=== PATIENT | male | born 1960 | race Caucasian/White ===

== ENCOUNTER 2017-11-30 13:23 | Emergency (ER) | payer OTHER, SELFPAY ==
[2017-11-30 13:24] VITALS: BP 146/110; PULSE 75; RESP 18; TEMP 36.6; O2SAT 98; BMI 32.3
--- NOTE | 2017-11-30 13:28 | CT_ITS ---
CT head/brain wo con HISTORY: Headache, pain, laceration, contusion in the left frontal area ITS.REASON: trauma ORDERING PHYSICIAN: Joy Staley MD PATIENT AGE: 57 years COMPARISON: None TECHNIQUE: Axial images obtained without contrast. Brain and bone windows reviewed. FINDINGS: No midline shift, mass effect, or intracranial hemorrhage is evident. There is generalized atrophy with periventricular ischemic gliotic change. There is a dense lobular area of calcification in the left quadrigeminal plate cistern extending to the high medial area measuring approximately 16 x 10 mm and may be due to a calcified meningioma. In addition, there is a focus of coarse calcification in the right cerebellar hemisphere associated with some gliotic change. The calcified area measures 13 mm. No acute calvarial fracture. There is a retention cyst in the right maxillary sinus measuring 3 cm. IMPRESSION: 1. No acute intracranial finding. 2. Lobular calcification left quadrigeminal plate cistern and fine-needle region which may be due to a calcified meningioma. 3. 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 4. Consider outpatient MRI without and with contrast for further evaluation to better evaluate the above-mentioned findings
--- NOTE | 2017-11-30 13:28 | CT_ITS ---
CT cervical spine wo con INDICATION: Neck pain following injury ITS.REASON: trauma ORDERING PHYSICIAN: Joy Staley MD PATIENT AGE: 57 years COMPARISON: None TECHNIQUE: Axial images are obtained without contrast. Sagittal and coronal reformatted images are reviewed as well. FINDINGS: No acute fracture or dislocation. There is normal alignment. There is mild multilevel cervical spondylosis. C2-C3: Mild bulging disc. C3-C4: Small broad-based central disc protrusion. C4 C5: Unremarkable. C5-C6: Mild degenerative disc disease with atrophic by the minimal bulging disc. C6-C7: Mild degenerative disc disease with anterior osteophytes. IMPRESSION: 1. No acute fracture. 2. Cervical spondylosis with degenerative disc disease and bulging disc
--- NOTE | 2017-11-30 13:29 | HMH.EDFALL ---
ED Disposition Clinical Impression: Laceration of left eyebrow without complication, Fall, DJD (degenerative joint disease), cervical, Encephalomalacia, Encephalomalacia on imaging study Disposition: Home, Self-Care Condition on Discharge: Fair Additional Instructions: 1- wound care inst. 2- daily neosporin. 3- 2 days wound recehck. 4- 7 days stitches removal. 6- observe for redness to return. 7- head inj instructions. 8- follow up with pcp in am ro discuss his ct non emergent findings. . - Critical Care Critical Care Time: No Attestation: On , the high probability of a clinically significant, sudden or life threatening deterioration of the following system(s) required my full and direct attention, intervention and personal management. The time I documented below is in addition to time spent performing reported procedures but includes the following listed in this critical care notation. Medical Decision Making - Medical Records Medical records reviewed: Yes: I reviewed the patient's medical records. Vital Signs: 11/30/17 13:24 Temperature 97.8 F Temperature Source Oral Pulse Rate [Right Brachial] 75 Respiratory Rate 18 Blood Pressure [Right Arm] 146/110 Blood Pressure Mean [Right Arm] 122 Blood Pressure Source [Right Arm] Automatic Cuff Blood Pressure Position [Right Arm] Sitting 02 Sat by Pulse Oximetry 98 Oxygen Delivery Method Room Air - CT Data CT Scan: C-Spine Time Received: 14:[address] Reviewed: Yes: I have reviewed the patient's CT results, I have viewed the radiologist's interpretation Preliminary Findings: Abnormal (cervial djd and old cva encephalmalecia with no acute findings. ) - Jayce Inquiry Pt receiving controlled substance: No Jayce was queried for this patient: No Medical Decision Making Narrative: This is an addendum to the patient laceration. Underwent 1 stitche 5.0 Ethilon to the left eyebrow laceration. Was mentioned intravenously in the procedure section as two stitches. IMPRESSION: 1. No acute intracranial finding. 2. Lobular calcification left quadrigeminal plate cistern and fine-needle region which may be due to a calcified meningioma. 3. 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 4. Consider outpatient MRI without and with contrast for further evaluation to better evaluate the above-mentioned findings I reviewed the above report with the patient and gave him a copy to follow-up with his primary care physician. Fall HPI - General Chief Complaint: Fall Stated Complaint: fall w/head injury Mode of Arrival: EMS Limitations: No Limitations Description of Symptoms (Recalled from ER Triage Doc. by RN): fell while walking and landed on his left face - History of Present Illness HPI Narrative: 57 years old white male patient on no anticoagulation. [facility] when he tripped fell and hit his left eyebrow on the sidewalk with a result of laceration. Denies loss of consciousness or neck pain. bleeding stopped. MD complaint: fall Onset (ago): minute(s) (less than 30 minutes ago.) Fall from: walking Fall witnessed: yes, by bystander Loss of consciousness: none Prolonged down time: no Symptoms prior to fall: none Context: tripped/slipped Location of injury: face Severity: mild Associated symptoms (after fall): denies - Related Data Allergies Allergy/AdvReac Type Severity Reaction Status Date / Time NO KNOWN ALLERGIES - NKA Allergy Unknown Uncoded 10/22/17 14:02 [facility] History I have reviewed the patient's past medical history: Yes - *Social History Educational Level: Completed High School Smoking Status: Current every day smoker Alcohol Intake: never - Psychiatric History Expresses thoughts of harming self/others: None Suicide Plan Description: No Plan ROS Obtained: Yes All systems reviewed & no additional complaints Aura
--- NOTE | 2017-11-30 13:32 | ED_ITS ---
ED Disposition Clinical Impression: Laceration of left eyebrow without complication, Fall, DJD (degenerative joint disease), cervical, Encephalomalacia, Encephalomalacia on imaging study Disposition: Home, Self-Care Condition on Discharge: Fair Additional Instructions: 1- wound care inst. 2- daily neosporin. 3- 2 days wound recehck. 4- 7 days stitches removal. 6- observe for redness to return. 7- head inj instructions. 8- follow up with pcp in am ro discuss his ct non emergent findings. . - Critical Care Critical Care Time: No Attestation: On , the high probability of a clinically significant, sudden or life threatening deterioration of the following system(s) required my full and direct attention, intervention and personal management. The time I documented below is in addition to time spent performing reported procedures but includes the following listed in this critical care notation. Medical Decision Making - Medical Records Medical records reviewed: Yes: I reviewed the patient's medical records. Vital Signs: 11/30/17 13:24 Temperature 97.8 F Temperature Source Oral Pulse Rate [Right Brachial] 75 Respiratory Rate 18 Blood Pressure [Right Arm] 146/110 Blood Pressure Mean [Right Arm] 122 Blood Pressure Source [Right Arm] Automatic Cuff Blood Pressure Position [Right Arm] Sitting 02 Sat by Pulse Oximetry 98 Oxygen Delivery Method Room Air - CT Data CT Scan: C-Spine Time Received: 14:[address] Reviewed: Yes: I have reviewed the patient's CT results, I have viewed the radiologist's interpretation Preliminary Findings: Abnormal (cervial djd and old cva encephalmalecia with no acute findings. ) - Jayce Inquiry Pt receiving controlled substance: No Jayce was queried for this patient: No Medical Decision Making Narrative: This is an addendum to the patient laceration. Underwent 1 stitche 5.0 Ethilon to the left eyebrow laceration. Was mentioned intravenously in the procedure section as two stitches. IMPRESSION: 1. No acute intracranial finding. 2. Lobular calcification left quadrigeminal plate cistern and fine-needle region which may be due to a calcified meningioma. 3. 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 4. Consider outpatient MRI without and with contrast for further evaluation to better evaluate the above-mentioned findings I reviewed the above report with the patient and gave him a copy to follow-up with his primary care physician. Fall HPI - General Chief Complaint: Fall Stated Complaint: fall w/head injury Mode of Arrival: EMS Limitations: No Limitations Description of Symptoms (Recalled from ER Triage Doc. by RN): fell while walking and landed on his left face - History of Present Illness HPI Narrative: 57 years old white male patient on no anticoagulation. [facility] when he tripped fell and hit his left eyebrow on the sidewalk with a result of laceration. Denies loss of consciousness or neck pain. bleeding stopped. MD complaint: fall Onset (ago): minute(s) (less than 30 minutes ago.) Fall from: walking Fall witnessed: yes, by bystander Loss of consciousness: none Prolonged down time: no Symptoms prior to fall: none Context: tripped/slipped Location of injury: face Severity: mild Associated symptoms (aft
[2017-11-30 14:55] VITALS: PULSE 62; RESP 18; TEMP 36.8; O2SAT 98
== END 2017-11-30 14:55 | disposition home or self-care (01) ==
PROVIDERS: Emergency Provider Emergency Medicine
DX: S01.112A Laceration without foreign body of left eyelid and periocular area, initial encounter (principal); W01.198A Fall on same level from slipping, tripping and stumbling with subsequent striking against other object, initial encounter; Y93.01 Activity, walking, marching and hiking; M47.892 Other spondylosis, cervical region; G93.89 Other specified disorders of brain; F17.210 Nicotine dependence, cigarettes, uncomplicated
CPT/HCPCS: 12011; 70450; 72125; 99282

== ENCOUNTER → 2018-02-25 09:04 | Outpatient (CLI) | payer OTHER, SELFPAY ==
--- NOTE | 2018-02-25 09:07 | XR_ITS ---
XR wrist RT min 3V HISTORY pain, fracture ITS.REASON: RIGHT WRIST FRACTURE ORDERING PHYSICIAN: Fidel Arshad MD PATIENT AGE: 57 years COMPARISON: None FINDINGS: Nondisplaced longitudinal fracture involves the central aspect of the distal radius extending into the articular surface. No other abnormalities evident. IMPRESSION: Nondisplaced longitudinal fracture of the distal radius with intra-articular extension
== END ==
PROVIDERS: PCP Emergency Medicine; Visit Provider Orthopaedic Surgery
DX: S62.101A Fracture of unspecified carpal bone, right wrist, initial encounter for closed fracture (principal)
CPT/HCPCS: 73110

== ENCOUNTER 2018-03-05 13:03 | Outpatient (RCR) | payer OTHER, SELFPAY ==
--- NOTE | 2018-03-05 14:19 | HMH.PTOPWND ---
Rehab Outpt Wound Evaluation Rehab OP Wound Evaluation Start: 03/05/18 13:48 Freq: Status: Active Protocol: Document 03/05/18 13:48 PHOULICES (Rec: 03/05/18 14:19 PHORNE [id number]) Electronically Signed By Sander Cheema, PT 03/05/18 13:48 Subjective/History History History Pt presents ~ 3 wks S/P FOOSH with right longitudinal radius fx. Currently undergoing conservative management with volar splint in place. He presents with c/o continued pain and increased edema and ecchymsosis. He is a resident of a personal senior living. Lymphedema Eval Classification of Lymphedema Secondary Lymphedema Yes Skin Changes Taut, Shiny Skin Yes Discoloration of Skin Yes Pain Scale Pain Scale (0-10) 7 Affected Extremities Areas Affected by Lymphedema/Edema Right Upper Extremity Upper Extremity Measurements Right MCP Measurement (cm) 22.0 Web Space Measurement (cm) 24.2 Ulnar Styloid Process Measurement (cm) 21.5 10 cm Proximal to Ulnar Styloid 25.0 Measurement (cm) 20 cm Proximal to Ulnar Styloid 29.8 Measurement (cm) Manual Lymphatic Drainage Treatment Area MLD Treatment Area Right Upper Extremity Wound Problems/Impairments Impairments Problems/Impairmments Palpation Tenderness Impaired Range of Motion Impaired Strength Increased Edema Lymphedema Present Subjective C/O Pain Impaired Self Care/Self Management Prognosis Rehab Potential Good Clinical Impression Consistent with Diagnosis Yes Short Term Goals Number of Weeks 4 Decreased Palpation Tenderness Yes: to min Decrease Subjective C/O Pain Yes: 5/10 Patient to Understand Lymphedema Yes Treatment and Exercises Decrease Girth Measurments by (cm) Yes: by 5 cm Correction Goals Number of Weeks 8 Decreased Palpation Tenderness Yes: to none Decrease Subjective C/O Pain Yes: 3/10 Patient to Adhere Lymphedema Precautions Yes Decrease Girth Measurments by (cm) Yes: by 15 cm Outpatient Therapy Plan of Care Treatment Plan May Include Therapeutic Exercise Including Home Yes Exercise Program Manual Therapy Techniques Yes Neuromuscular Re-education Yes Electrical Stimulation Yes Orthotics/Bracing/Splinting Yes Massage Yes Manual Lymp
== END 2018-03-05 13:04 | disposition home or self-care (01) ==
LOC: PT 13:03
PROVIDERS: PCP Emergency Medicine; Visit Provider Orthopaedic Surgery
DX: S62.101A Fracture of unspecified carpal bone, right wrist, initial encounter for closed fracture (principal); R60.0 Localized edema
CPT/HCPCS: 97162

== ENCOUNTER → 2018-03-11 09:02 | Outpatient (CLI) | payer OTHER, SELFPAY ==
--- NOTE | 2018-03-11 09:04 | XR_ITS ---
XR wrist RT min 3V HISTORY follow-up fracture ITS.REASON: RT wrist fracture ORDERING PHYSICIAN: Fidel Arshad MD PATIENT AGE: 57 years COMPARISON: 02/25/2018 FINDINGS: The study is obtained through a splint. There is good alignment of the intra-articular fracture of the distal radius. Fracture line appears somewhat less distinct and may be due to early healing. IMPRESSION: Good alignment healing fracture distal radius
== END ==
PROVIDERS: PCP Emergency Medicine; Visit Provider Orthopaedic Surgery
DX: S62.101A Fracture of unspecified carpal bone, right wrist, initial encounter for closed fracture (principal)
CPT/HCPCS: 73110

== ENCOUNTER → 2018-04-08 13:33 | Outpatient (CLI) | payer OTHER, SELFPAY ==
--- NOTE | 2018-04-08 13:34 | XR_ITS ---
XR wrist RT min 3V HISTORY follow-up fracture ITS.REASON: RT wrist fx ORDERING PHYSICIAN: Fidel Arshad MD PATIENT AGE: 57 years Comparison: 03/11/2018 FINDINGS: There is good alignment of the distal radial fracture that has been previously described. Fracture lines are less visible consistent with healing. IMPRESSION: Healing distal radial fracture with good alignment
== END ==
PROVIDERS: PCP Emergency Medicine; Visit Provider Orthopaedic Surgery
DX: S52.501A Unspecified fracture of the lower end of right radius, initial encounter for closed fracture (principal)
CPT/HCPCS: 73110

== ENCOUNTER 2018-04-11 10:52 | Outpatient (RCR) | payer OTHER, SELFPAY | END 2018-04-11 10:53 | disposition home or self-care (01) | LOC: OT 10:52 | PROVIDERS: PCP Emergency Medicine; Visit Provider Orthopaedic Surgery | DX: S52.501A Unspecified fracture of the lower end of right radius, initial encounter for closed fracture (principal) ==

== ENCOUNTER 2018-05-27 10:00 | Outpatient (RCR) | payer OTHER, SELFPAY ==
--- NOTE | 2018-04-23 11:34 | HMH.OTOPEV ---
OT Inpatient Evaluation Rehab OT Outpatient Eval Start: 04/23/18 11:21 Freq: Status: Active Protocol: Document 04/23/18 11:21 RMARSHALMaria Del Carmen (Rec: 04/23/18 11:[address] [id number] Electronically Signed By Darryn Hill OT 04/23/18 11:21 Outpatient Therapy Subjective History Subjective History Pt is a 58 year old male who is seen this date for initial eval to right wrist. Pt reports he had a fall resulting in a right wrist fracture. Pt is from a personal prison, [facility] [address] . Pt reports he has no pain in the wrist. 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 Pt does have swelling at the MP joints on his right hand. Pt will continue to be seen in order to address these deficits. Chief Complaint Stiff Swelling Decreased Software Qa Manager Strength Decreased Coordination Symptom Type Other Symptoms Relieved By Nothing Symptoms Aggravated By Physical Activity Twisting Lifting Prior Functional Limitations None Current Functional Limitations Reaching Lifting Housework Dressing Driving Sleeping Standing Recreation Activity Symptom Description Activity Dependent Level of pain today (0-10) 0 Pain scale - at its best (0-10) 0 Pain scale - at its worst (0-10) 0 Wrist/Hand Eval Wrist Range of Motion Wrist Limitations of Range of Motion Muscle Weakness Wrist Extension Active Range of Motion ( 24 degrees degrees) Wrist Flexion Active Range of Motion ( 48 degrees degrees) Wrist Radial Deviation Active Range of 22 degrees Motion (degrees) Wrist Ulnar Deviation Active Range of 22 degrees Motion (degrees) Wrist Manual Muscle Testing Right Wrist Extension Strength Grade 4- Good- Wrist Flexion Strength Grade 4- Good- Wrist Radial Deviation Strength Grade 4- Good- Wrist Ulnar Deviation Strength Grade 4- Good- Forearm Supination Strength Grade 3+ Fair+ Forearm Pronation Strength Grade 3+
== END 2018-05-27 10:01 | disposition home or self-care (01) ==
LOC: OT 10:00
PROVIDERS: PCP Emergency Medicine; Visit Provider Orthopaedic Surgery
DX: S52.501A Unspecified fracture of the lower end of right radius, initial encounter for closed fracture (principal)
CPT/HCPCS: 97110; 97140; 97166

== ENCOUNTER 2019-09-30 19:31 | Observation (INO) ==
[2019-09-30 19:49] LABS: Basophils % 0.5 % (0.1-2.0); Eosinophils # 0.1 K/mm3 (0.0-0.4); Hemoglobin 16.5 g/dL (14.1-18.0); Lymphocytes % 11.8 % (10-50); Mean Corpuscular HGB Conc 32.2 g/dL (31.8-35.4); Mean Platelet Volume 9.9 fl (7.4-10.4); Monocytes # 0.6 K/mm3 (0.1-1.0); Monocytes % 6.8 % (1.7-9.3); Neutrophils # 6.7 K/mm3 (1.8-7.8); Neutrophils % 80.1 % (37.0-80.0); Platelet Count 162 K/mm3 (142-424); Red Blood Count 5.55 M/mm3 (4.60-6.20); Red Cell Distribution Width 13.9 % (11.5-17.5); White Blood Count 8.3 K/mm3 (4.8-10.8)
[2019-09-30 19:58] LABS: Microscopic, Urine URINE MICROSCOPIC (MICROSCOPIC)
[2019-09-30 20:00] LABS: Appearance,Urine CLEAR (Clear); Bilirubin,Urine Negative (Negative); Blood, Urine Negative (Negative); Color,Urine YELLOW (Yellow); Glucose,Urine (UA) Negative (Negative); Ketones,Urine Negative (Negative); Leukocyte Esterase,Urine Negative (Negative); Protein,Urine Negative (Negative); Urobilinogen,Urine 0.2 EU/dl (0.2)
[2019-09-30 20:04] LABS: Alanine Aminotransferase 17 U/L (12-78); Albumin Level 3.6 gm/dL (3.4-5.0); Alkaline Phosphatase 95 U/L (46-116); Anion Gap 16.8 mEq/L (5-15); Aspartate Amino Transferase 10 U/L (15-37); Bilirubin,Total 0.5 mg/dL (0.2-1.0); Blood Urea Nitrogen 15 mg/dL (7-18); C-Reactive Protein 1.1 mg/dL (0.0-0.9); Calcium 8.6 mg/dL (8.5-10.1); Carbon Dioxide 26 mmol/L (21.0-32.0); Chloride 100 mmol/L (98-107); Globulin 3.7 gm/dl (1.3-3.2); Glucose 163 mg/dL (74-106); Sodium 139 mmol/L (136-145); Total Protein,Serum 7.3 gm/dL (6.4-8.2)
[2019-09-30 20:10] LABS: Bacteria,Urine Trace /lpf; Squamous Epithelial Cell,Urine Occasional #/hpf (0-5); WBC,Urine Occasional #/hpf (0-3)
[2019-09-30 20:47] LABS: Erythrocyte Sedimentation Rate 6 mm/hr (0-20)
--- NOTE | 2019-09-30 21:21 | Emergency Department Note ---
ED Disposition Clinical Impression: Acute delirium, Febrile illness, acute, RBBB, SIRS (systemic inflammatory response syndrome), Anxiety Schizophrenia Qualifiers: Schizophrenia type: unspecified Qualified Code(s): F20.9 - Schizophrenia, unspecified Hypothyroidism Qualifiers: Hypothyroidism type: acquired Qualified Code(s): E03.9 - Hypothyroidism, unspecified Disposition: Admitted as Observation Condition on Discharge: Serious - Critical Care Critical Care Time: No Attestation: On 09/30/19, the high probability of a clinically significant, sudden or life threatening deterioration of the following system(s) required my full and direct attention, intervention and personal management. The time I documented below is in addition to time spent performing reported procedures but includes the following listed in this critical care notation. Medical Decision Making - Medical Records Medical records reviewed: Yes: I reviewed the patient's medical records. - Jayce Inquiry Pt receiving controlled substance: No Vital Signs: 09/30/19 19:32 09/30/19 19:59 09/30/19 21:07 Temperature 101 F H 102.1 F H 100.8 F H Temperature Source Oral Rectal Oral Pulse Rate Pulse Rate [Right Brachial] 108 H 105 H Respiratory Rate 22 18 Blood Pressure [Right Arm] 139/81 145/94 H Blood Pressure Mean [Right Arm] 100 111 Blood Pressure Source [Right Arm] Automatic Cuff Automatic Cuff Blood Pressure Position [Right Arm] Sitting Sitting 02 Sat by Pulse Oximetry 93 L 92 L Oxygen Delivery Method Room Air Room Air 09/30/19 21:48 Temperature Temperature Source Pulse Rate 105 H Pulse Rate [Right Brachial] Respiratory Rate Blood Pressure [Right Arm] Blood Pressure Mean [Right Arm] Blood Pressure Source [Right Arm] Blood Pressure Position [Right Arm] 02 Sat by Pulse Oximetry 93 L Oxygen Delivery Method Room Air - Lab Data Lab results reviewed: Yes: I reviewed the patient's lab results. Lab Results 09/30/19 19:33: Lactate 2.0 09/30/19 19:33: TSH 1.89, Thyroxine (T4) 6.4 09/30/19 19:35: WBC 8.3, RBC 5.55, Hgb 16.5, Hct 51.0, MCV 92.0, MCH 29.7, MCHC 32.2, RDW 13.9, Plt Count 162, MPV 9.9, Neut % (Auto) 80.1 H, Lymph % (Auto) 11.8, [place] % (Auto) 6.8, Eos % (Auto) 1.0, Baso % (Auto) 0.5, Neut # (Auto) 6.7, Lymph # (Auto) 1.0, [place] # (Auto) 0.6, Eos # (Auto) 0.1, Baso # (Auto) 0.0, ESR 6 09/30/19 19:35: Sodium 139, Potassium 3.8, Chloride 100, Carbon Dioxide 26, Anion Gap 16.8 H, BUN 15, Creatinine 1.29, Estimated Creat Clear 104, Estimated GFR 57 L, Est GFR ( Amer) 69, Glucose 163 H, Calcium 8.6, Total Bilirubin 0.5, AST 10 L, ALT 17, Alkaline Phosphatase 95, Troponin I < 0.02, C-Reactive Protein 1.1 H, Total Protein 7.3, Albumin 3.6, Globulin 3.7 H, Albumin/Globulin Ratio 1.0 L 09/30/19 19:42: POC Glucose 170 H 09/30/19 19:54: Urine Color Yellow, Urine Appearance Clear, Urine pH 7.0, Ur Specific [place] 1.010, Urine Protein Negative, Urine Glucose (UA) Negative, Urine Ketones Negative, Urine Blood Negative, Urine Nitrate Negative, Urine Bilirubin Negative, Urine Urobilinogen 0.2, Ur Leukocyte Esterase Negative, Urine WBC Occasional, Ur Squamous Epith Cells Occasional, Urine Bacteria Trace 09/30/19 20:30: Influenza Type A Ag Negative, Influenza Type B Ag Negative Result diagrams: 09/30/19 19:35 09/30/19 19:35 Orders (Tests/Meds): ED MEDICATIONS Generic Name Dose Route Start Last Admin Trade Name Freq PRN Reason Stop Dose Admin Ceftriaxone Sodium 1 gm/ 50 mls @ 100 mls/hr 09/30/19 21:30 09/30/19 21:34 Sodium Chloride IV 10/14/19 21:29 100 mls/hr Q24H MICKEY Administration Protocol Azithromycin 500 mg/ Sodium 250 mls @ 250 mls/hr 09/30/19 21:30 09/30/19 22:27 Chloride IV 10/14/19 21:29 250 mls/hr Q24H MICKEY Administration Protocol Sodium Chloride 3 ml 09/30/19 21:26 Sodium Chloride 3% 15ml Neb IH 10/30/19 21:25 ONCE PRN INDUCE SPUTUM COLLECTION Discontinued Medications Generic Name Dose Route Start Last Admin Trade Name Sabas PRN Reason Stop Dose Admin Acetaminophen 1,000 mg 09/30/19 19:59 09/30/19 20:15 Tylenol 500mg Tablet PO 09/30/19 20:00 1,000 mg ONCE ONE Administration Albuterol Sulfate 2.5 mg 09/30/19 21:26 09/30/19 21:47 Albuterol 0.083% 2.5mg/3ml Neb IH 09/30/19 21:27 2.5 mg ONCE ONE Administration ORDERS Category Date Time Status CT head/brain wo con Stat Cat Scan 09/30/19 19:57 Taken Troponin I Q3H Lab 09/30/19 22:45 Ordered Troponin I Q3H Lab 10/01/19 01:45 Ordered Blood Culture Stat Micro 09/30/19 19:33 Received Sputum Culture & Gram Stain Stat Micro 09/30/19 21:26 Ordered - Radiology Data #1 Image(s): Chest Image Reviewed: Yes I reviewed the patient's radiology image Preliminary Findings: Abnormal - CT Data CT Scan: Head, Abdomen, Pelvis Time Received: 21:[address] Reviewed: Yes: I have viewed the radiologist's interpretation Preliminary Findings: Abnormal (chronic changes ) - ECG Data Tracing #1 Arrhythmias present: sinus tach Ischemic changes: non-specific ST-T wave changes Conduction abnormalities present: RBBB Altered Mental Status HPI - General Chief Complaint: Altered Mental Status Stated Complaint: AMS; SHAKING AND SWEATING Time Seen by Provider: 09/30/19 20:10 Mode of Arrival: EMS Source of Information: Patient, EMS, Medical Record Limitations: No Limitations Description of Symptoms (Recalled from ER Triage Doc. by RN): PATIENT PRESENTS TO TRAUMA 4 VIA EMS FROM [facility] C/O AMS, SHAKING AND DIAPHORESIS. EMS REPORT PATIENT HAD "SOILED HIMSELF." REPORTS HE TOOK A SHOWER AND AFTER HIS SHOWER, HE WAS REALLY SWEATY, SHAKING, AND "NOT ACTING LIKE HIMSELF." PATIENT IS ALERT BUT ONLY ORIENTED TO HIMSELF UPON ARRIVAL. [facility] AND EMS REPORT PATIENT IS TYPICALLY A/OX4. DENIES ANY KNOWN INJURY. - History of Present Illness HPI narrative: pt from [facility] with shaking and fever with some cough who presents for eval in ed -with confusion - MD complaint: altered mental status, confusion, weakness Onset (ago): hour(s) Timing confirmed by: caregiver Severity: moderate Context: recent fever Associated symptoms: denies other symptoms - Related Data Home Medications Medication Instructions Recorded Confirmed acetaminophen 500 mg capsule 500 mg PO Q6H PRN 02/25/18 09/30/19 bisacodyl 5 mg tablet 5 mg PO ONCE 02/25/18 09/30/19 clonazepam 1 mg tablet 1 mg PO QHS 02/25/18 09/30/19 divalproex 500 mg tablet,delayed 500 mg PO BID 02/25/18 09/30/19 release haloperidol 10 mg tablet 10 mg PO BID 02/25/18 09/30/19 lactulose 10 gram/15 mL oral 10 g PO ONCE 02/25/18 09/30/19 solution levothyroxine 100 mcg capsule 100 mcg PO ONCE 02/25/18 09/30/19 omega-3 fatty acids 1,000 mg 1,000 mg PO ONCE 02/25/18 09/30/19 capsule quetiapine 400 mg tablet 400 mg PO ONCE 02/25/18 09/30/19 risperidone 1 mg tablet 1 mg PO ONCE 02/25/18 09/30/19 LORazepam [Ativan 1mg tablet] 1 mg PO Q8H PRN 09/30/19 09/30/19 OXcarbazepine [Oxcarbazepine] 300 mg PO BID 09/30/19 09/30/19 Allergies Allergy/AdvReac Type Severity Reaction Status Date / Time NO KNOWN ALLERGIES - NKA Allergy Unknown Uncoded 04/08/18 13:45 [facility] History - Hepatitis A Screen Drug use history?: No High risk sexual behaviors?: No History of sexually transmitted infection?: No Currently employed?: No Childcare worker?: No Do you have indoor plumbing?: Yes Do you have electricity?: Yes Attestation statement:: This patient has been screened for Hepatitis A risk factors. I have reviewed the patient's past medical history: Yes Medical History: Reports:: Anxiety Other Medical History: Reports: Hypothyroidism Comment: Schizoaffective Other Surgeries: Yes: No Previous Surgery Fractures: Yes - Social History Smoking Status: Current every day smoker Tobacco Type: cigarettes # Packs/Day (cigarettes): 1 Alcohol Intake: never Substance Use Type: denies use Occupational Status: disabled Housing: assisted living facility Household Members: caregiver - Psychiatric History Pschychiatric History:: Reports:: Anxiety Family Hx:: Unable to obtain ROS Obtained: Yes All systems reviewed & no additional complaints - Constitutional Constitutional: Reports as per HPI, Reports fever(s), Reports weakness - Eyes Eyes: Denies change in vision - ENT Ears, Nose, Mouth, and Throat: Denies dizziness, Denies sore throat - Cardiovascular Cardiovascular: Denies chest pain, Denies dyspnea - Respiratory Respiratory: Yes as per HPI, Yes cough, Yes non-productive cough, No coughing up blood - Gastrointestinal Gastrointestingal: Denies: abdominal pain, diarrhea, nausea, vomiting - Genitourinary Male Genitourinary: Denies hematuria - Musculoskeletal Musculoskeletal: Denies joint pain, Denies joint swelling - Integumentary/Breasts Skin/Breast: Denies rash - Neurologic Neurologic: Reports as per HPI, Denies focal weakness, Denies headache(s), Denies seizure-like activity, Reports weakness Physical Exam - General General appearance: alert, obese - Head Head exam: normocephalic - Eye Eye exam: Present: PERRL, EOMI. Absent: scleral icterus - ENT ENT exam: Present: mucous membranes dry - Neck Neck exam: Present: trachea midline - Respiratory Respiratory exam: Present: other (rhonchi). Absent: respiratory distress - Cardiovascular Cardiovascular exam: Present: regular rate, systolic murmur, +S4 - Abdominal Exam Abdominal exam: Present: soft. Absent: tenderness, guarding - Extremities Exam Extremities exam: Absent: calf tenderness - Neurological Exam Neurological exam: Present: alert, oriented X3, CN II-XII intact - Psychiatric Psychiatric exam: Absent: normal affect - Skin Skin exam: Absent: rash
[2019-09-30 22:05] LABS: Thyroid Stimulating Hormone 1.89 uIU/ml (0.358-3.740)
[2019-10-01 06:29] LABS: Anion Gap 12.6 mEq/L (5-15)
[2019-10-01 06:54] LABS: Calcium 7.6 mg/dL (8.5-10.1)
[2019-10-01 06:58] LABS: Eosinophils % 0.6 % (0.1-12.0); Hematocrit 48.6 % (42.0-52.0); Hemoglobin 14.9 g/dL (14.1-18.0); Lymphocytes % 10.9 % (10-50); Mean Corpuscular HGB Conc 30.7 g/dL (31.8-35.4); Mean Corpuscular Volume 93.7 fl (80-94); Mean Platelet Volume 9.7 fl (7.4-10.4); Monocytes % 7.7 % (1.7-9.3); Neutrophils % 80.5 % (37.0-80.0); Platelet Count 135 K/mm3 (142-424); Red Blood Count 5.18 M/mm3 (4.60-6.20); Red Cell Distribution Width 14.2 % (11.5-17.5); White Blood Count 6.5 K/mm3 (4.8-10.8)
[2019-10-01 06:59] LABS: Basophils % 0.4 % (0.1-2.0); Lymphocytes # 0.7 K/mm3 (0.7-4.5); Monocytes # 0.5 K/mm3 (0.1-1.0); Neutrophils # 5.2 K/mm3 (1.8-7.8)
--- NOTE | 2019-10-01 08:20 | Pharmacy Consult Notes ---
[facility] Pharmacy VTE Monitoring - Patient Demographics Admission date: 10/01/19 Report Date: 10/01/19 Time: 08:19 Height: 1.83 m Weight: 100.896 kg Patient Problems: Current Active Problems Acute delirium (Acute) Febrile illness, acute (Acute) RBBB (Acute) SIRS (systemic inflammatory response syndrome) (Acute) Schizophrenia (Acute) Hypothyroidism (Acute) Anxiety (Acute) - VTE Risk Labs: VTE Related Lab Results Hgb 14.9 g/dL (14.1-18.0) 10/01/19 05:50 Hct 48.6 % (42.0-52.0) 10/01/19 05:50 Plt Count 135 K/mm3 (142-424) L 10/01/19 05:50 BUN 18 mg/dL (7-18) 10/01/19 05:50 Creatinine 1.06 mg/dL (0.70-1.30) 10/01/19 05:50 Estimated Creat Clear 108 mL/min (50-200) 10/01/19 05:50 Was VTE Risk Assessment Performed: Yes VTE Score: 2 VTE Risk Level: Very Low Risk - Prophylaxis VTE Prophylaxis Ordered?: Yes Types of VTE Prophylaxis: TEDS Knee High Location of Applied Device: Bilateral Lower Extremeties
--- NOTE | 2019-10-01 08:24 | History & Physical Report ---
*Admission Date: 10/01/19 *Chief complaint: confusion *History of present illness: [facility] and had onset of fever and confusion with no rash and occ cough and loose stool - pt with no chest pain [facility] History I have reviewed the patient's past medical history: Yes Medical History: Reports:: Anxiety Denies:: Cancer, Diabetes Mellitus Type 1, Diabetes Mellitus Type 2, MRSA *Have you ever received a pneumonia vaccine?: No *Have you received a flu vaccine this season?: No Other Medical History: Reports: Hypothyroidism Other Surgeries: Yes: No Previous Surgery Amputation: No Fractures: Yes - *Social History Educational Level: Attended Grade School Smoking Status: Current every day smoker Tobacco Type: cigarettes # Packs/Day (cigarettes): 1 Alcohol Intake: never Substance Use Type: denies use *Occupational Status:: disabled Housing: assisted living facility Household Members: caregiver *Travel in the last 8 weeks: None - Psychiatric History Pschychiatric History:: Reports:: Anxiety Family Hx:: Unable to obtain Review of Systems - Review of Systems Review of systems:: pertinent systems reviewed and negative unless documented below - Constitutional Reports weakness, Denies headache(s) - Eyes Denies change in vision - ENT Reports dry mouth - *Cardiovascular Denies shortness of breath - *Respiratory Reports cough, Denies shortness of breath - *Gastrointestinal Reports loose stools, Reports nausea, Denies abdominal pain - *Genitourinary Denies urinary frequency - *Musculoskeletal Denies joint pain - Integumentary/Breasts Denies rash - *Neurologic Reports weakness, Denies dizziness, Denies localized weakness, Denies headache(s), Denies seizure-like activity - Psychiatric Reports confusion Meds Home Medications Medication Instructions Recorded Confirmed Type bisacodyl 5 mg tablet 5 mg PO DAILY 02/25/18 10/01/19 History clonazepam 1 mg tablet 1 mg PO BID 02/25/18 10/01/19 History divalproex 500 mg tablet,delayed 500 mg PO BID 02/25/18 10/01/19 History release lactulose 10 gram/15 mL oral 30 ml PO DAILY 02/25/18 10/01/19 History solution levothyroxine 100 mcg capsule 100 mcg PO DAILY 02/25/18 10/01/19 History omega-3 fatty acids 1,000 mg 1,000 mg PO BID 02/25/18 10/01/19 History capsule quetiapine 400 mg tablet 400 mg PO BID 02/25/18 10/01/19 History risperidone 1 mg tablet 4 mg PO BID 02/25/18 10/01/19 History LORazepam [Ativan 1mg tablet] 1 mg PO Q8H PRN 09/30/19 09/30/19 History OXcarbazepine [Oxcarbazepine] 300 mg PO BID 09/30/19 10/01/19 History Acetaminophen [Acetaminophen Extra 500 mg PO Q6HP PRN 10/01/19 10/01/19 History Strength] Haloperidol [Haldol 5mg tablet] 10 mg PO TID 10/01/19 10/01/19 History Exam Vital signs and Labs for Last 24 Hours: Temp Pulse Resp BP Pulse Ox 99.3 F 63 19 165/98 H 94 L 10/01/19 07:29 10/01/19 07:29 10/01/19 07:29 10/01/19 07:29 10/01/19 07:29 Laboratory Results - last 24 hr 09/30/19 19:33: Lactate 2.0 09/30/19 19:33: TSH 1.89, Thyroxine (T4) 6.4 09/30/19 19:35: WBC 8.3, RBC 5.55, Hgb 16.5, Hct 51.0, MCV 92.0, MCH 29.7, MCHC 32.2, RDW 13.9, Plt Count 162, MPV 9.9, Neut % (Auto) 80.1 H, Lymph % (Auto) 11.8, [place] % (Auto) 6.8, Eos % (Auto) 1.0, Baso % (Auto) 0.5, Neut # (Auto) 6.7, Lymph # (Auto) 1.0, [place] # (Auto) 0.6, Eos # (Auto) 0.1, Baso # (Auto) 0.0, ESR 6 09/30/19 19:35: Sodium 139, Potassium 3.8, Chloride 100, Carbon Dioxide 26, Anion Gap 16.8 H, BUN 15, Creatinine 1.29, Estimated Creat Clear 104, Estimated GFR 57 L, Est GFR ( Amer) 69, Glucose 163 H, Calcium 8.6, Total Bilirubin 0.5, AST 10 L, ALT 17, Alkaline Phosphatase 95, Troponin I < 0.02, C-Reactive Protein 1.1 H, Total Protein 7.3, Albumin 3.6, Globulin 3.7 H, Albumin/Globulin Ratio 1.0 L 09/30/19 19:42: POC Glucose 170 H 09/30/19 19:54: Urine Color Yellow, Urine Appearance Clear, Urine pH 7.0, Ur Specific [place] 1.010, Urine Protein Negative, Urine Glucose (UA) Negative, Urine Ketones Negative, Urine Blood Negative, Urine Nitrate Negative, Urine Bilirubin Negative, Urine Urobilinogen 0.2, Ur Leukocyte Esterase Negative, Urine WBC Occasional, Ur Squamous Epith Cells Occasional, Urine Bacteria Trace 09/30/19 20:30: Influenza Type A Ag Negative, Influenza Type B Ag Negative 09/30/19 22:49: Troponin I < 0.02 10/01/19 05:50: WBC 6.5, RBC 5.18, Hgb 14.9, Hct 48.6, MCV 93.7, MCH 28.8, MCHC 30.7 L, RDW 14.2, Plt Count 135 L, MPV 9.7, Neut % (Auto) 80.5 H, Lymph % (Auto) 10.9, [place] % (Auto) 7.7, Eos % (Auto) 0.6, Baso % (Auto) 0.4, Neut # (Auto) 5.2, Lymph # (Auto) 0.7, [place] # (Auto) 0.5, Eos # (Auto) 0.0, Baso # (Auto) 0.0 10/01/19 05:50: Sodium 141, Potassium 3.6, Chloride 104, Carbon Dioxide 28, Anion Gap 12.6, BUN 18, Creatinine 1.06, Estimated Creat Clear 108, Estimated GFR 72, Est GFR ( Amer) 87 D, Glucose 150 H, Calcium 7.6 L D I & O for Last 24 hours: Intake & Output 09/28/19 09/29/19 09/30/19 10/01/19 11:59 11:59 11:59 11:59 Intake Total 771 / 771 Output Total 300 / 300 Balance 471 / 471 Weight 222 lb 7 oz - Constitutional no acute distress, obese - *Routine HEENT Exam Head: Present: normocephalic Eye: Present: EOMI, PERRL. Absent: conjunctival icterus ENT: Present: mucous membranes dry - *Routine Neck Exam Present: supple. Absent: JVD - *Routine Respiratory Exam Present: rhonchi - *Routine Cardiovascular Exam Present: RRR, murmur - *Routine Abdominal Exam Present: soft - *Routine Extremities Exam Absent: calf tenderness - *Routine Skin Exam Present: intact - *Routine Neurological Exam Present: CN II-XII intact, altered mental status - Routine Psychiatric Exam Present: anxious. Absent: good insight Assessment and Plan (1) Obesity (BMI 30.0-34.9) Current visit: Yes Status: Acute Category: Medical Code(s): E66.9 - Obesity, unspecified (2) Acute delirium Current visit: Yes Status: Acute Category: Medical Code(s): R41.0 - Disorientation, unspecified (3) Febrile illness, acute Current visit: Yes Status: Acute Category: Medical Code(s): R50.9 - Fever, unspecified (4) RBBB Current visit: Yes Status: Acute Category: Medical Code(s): I45.10 - Unspecified right bundle-branch block (5) SIRS (systemic inflammatory response syndrome) Current visit: Yes Status: Acute Category: Medical Code(s): R65.10 - Systemic inflammatory response syndrome (SIRS) of non-infectious origin without acute organ dysfunction (6) Schizophrenia Current visit: Yes Status: Acute Qualifiers: Schizophrenia type: unspecified Qualified Code(s): F20.9 - Schizophrenia, unspecified Category: Medical Code(s): F20.9 - Schizophrenia, unspecified (7) Hypothyroidism Current visit: Yes Status: Acute Qualifiers: Hypothyroidism type: acquired Qualified Code(s): E03.9 - Hypothyroidism, unspecified Category: Medical Code(s): E03.9 - Hypothyroidism, unspecified (8) Anxiety Current visit: Yes Status: Acute Category: Medical Code(s): F41.9 - Anxiety disorder, unspecified (9) Tobacco use Current visit: Yes Status: Acute Category: Medical Code(s): Z72.0 - Tobacco use
--- NOTE | 2019-10-02 11:40 | Electrocardiograph Report ---
APPROVED REPORT Exam: Resting ECG HR:108 bpm ECG Measurements Heart Rate 108 AXES VA 152 P 60 QRSd 130 QRS 45 QT 374 T49 QTc 501 <Conclusion> Sinus tachycardia Right bundle branch block Abnormal ECG Electronically signed by : Timi De Leon, 10/02/2019 11:40:35
--- NOTE | 2019-10-02 11:52 | Discharge Summary ---
General - General Admission date:: 10/01/19 Discharge date: 10/02/19 HPI HPI: this pt lives [facility] and had onset of fever and confusion with no rash and occ cough and loose stool - pt with no chest pain Hospital Course Hospital Course: pt has did well with ivf and had stool consistent with norovirus - pt has been tolerating diet and has baseline activity - pt with stable vs and labs and will d/c to [facility] today Objective Vital signs: Temp Pulse Resp BP Pulse Ox 99.9 F H 90 17 133/77 94 L 10/02/19 08:00 10/02/19 08:00 10/02/19 08:00 10/02/19 08:00 10/02/19 08:00 no acute distress - *Routine HEENT Exam Head: Present: normocephalic Eye: Present: EOMI, PERRL ENT: Present: mucous membranes moist - *Routine Neck Exam Present: supple. Absent: JVD - *Routine Cardiovascular Exam Present: RRR. Absent: murmur - *Routine Abdominal Exam Present: soft - *Routine Extremities Exam Present: full ROM - *Routine Skin Exam Present: intact - *Routine Neurological Exam Present: alert, CN II-XII intact - Routine Psychiatric Exam Present: normal affect Results Labs on day of discharge: Labs from last 24 hours 10/01/19 11:39 Stl Aeromonas (PCR) Not detected Stl C. cayetanensis PCR Not detected Stool Rotavirus (PCR) Not detected Stl Adenov F 40/41 PCR Not detected Stool Astrovirus (PCR) Not detected Stool Campylobacter PCR Not detected Stl C.difficile Tox PCR Not detected Stool Cryptosporidium PCR Not detected Stl E.coli Shiga Tox PCR Not detected Stool E coli O157 PCR Not detected Stl Enterotoxigenic E PCR Not detected Stool EPEC (PCR) Not detected Stool EAEC (PCR) Not detected Stl E. histolytica PCR Not detected Stool Giardia Lamblia PCR Not detected Stool Salmonella PCR Not detected Stool Sapovirus (PCR) Not detected Stl P. shigelloides PCR Not detected Stl Shigella/EIEC PCR Not detected St Y.enterocolitica PCR Not detected Stool Vibrio (PCR) Not detected Stl Vibrio cholerae PCR Not detected Stl Norovirus GI/GII PCR Detected A DS: Diagnosis - Discharge Diagnosis (1) Obesity (BMI 30.0-34.9) Status: Acute (2) Acute delirium Status: Acute (3) Febrile illness, acute Status: Acute (4) RBBB Status: Acute (5) SIRS (systemic inflammatory response syndrome) Status: Acute (6) Schizophrenia Status: Acute (7) Hypothyroidism Status: Acute (8) Anxiety Status: Acute (9) Tobacco use Status: Acute (10) Enteritis due to Norovirus Status: Acute Discharge Plan - Patient Discharge Instructions ACTIVITY: Continue current activity DIET: continue same diet Patient Instructions: Norovirus Infection, DI for Fever (Symptom) -- Adult, DI for Norovirus Infection - Follow up Plan Disposition: Home, Self-Retirement Medications: Home Medications Medication Instructions Recorded Confirmed Type bisacodyl 5 mg tablet 5 mg PO DAILY 02/25/18 10/01/19 History clonazepam 1 mg tablet 1 mg PO BID 02/25/18 10/01/19 History divalproex 500 mg tablet,delayed 500 mg PO BID 02/25/18 10/01/19 History release lactulose 10 gram/15 mL oral 30 ml PO DAILY 02/25/18 10/01/19 History solution levothyroxine 100 mcg capsule 100 mcg PO DAILY 02/25/18 10/01/19 History omega-3 fatty acids 1,000 mg 1,000 mg PO BID 02/25/18 10/01/19 History capsule quetiapine 400 mg tablet 400 mg PO BID 02/25/18 10/01/19 History risperidone 1 mg tablet 4 mg PO BID 02/25/18 10/01/19 History LORazepam [Ativan 1mg tablet] 1 mg PO Q8H PRN 09/30/19 09/30/19 History OXcarbazepine [Oxcarbazepine] 300 mg PO BID 09/30/19 10/01/19 History Acetaminophen [Acetaminophen Extra 500 mg PO Q6HP PRN 10/01/19 10/01/19 History Strength] Haloperidol [Haldol 5mg tablet] 10 mg PO TID 10/01/19 10/01/19 History Prescriptions/Medication Reconciliation: Continued clonazepam 1 mg tablet 1 mg PO BID bisacodyl 5 mg tablet 5 mg PO DAILY divalproex 500 mg tablet,delayed release 500 mg PO BID levothyroxine 100 mcg capsule 100 mcg PO DAILY quetiapine 400 mg tablet 400 mg PO BID risperidone 1 mg tablet 4 mg PO BID omega-3 fatty acids 1,000 mg capsule 1,000 mg PO BID OXcarbazepine [Oxcarbazepine] 300 mg PO BID Acetaminophen [Acetaminophen Extra Strength] 500 mg PO Q6HP PRN PRN Reason: FEVER/PAIN Haloperidol [Haldol 5mg tablet] 10 mg PO TID Discontinued lactulose 10 gram/15 mL oral solution 30 ml PO DAILY LORazepam [Ativan 1mg tablet] 1 mg PO Q8H PRN PRN Reason: Anxiety - Problem Reconciliation Problems Reviewed?: Yes
--- OUTSIDE RECORDS SUMMARY | 2019-10-02 15:02 | External Medical Summary | Continuity of Care Document ---
:1960 Author Organization [facility] Address [address] [facility] [address] PRASANNA [place] Phone Care Team Providers Name Role Phone Renee De Primary Care Provider Renee De Attending Provider Allergies, Adverse Reactions, Alerts No known allergies. Medications Medication Status Dose Units Route Sig Qty Days Start End Instruct ions Date Date Clonazepam Active 1 MG Oral Twice a February 9:52am Bisacodyl Active 5 MG Oral Daily February 25, 2018 9:52am Divalproex Active 500 MG Oral Twice a February 9:53am Hatch-3 Fatty Active 1000 MG Oral Twice a February Acids 2017 9:53am Levothyroxine Active 100 MCG Oral Daily February 9:54am Quetiapine Active 400 MG Oral Twice a February 9:54am Risperidone Active 4 MG Oral Twice a February 9:54am Oxcarbazepine Active 300 MG Oral Twice a September 8:02pm Acetaminophen Active 500 MG Oral Every 6 September hours , as 2019 needed 12:16am Haloperidol Active 10 MG Oral Three September times a 2018 12:23am Problems Active Problems Medical Problem Onset Date Status Encephalomalacia on imaging study Active Enteritis due to Norovirus Active Encephalomalacia Active Acute delirium Active Anxiety Active RBBB Active Laceration of left eyebrow without Activ e complication Hypothyroidism Active SIRS (systemic inflammatory response Act amaury syndrome) Obesity (BMI 30.0-34.9) Active Schizophrenia Active DJD (degenerative joint disease), Active cervical Tobacco use Active Fall Active Febrile illness, acute Active Procedures Procedure Date Performed Status XR chest 2V September 30, [address] head/brain wo con September 30, 2019 completed ECG initial Moises September 30, [address] abdomen pelvis wo con September 30, 2019 completed Blood Culture September 30, 2019 active Relevant Diagnostic Tests and/or Laboratory Data Laboratory Results Test Date/Time Result Interpretation Reference Result Perfo rming Range Comment Site White Blood September 6.5 K/mm3 4.8-10.8 [facility], [address] [place] [address] E Count 2018 Tamiko MIMS 93383 5:50am Red Blood September 5.18 M/mm3 4.60-6.20 [facility], [address] [place] [address] E Count 2018 Tamiko MIMS 60738 5:50am Hemoglobin September 14.9 g/dL 14.1-18.0 [facility], [address] [place] [address] E 2018 Tamiko MIMS 78699 5:50am Hematocrit September 48.6 % 42.0-52.0 [place] [address] E 2018 Tamiko MIMS 99951 5:50am Mean September 93.7 fl 80-94 [facility], [address] [place] [address] E Corpuscular 2018 Isamar MIMS 65794 Volume 5:50am Mean September 28.8 pg 27.0-31.2 [facility], [address] [place] [address] E Corpuscular 2018 Isamar MIMS 70781 Hemoglobin 5:50am Mean September 30.7 g/dL 31.8-35.4 [facility], [address] [place] [address] E Corpuscular 2018 Isamar MIMS 78175 Hemoglobin 5:50am Concent Red Cell September 14.2 % 11.5-17.5 [facility], [address] [place] [address] E Distribution 2018 Addy MIMS 74970 Width 5:50am Platelet September 135 K/mm3 142-424 [place] [address] E Count 2018 Tamiko MIMS 26575 5:50am Mean Platelet September 9.7 fl 7.4-10.4 [facility], [address] [place] [address] E Volume 2018 Tamiko MIMS 42546 5:50am Neutrophils September 80.5 % 37.0-80.0 [facility], [address] [place] [address] 36 E (%) (Auto) 2018 Lucho MIMS 40540 5:50am Lymphocytes November 10.9 % 10-50 [facility], [address] [place] [address] E (%) (Auto) 2018 Lucho MIMS 48058 5:50am Monocytes (%) September 7.7 % 1.7-9.3 [facility], [address] [place] [address] E (Auto) 2018 Tamiko MIMS 65015 5:50am Eosinophils November 0.6 % 0.1-12.0 [facility], [address] [place] [address] E (%) (Auto) 2018 Lucho MIMS 41397 5:50am Basophils (%) September 0.4 % 0.1-2.0 [facility], [address] [place] [address] E (Auto) 2018 Tamiko MIMS 75729 5:50am Neutrophils # September 5.2 K/mm3 1.8-7.8 [facility], [address] [place] [address] E (Auto) 2018 Tamiko MIMS 27994 5:50am Lymphocytes # September 0.7 K/mm3 0.7-4.5 [facility], [address] [place] [address] E (Auto) 2018 Tamiko MIMS 68991 5:50am Monocytes # September 0.5 K/mm3 0.1-1.0 [facility], [address] [place] [address] E (Auto) 2018 Tamiko MIMS 04474 5:50am Eosinophils # September 0.0 K/mm3 0.0-0.4 [facility], [address] [place] [address] 36 E (Auto) 2018 Tamiko MIMS 72613 5:50am Basophils # September 0.0 K/mm3 0-0.2 [facility], [address] [place] [address] E (Auto) 2018 Tamiko MIMS 09778 5:50am Erythrocyte September 6 mm/hr 0-20 [facility], [address] [place] [address] E Sedimentation 2018 Cinthiashahbaz hillna PRASANNA [address] Rate 7:35pm Urine Color November Yellow Yellow [facility], [address] [place] [address] 36 E 2018 Tamiko Rajput31 7:54pm Urine November Clear Clear [facility], [address] [place] [address] 36 E Appearance 2018 Lucho Trejo 7:54pm Urine pH November 7.0 5.0-8.5 [facility], [address] [place] [address] 36 E 2018 Tamiko Rajput31 7:54pm Urine November 1.010 1.005-1.030 [facility], [address] [place] [address] 36 E Specific 2018 Tamiko Trejo Cranks 7:54pm Urine Protein November Negative Negative [facility], [address] [place] [address] 36 E 2018 Tamiko Trejo 7:54pm Urine Glucose November Negative Negative [facility], [address] [place] [address] E (UA) 2018 Tamiko Trejo 7:54pm Urine Ketones November Negative Negative [facility], [address] [place] [address] 36 E 2018 Tamiko Trejo 7:54pm Urine Blood November Negative Negative [facility], [address] [place] [address] 36 E 2018 Tamiko Trejo 7:54pm Urine Nitrate November Negative Negative [facility], [address] [place] [address] 36 E 2018 Tamiko Trejo 7:54pm Urine November Negative Negative [facility], [address] [place] [address] 36 E Bilirubin 2018 Tamiko Trejo 7:54pm Urine November 0.2 EU/dl [facility], [address] [place] [address] 36 E Urobilinogen 2018 Addy Trejo 7:54pm Urine November Negative Negative [facility], [address] [place] [address] 36 E Leukocyte 2018 Tamiko Trejo Esterase 7:54pm Urine WBC November Occasional [facility], [address] [place] [address] 36 E 2018 #/hpf Tamiko Rajput31 7:54pm Urine November Occasional [facility], [address] [place] [address] 36 E Squamous 2018 #/hpf Tamiko MIMS 05078 Epithelial 7:54pm Cells Urine September Trace /lpf NONE [facility], [address] [place] [address] 36 E Bacteria 2018 Tamiko MIMS 84791 7:54pm Troponin I September < 0.02 0.00-0.06 *ALERT* High [facility], [address] [place] [address] 36 E 2018 ng/ml levels of Tamiko MIMS 66636 10:49pm Biotin can falsely depress Troponin results.Many dietary supplements promoted for hair,skin, and nail benefits contain biotin levels up to 650 times the recommended daily intake of biotin. In additon to dietary supplements, Biotin is occasionally prescribed for medical conditions. Sodium Level September 141 mmol/L 136-145 [facility], [address] [place] [address] 36 E 2018 Tamiko MIMS 87612 5:50am Potassium September 3.6 mmoL/L 3.5-5.1 [facility], [address] [place] [address] E Level 2018 Tamiko MIMS 54745 5:50am Chloride September 104 mmol/L 98-107 [facility], [address] [place] [address] E Level 2018 Tamiko MIMS 24740 5:50am Carbon September 28 mmol/L 21.0-32.0 [facility], [address] [place] [address] E Dioxide Level 2018 Aniket MIMS 81095 5:50am Anion Gap September 12.6 mEq/L -15 [facility], [address] [place] [address] E 2018 Tamiko MIMS 78950 5:50am Blood Urea September 18 mg/dL 718 [facility], [address] [place] [address] E Nitrogen 2018 Tamiko MIMS 77199 5:50am Creatinine September 1.06 mg/dL 0.70-1.30 [facility], [address] [place] [address] 36 E 2018 Tamiko MIMS 31592 5:50am Estimated November 108 mL/min 0-300 [place] [address] E Creatinine 2018 Lucho MIMS 75647 Clearance 5:50am Estimated GFR September 87 ML/MIN >59 Delta: 69 on [facility], [address] [place] [address] 36 E ( 201809/30/19-1933 Cinthiashahbaz hillna PRASANNA [address] [place] Citizen) 5:50am Estimat September 72 ml/min >59 [facility], [address] [place] [address] E Glomerular 2018 Lucho MIMS 03611 Filtration 5:50am Rate Glucose Level September 150 mg/dL 74-106 [facility], [address] [place] [address] 36 E 2018 Tamiko MIMS 06443 5:50am Bedside September 170 70-110 Point-of-C a Glucose 2018 re (RALS) 7:42pm Lactate September 2.0 mmol/L 0.4-2.0 [facility], [address] [place] [address] 36 E 2018 [place] [address] 7:33pm Calcium Level September 7.6 mg/dL 8.5-10.1 Delta: 8.6 on [facility], [address] [place] [address] 36 E 201809/30/19-1933 Cinthiashahbaz camille PRASANNA [address] 5:50am Total November 0.5 mg/dL 0.2-1.0 [facility], [address] [place] [address] 36 E Bilirubin 2018 Tamiko PRASANNA 35371 7:35pm Aspartate September 10 U/L 15-37 [facility], [address] [place] [address] E Amino Transf 2018 Addy MIMS 23211 (AST/SGOT) 7:35pm Alanine September 17 U/L 12-78 [facility], [address] [place] [address] E Aminotransfer 2018 Aniket hillna PRASANNA [address] ase 7:35pm (ALT/SGPT) C-Reactive September 1.1 mg/dL 0.0-0.9 [facility], [address] [place] [address] 36 E Protein 2018 Tamiko PRASANNA 32060 7:35pm Total Protein September 7.3 gm/dL 6.4-8.2 [facility], [address] [place] [address] 36 E 2018 [place] [address] 7:35pm Albumin September 3.6 gm/dL 3.4-5.0 [facility], [address] [place] [address] 36 E 2018 [place] [address] 7:35pm Globulin September 3.7 gm/dl 1.3-3.2 [facility], [address] [place] [address] 36 E 2018 Tamiko PRASANNA 97797 7:35pm Albumin/Globu September 1.0 1.1-1.8 [facility], [address] [place] [address] 36 E flaquita Ratio 2018 [place] [address] 7:35pm Alkaline September 95 U/L 46-116 [facility], [address] [place] [address] E Phosphatase 2018 Isamar na PRASANNA 74194 7:35pm Thyroxine September 6.4 ug/dl 4.7-13.3 [facility], [address] [place] [address] E (T4) 2018 [place] [address] 7:33pm Thyroid September 1.89 uIU/ml 0.358-3.740 Please note [facility], [address] [place] [address] E Stimulating 2018 [place] [address] Hormone (TSH) 7:33pm for biotin to falsely depress the TSH result when high levels of biotin surpassing the daily recommended dose are administered. Influenza November Negative Negative [facility], [address] [place] [address] E Type A 2018 [place] [address] Antigen 8:30pm Influenza November Negative Negative [facility], [address] [place] [address] E Type B 2018 [place] [address] Antigen 8:30pm Stool November Not NotDetected [facility], [address] [place] [address] E Aeromonas 2018 [place] [address] (PCR) 11:39am Stool November Not NotDetected [facility], [address] [place] [address] E Campylobacter 2018 [place] [address] PCR 11:39am Stool C. November Not NotDetected [facility], [address] [place] [address] E difficile 2018 [place] [address] Toxin (PCR) 11:39am Stool November Not NotDetected [facility], [address] [place] [address] E Plesiomonas 2018 [place] [address] shigelloides 11:39am PCR Stool November Not NotDetected [facility], [address] [place] [address] E Salmonella 2018 [place] [address] PCR 11:39am Stool November Not NotDetected [facility], [address] [place] [address] E Yersinia 2018 [place] [address] enterocolitic 11:39am a (PCR) Stool Vibrio November Not NotDetected [facility], [facility] 36 E (PCR) 2018 [place] [address] 11:39am Stool Vibrio November Not NotDetected [facility], [address] [place] [address] 36 E cholerae 2018 [place] [address] (PCR) 11:39am Stool November Not NotDetected [facility], [address] [place] [address] E Enteroaggrega 2018 [place] [address] tive E. coli 11:39am PCR Stool November Not NotDetected [facility], [address] [place] [address] E Enteropathoge 2018 [place] [address] dana E. coli 11:39am (PCR Stool November Not NotDetected [facility], [address] [place] [address] E Enterotoxigen 2018 [place] [address] ic Ecoli PCR 11:39am Stool E. coli November Not NotDetected [facility], [address] [place] [address] E Shiga Toxins 2018 [place] [address] (PCR) 11:39am Stool E coli November Not NotDetected [facility], [address] [place] [address] 36 E O157 PCR 2018 [place] [address] 11:39am Stool November Not NotDetected [facility], [address] [place] [address] E Shigella/EIEC 2018 [place] [address] (PCR) 11:39am Stool November Not NotDetected [facility], [address] [place] [address] 36 E Cryptosporidi 2018 [place] [address] um PCR 11:39am Stool November Not NotDetected [facility], [address] [place] [address] E Cyclospora 2018 [place] [address] cayetanensis 11:39am (PCR) Stool November Not NotDetected [facility], [address] [place] [address] E Entamoeba 2018 [place] [address] histolytica 11:39am (PCR) Stool Giardia November Not NotDetected [facility], [address] [place] [address] E Lamblia PCR 2018 [place] [address] 11:39am Stool November Not NotDetected [facility], [address] [place] [address] Adenovirus F 2018 [place] [address] 40/41 (PCR) 11:39am Stool November Not NotDetected [facility], [address] [place] [address] Astrovirus 2018 [place] [address] (PCR) 11:39am Stool November Detected NotDetected [facility], [address] [place] [address] Norovirus 2018 [place] [address] GI/GII PCR 11:39am RESULT Result s called to: GARRISON on 10/01/19 at 1430By Drea Paul Stool November Not NotDetected [facility], [address] Rotavirus 2018 [place] [address] (PCR) 11:39am Stool November Not NotDetected [facility], [facility] [place] [address] Sapovirus 2018 [place] [address] (PCR) 11:39am Diagnostic Imaging Reports Report Dictated Date/Time Dictated By Status Radiology Report September 30, 2019 Tyson Negrete MD completed 7:59pm [facility] [address] [place] [address] XRay R eport Sig arlette Patient: Vincenzo Huang MR#: [id number] [birth year] : 1960 Acct:[id number] Age/Sex: 59 / M ADM Date: 9 Loc: ER Attending Dr: Ordering Physician: Mitch De MD Date of Service: 09/30/19 Procedure(s): XR chest 2V Accession Number(s): [id number] cc: Tyson Negrete MD; Mitch De MD~ PROCEDURE: XR CHEST 2V CLINICAL HISTORY: AMS; FEVER Fever, smoker COMPARISON: CXR2 CHEST-AP VIEW ONLY fr om 07/08/2014 FINDINGS: The cardiomediastinal silhouette and pu lmonary vascularity are within normal limits. There are chronic changes with chronic coarsening of the bronchovascular markings. No lobar con solidation or collapse. There is an old ununited midshaft clavicular fracture on the right. There are old fractures of the right 3rd and 4th ribs. No acute bony abnormalities. IMPRESSION: Chronic changes, no acute finding Dictated by: Tyson Negrete MD 09/30/2019 20:46 Electronically signed by Tyson Negrete in OV 09/30/2019 20:46 Radiology Report September 30, 2019 Tyson Negrete MD completed 8:04pm [facility] [address] [place] [facility] [address] [place] [address] [address] Scan Report Sig arlette Patient: Vincenzo Huang MR#: [id number] 55 : 1960 Acct:[id number] Age/Sex: 59 / M ADM Date: 9 Loc: - Attending Dr: Mitch De MD Ordering Physician: Mitch De MD Date of Service: 09/30/19 Procedure(s): CT head/brain wo con Accession Number(s): [id number] cc: Tyson Negrete MD; Mitch De MD~ PROCEDURE: CT HEAD/BRAIN WO CON CLINICAL INDICATION: AMS Altered mental status, altered level co nsciousness, confusion, disorientation COMPARISON: HEADWO CT head/brain wo co n from 11/30/2017 TECHNIQUE: Axial images obtained. All CT scans at the facility use one or more dose reduction, viz: automa javi exposure control, ma/kV adjustment per patient size (including targeted exams where dose is matched to indication, i.e. head), or i terative reconstruction technique. FINDINGS: Helical images are acquired due to corina ent's inability to remain still. Patient's head is rotated to th e right. No midline shift, mass effect, intracranial hemorrhage, o r hydrocephalus. Lobular calcification is present in the left as pect of the quadrigeminal plate cistern at 16 x 8 mm. This is no t significantly changed and could represent a calcified meningioma. In addition, there is some intraparenchymal calcification of the r ight cerebellum not significantly changed. The this could be dystrophic calcification from an old infarct/encephalomalacia ch hilario, but could also be seen with a vascular malformation.. There is prominent right maxillary rete ntion cyst with near complete opacification of the right maxillary si nus. IMPRESSION: 1. No change with no acute finding. 2. Stable calcification in the left vasu drigeminal plate cistern and right cerebellum Dictated by: Tyson Negrete MD 10/01/2019 04:52 Electronically signed by Tyson Negrete in OV 10/01/2019 04:52 Radiology Report September 30, 2019 Tyson Negrete MD completed 10:19pm [facility] [address] [place] [facility] [address] [place] [address] CT Scan Report Sig arlette Patient: Vincenzo Huang MR#: [id number] 55 : 1960 Acct:[id number] Age/Sex: 59 / M ADM Date: 9 Loc: 2ND 215-[address]: Mitch De MD Ordering Physician: Mitch De MD Date of Service: 09/30/19 Procedure(s): CT abdomen pelvis wo con Accession Number(s): [id number] cc: Tyson Negrete MD; Mitch De MD~ PROCEDURE: CT ABDOMEN PELVIS WO CON CLINICAL INDICATION: FEVER The fever of unknown origin with abdomi nal pain COMPARISON: No exams were available fo r comparison TECHNIQUE: Axial images obtained with sagittal and coronal reformats. All CT scans at the facility use one or more dose reduction, viz: automated exposure cont rol, ma/kV adjustment per patient size (including targeted exams where dose is matched to indication, i.e. head), or iterative re construction technique. FINDINGS: LOWER THORAX: There are trace bilateral pleural effusions with atelectatic change. Coronary artery ca lcifications are noted. There is gynecomastia on right. The liver, spleen, adrenal glands, and pancreas have an unremarkable unenhanced appearance. The gallbladder slightly distended with gallstones noted in the region of the n tulio of the gallbladder. There are nonobstructive punctate right renal calculi measuring up to 3 mm in the upper pole. Exophytic hypo density noted over the superior aspect of the right kidney and may represent a small renal cyst at 1 cm. Unremarkable appendix. No evidence div erticulitis. There is a mild amount of feces in the rectosigmoid reg ion. There are fluid-filled loops of small b owel in the lower abdomen with questionable bowel wall thickening and mild distension measuring up to 3 cm. These findings could be relat ed to ileus/enteritis or even partial small bowel obstruction. Repea t study with IV and oral contrast may be of further value. No acute bony anomaly. IMPRESSION: 1. Mildly distended fluid-filled loops of small bowel with questionable bowel wall thickening. En teritis or partial small bowel obstruction is considered. Consider fo llow-up with IV and oral contrast. No obvious transition point identified 2. Right nephrolithiasis. No ureteral calculi or hydronephrosis. 3. Cholelithiasis 4. Mild amount of retained colonic fece s in the rectosigmoid Dictated by: Tyson Negrete MD 10/01/2019 06:43 Electronically signed by Tyson Negrete in OV 10/01/2019 06:43 Health Concerns Concerns diarrhea, fever, ams Advance Directives Advance Directive Response Recorded Date/Time Living Will No October 01, 2019 12:34am Chief Complaint and Reason for Visit Chief Complaint ACUTE FIBROSIS ILLNESS Reason for Visit Acute delirium Anxiety Enteritis due to Norovirus Febrile illness, acute Hypothyroidism Obesity (BMI 30.0-34.9) RBBB SIRS (systemic inflammatory response syndrome) Schizophrenia Tobacco use Encounters Encounter Location(s) Arrival/Admit Date Discharge/Depart Date Provider(s) Discharged [facility] Physician October 01, October 02, 2019 [facility] 12:06am 1:10pm MD Kenisha Floor Registered [facility] Physician October 02[facility]- 2018 2:58pm MD Kenisha Recent Diagnosis Onset Date Acute delirium Anxiety Enteritis due to Norovirus Febrile illness, acute Hypothyroidism Obesity (BMI 30.0-34.9) RBBB SIRS (systemic inflammatory response syndrome) Schizophrenia Tobacco use Assessments See care plan goals Functional Status Observation Response Date Recorded Oral Care Ability Independent October 01, 2019 12:34am Bathing Ability Assistance x1 October 01, 2019 11:47am Ambulation Ability Independent October 02, 2019 2:23pm Goals Acute Goals Nursing Diagnosis: Knowledge Deficit D isease/Condition Goal(s): Education of di sease process Instruction(s): Follow provider p jordan/instructions (See attached discharge education) Follow/up with primary care provider as instructed in discharge packet Immunizations Immunization Event Date Not Given Dose [place] Lot Vac cine Reason Number Number Informatio n Statement (VIS) Deta il Fluvirin September 04, 2007 Fluvirin August 27, 2008 Fluvirin September 19, 2010 Fluvirin August 17, 2011 Fluvirin September 09, 2013 Fluzone October High-Dose 65YR+ 2017 Fluzone Quad August 6mo+ 2016 Hepatitis A November Vaccine, adult 2017 dosage Quadrivalent August Quadrivalent September Mental Status Observation Response Date Recorded Comprehension Ability Mild Impairment October 02 9 9:00am Able to Read Yes October 01, 2019 12:34am Able to Write Yes October 01, 2019 12:34am Ability to Follow Directions Fair October [id number] 12:34am Eye Contact Direct Eye Contact October 01, 2019 12:34am Medical Equipment No Medical Equipment Information available Insurance Providers Guarantor Vincenzo Huang Address [place] [address] Contact Info. Home Phone: Payer Policy Id Coverage Id Subscriber's Subscriber Effective Expi ration Name Id Date [facility] [address] [id number] Claims [employer] [id number] [facility] Medicaid [id number] 2014 Self Pay Self N/A Plan of Treatment Follow up as ordered by primary care provider Future Tests Future scheduled test information is unavailable Pending Tests Pending diagnostic test information is unavailable Future Visits Future appointment information is unavailable Referrals to Other Providers Reason for Referral Start Provider Provider Contact Provider Address Referral Date Information Admission to [facility] October [address] [place] [address] Future Procedures Future procedure information is unavailable Future Medications Future medication information is unavailable Patient Instructions Norovirus Infection DI for Fever (Symptom) -- Adult DI for Norovirus Infection Social History Assigned Sex Male Vital Signs Vital Reading Result Reference Range Collection Date/ Time Height 183 cm October 02 019 5:37am Weight 99.84 kg October 02 019 5:37am Body Temperature 99.9 [degF] 97.6-99.6 October 02, 2019 8:00am Heart Rate 90 /min 60-90 October 02 019 8:00am Respiratory rate 17 /min 12-24 October 02, 2019 8:00am Oxygen saturation by 94 % 95-100 October 022018 Pulse oximetry 8:00am BP Systolic 133 mm[Hg] 110-140 October 02 019 8:00am BP Diastolic 77 mm[Hg] 60-90 October 02 019 8:00am BMI (Body Mass Index) 29.8 kg/m2 September 052018 5:37am
== END 2019-10-02 13:10 | disposition home or self-care (01) ==
LOC: ER 19:31 → 2ND 19:31 → INTOOBSV 10-01 00:06 → OBSVTOIN 10-01 00:06 → 2ND 10-01 00:06
PROVIDERS: ADMIT Emergency Medicine; ATTEND Emergency Medicine
CPT/HCPCS: 36415; 70450; 71020; 71046; 74176; 80048; 80053; 81001; 82962; 83605; 84436; 84443; 84484; 85025; 85651; 86140; 87040; 87275; 87276; 87507; 93005; 94640; 96365; 96367; 99285; G0378; J0456

== ENCOUNTER 2020-08-02 10:19 | Emergency (ER) | payer MEDICAID, SELFPAY ==
[2020-08-02 10:20] VITALS: BP 125/98; PULSE 90; RESP 18; TEMP 36.8; O2SAT 95; BMI 33.0
--- NOTE | 2020-08-02 10:24 | CT_ITS ---
PROCEDURE: CT HIP RT WO CON CLINICAL HISTORY: right hip pain after fall 2 weeks ago Persistent right hip pain COMPARISON: CT CT ABDOMEN PELVIS WO CON from 09/30/2019 TECHNIQUE: Axial images obtained with sagittal and coronal reformats. All CT scans at the facility use one or more dose reduction, viz: automated exposure control, ma/kV adjustment per patient size (including targeted exams where dose is matched to indication, i.e. head), or iterative reconstruction technique. FINDINGS: There is a nondisplaced fracture involving the junction the lateral aspect of the superior pubic ramus with the anterior medial aspect of the acetabulum. There is some minimal periosteal reaction at this area. This does not appear to extend into the articular surface of the hip. Femoral neck and head have an unremarkable appearance. There are minimal osteoarthritic changes of the right hip with slight decrease in the joint space superiorly. The surrounding soft tissues have an unremarkable appearance. IMPRESSION: Nondisplaced fracture of the junction of the lateral aspect of the superior pubic ramus with the anterior medial aspect of the acetabulum without articular involvement with mild periosteal reaction Dictated by: Tyson Negrete MD 08/02/2020 14:33 Tyson Negrete MD in [place] 08/02/2020 14:33
--- NOTE | 2020-08-02 10:24 | HMH.EDLOEX ---
ED Disposition Clinical Impression: Pelvic fracture Qualifiers: Encounter type: initial encounter Pelvic bone location: acetabulum Sublocation of acetabulum: anterior wall Fracture type: closed Fracture alignment: displaced Laterality: right Qualified Code(s): S32.411A - Displaced fracture of anterior wall of right acetabulum, initial encounter for closed fracture Disposition: Home, Self-Care Condition on Discharge: Good Instructions: DI for Pelvic Fracture Additional Instructions: Remain weightbearing as tolerated. Use ibuprofen/Tylenol for pain. Follow-up with orthopedics and with primary care as instructed. Referrals: Mitch De MD [Primary Care Provider] - 3 days Roel Eli MD [Staff Physician] - 7-14 days - Critical Care Critical Care Time: No Attestation: On , the high probability of a clinically significant, sudden or life threatening deterioration of the following system(s) required my full and direct attention, intervention and personal management. The time I documented below is in addition to time spent performing reported procedures but includes the following listed in this critical care notation. Medical Decision Making - Medical Records Medical records reviewed: Yes: I reviewed the patient's medical records. - Jayce Inquiry Pt receiving controlled substance: No Vital Signs: 08/02/20 10:20 Temperature 98.2 F Temperature Source Oral Pulse Rate [Right Brachial] 90 Respiratory Rate 18 Blood Pressure [Right Arm] 125/98 H Blood Pressure Mean [Right Arm] 107 Blood Pressure Source [Right Arm] Automatic Cuff Blood Pressure Position [Right Arm] Sitting 02 Sat by Pulse Oximetry 95 Oxygen Delivery Method Room Air Orders (Tests/Meds): ED MEDICATIONS Discontinued Medications Generic Name Dose Route Start Last Admin Trade Name Freq PRN Reason Stop Dose Admin Ibuprofen 600 mg 08/02/20 10:28 Motrin 600mg Tablet PO 08/02/20 10:29 ONCE ONE ORDERS Category Date Time Status CT hip RT wo con Stat Cat Scan 08/02/20 10:24 Taken - CT Data CT Scan: Other (right hip) Time Received: 11:56 Findings Narrative: CT shows minimally displaced fracture of the anterior medial aspect of the superior right acetabulum/superior lateral aspect of the superior pubic ramus. Subtle periosteal response. Medical Decision Narrative: Patient with old fracture of the right acetabulum/superior pubic ramus. I discussed this with Ortho on-call, Dr. Eli, who advised continued weightbearing as tolerated with an ambulation aid. He is given crutches here and advised to follow-up with Ortho outpatient. Lower Extremity Injury HPI - General Stated Complaint: Right hip pain Time Seen by Provider: 08/02/20 10:24 Mode of Arrival: EMS Source of Information: Patient, EMS, Medical Record Limitations: No Limitations - History of Present Illness HPI Narrative: This is a 60-year-old male with a past medical history significant for hypothyroid, mental illness who presents to the emergency department from [facility] for right anterior lateral hip pain after a fall 2 weeks ago. He reportedly had an x-ray outpatient that was negative. He complains of pain primarily when moving the leg. EMS states that he walked without difficulty to the ambulance however. He denies any motor or sensory loss distally. - Related Data Home Medications Medication Instructions Recorded Confirmed bisacodyl 5 mg tablet 5 mg PO DAILY 02/25/18 10/01/19 clonazepam 1 mg tablet 1 mg PO BID 02/25/18 10/01/19 divalproex 500 mg tablet,delayed 500 mg PO BID 02/25/18 10/01/19 release levothyroxine 100 mcg capsule 100 mcg PO DAILY 02/25/18 10/01/19 omega-3 fatty acids 1,000 mg 1,000 mg PO BID 02/25/18 10/01/19 capsule quetiapine 400 mg tablet 400 mg PO BID 02/25/18 10/01/19 risperidone 1 mg tablet 4 mg PO BID 02/25/18 10/01/19 OXcarbazepine [Oxcarbazepine] 300 mg PO BID 09/30/19 10/01/19 Acetaminophen [Acetamino
--- NOTE | 2020-08-02 11:54 | PC.NURSE ---
dr nguyen consulting with dr armstrong at this time concerning ct findings.
--- NOTE | 2020-08-02 11:59 | PC.NURSE ---
crutches provided to patient and patient educated on use. pt return demonstration done. goran sánchez notified of need for return back to facility.
[2020-08-02 12:18] VITALS: BP 119/85; PULSE 85; RESP 15; TEMP 36.8; O2SAT 96
== END 2020-08-02 12:19 | disposition home or self-care (01) ==
PROVIDERS: Emergency Provider Emergency Medicine; PCP Emergency Medicine
DX: S32.411A Displaced fracture of anterior wall of right acetabulum, initial encounter for closed fracture (principal); W01.0XXA Fall on same level from slipping, tripping and stumbling without subsequent striking against object, initial encounter; Y92.199 Unspecified place in other specified residential institution as the place of occurrence of the external cause; F20.9 Schizophrenia, unspecified; F41.9 Anxiety disorder, unspecified; E03.9 Hypothyroidism, unspecified; R41.0 Disorientation, unspecified; F17.210 Nicotine dependence, cigarettes, uncomplicated
CPT/HCPCS: 73700; 99282

== ENCOUNTER → 2020-08-17 09:20 | Outpatient (CLI) | payer MEDICAID, SELFPAY ==
--- NOTE | 2020-08-17 09:26 | XR_ITS ---
PROCEDURE: XR HIP RT 2-3V W/PELVIS CLINICAL INDICATION: right hip pain/ pelvis fx COMPARISON: CR PELAP PELVIS AP ONLY from 07/08/2014 FINDINGS: The right hip has an unremarkable appearance. Left-sided gamma nail with intramedullary rashmi noted. There is a healed left intertrochanteric fracture with prominent callus formation. IMPRESSION: No acute findings. Dictated by: Tyson Negrete MD 08/17/2020 16:44 Tyson Negrete MD in [facility] 08/17/2020 16:44
== END ==
PROVIDERS: PCP Emergency Medicine; Visit Provider Orthopaedic Surgery
DX: S32.414A Nondisplaced fracture of anterior wall of right acetabulum, initial encounter for closed fracture (principal)
CPT/HCPCS: 73502

== ENCOUNTER → 2020-10-05 10:03 | Outpatient (CLI) | payer MEDICAID, SELFPAY ==
--- NOTE | 2020-10-05 10:07 | XR_ITS ---
PROCEDURE: XR HIP RT 2-3V W/PELVIS CLINICAL INDICATION: right hip/ pelvis fracture COMPARISON: CT CT HIP RT WO CON from 08/02/2020 CR XR HIP RT 2-3V W/PELVIS from 08/17/2020 FINDINGS: The femoral neck has an unremarkable appearance. There is some sclerosis of the superior medial aspect of the acetabulum and the junction of the superior pubic ramus with the ischium consistent with healing fracture. No displaced fracture apparent. There is a moderate amount of retained colonic feces. Left-sided gamma nail with intramedullary rashmi present with old left intertrochanteric fracture. IMPRESSION: Healing right acetabular/superior pubic ramus fracture Constipation Dictated by: Tyson Negrete MD 10/05/2020 18:32 Tyson Negrete MD in [facility] 10/05/2020 18:32
== END ==
PROVIDERS: PCP Emergency Medicine; Visit Provider Orthopaedic Surgery
DX: S32.9XXA Fracture of unspecified parts of lumbosacral spine and pelvis, initial encounter for closed fracture (principal)
CPT/HCPCS: 73502

== ENCOUNTER 2020-11-21 09:54 | Inpatient (IN) | payer MEDICAID, SELFPAY ==
[2020-11-21] VITALS (18 sets, daily range): BP systolic 88–160; BP diastolic 51–103; PULSE 76–95; RESP 20–22; TEMP 36.4–36.8; O2SAT 88–100; BMI 27.1; BMI 32.5
--- NOTE | 2020-11-21 10:03 | XR_ITS ---
PROCEDURE: XR CHEST PORTABLE CLINICAL HISTORY: hypotensive and cant walk COMPARISON: CR CXR2 CHEST-AP VIEW ONLY from 07/08/2014 CR XR CHEST 2V from 09/30/2019 FINDINGS: The cardiomediastinal silhouette and pulmonary vascularity are within normal limits. Patchy infiltrate is present in the left lower lobe. There is an old right 3rd and 4th rib fracture. IMPRESSION: Left lower lobe pneumonia Dictated by: Tyson Negrete MD 11/21/2020 10:58 Tyson Negrete MD in [facility] 11/21/2020 10:58
--- NOTE | 2020-11-21 10:11 | PC.NURSE ---
rad at bedside.
[2020-11-21 10:25] LABS: Basophils # 0.1 K/mm3 (0-0.2); Basophils % 1.3 % (0.1-2.0); Eosinophils # 0.4 K/mm3 (0.0-0.4); Eosinophils % 5.2 % (0.1-12.0); Hematocrit 51.1 % (42.0-52.0); Hemoglobin 16.3 g/dL (14.1-18.0); Lymphocytes # 2.7 K/mm3 (0.7-4.5); Lymphocytes % 33.7 % (10-50); Mean Corpuscular HGB Conc 31.8 g/dL (31.8-35.4); Mean Corpuscular Hemoglobin 29.3 pg (27.0-31.2); Mean Corpuscular Volume 92.2 fl (80-94); Mean Platelet Volume 14.2 fl (7.4-10.4); Monocytes # 0.6 K/mm3 (0.1-1.0); Neutrophils # 4.2 K/mm3 (1.8-7.8); Neutrophils % 52.9 % (37.0-80.0); Platelet Count 208 K/mm3 (142-424); Red Blood Count 5.55 M/mm3 (4.60-6.20); Red Cell Distribution Width 14.8 % (11.5-17.5)
--- NOTE | 2020-11-21 10:27 | CT_ITS ---
PROCEDURE: CT HEAD/BRAIN WO CON CLINICAL INDICATION: weakness COMPARISON: CT CT HEAD/BRAIN WO CON from 09/30/2019 TECHNIQUE: Axial images obtained. All CT scans at the facility use one or more dose reduction, viz: automated exposure control, ma/kV adjustment per patient size (including targeted exams where dose is matched to indication, i.e. head), or iterative reconstruction technique. FINDINGS: No midline shift, mass effect, intracranial hemorrhage, hydrocephalus, or extra-axial fluid collection is evident. There is generalized atrophy with hypoattenuation of the periventricular white matter consistent with microangiopathic changes.. Coarse calcification once again noted in the left quadrigeminal/ambient cistern which may represent a meningioma not significantly changed. The calvarium has an unremarkable appearance. No mastoid effusion. Moderate to severe mucosal thickening involves the ethmoid sinuses. There is a retention cyst in the right maxillary sinus. IMPRESSION: No change with no acute intracranial findings. Sinus disease Dictated by: Tyson Negrete MD 11/21/2020 11:06 Tyson Negrete MD in [facility] 11/21/2020 11:06
--- NOTE | 2020-11-21 10:33 | HMH.EDGENADL ---
ED Disposition Clinical Impression: Acute respiratory failure with hypoxia, Lactic acid acidosis Left lower lobe pneumonia Qualifiers: Pneumonia type: due to unspecified organism Qualified Code(s): J18.9 - Pneumonia, unspecified organism Sepsis Qualifiers: Sepsis type: sepsis due to unspecified organism Sepsis acute organ dysfunction status: with acute organ dysfunction Severe sepsis acute organ dysfunction type: acute respiratory failure Acute respiratory failure type: with hypoxia Severe sepsis shock status: without septic shock Qualified Code(s): A41.9 - Sepsis, unspecified organism; R65.20 - Severe sepsis without septic shock; J96.01 - Acute respiratory failure with hypoxia Disposition: Admitted As Inpatient Condition on Discharge: Serious Referrals: Mitch De MD [Primary Care Provider] - - Critical Care Critical Care Time: Yes Attestation: On 11/21/20, the high probability of a clinically significant, sudden or life threatening deterioration of the following system(s) required my full and direct attention, intervention and personal management. The time I documented below is in addition to time spent performing reported procedures but includes the following listed in this critical care notation. Total Critical Care Time: 30 Vital system(s) involved:: Circulatory Failure, Metabolic Failure, Respiratory Failure My critical care processes included: Assessment & monitoring of V/S, Initial and Re-exams, Data Review/Interpretation, Coordinating Care, Medication Orders and management, Documentation Medical Decision Making - Medical Records Medical records reviewed: Yes: I reviewed the patient's medical records. - Jayce Inquiry Pt receiving controlled substance: No Vital Signs: 11/21/20 09:58 11/21/20 10:00 11/21/20 11:22 Temperature 98.3 F Temperature Source Oral Pulse Rate [Right Radial] 95 H 81 Respiratory Rate 20 Blood Pressure [Right Arm] 88/51 L 112/73 Blood Pressure Mean [Right Arm] 63 86 Blood Pressure Source [Right Arm] Automatic Cuff Automatic Cuff Blood Pressure Position [Right Arm] Sitting Sitting 02 Sat by Pulse Oximetry 88 L 96 96 Oxygen Delivery Method Room Air Nasal Cannula Nasal Cannula Oxygen Flow Rate (LPM) 2 2 11/21/20 11:30 11/21/20 12:00 11/21/20 12:25 Temperature Temperature Source Pulse Rate [Right Radial] 81 81 78 Respiratory Rate 20 Blood Pressure [Right Arm] 117/76 115/86 128/90 Blood Pressure Mean [Right Arm] 89 95 102 Blood Pressure Source [Right Arm] Automatic Cuff Automatic Cuff Automatic Cuff Blood Pressure Position [Right Arm] Sitting Sitting Sitting 02 Sat by Pulse Oximetry 96 96 99 Oxygen Delivery Method Room Air Room Air Nasal Cannula Oxygen Flow Rate (LPM) 2 11/21/20 12:30 11/21/20 12:44 Temperature Temperature Source Pulse Rate [Right Radial] 78 80 Respiratory Rate 22 Blood Pressure [Right Arm] 128/90 123/88 Blood Pressure Mean [Right Arm] 102 99 Blood Pressure Source [Right Arm] Automatic Cuff Automatic Cuff Blood Pressure Position [Right Arm] Sitting Sitting 02 Sat by Pulse Oximetry 99 98 Oxygen Delivery Method Room Air Nasal Cannula Oxygen Flow Rate (LPM) 2 - Lab Data Lab Results 11/21/20 10:05: WBC 8.0, RBC 5.55, Hgb 16.3, Hct 51.1, MCV 92.2, MCH 29.3, MCHC 31.8, RDW 14.8, Plt Count 208, MPV 14.2 H, Neut % (Auto) 52.9, Lymph % (Auto) 33.7, [place] % (Auto) 7.0, Eos % (Auto) 5.2, Baso % (Auto) 1.3, Neut # (Auto) 4.2, Lymph # (Auto) 2.7, [place] # (Auto) 0.6, Eos # (Auto) 0.4, Baso # (Auto) 0.1 11/21/20 10:05: Sodium 141, Potassium 3.8, Chloride 103, Carbon Dioxide 22, Anion Gap 19.8 H, BUN 12, Creatinine 1.30 H, Estimated Creat Clear 79, Estimated GFR 57 L, Est GFR ( Amer) 68, Glucose 122 H, Calcium 10.0 11/21/20 10:05: SARS-CoV-2 IgG Ab (Rapid) Negative, SARS-CoV-2 IgM Ab (Rapid) Negative 11/21/20 10:55: Lactate 8.5 H 11/21/20 11:13: Specimen Source Right radial, O2 % 2l nc, ABG pH 7.36, ABG pCO2 47.0 H, ABG pO2 77.6 L,
--- NOTE | 2020-11-21 10:41 | PC.NURSE ---
Pt going to rad.
[2020-11-21 10:44] LABS: Anion Gap 19.8 mEq/L (5-15); Blood Urea Nitrogen 12 mg/dl (9-20); Carbon Dioxide 22 mmol/L (22.0-30.0); Chloride 103 mmol/L (98-107); Creatinine Clearance Estimated 79 mL/min (50-200); Estimated Glomerular Filt Rate 57 ml/min (>60); GFR (African American) 68 ML/MIN (>60); Glucose 122 mg/dl (74-100); Potassium 3.8 mmoL/L (3.5-5.1); Sodium 141 mmol/L (136-145)
[2020-11-21 10:56] LABS: Coronavirus 19 IgG Antibody Negative (Negative); Coronavirus 19 IgM Antibody Negative (Negative)
--- NOTE | 2020-11-21 10:57 | PC.NURSE ---
pt back from radiology
--- NOTE | 2020-11-21 11:14 | PC.NURSE ---
Called resp for ABG
--- NOTE | 2020-11-21 11:27 | PC.NURSE ---
Resp at bedside
[2020-11-21 11:35] LABS: ABG Base Excess 0.6 mmol/L (-2.4-2.3); ABG Oxygen Saturation 95 % (90-100); ABG PH 7.36 mmol/L (7.35-7.45); ABG PO2 77.6 mmhg (80-100); ABG TCO2 27.5 mmhg (23-27)
[2020-11-21 11:36] LABS: Lactic Acid 8.5 mmol/L (0.7-2.1)
[2020-11-21 11:37] LABS: Allen's Test Acceptable; Source Right Radial
--- NOTE | 2020-11-21 11:37 | PC.NURSE ---
notified ER of critical lactic acid
--- NOTE | 2020-11-21 11:45 | PC.NURSE ---
ER MD gave verbal order for fluids for sepsis bolus.
--- NOTE | 2020-11-21 11:45 | PC.NURSE ---
VS charted at 1021 was a duplicate, it was taken outg of the system r/t being a duplicate. the reason that is states it was undone is visitors that is incorrect.
--- NOTE | 2020-11-21 11:59 | PC.NURSE ---
pt given to a urinal, states he is unable to provide a urine specimen at this time.
--- NOTE | 2020-11-21 12:32 | PC.NURSE ---
Food Tray given to pt.
--- NOTE | 2020-11-21 12:45 | PC.NURSE ---
pt sitting up eating lunch at this time
--- NOTE | 2020-11-21 12:45 | PC.NURSE ---
notified ER of need for tissue reperfusion assessment.
--- NOTE | 2020-11-21 13:08 | PC.NURSE ---
spoke with bathhouse attendant, states pt needs a covid swab prior to admission.
--- NOTE | 2020-11-21 13:09 | PC.NURSE ---
covid swab sent to lab
--- NOTE | 2020-11-21 13:09 | PC.NURSE ---
called care management r/t admission, states they will call me back they area on the other line
--- NOTE | 2020-11-21 13:12 | PC.NURSE ---
notified care management of admission information
--- NOTE | 2020-11-21 13:19 | PC.NURSE ---
pt assisted to restroom at this time
[2020-11-21 13:22] LABS: Adenovirus,PCR Not Detected (NotDetected); Bordetella Pertussis Not Detected (NotDetected); Chlamydophila Pneumoniae, PCR Not Detected (NotDetected); Coronavirus 19, PCR Not Detected (NotDetected); Coronavirus 229E Not Detected (NotDetected); Coronavirus NL63 Not Detected (NotDetected); Coronavirus OC43 Not Detected (NotDetected); Coronovirus HKU1,PCR Not Detected (NotDetected); Human Metapneumovirus Not Detected (NotDetected); Influenza A, PCR Not Detected (NotDetected); Influenza AH1, 2009 Not Detected (NotDetected); Influenza AH1, PCR Not Detected (NotDetected); Influenza AH3,PCR Not Detected (NotDetected); Influenza B, PCR Not Detected (NotDetected); Mycoplasma Pneumoniae, PCR Not Detected (NotDetected); Parainfluenza 1, PCR Not Detected (NotDetected); Parainfluenza 2, PCR Not Detected (NotDetected); Parainfluenza 3, PCR Not Detected (NotDetected); Parainfluenza 4, PCR Not Detected (NotDetected); Respiratory Syncytial Virus Not Detected (NotDetected); Rhinovirus/Enterovirus Not Detected (NotDetected)
[2020-11-21 13:26] LABS: Microscopic, Urine URINE MICROSCOPIC (MICROSCOPIC)
[2020-11-21 13:29] LABS: Appearance,Urine CLEAR (Clear); Bilirubin,Urine Negative (Negative); Blood, Urine Negative (Negative); Color,Urine YELLOW (Yellow); Glucose,Urine (UA) Negative (Negative); Ketones,Urine Negative (Negative); Leukocyte Esterase,Urine Negative (Negative); Nitrate,Urine Negative (Negative); Protein,Urine Negative (Negative); Urobilinogen,Urine 0.2 EU/dl (0.2)
[2020-11-21 14:55] LABS: Reflex Lactic Add Lactic Reflex
[2020-11-21 15:26] LABS: Lactic Acid Follow Up (RFLX 1) 0.9 mmol/L (0.7-2.1)
--- NOTE | 2020-11-21 15:42 | PC.NURSE ---
Notified floor pt ready for admission
--- NOTE | 2020-11-21 15:57 | P.CONPHA_ITS ---
[facility] Pharmacy VTE Monitoring - Patient Demographics Admission date: 11/21/20 Report Date: 11/21/20 Time: 15:57 Allergies/Adverse Reactions: Patient Allergies No Known Allergies Allergy (Verified 10/05/20 10:53) Height: 1.83 m Weight: 90.718 kg Patient Problems: Current Active Problems Left lower lobe pneumonia (Acute) Acute respiratory failure with hypoxia (Acute) Lactic acid acidosis (Acute) Sepsis (Acute) - VTE Risk Labs: VTE Related Lab Results Hgb 16.3 g/dL (14.1-18.0) 11/21/20 10:05 Hct 51.1 % (42.0-52.0) 11/21/20 10:05 Plt Count 208 K/mm3 (142-424) 11/21/20 10:05 BUN 12 mg/dl (9-20) 11/21/20 10:05 Creatinine 1.30 mg/dl (0.66-1.25) H 11/21/20 10:05 Estimated Creat Clear 79 mL/min (50-200) 11/21/20 10:05 Clinical Trial Participant: No - Prophylaxis VTE Prophylaxis Ordered?: Yes Types of VTE Prophylaxis: TEDS Knee High
--- NOTE | 2020-11-21 16:18 | PC.NURSE ---
contacted second floor to check on the status of giving report on pt. Spoke with Lianna who states she was coming down earlier and then realized the room was not ready. States it was just cleaned she is waiting on it dry and then she will be down to get pt.
--- NOTE | 2020-11-21 16:42 | PC.NURSE ---
patient arrived by wheelchair to floor
--- NOTE | 2020-11-21 17:57 | PC.NURSE ---
Addendum entered by JAS Vilchis 11/21/20 18:01: DAX Dsouza Original Note: told RN about high BP
--- NOTE | 2020-11-21 22:02 | PC.NURSE ---
Pt's IV leaking, IV pulled, New IV placed in Rt hand 20G
[2020-11-22] VITALS: BP 145/98; PULSE 89; RESP 22; TEMP 37.2; O2SAT 95
[2020-11-22 04:00] VITALS: BP 142/94; PULSE 83; RESP 21; TEMP 36.9; O2SAT 95
--- NOTE | 2020-11-22 04:24 | PC.NURSE ---
pt is alert and oriented x [address], he has been awake multiple times thorughout night, rang out multiple times for [employer] and looking for governor assembler [employer], pt made aware he will get governor assembler hydraulic when he is discharged pt does verbalize understanding but will ring back out for governor assembler [employer], pt has been incontinent x 1 partial bath provided, inspiratory and expiratory wheezes continue, heart rate regular, bs x4, vss, no distress noted, call light within reach
[2020-11-22 04:54] VITALS: BMI 31.6
[2020-11-22 06:38] LABS: Basophils % 0.6 % (0.1-2.0); Eosinophils # 0.2 K/mm3 (0.0-0.4); Eosinophils % 3.8 % (0.1-12.0); Hematocrit 43.6 % (42.0-52.0); Hemoglobin 14.7 g/dL (14.1-18.0); Lymphocytes # 1.7 K/mm3 (0.7-4.5); Lymphocytes % 27.2 % (10-50); Mean Corpuscular HGB Conc 33.8 g/dL (31.8-35.4); Mean Corpuscular Volume 88.7 fl (80-94); Monocytes # 0.6 K/mm3 (0.1-1.0); Neutrophils # 3.8 K/mm3 (1.8-7.8); Neutrophils % 59.4 % (37.0-80.0); Platelet Count 150 K/mm3 (142-424); Red Blood Count 4.92 M/mm3 (4.60-6.20); Red Cell Distribution Width 14.4 % (11.5-17.5); White Blood Count 6.4 K/mm3 (4.8-10.8)
[2020-11-22 06:46] LABS: Alanine Aminotransferase 15 U/L (12-78); Albumin Level 3.7 g/dl (3.5-5.0); Albumin/Globulin Ratio 1.4 (1.1-1.8); Alkaline Phosphatase 84 U/L (38-126); Anion Gap 9.9 mEq/L (5-15); Aspartate Amino Transferase 27 U/L (17-59); Bilirubin,Total 0.3 mg/dl (0.2-1.3); Blood Urea Nitrogen 13 mg/dl (9-20); Carbon Dioxide 28 mmol/L (22.0-30.0); Chloride 110 mmol/L (98-107); Creatinine Clearance Estimated 97 mL/min (50-200); Estimated Glomerular Filt Rate 69 ml/min (>60); GFR (African American) 83 ML/MIN (>60); Globulin 2.6 g/dL (1.3-3.2); Glucose 103 mg/dl (74-100); Potassium 3.9 mmoL/L (3.5-5.1); Sodium 144 mmol/L (136-145); Total Protein,Serum 6.3 g/dl (6.3-8.2)
[2020-11-22 07:05] LABS: Calcium 8.9 mg/dl (8.4-10.2)
--- NOTE | 2020-11-22 07:30 | PC.NURSE ---
report given to Heaven Spencer RN
[2020-11-22 08:00] VITALS: BP 152/94; PULSE 82; RESP 20; TEMP 36.7; O2SAT 96
[2020-11-22 08:30] VITALS: RESP 20; O2SAT 96
--- NOTE | 2020-11-22 10:00 | SW/DCPLANNER ---
Addendum entered by Maria Isabel Bang 11/22/20 14:58: I have set up [employer] for this patient. Addendum entered by Maria Isabel Bang 11/22/20 11:45: PT stated this patient is fine to return to [facility]. Scot has stated that she can take this patient back once medically stable for discharge: I have updated Dr De/Lucho. Patient should discharge back later today. I will set up [employer] at discharge. Original Note: This patient currently resides at [facility]. I have spoke with Scot regarding patient returning possibly later today. Scot has requested additional information at this time. I will continue to follow up with Scot.
--- NOTE | 2020-11-22 10:17 | CT_ITS ---
PROCEDURE: CT ANGIO CHEST CLINCIAL INDICATION: sob Shortness of air COMPARISON: No exams were available for comparison TECHNIQUE: IV Contrast: 70ML Isovue 370 Axial images obtained with sagittal and coronal reformats. All CT scans at the facility use one or more dose reduction, viz: automated exposure control, ma/kV adjustment per patient size (including targeted exams where dose is matched to indication, i.e. head), or iterative reconstruction technique. FINDINGS: HEART AND MEDIASTINAL STRUCTURES: No evidence of pulmonary embolus, aortic aneurysm, or aortic dissection. Coronary artery calcifications and/or stents noted. The LUNGS AND PLEURAL SPACES: There is trace bilateral effusions. Minimal atelectatic changes are present in the lung bases posteriorly. Motion artifact does somewhat obscure fine detail and could obscure small nodular lesions. Calcified granulomas are present in the left lower lobe. No lobar consolidation or collapse. BONY STRUCTURES: No acute bony abnormalities apparent. UPPER ABDOMEN: Unremarkable. ADDITIONAL FINDINGS: No other significant abnormalities. IMPRESSION: 1. No evidence of pulmonary embolus. 2. Trace bilateral effusions. Dictated by: Tyson Negrete MD 11/22/2020 11:52 Tyson Negrete MD in [facility] 11/22/2020 11:52
--- NOTE | 2020-11-22 10:43 | HMH.PULMCON ---
*Admission Date: 11/21/20 *Reason for consult:: Community-acquired pneumonia *History of present illness: Mr. Akers is a 60-year-old male retirement patient to the emergency department for lower extremity weakness during which he had a chest x-ray done for a routine examination and found to be having lower left lower lobe pneumonia and pulmonary was called for further management. On this visit patient denies fevers, denies chills, denies night sweats, denies hemoptysis, and denies loss of appetite. [facility] History Medical History: Reports:: Anxiety, Hypertension Denies:: Cancer, Diabetes Mellitus Type 1, Diabetes Mellitus Type 2, MRSA *Have you ever received a pneumonia vaccine?: Yes *Have you received a flu vaccine this season?: Yes (Also had Covid-19 vaccine) Other Medical History: Reports: Arthritis, Hypothyroidism Other Surgeries: Yes: No Previous Surgery Amputation: No Fractures: Yes - *Social History Last grade of school completed: 7th or 8th Smoking Status: Current every day smoker Tobacco Type: cigarettes # Packs/Day (cigarettes): 2 Alcohol Intake: never Substance Use Type: denies use *Occupational Status:: disabled Housing: assisted living facility Household Members: none *Travel in the last 8 weeks: None - Psychiatric History Pschychiatric History:: Reports:: Anxiety Family Hx:: Unable to obtain ROS - Review of Systems Review of systems:: pertinent systems reviewed and negative unless documented below - Cons Reports fatigue - Card Denies shortness of breath, Denies shortness of breath with activity - Resp Respiratory: Denies shortness of breath Meds Home Medications Medication Instructions Recorded Confirmed Type bisacodyl 5 mg tablet 5 mg PO DAILY 02/25/18 11/21/20 History clonazepam 1 mg tablet 1 mg PO BID 02/25/18 11/21/20 History divalproex 500 mg tablet,delayed 500 mg PO BID 02/25/18 11/21/20 History release levothyroxine 100 mcg capsule 100 mcg PO DAILY 02/25/18 11/21/20 History omega-3 fatty acids 1,000 mg 1,000 mg PO BID 02/25/18 11/21/20 History capsule quetiapine 400 mg tablet 400 mg PO BID 02/25/18 11/21/20 History risperidone 1 mg tablet 4 mg PO BID 02/25/18 11/21/20 History OXcarbazepine [Oxcarbazepine] 600 mg PO BID 09/30/19 11/21/20 History haloperidoL [Haldol 5mg tablet] 10 mg PO TID 10/01/19 11/21/20 History gabapentin 100 mg capsule 100 mg PO QHS #30 cap 10/24/20 11/21/20 Rx Amlodipine Besylate 2.5 mg PO HS 11/21/20 11/21/20 History Acetaminophen [Mapap] 500 mg PO Q6HP PRN 11/22/20 11/22/20 History Lactulose [Lactulose 10gm/15ml 20 gm PO DAILYP PRN 11/22/20 11/22/20 History Oral Soln] clonazePAM [Clonazepam] 1 mg PO TIDP PRN 11/22/20 11/22/20 History Allergies Allergy/AdvReac Type Severity Reaction Status Date / Time No Known Allergies Allergy Verified 10/05/20 10:53 Exam - Constitutional Constitutional:: no acute distress, comfortable - HENMT Exam HENMT: normocephalic, atraumatic - Eye Exam Eyes:: normal appearance both eyes and related structures - Respiratory Exam Respiratory:: able to speak in complete sentences, lungs clear - Cardiovascular Exam Cardiac:: S1, S2 - Skin Exam Skin: warm - Neurological Exam Neurological: alert, awake - Extremities Exam Extremities: no cyanosis, no clubbing Internal Medicine - CN: Reslt - Labs CBC & Chem 7: 11/22/20 06:14 11/22/20 06:14 Labs: Short CBC 11/22/20 Range/Units 06:14 WBC 6.4 (4.8-10.8) K/mm3 Hgb 14.7 (14.1-18.0) g/dL Hct 43.6 (42.0-52.0) % Plt Count 150 D (142-424) K/mm3 BMP 11/21/20 11/22/20 10:05 06:14 Sodium 141 144 Potassium 3.8 3.9 Chloride 103 110 H Carbon Dioxide 22 28 D BUN 12 13 Creatinine 1.30 H 1.10 Glucose 122 H 103 H Calcium 10.0 8.9 D Liver Function 11/22/20 Range/Units 06:14 Total Bilirubin 0.3 (0.2-1.3) mg/dl AST 27 (17-59) U/L ALT 15 (12-78) U/L Alkaline Phosphatase 84 (38-126) U/L
--- NOTE | 2020-11-22 10:45 | HMH.PHAINT ---
clarified home medication list with MAR from goran sánchez
--- NOTE | 2020-11-22 11:38 | HMH.PTEV ---
Physical Therapy Evaluation Rehab PT IP Evaluation Start: 11/22/20 09:37 Freq: .once Status: Active Protocol: Document 11/22/20 11:35 KASH (Rec: 11/22/20 11:38 KASH [id number]) Subjective/History History History 60-year-old male presented to the emergency department with some weakness. The patient comes from nursing facility after a possible fall. Patient states that his legs gave out while he was in the bathroom and he fell backwards . He did not hit his head. There is no syncope or loss consciousness. No endorsing any pain at this time. Denies any abdominal pain or vomiting. No chest pain or shortness of breath. No headache, no change in vision, no focal weakness. He states that his legs just feel heavy bilaterally Subjective Subjective pt reports he feels okay - states he does not use AD at [facility] home alert to name and place not year Rehab PT IP Eval Objective Appearance Patient Behavior Appropriate,Cooperative Patient Orientation Person,Place Difficulty following instructions none Speech Pattern Clear Ambulation Patient Able to Ambulate Yes Ambulation Observation IP General Gait Pattern Observation No Deviations/Normal Ambulation Distance (feet) 75 Ambulation Assistive Device None Ambulation Ability Supervision/Stand by,Contact Guard/Hand Hold Balance Ability to Arise Able, uses arms to help Sitting Balance Steady, safe Standing Balance Steady, wide stance Dynamic Sitting Balance Ability Good Dynamic Standing Balance Ability Fair Transfers Bed Transfer Ability Independent Chair Transfer Ability Independent Sit to Stand Bed Transfer Ability Supervision/Stand by Sit to Stand Chair Transfer Ability Supervision/Stand by ROM All Extremities PT ROM Status WFL MMT All Extremities PT MMT WFL Rehab PT IP prob,goals,plan Problems Date of Evaluation: 11/22/20 Rehab Potential Rehab Potential Innapropriate for Skilled
--- NOTE | 2020-11-22 12:25 | HMH.HPDC ---
General - General Admission date:: 11/21/20 Discharge date: 11/22/20 *Admission Date: 11/21/20 *Chief complaint: Weakness *History of present illness: 60-year-old male patient presented to emergency room via squad from nursing facility after possible fall. Patient reports that he was in the bathroom, his legs gave out, and he fell backwards. He denies hitting his head there was no syncope or loss of consciousness he denies any pain at present. While in the bed patient complained he could not walk, reports he walked fine the day before but was unable to walk today. Upon assessment patient able to move all 4 extremities without any difficulty or complaints of pain. Room air saturation was 88% upon arrival to ED and he was placed on 2 L per nasal cannula While in the emergency department a chest x-ray revealed a left lower lobe pneumonia. On reevaluation in the ED the patient required additional oxygen, he does have a pneumonia, elevated respiratory rate, and lactic acid of 8.5 there was concern for sepsis and patient was given 30 cc/kg bolus of IV fluids. He also received ceftriaxone and azithromycin White blood cell count was, H&H was stable. BUN was 12 and creatinine was 1.3 SARS-COV-2 IgG/IgM negative, Covid-19 PCR negative [facility] History I have reviewed the patient's past medical history: Yes Medical History: Reports:: Anxiety, Hypertension Denies:: Cancer, Diabetes Mellitus Type 1, Diabetes Mellitus Type 2, MRSA *Have you ever received a pneumonia vaccine?: Yes *Have you received a flu vaccine this season?: Yes (Also had Covid-19 vaccine) Other Medical History: Reports: Arthritis, Hypothyroidism Other Surgeries: Yes: No Previous Surgery Amputation: No Fractures: Yes - *Social History Last grade of school completed: 7th or 8th Smoking Status: Current every day smoker Tobacco Type: cigarettes # Packs/Day (cigarettes): 2 Alcohol Intake: never Substance Use Type: denies use *Occupational Status:: disabled Housing: assisted living facility Household Members: none *Travel in the last 8 weeks: None - Psychiatric History Pschychiatric History:: Reports:: Anxiety Family Hx:: Unable to obtain Review of Systems - Review of Systems Review of systems:: pertinent systems reviewed and negative unless documented below - Constitutional Denies anorexia, Denies body ache(s) - Eyes Denies blind spots, Denies sensitivity to light - ENT Denies abnormal hearing, Denies change in voice - *Cardiovascular Denies chest pain, Denies shortness of breath - *Respiratory Denies change in phlegm color, Denies chest congestion, Denies shortness of breath - *Gastrointestinal Denies abdominal pain, Denies change in bowel habits, Denies change in stools - *Genitourinary Denies difficulty urinating, Denies blood in urine - *Musculoskeletal Denies abnormal walking, Denies decreased muscle mass - Integumentary/Breasts Denies hair loss, Denies change in skin color - *Neurologic Reports weakness, Denies abnormal walking, Denies abnormal movements - Psychiatric Denies lack of enjoyment, Denies difficulty concentrating - Endocrine Denies cold intolerance, Denies heat intolerance - Hematologic/Lymphatic Denies easy bleeding, Denies easy bruising - Allergic/Immunologic Denies GI upset with certain foods, Denies throat swelling Exam Vital signs and Labs for Last 24 Hours: Temp Pulse Resp BP Pulse Ox 98.1 F 82 20 152/94 H 96 11/22/20 08:00 11/22/20 08:00 11/22/20 08:30 11/22/20 08:00 11/22/20 08:30 Laboratory Results - last 24 hr 11/21/20 13:05: Chlamy pneumoniae PCR Not detected, Adenovirus (PCR) Not detected, B. pertussis DNA (PCR) Not detected, Coronavirus OC43 (PCR) Not detected, Coronavirus HKU1 (PCR) Not detected, Coronavirus 229E (PCR) Not detected, SARS-CoV-2 (PCR) Not detected, Coronavirus NL63 (PCR) Not detected, Human Metapneumovir PCR Not detected, Influenza A (H1) PCR Not detected,
--- NOTE | 2020-11-22 12:28 | HMH.OTEV ---
OT Inpatient Evaluation Rehab OT IP Evaluation Start: 11/22/20 09:37 Freq: ONCE Status: Complete Protocol: Document 11/22/20 12:21 [facility] (Rec: 11/22/20 12:27 [facility] [id number]) Rehab OT IP Assessment Subjective History Pt oriented x 3 on arrival. Pt agreeable to engage in therapy evaluation. Pt was admitted via ED on 11/21/19 due to hypoxia. Pt has a past medical history of Anxiety, Arthritis, and Hypothyroidism. Pt is from [facility] and reports he did not require AE during ambulation prior to admission. Pt claims before hospitalization he was independent with all ADLs and required assistance from staff with IADLs. Subjective Hi, I'm Vincenzo! Objective Patient Orientation Person,Place,Birthday Upper Extremity Gross ROM WFL Bed Mobility bed mobility-scooting,bed mobility - supine/sit,bed mobility - rolling Assist Level Supervision/Stand by Transfer Training Sit/Stand Transfer Assist Level Supervision/Stand by Chair Transfer Ability Supervision/Stand by Chair Transfer Technique Sit to/from Ambulatory Chair Transfer Assistive Devices None Lower Body Dressing Ability Standby Assistance Overall Commode/Toilet Transfer Ability Standby Assistance Commode/Toilet Transfer Technique Sit to/from Ambulatory Rehab OT IP prob,goals,plan Problems Date of Evaluation: 11/22/20 Rehab Potential Rehab Potential Innapropriate for Skilled Therapy Discharge Plan OT Discharge Plan Pt appears to be at his baseline functionaly. At this time he is safe to return back to [facility]. Eval Complexity Eval Charge Codes 90453 - Low Complexity G Codes G -code Required No PHYSICIAN CERTIFICATION: I certify the specified therapy services for Vincenzo Huang are required, authorized, and reviewed every 30 days.
--- NOTE | 2020-11-22 12:59 | PC.NURSE ---
dayton burgos with patient not having rocephin r/v
--- NOTE | 2020-11-22 14:58 | PC.NURSE ---
report given to goran jaramillo.
== END 2020-11-22 15:45 | disposition home or self-care (01) | DRG 193 ==
LOC: ER 13:04 → 2ND 13:44
PROVIDERS: Admitting Provider Emergency Medicine; Emergency Provider Emergency Medicine; PCP Emergency Medicine; Visit Provider Emergency Medicine
DX: J18.9 Pneumonia, unspecified organism (principal); J96.01 Acute respiratory failure with hypoxia; I10 Essential (primary) hypertension; E03.9 Hypothyroidism, unspecified; Z72.0 Tobacco use; Z79.899 Other long term (current) drug therapy; Z91.81 History of falling
CPT/HCPCS: 36415; 70450; 71045; 71275; 80048; 80053; 81001; 82803; 83605; 85025; 86328; 87040; 87581; 87633; 87798; 96365; 96366; 96367; 97165; 99285; Q9967; U0003

== ENCOUNTER 2021-03-05 21:35 | Inpatient (IN) | payer MEDICAID, SELFPAY ==
[2021-03-05 21:50] VITALS: BP 107/67; PULSE 110; RESP 26; TEMP 39.1; O2SAT 90; BMI 34.4
[2021-03-05 21:53] VITALS: BP 107/67; PULSE 111; RESP 27; TEMP 39.1; O2SAT 98
[2021-03-05 22:00] VITALS: BP 110/77; PULSE 106; RESP 26; O2SAT 96
--- NOTE | 2021-03-05 22:03 | XR_ITS ---
PROCEDURE INFORMATION: Exam: XR Chest Exam date and time: 03/05/2021 10:03 PM Age: 60 years old Clinical indication: Patient HX: Fever. AMS; Additional info: Fever w/ decreased loc TECHNIQUE: Imaging protocol: XR of the chest. Views: 1 view. COMPARISON: CR XR CHEST PORTABLE 11/21/2020 10:24 AM FINDINGS: Lungs: The pulmonary vasculature is prominent. No focal consolidation. Pleural spaces: No sizable effusion or evidence of pneumothorax. Heart/Mediastinum: Unremarkable. No cardiomegaly. Bones/joints: No acute displaced fracture. IMPRESSION: 1. No focal consolidation to suggest pneumonia. 2. Pulmonary vascular congestion.
--- NOTE | 2021-03-05 22:03 | CT_ITS ---
PROCEDURE INFORMATION: Exam: CT Head Without Contrast Exam date and time: 03/05/2021 10:03 PM Age: 60 years old Clinical indication: Altered mental status/memory loss; Confusion or disorientation; Patient HX: Fever. AMS; Additional info: Fever w/ decreased loc TECHNIQUE: Imaging protocol: Computed tomography of the head without contrast. Radiation optimization: All CT scans at this facility use at least one of these dose optimization techniques: automated exposure control; mA and/or kV adjustment per patient size (includes targeted exams where dose is matched to clinical indication); or iterative reconstruction. COMPARISON: No relevant prior studies available. FINDINGS: Limitations: Patient motion. Brain: Moderate volume loss. Mild decreased attenuation of the supratentorial white matter is likely secondary to chronic microvascular ischemia. Small focus of encephalomalacia in calcification at the right cerebellum. No definite acute intracranial hemorrhage. No midline shift intracranial mass effect. Cerebral ventricles: Ventriculomegaly commensurate for degree of volume loss. Bones/joints: Unremarkable. No acute fracture. Paranasal sinuses: Moderate to severe paranasal sinus disease. Mastoid air cells: Visualized mastoid air cells are well aerated. Soft tissues: Unremarkable. IMPRESSION: Patient motion without definite acute intracranial abnormality.
--- NOTE | 2021-03-05 22:03 | CT_ITS ---
PROCEDURE INFORMATION: Exam: CT Abdomen And Pelvis With Contrast Exam date and time: 03/05/2021 10:03 PM Age: 60 years old Clinical indication: Fever and other: AMS; Patient HX: Fever. AMS; Additional info: Fever w/ decreased loc TECHNIQUE: Imaging protocol: Computed tomography of the abdomen and pelvis with contrast. Radiation optimization: All CT scans at this facility use at least one of these dose optimization techniques: automated exposure control; mA and/or kV adjustment per patient size (includes targeted exams where dose is matched to clinical indication); or iterative reconstruction. Contrast material: ISOVUE; Contrast volume: 75 ml; Contrast route: IV; COMPARISON: CT ABDOMEN PELVIS WO CON 09/30/2019 10:14 PM FINDINGS: Lungs: Linear opacities in the visualized lung bases likely represent subsegmental atelectasis and/or scarring. There are trace bilateral pleural effusions. Liver: No evidence of focal liver lesion on this single phase exam. Gallbladder and bile ducts: The gallbladder is mildly dilated. Gallstones are present in the gallbladder. No biliary ductal dilatation. Pancreas: No evidence of focal lesion or ductal dilatation. Spleen: The spleen is enlarged measuring 16.5 cm. Splenic calcifications likely represent calcified granulomas. An accessory spleen is present. Adrenal glands: No adrenal nodule. Kidneys and ureters: There are right renal calcifications which measure up to 3 mm in the upper pole. No left renal calculi or hydronephrosis. There is a 1.5 cm cyst in the upper pole of the right kidney. There are innumerable sub cm cysts in both kidneys which are too small to accurately characterize which can be seen in the setting of lithium nephropathy. Stomach and bowel: There is a questionable enhancing lesion in the distal ascending colon which measures approximately 3.6 x 4.2 cm on series 3, image 63. No obstruction. Appendix: The appendix is normal. Intraperitoneal space: No free air or fluid. No focal fluid collection. Vasculature: Coronary artery calcifications are present. The abdominal aorta is normal in caliber with scattered atherosclerotic calcifications. 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 Lymph nodes: No lymphadenopathy. Urinary bladder: A Ortiz catheter is present within the bladder which contains gas consistent with catheterization. Reproductive: Unremarkable as visualized. Bones/joints: No acute fracture. Note is made of internal fixation of the left femur. Soft tissues: Unremarkable. Soft tissues: Unremarkable. IMPRESSION: 1. Probable enhancing lesion in the distal ascending colon measuring 4.2 cm suspicious for neoplasm. 2. Mildly dilated gallbladder with cholelithiasis. 3. Trace bilateral pleural effusions.
--- NOTE | 2021-03-05 22:12 | HMH.EDAMS ---
ED Disposition Clinical Impression: Febrile illness, acute, SIRS (systemic inflammatory response syndrome), Obesity (BMI 30.0-34.9), Tobacco use, Acute delirium, Colon abnormality, Iliac artery aneurysm, left, Renal insufficiency Hypothyroidism Qualifiers: Hypothyroidism type: acquired Qualified Code(s): E03.9 - Hypothyroidism, unspecified Schizophrenia Qualifiers: Schizophrenia type: unspecified Qualified Code(s): F20.9 - Schizophrenia, unspecified Cholelithiasis Qualifiers: Cholelithiasis location: gallbladder Cholecystitis presence: without cholecystitis Biliary obstruction: without biliary obstruction Qualified Code(s): K80.20 - Calculus of gallbladder without cholecystitis without obstruction CAD (coronary artery disease) Qualifiers: Coronary Disease-Associated Artery/Lesion type: [place] artery [place] vs. transplanted heart: [place] heart Associated angina: unspecified whether angina present Qualified Code(s): I25.10 - Atherosclerotic heart disease of [place] coronary artery without angina pectoris Chronic sinusitis Qualifiers: Sinusitis location: pansinusitis Qualified Code(s): J32.4 - Chronic pansinusitis Disposition: Admitted as Observation Condition on Discharge: Fair Instructions: DI for Altered Mental Status Referrals: Mitch De MD [Primary Care Provider] - - Critical Care Critical Care Time: No Attestation: On 03/05/21, the high probability of a clinically significant, sudden or life threatening deterioration of the following system(s) required my full and direct attention, intervention and personal management. The time I documented below is in addition to time spent performing reported procedures but includes the following listed in this critical care notation. Medical Decision Making - Medical Records Medical records reviewed: Yes: I reviewed the patient's medical records. - Jayce Inquiry Pt receiving controlled substance: No Vital Signs: 03/05/21 21:50 Temperature 102.4 F H Temperature Source Rectal Pulse Rate [Right] 110 H Respiratory Rate 26 H Blood Pressure [Right Arm] 107/67 L Blood Pressure Mean [Right Arm] 80 Blood Pressure Source [Right Arm] Automatic Cuff Blood Pressure Position [Right Arm] Supine 02 Sat by Pulse Oximetry 90 L Oxygen Delivery Method Room Air - Lab Data Lab results reviewed: Yes: I reviewed the patient's lab results. Lab Results 03/05/21 21:45: Urine Color Yellow, Urine Appearance Clear, Urine pH 6.5, Ur Specific [place] 1.015, Urine Protein Negative, Urine Glucose (UA) Negative, Urine Ketones Trace, Urine Blood Negative, Urine Nitrate Negative, Urine Bilirubin Negative, Urine Urobilinogen 0.2, Ur Leukocyte Esterase Negative, Urine RBC None, Urine WBC 3-5, Ur Squamous Epith Cells None, Urine Bacteria None, Urine Mucus 2+ 03/05/21 21:45: WBC 10.5, RBC 5.45, Hgb 15.8, Hct 46.9, MCV 86.0, MCH 29.0, MCHC 33.7, RDW 13.3, Plt Count 177, MPV 10.0, Neut % (Auto) 87.2 H, Lymph % (Auto) 6.4 L, Lee % (Auto) 6.0, Eos % (Auto) 0.1, Baso % (Auto) 0.4, Neut # (Auto) 9.2 H, Lymph # (Auto) 0.7, Lee # (Auto) 0.6, Eos # (Auto) 0.0, Baso # (Auto) 0.0, Total Counted 100, Neutrophils % (Manual) 85 H, Band Neutrophils % 4.0, Lymphocytes % (Manual) 5 L, Monocytes % (Manual) 6, Platelet Estimate Normal, RBC Morphology Normal, ESR 6 03/05/21 21:45: Sodium 137, Potassium 3.8, Chloride 105, Carbon Dioxide 23, Anion Gap 12.8, BUN 25 H, Creatinine 1.40 H, Estimated Creat Clear 87, Estimated GFR 52 L, Est GFR ( Amer) 63, Glucose 129 H, Calcium 8.7, Total Bilirubin 0.4, AST 23, ALT 13, Alkaline Phosphatase 75, C-Reactive Protein 61.4 H, Total Protein 6.3, Albumin 3.7, Globulin 2.6, Albumin/Globulin Ratio 1.4, Procalcitonin 0.670 03/05/21 21:45: Lactate 1.2 03/05/21 21:55: Chlamy pneumoniae PCR Not detected, Adenovirus (PCR) Not detected, B. pertussis DNA (PCR) Not detected, Coronavirus OC43 (PCR) Not detected, Coronavirus HKU1 (PCR) Not detected, Coronavirus 229E (PCR) Not detected, SARS-
[2021-03-05 22:17] LABS: Microscopic, Urine URINE MICROSCOPIC (MICROSCOPIC)
[2021-03-05 22:17] LABS: Adenovirus,PCR Not Detected (NotDetected); Bordetella Pertussis Not Detected (NotDetected); Chlamydophila Pneumoniae, PCR Not Detected (NotDetected); Coronavirus 19, PCR Not Detected (NotDetected); Coronavirus 229E Not Detected (NotDetected); Coronavirus NL63 Not Detected (NotDetected); Coronavirus OC43 Not Detected (NotDetected); Coronovirus HKU1,PCR Not Detected (NotDetected); Human Metapneumovirus Not Detected (NotDetected); Influenza A, PCR Not Detected (NotDetected); Influenza AH1, 2009 Not Detected (NotDetected); Influenza AH1, PCR Not Detected (NotDetected); Influenza AH3,PCR Not Detected (NotDetected); Influenza B, PCR Not Detected (NotDetected); Mycoplasma Pneumoniae, PCR Not Detected (NotDetected); Parainfluenza 1, PCR Not Detected (NotDetected); Parainfluenza 2, PCR Not Detected (NotDetected); Parainfluenza 3, PCR Not Detected (NotDetected); Parainfluenza 4, PCR Not Detected (NotDetected); Respiratory Syncytial Virus Not Detected (NotDetected); Rhinovirus/Enterovirus Not Detected (NotDetected)
[2021-03-05 22:24] LABS: Basophils % 0.4 % (0.1-2.0); Eosinophils % 0.1 % (0.1-12.0); Hematocrit 46.9 % (42.0-52.0); Hemoglobin 15.8 g/dL (14.1-18.0); Lymphocytes # 0.7 K/mm3 (0.7-4.5); Lymphocytes % 6.4 % (10-50); Mean Corpuscular HGB Conc 33.7 g/dL (31.8-35.4); Monocytes # 0.6 K/mm3 (0.1-1.0); Neutrophils # 9.2 K/mm3 (1.8-7.8); Neutrophils % 87.2 % (37.0-80.0); Platelet Count 177 K/mm3 (142-424); Red Blood Count 5.45 M/mm3 (4.60-6.20); Red Cell Distribution Width 13.3 % (11.5-17.5); White Blood Count 10.5 K/mm3 (4.8-10.8)
[2021-03-05 22:26] LABS: Alanine Aminotransferase 13 U/L (12-78); Albumin Level 3.7 g/dl (3.5-5.0); Albumin/Globulin Ratio 1.4 (1.1-1.8); Alkaline Phosphatase 75 U/L (38-126); Anion Gap 12.8 mEq/L (5-15); Aspartate Amino Transferase 23 U/L (17-59); Bilirubin,Total 0.4 mg/dl (0.2-1.3); Blood Urea Nitrogen 25 mg/dl (9-20); Calcium 8.7 mg/dl (8.4-10.2); Carbon Dioxide 23 mmol/L (22.0-30.0); Chloride 105 mmol/L (98-107); Creatinine Clearance Estimated 87 mL/min (50-200); Estimated Glomerular Filt Rate 52 ml/min (>60); GFR (African American) 63 ML/MIN (>60); Globulin 2.6 g/dL (1.3-3.2); Glucose 129 mg/dl (74-100); Potassium 3.8 mmoL/L (3.5-5.1); Sodium 137 mmol/L (136-145); Total Protein,Serum 6.3 g/dl (6.3-8.2)
[2021-03-05 22:27] LABS: Lactic Acid 1.2 mmol/L (0.7-2.1)
[2021-03-05 22:30] VITALS: BP 111/68; PULSE 101; RESP 25; O2SAT 94
[2021-03-05 22:32] LABS: C-Reactive Protein 61.4 mg/L (0-4)
[2021-03-05 22:53] LABS: MANUAL DIFFERENTIAL MANUAL DIFFERENTIAL (MANUAL DIFF)
[2021-03-05 22:56] LABS: Appearance,Urine CLEAR (Clear); Bilirubin,Urine Negative (Negative); Blood, Urine Negative (Negative); Color,Urine YELLOW (Yellow); Glucose,Urine (UA) Negative (Negative); Ketones,Urine TRACE (Negative); Leukocyte Esterase,Urine Negative (Negative); Nitrate,Urine Negative (Negative); PH,Urine 6.5 (5.0-8.5); Protein,Urine Negative (Negative); Specific Gravity, Urine 1.015 (1.005-1.030); Urobilinogen,Urine 0.2 EU/dl (0.2)
[2021-03-05 23:00] VITALS: BP 121/75; PULSE 101; RESP 25; O2SAT 96
[2021-03-05 23:06] LABS: Mucus,Urine 2+ /lpf
--- NOTE | 2021-03-05 23:10 | PC.NURSE ---
pt to CT
[2021-03-05 23:24] LABS: Erythrocyte Sedimentation Rate 6 mm/hr (0-20)
[2021-03-05 23:39] LABS: Lymphocytes % 5 % (10-50); Monocytes % 6 % (2-9); Neutrophils % 85 % (42-76); Platelet Estimate Normal; RBC Morphology Normal; Total Cells Counted 100
[2021-03-06] VITALS (10 sets, daily range): BP systolic 123–161; BP diastolic 79–97; PULSE 92–110; RESP 18–26; TEMP 36.9–37.8; O2SAT 91–98; BMI 29.7
--- NOTE | 2021-03-06 01:20 | PC.NURSE ---
Nic Andujar called report to Shanita Lora RN
--- NOTE | 2021-03-06 01:43 | PC.NURSE ---
patient up to floor via wheelchair.
--- NOTE | 2021-03-06 05:44 | PC.NURSE ---
Pt has been restless since arrival to floor. Asks for pop and water continuously. Pt is NPO at this time per MD. Pt has attempted multiple times to get OOB without assistance. MD notified of safety concerns of pt attempting to get oob with F/C. F/C DC. Pt has been educated multiple times to not get OOB without assistance. Reinforcement needed. Safety measures are in place. Will continue to monitor.
[2021-03-06 07:10] LABS: Basophils % 0.3 % (0.1-2.0); Eosinophils # 0.1 K/mm3 (0.0-0.4); Eosinophils % 0.5 % (0.1-12.0); Hematocrit 45.3 % (42.0-52.0); Hemoglobin 15.1 g/dL (14.1-18.0); Lymphocytes # 0.8 K/mm3 (0.7-4.5); Lymphocytes % 8.1 % (10-50); Mean Corpuscular HGB Conc 33.4 g/dL (31.8-35.4); Mean Corpuscular Hemoglobin 28.9 pg (27.0-31.2); Mean Corpuscular Volume 86.5 fl (80-94); Monocytes # 0.5 K/mm3 (0.1-1.0); Monocytes % 5.1 % (1.7-9.3); Neutrophils # 8.7 K/mm3 (1.8-7.8); Neutrophils % 86.1 % (37.0-80.0); Platelet Count 138 K/mm3 (142-424); Red Blood Count 5.24 M/mm3 (4.60-6.20); Red Cell Distribution Width 13.3 % (11.5-17.5); White Blood Count 10.1 K/mm3 (4.8-10.8)
[2021-03-06 07:17] LABS: Anion Gap 12.8 mEq/L (5-15); Blood Urea Nitrogen 24 mg/dl (9-20); Calcium 8.6 mg/dl (8.4-10.2); Carbon Dioxide 22 mmol/L (22.0-30.0); Chloride 107 mmol/L (98-107); Creatinine Clearance Estimated 81 mL/min (50-200); Estimated Glomerular Filt Rate 57 ml/min (>60); GFR (African American) 68 ML/MIN (>60); Glucose 106 mg/dl (74-100); Magnesium 1.6 mg/dl (1.6-2.3); Potassium 3.8 mmoL/L (3.5-5.1); Sodium 138 mmol/L (136-145)
[2021-03-06 07:41] LABS: MANUAL DIFFERENTIAL MANUAL DIFFERENTIAL (MANUAL DIFF)
[2021-03-06 07:43] LABS: Lymphocytes % 5 % (10-50); Monocytes % 2 % (2-9); Neutrophils % 61 % (42-76); Platelet Estimate Normal; RBC Morphology Normal; Total Cells Counted 100
--- NOTE | 2021-03-06 08:00 | US_ITS ---
PROCEDURE: US GALLBLADDER CLINICAL INDICATION: abd pain/fever COMPARISON: CT CT ABDOMEN PELVIS W CON from 03/05/2021 FINDINGS: Pancreas: Unremarkable/Not well seen Liver: No focal liver lesions are demonstrated. The portal vein is prominent measuring 16 mm. There is appropriate direction of blood flow within the portal vein.. Right kidney: Somewhat hyperechoic with small shadowing stones. No hydronephrosis. Gallbladder: There are multiple gallstones present. The gallbladder is distended measuring 12 x 5 cm. No gallbladder wall thickening or pericholecystic fluid. Common bile duct is normal at 3 mm. IMPRESSION: Cholelithiasis with dilated gallbladder. Prominent portal vein with appropriate direction of blood flow Right-sided nephrolithiasis with nonspecific increased echogenicity of the right kidney Dictated by: Tyson Negrete MD 03/06/2021 09:36 Tyson Negrete MD in [facility] 03/06/2021 09:36
--- NOTE | 2021-03-06 08:38 | P.CONPHA_ITS ---
[facility] Pharmacy VTE Monitoring - Patient Demographics Admission date: 03/05/21 Report Date: 03/06/21 Time: 08:39 Allergies/Adverse Reactions: Patient Allergies No Known Allergies Allergy (Verified 10/05/20 10:53) Height: 1.78 m Weight: 94.092 kg Patient Problems: Current Active Problems Acute delirium (Acute) Febrile illness, acute (Acute) SIRS (systemic inflammatory response syndrome) (Acute) Schizophrenia (Acute) Hypothyroidism (Acute) Obesity (BMI 30.0-34.9) (Acute) Tobacco use (Acute) Cholelithiasis (Acute) Colon abnormality (Acute) CAD (coronary artery disease) (Acute) Iliac artery aneurysm, left (Acute) Chronic sinusitis (Acute) Renal insufficiency (Acute) - VTE Risk Labs: VTE Related Lab Results Hgb 15.1 g/dL (14.1-18.0) 03/06/21 06:54 Hct 45.3 % (42.0-52.0) 03/06/21 06:54 Plt Count 138 K/mm3 (142-424) L 03/06/21 06:54 BUN 24 mg/dl (9-20) H 03/06/21 06:54 Creatinine 1.30 mg/dl (0.66-1.25) H 03/06/21 06:54 Estimated Creat Clear 81 mL/min (50-200) 03/06/21 06:54 Was VTE Risk Assessment Performed: Yes VTE Risk Level: Low Risk Clinical Trial Participant: No - Prophylaxis VTE Prophylaxis Ordered?: Yes Types of VTE Prophylaxis: TEDS Knee High Location of Applied Device: Refused
--- NOTE | 2021-03-06 09:07 | HMH.HP ---
*Admission Date: 03/05/21 *Chief complaint: ams,fever *History of present illness: 60-year-old male presented to ed for decrease LOC, foul odor urine and fever. Work-up in the emergency department included CT scan which revealed findings of possible ascending colon lesion and distended gallbladder with gallstones. He did undergo gallbladder ultrasound that show multiple gallstones. Patient denies abdominal complaints. No abdominal pain. pt admitted for further work up and surgery consult [facility] History I have reviewed the patient's past medical history: Yes Medical History: Reports:: Anxiety, Hypertension Denies:: Cancer, Diabetes Mellitus Type 1, Diabetes Mellitus Type 2, MRSA *Have you ever received a pneumonia vaccine?: No *Have you received a flu vaccine this season?: Yes Other Medical History: Reports: Arthritis, Hypothyroidism Other Surgeries: Yes: No Previous Surgery Amputation: No Fractures: Yes - *Social History Smoking Status: Current every day smoker Tobacco Type: cigarettes # Packs/Day (cigarettes): 1 Alcohol Intake: former Substance Use Type: denies use *Occupational Status:: disabled Housing: assisted living facility Household Members: none *Travel in the last 8 weeks: None - Psychiatric History Pschychiatric History:: Reports:: Anxiety Family Hx:: Unable to obtain Review of Systems - Review of Systems Review of systems:: pertinent systems reviewed and negative unless documented below - Constitutional Reports fever(s), Denies body ache(s) - Eyes Denies blurry vision - ENT Denies sore throat - *Cardiovascular Denies chest pain at rest, Denies leg sores - *Respiratory Denies chest congestion - *Gastrointestinal Denies abdominal pain, Denies loose stools, Denies nausea, Denies vomiting - *Genitourinary Reports other - *Musculoskeletal Denies joint pain - Integumentary/Breasts Denies rash - *Neurologic Reports confusion, Reports weakness, Denies localized weakness, Denies seizure-like activity - Psychiatric Denies lack of enjoyment - Endocrine Denies excessive sweating - Hematologic/Lymphatic Denies easy bruising - Allergic/Immunologic Denies tongue swelling Meds Home Medications Medication Instructions Recorded Confirmed Type clonazepam 1 mg tablet 1 mg PO BID 02/25/18 03/06/21 History divalproex 500 mg tablet,delayed 500 mg PO BID 02/25/18 03/06/21 History release levothyroxine 100 mcg capsule 100 mcg PO DAILY 02/25/18 03/06/21 History omega-3 fatty acids 1,000 mg 1,000 mg PO BID 02/25/18 03/06/21 History capsule OXcarbazepine [Oxcarbazepine] 600 mg PO BID 09/30/19 03/06/21 History haloperidoL [Haldol 5mg tablet] 10 mg PO TID 10/01/19 03/06/21 History gabapentin 100 mg capsule 100 mg PO QHS #30 cap 10/24/20 03/06/21 Rx Amlodipine Besylate 2.5 mg PO HS 11/21/20 03/06/21 History Acetaminophen [Mapap] 500 mg PO Q6HP PRN 11/22/20 03/05/21 History Lactulose [Lactulose 10gm/15ml 20 gm PO DAILYP PRN 11/22/20 03/06/21 History Oral Soln] clonazePAM [Clonazepam] 1 mg PO TIDP PRN 11/22/20 03/06/21 History Quetiapine Fumarate [Seroquel] 400 mg PO DAILY 03/05/21 03/06/21 History risperiDONE [Risperidone] 4 mg PO BID 03/06/21 03/06/21 History Allergies Allergy/AdvReac Type Severity Reaction Status Date / Time No Known Allergies Allergy Verified 10/05/20 10:53 Exam Vital signs and Labs for Last 24 Hours: Temp Pulse Resp BP Pulse Ox 99.8 F H 94 H 20 126/85 91 L 03/06/21 07:29 03/06/21 07:29 03/06/21 07:29 03/06/21 07:29 03/06/21 07:29 Laboratory Results - last 24 hr 03/05/21 21:45: Urine Color Yellow, Urine Appearance Clear, Urine pH 6.5, Ur Specific [place] 1.015, Urine Protein Negative, Urine Glucose (UA) Negative, Urine Ketones Trace, Urine Blood Negative, Urine Nitrate Negative, Urine Bilirubin Negative, Urine Urobilinogen 0.2, Ur Leukocyte Esterase Negative, Urine RBC None, Urine WBC 3-5, Ur Squamous Epith Cells None, Urine Bacteria No
--- NOTE | 2021-03-06 09:53 | HMH.PHAINT ---
home medication list verified using MAR from [facility] and list from [facility]
--- NOTE | 2021-03-06 10:43 | PC.NURSE ---
Upon nursing assessment, pt has no issues w/ gait or balance. Pt is at his baseline from [facility] as far as ambulating. Bed alarm turned off d/t patient moving from bed to chair so frequently.
--- NOTE | 2021-03-06 11:32 | HMH.GSCON ---
*Admission Date: 03/05/21 *Reason for consult:: Gallstones, colon lesion *History of present illness: Patient is a 60-year-old white male with reported history of schizophrenia on the clonazepam, valproic acid, oxcarbazepine, Haldol, Seroquel, who was brought to the emergency department due to mental status changes. Work-up in the emergency department included CT scan which revealed findings of possible ascending colon lesion and distended gallbladder with gallstones. He did undergo gallbladder ultrasound. Patient denies abdominal complaints. No abdominal pain. Review of Systems - Review of Systems Review of systems:: pertinent systems reviewed and negative unless documented below - *Neurologic Reports confusion, Reports weakness, Denies localized weakness, Denies seizure-like activity [facility] History I have reviewed the patient's past medical history: Yes Medical History: Reports:: Anxiety, Hypertension Denies:: Cancer, Diabetes Mellitus Type 1, Diabetes Mellitus Type 2, MRSA *Have you ever received a pneumonia vaccine?: No *Have you received a flu vaccine this season?: Yes Other Medical History: Reports: Arthritis, Hypothyroidism Other Surgeries: Yes: No Previous Surgery Amputation: No Fractures: Yes - *Social History Smoking Status: Current every day smoker Tobacco Type: cigarettes # Packs/Day (cigarettes): 1 Alcohol Intake: former Substance Use Type: denies use *Occupational Status:: disabled Housing: assisted living facility Household Members: none *Travel in the last 8 weeks: None - Psychiatric History Pschychiatric History:: Reports:: Anxiety Family Hx:: Unable to obtain Meds Home Medications Medication Instructions Recorded Confirmed Type clonazepam 1 mg tablet 1 mg PO BID 02/25/18 03/06/21 History divalproex 500 mg tablet,delayed 500 mg PO BID 02/25/18 03/06/21 History release levothyroxine 100 mcg capsule 100 mcg PO DAILY 02/25/18 03/06/21 History omega-3 fatty acids 1,000 mg 1,000 mg PO BID 02/25/18 03/06/21 History capsule OXcarbazepine [Oxcarbazepine] 600 mg PO BID 09/30/19 03/06/21 History haloperidoL [Haldol 5mg tablet] 10 mg PO TID 10/01/19 03/06/21 History gabapentin 100 mg capsule 100 mg PO QHS #30 cap 10/24/20 03/06/21 Rx Amlodipine Besylate 2.5 mg PO HS 11/21/20 03/06/21 History Acetaminophen [Mapap] 500 mg PO Q6HP PRN 11/22/20 03/05/21 History Lactulose [Lactulose 10gm/15ml 20 gm PO DAILYP PRN 11/22/20 03/06/21 History Oral Soln] clonazePAM [Clonazepam] 1 mg PO TIDP PRN 11/22/20 03/06/21 History Quetiapine Fumarate [Seroquel] 400 mg PO DAILY 03/05/21 03/06/21 History risperiDONE [Risperidone] 4 mg PO BID 03/06/21 03/06/21 History Allergies Allergy/AdvReac Type Severity Reaction Status Date / Time No Known Allergies Allergy Verified 10/05/20 10:53 Exam Vital signs and Labs for Last 24 Hours: Temp Pulse Resp BP Pulse Ox 99.8 F H 94 H 20 126/85 91 L 03/06/21 07:29 03/06/21 07:29 03/06/21 07:29 03/06/21 07:29 03/06/21 08:00 Laboratory Results - last 24 hr 03/05/21 21:45: Urine Color Yellow, Urine Appearance Clear, Urine pH 6.5, Ur Specific Jackson 1.015, Urine Protein Negative, Urine Glucose (UA) Negative, Urine Ketones Trace, Urine Blood Negative, Urine Nitrate Negative, Urine Bilirubin Negative, Urine Urobilinogen 0.2, Ur Leukocyte Esterase Negative, Urine RBC None, Urine WBC 3-5, Ur Squamous Epith Cells None, Urine Bacteria None, Urine Mucus 2+ 03/05/21 21:45: WBC 10.5, RBC 5.45, Hgb 15.8, Hct 46.9, MCV 86.0, MCH 29.0, MCHC 33.7, RDW 13.3, Plt Count 177, MPV 10.0, Neut % (Auto) 87.2 H, Lymph % (Auto) 6.4 L, [place] % (Auto) 6.0, Eos % (Auto) 0.1, Baso % (Auto) 0.4, Neut # (Auto) 9.2 H, Lymph # (Auto) 0.7, [place] # (Auto) 0.6, Eos # (Auto) 0.0, Baso # (Auto) 0.0, Total Counted 100, Neutrophils % (Manual) 85 H, Band Neutrophils % 4.0, Lymphocytes % (Manual) 5 L, Monocytes % (Manual) 6, Platelet Estimate Normal, RBC Morphology Normal, ESR 6 03/05/21 21:45: Sodium 137, Potass
--- NOTE | 2021-03-06 13:20 | SW/DCPLANNER ---
Addendum entered by Maria Isabel Bang 03/10/21 09:37: This patient will discharge back to [facility] today. I have contacted Elisha with [facility] and she will provide clothing and transportation today. No further COVID testing is needed per Elisha. Addendum entered by Maria Isabel Bang 03/07/21 13:49: Elisha/Scot with [facility] have stated they will come to [facility] in AM to evaluate this patient. Original Note: This patient currently resides at [facility]. Patient is not medically stable for discharge at this time. I will continue to follow up with Marcie from [facility] regarding this patient.
--- NOTE | 2021-03-06 17:45 | PC.NURSE ---
Pt has gotten better as the day progressed. Pt has been cooperative w/ staff. Pt has had multiple, very large- light brown, liquid incontinent BM's. PIV is SL d/t pt tugging at tubing and constantly moving. NO other acute changes or complaints t this time.
[2021-03-07] VITALS (19 sets, daily range): BP systolic 97–167; BP diastolic 55–99; PULSE 54–87; RESP 16–20; TEMP 36.2–36.9; O2SAT 90–97; BMI 29.0
--- NOTE | 2021-03-07 04:12 | PC.NURSE ---
pt has been awake most of shift, pt finsihed bowel prep at 2313, no bms known since bowel prep completed, pt has had multiple trips to bathroom where patient has been trying to drink water from sink, pt constantly reeducated on npo status, no c/o pain this shift, lungs remain clear. no distress noted will continue to monitor at this time
[2021-03-07 07:39] LABS: Basophils % 0.5 % (0.1-2.0); Eosinophils % 0.4 % (0.1-12.0); Hematocrit 40.8 % (42.0-52.0); Hemoglobin 13.7 g/dL (14.1-18.0); Mean Corpuscular HGB Conc 33.5 g/dL (31.8-35.4); Mean Corpuscular Volume 86.5 fl (80-94); Mean Platelet Volume 9.7 fl (7.4-10.4); Monocytes # 0.5 K/mm3 (0.1-1.0); Monocytes % 8.6 % (1.7-9.3); Neutrophils # 4.1 K/mm3 (1.8-7.8); Neutrophils % 72.6 % (37.0-80.0); Platelet Count 122 K/mm3 (142-424); Red Blood Count 4.71 M/mm3 (4.60-6.20); Red Cell Distribution Width 13.5 % (11.5-17.5); White Blood Count 5.7 K/mm3 (4.8-10.8)
[2021-03-07 07:54] LABS: Anion Gap 8.2 mEq/L (5-15); Blood Urea Nitrogen 15 mg/dl (9-20); Calcium 8.4 mg/dl (8.4-10.2); Carbon Dioxide 26 mmol/L (22.0-30.0); Chloride 111 mmol/L (98-107); Creatinine Clearance Estimated 115 mL/min (50-200); Estimated Glomerular Filt Rate 86 ml/min (>60); GFR (African American) 105 ML/MIN (>60); Glucose 88 mg/dl (74-100); Potassium 3.2 mmoL/L (3.5-5.1); Sodium 142 mmol/L (136-145)
--- NOTE | 2021-03-07 09:27 | HMH.ACPN2 ---
Internal Medicine - PN: Subj *Date: 03/07/21 *Time: 14:30 Interval history: 60-year-old male patient sitting up on side of bed reports he is feeling better today agrees to be up in chair and walking in room. Denies any abdominal pain, respiratory distress, or chest pain Surg has seen and rec: Plan to proceed with colonoscopy to evaluate potential colon lesion. Patient however does not have any evidence of obstruction clinically or radiographically. No evidence radiographically or clinically of acute cholecystitis. Exam Vital signs and Labs for Last 24 Hours: Temp Pulse Resp BP Pulse Ox 98.4 F 66 20 133/99 H 95 03/07/21 08:00 03/07/21 08:00 03/07/21 08:00 03/07/21 08:00 03/07/21 08:00 Laboratory Results - last 24 hr 03/07/21 07:14: WBC 5.7 D, RBC 4.71, Hgb 13.7 L, Hct 40.8 L, MCV 86.5, MCH 29.0, MCHC 33.5, RDW 13.5, Plt Count 122 L, MPV 9.7, Neut % (Auto) 72.6, Lymph % (Auto) 18.0, [place] % (Auto) 8.6, Eos % (Auto) 0.4, Baso % (Auto) 0.5, Neut # (Auto) 4.1, Lymph # (Auto) 1.0, [place] # (Auto) 0.5, Eos # (Auto) 0.0, Baso # (Auto) 0.0 03/07/21 07:14: Sodium 142, Potassium 3.2 L, Chloride 111 H, Carbon Dioxide 26, Anion Gap 8.2, BUN 15 D, Creatinine 0.90 D, Estimated Creat Clear 115, Estimated GFR 86, Est GFR ( Amer) 105 D, Glucose 88, Calcium 8.4 I & O for Last 24 hours: Intake & Output 03/04/21 03/05/21 03/06/21 03/07/21 23:59 23:59 23:59 23:59 Intake Total 1080 / 1080 752 / 752 Output Total 725 / 725 Balance 355 / 355 752 / 752 Weight 240 lb 207 lb 7 oz 203 lb 4 oz Microbiology Reports for the Last 24 Hours: Microbiology 05/02/21 00:00 Urine,Catheterized Urine Culture - Preliminary NO GROWTH AFTER 24 HOURS - Constitutional no acute distress - *Routine HEENT Exam Head: Present: normocephalic Eye: Present: EOMI ENT: Present: mucous membranes moist - *Routine Neck Exam Present: supple, trachea midline. Absent: tracheal deviation - *Routine Respiratory Exam Present: CTA bilaterally. Absent: accessory muscle use - *Routine Cardiovascular Exam Present: RRR - *Routine Abdominal Exam Present: soft, normoactive bowel sounds. Absent: tenderness, rigid - *Routine Extremities Exam Present: full ROM, pulses intact. Absent: cyanosis, clubbing, calf tenderness - *Routine Skin Exam Present: intact, dry, warm. Absent: cyanosis, erythema - *Routine Neurological Exam Present: alert, oriented X3. Absent: normal reflexes, pronator drift - Routine Psychiatric Exam Present: normal affect, normal thought process. Absent: visual hallucinations Assessment and Plan (1) Lesion of colon Status: Acute Category: Medical Code(s): K63.9 - Disease of intestine, unspecified (2) Acute delirium Status: Acute Category: Medical Code(s): R41.0 - Disorientation, unspecified (3) Cholelithiasis Status: Acute Qualifiers: Cholelithiasis location: gallbladder Cholecystitis presence: without cholecystitis Biliary obstruction: without biliary obstruction Qualified Code(s): K80.20 - Calculus of gallbladder without cholecystitis without obstruction Category: Medical Code(s): K80.20 - Calculus of gallbladder without cholecystitis without obstruction (4) Febrile illness, acute Status: Acute Category: Medical Code(s): R50.9 - Fever, unspecified (5) Multiple gallstones Status: Acute Category: Medical Code(s): K80.20 - Calculus of gallbladder without cholecystitis without obstruction - Assessment and plan all Dx Assessment and Plan for all problems:: Rounded with Dr. De, all orders per Dr. De: 1. We will follow surgical recommendations and colonoscopy today 2. PT OT evaluation
--- NOTE | 2021-03-07 10:37 | HMH.OTEV ---
OT Inpatient Evaluation Rehab OT IP Evaluation Start: 03/07/21 09:28 Freq: ONCE Status: Complete Protocol: [facility]07[facility]21 [facility] (Rec: 03/07/21 10:37 [facility] [id number]) Rehab OT IP Assessment Subjective History Pt oriented x 3 on arrival. Pt agreeable to engage in therapy evaluation. Pt was admitted via ED on 03/05/21 due to AMS and fever. pt has a past medical history of Anxiety and HTN. Pt reports prior to hospital he lived at [facility]. Pt claims he was independent with ADLs and is dependent upon staff for IADLs . Pt did not use a walker during ambulation. Subjective I have no problem. Objective Patient Orientation Person,Place,Birthday Upper Extremity Gross ROM WFL Bed Mobility bed mobility-scooting,bed mobility - supine/sit,bed mobility - rolling Assist Level Supervision/Stand by Transfer Training Sit/Stand Transfer Assist Level Supervision/Stand by Chair Transfer Ability Supervision/Stand by Chair Transfer Technique Sit to/from Ambulatory Chair Transfer Assistive Devices None Lower Body Dressing Ability Standby Assistance Rehab OT IP prob,goals,plan Problems Date of Evaluation: 03/07/21 Rehab Potential Rehab Potential Innapropriate for Skilled Therapy Discharge Plan OT Discharge Plan Pt appears to be at baseline functionally at this time. No further tx is required. He is safet to return back to [facility] once medically stable. Eval Complexity Eval Charge Codes 63278 - Moderate Complexity G Codes G -code Required No PHYSICIAN CERTIFICATION: I certify the specified therapy services for Vincenzo Huang are required, authorized, and reviewed every 30 days.
--- NOTE | 2021-03-07 11:05 | P.PN_ITS ---
[facility] Anesthesia Checklist - Patient Identification Patient Identification: Arm Band - Structural Data Admitted From: Home Planned Operative Procedure/s: colonoscopy Consent for Planned Operative Procedure(s) Verified: Yes Verified Documents: Surgical Consent, History and Physical - NPO Status Verified Time NPO: 00:00 - Additional verifications Anesthesia Reactions: No - Airway Assessment C-Spine Mobility Assessed: Yes (mp2) TMJ Mobility Assessed: Yes Dentition: Good Dentition - Neurological Assessment Level of Consciousness: Awake, Alert - Anesthesia Plan Anesthesia Risk discussed: Yes Anesthesia Plan: Verified ASA Class: II Anesthesia Type: MAC [facility] History I have reviewed the patient's past medical history: Yes Medical History: Reports:: Anxiety, Hypertension Denies:: Cancer, Diabetes Mellitus Type 1, Diabetes Mellitus Type 2, MRSA *Have you ever received a pneumonia vaccine?: No *Have you received a flu vaccine this season?: Yes Other Medical History: Reports: Arthritis, Hypothyroidism Anesthesia experience/problems:: nac Other Surgeries: Yes: No Previous Surgery Amputation: No Fractures: Yes - *Social History Smoking Status: Current every day smoker Tobacco Type: cigarettes # Packs/Day (cigarettes): 1 Alcohol Intake: former Substance Use Type: denies use *Occupational Status:: disabled Housing: assisted living facility Household Members: none *Travel in the last 8 weeks: None - Psychiatric History Pschychiatric History:: Reports:: Anxiety Family Hx:: Unable to obtain
--- NOTE | 2021-03-07 12:08 | P.PCN_ITS ---
- Procedure: Date: 03/07/21 Patient Date of :: 1960 Procedure Performed:: Total colonoscopy with biopsies of right colon mass and multiple polypectomy Indications:: Patient is a 60-year-old male who is a resident of [facility] who was admitted with mental status changes. He underwent CT scan which revealed findings of distended gallbladder with gallstones and possible right colon mass. Surgical consultation was obtained. Plan was made to proceed with colonoscopy. He did not have any evidence sonographically were clinically consistent with acute cholecystitis. Performing Provider:: Chris Reina MD Referring Provider:: Tom De MD Sedation:: MAC sedation Procedure:: Patient was taken to endoscopy procedure room. He was positioned in lateral decubitus position. Adequate intravenous sedation was achieved with anesthesia titration of propofol. Variable stiffness Olympus colonoscope was inserted via the anus. With some minor difficulty due to floppiness of the sigmoid colon it was ultimately advanced to the right colon. There was noted to be a large somewhat fungating mass in the right colon. The colonoscope was able to be advanced proximal to this to the cecum. Ileocecal valve and appendiceal orifice were clearly identified. Colonoscope was withdrawn into the ascending colon. Several large pieces of the ascending colon mass were removed using hot snare. These were retrieved using the Harris net and macerated and sent as biopsies of right colon mass. In the proximal transverse colon there were 3 moderate niranjan nomatous polyps removed with snare. In the distal transverse colon there was a small polyp removed with cold cutting snare. Near the splenic flexure there were 4 adenomatous appearing polyps. A couple of these were large, greater than 1 cm. These were removed with cold cutting snare and macerated and retrieved using the Harris net. Once these were removed the area was marked with Anna ink as possible distal margin. In the descending colon and sigmoid colon there were some small adenomatous appearing polyps removed with cold cutting snare. Retroflexion within the rectum revealed no evidence of any pathologic internal hemorrhoids. Colonoscope was withdrawn. Findings:: Ascending colon mass Moderate adenomatous appearing proximal transverse colon polyp x3 Distal transverse colon polyp Moderately large splenic flexure polyps, removed and area marked with Anna ink Small descending colon polyp Small sigmoid colon polyp Recommendations:: He will need a right colon resection. This may build to be arranged to be done after discharge. Distal margin would depend on final pathology of the polypectomy. May undergo open cholecystectomy at the time of right colon resection. Complications:: None immediately apparent Estimated blood obtained (mL): 4
--- NOTE | 2021-03-07 16:37 | PC.NURSE ---
Pt has rested well since returing from his procedure. Pt has tolerated a full liquid diet w/ no issues. Pt continues to ambulate independently w/ steady gait and balance. VSS. No other acute changes or complaints at this time.
--- NOTE | 2021-03-08 03:52 | PC.NURSE ---
A&OX4. PT DOES MUMBLE AT TIMES. PT TOLERATING RA. PT HAS BEEN AWAKE MAJORITY OF SHIFT, AMBULATING IN HIS ROOM WITHOUT DIFFICULTY. PT HAS BEEN VERY RESTLESS. PT HAS HAD NO C/O PAIN/NA/VO/DI. TOLERATING FULL LIQUID DIET. VSS WILL CONTINUE TO MONITOR.
[2021-03-08 04:00] VITALS: BP 130/88; PULSE 63; RESP 20; TEMP 36.8; O2SAT 97
[2021-03-08 05:49] VITALS: BMI 29.2
[2021-03-08 06:14] VITALS: PULSE 56; PULSE 57
--- NOTE | 2021-03-08 07:06 | HMH.GSPN ---
Subjective Narrative: Patient is without complaints at this time. Tolerated diet. Colonoscopy yesterday revealed multiple large polyps but most notable in a sending colon large mass. Biopsies were obtained. Progress Note: A&P (1) Lesion of colon Status: Acute Assessment and plan: We will ultimately need colon resection, possible right hemicolectomy versus extended right hemicolectomy. Consideration for possible open cholecystectomy at that time. Pathology is pending. This may be arranged to be done as an outpatient. Patient could require cardiac preoperative risk assessment potentially as an outpatient. (2) Acute delirium Status: Acute (3) Cholelithiasis Status: Acute (4) Febrile illness, acute Status: Acute (5) Multiple gallstones Status: Acute Exam Vital signs and Labs for Last 24 Hours: Temp Pulse Resp BP Pulse Ox 98.3 F 57 L 20 130/88 97 03/08/21 04:00 03/08/21 06:14 03/08/21 04:00 03/08/21 04:00 03/08/21 04:00 Laboratory Results - last 24 hr 03/07/21 07:14: WBC 5.7 D, RBC 4.71, Hgb 13.7 L, Hct 40.8 L, MCV 86.5, MCH 29.0, MCHC 33.5, RDW 13.5, Plt Count 122 L, MPV 9.7, Neut % (Auto) 72.6, Lymph % (Auto) 18.0, [place] % (Auto) 8.6, Eos % (Auto) 0.4, Baso % (Auto) 0.5, Neut # (Auto) 4.1, Lymph # (Auto) 1.0, [place] # (Auto) 0.5, Eos # (Auto) 0.0, Baso # (Auto) 0.0 03/07/21 07:14: Sodium 142, Potassium 3.2 L, Chloride 111 H, Carbon Dioxide 26, Anion Gap 8.2, BUN 15 D, Creatinine 0.90 D, Estimated Creat Clear 115, Estimated GFR 86, Est GFR ( Amer) 105 D, Glucose 88, Calcium 8.4 I & O for Last 24 hours: Intake & Output 03/05/21 03/06/21 03/07/21 03/08/21 11:59 11:59 11:59 11:59 Intake Total 1832 / 1832 1010 / 1010 Output Total 725 / 725 Balance -725 / -725 1832 / 1832 1010 / 1010 Weight 207 lb 7 oz 203 lb 4 oz 204 lb 1 oz Microbiology Reports for the Last 24 Hours: Microbiology 03/05/21 00:00 Urine,Catheterized Urine Culture - Final NO GROWTH AFTER 48 HOURS 03/05/21 21:45 Blood Blood Culture - Preliminary NO GROWTH AFTER 48 HOURS 03/05/21 21:45 Blood Blood Culture - Preliminary NO GROWTH AFTER 48 HOURS - *Routine Abdominal Exam Present: soft. Absent: tenderness
[2021-03-08 07:57] LABS: Basophils % 0.6 % (0.1-2.0); Eosinophils # 0.1 K/mm3 (0.0-0.4); Eosinophils % 0.9 % (0.1-12.0); Hematocrit 41.1 % (42.0-52.0); Hemoglobin 13.8 g/dL (14.1-18.0); Lymphocytes # 1.6 K/mm3 (0.7-4.5); Lymphocytes % 23.6 % (10-50); Mean Corpuscular HGB Conc 33.6 g/dL (31.8-35.4); Mean Corpuscular Hemoglobin 28.9 pg (27.0-31.2); Mean Corpuscular Volume 85.9 fl (80-94); Mean Platelet Volume 12.1 fl (7.4-10.4); Monocytes # 0.8 K/mm3 (0.1-1.0); Monocytes % 11.9 % (1.7-9.3); Neutrophils # 4.4 K/mm3 (1.8-7.8); Platelet Count 147 K/mm3 (142-424); Red Blood Count 4.79 M/mm3 (4.60-6.20); Red Cell Distribution Width 13.4 % (11.5-17.5); White Blood Count 6.9 K/mm3 (4.8-10.8)
[2021-03-08 08:00] VITALS: BP 149/63; PULSE 69; RESP 16; TEMP 36.3; O2SAT 96
--- NOTE | 2021-03-08 08:25 | ECG_ITS ---
APPROVED REPORT Exam: Resting ECG HR:60 bpm ECG Measurements Heart Rate 60 AXES IA 166 P 44 QRSd 154 QRS 22 QT 436 T 26 QTc 436 Conclusion Sinus rhythm with premature atrial complexes Right bundle branch block Abnormal ECG Electronically signed by : Lane Awad, 03/08/2021 16:56:57
--- NOTE | 2021-03-08 08:29 | CT_ITS ---
PROCEDURE: CT ANGIO CHEST CLINCIAL INDICATION: chest pain COMPARISON: CT CT ANGIO CHEST from 11/22/2020 CR XR CHEST PORTABLE from 03/05/2021 TECHNIQUE: IV Contrast: 70ML Isovue 370 Axial images obtained with sagittal and coronal reformats. All CT scans at the facility use one or more dose reduction, viz: automated exposure control, ma/kV adjustment per patient size (including targeted exams where dose is matched to indication, i.e. head), or iterative reconstruction technique. FINDINGS: HEART AND MEDIASTINAL STRUCTURES: No evidence of aortic aneurysm, dissection, or pulmonary embolus. Coronary artery calcifications are present. There is mild cardiomegaly. There is some mild flattening of the interventricular septum with an RV/LV ratio of approximately 1 or slightly greater. There is reflux of contrast into the hepatic portion of the inferior vena cava and into the hepatic veins proximally. These findings may indicate some degree of right heart failure/strain. LUNGS AND PLEURAL SPACES: There are trace bilateral pleural effusions with minimal atelectatic changes. No lobar consolidation or collapse. BONY STRUCTURES: No acute bony abnormalities apparent. UPPER ABDOMEN: There is dilatation of the proximal aspect of the celiac artery at 12 mm in with. The segment measures 2 cm in length. On the sagittal reformatted images this appears to represent a saccular area of dilatation. Nonobstructing 3 mm stone is present in the upper pole of the right kidney. ADDITIONAL FINDINGS: No other significant abnormalities. IMPRESSION: 1. No evidence of pulmonary embolus. 2. Cardiomegaly with flattened interventricular septum an RV/LV ratio of 1 or slightly greater with reflux of contrast into the inferior vena cava hepatic segment and hepatic veins suggesting right heart strain/failure. 3. Trace bilateral pleural effusions. 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 This may be better evaluated with CT a of the abdomen if clinically warranted. Dictated by: Tyson Negrete MD 03/08/2021 10:26 Tyson Negrete MD in OV 03/08/2021 10:26
[2021-03-08 08:48] LABS: Anion Gap 12.9 mEq/L (5-15); Blood Urea Nitrogen 11 mg/dl (9-20); Calcium 9.1 mg/dl (8.4-10.2); Carbon Dioxide 25 mmol/L (22.0-30.0); Chloride 107 mmol/L (98-107); Creatinine Clearance Estimated 116 mL/min (50-200); Estimated Glomerular Filt Rate 86 ml/min (>60); GFR (African American) 105 ML/MIN (>60); Glucose 100 mg/dl (74-100); Potassium 3.9 mmoL/L (3.5-5.1); Sodium 141 mmol/L (136-145)
--- NOTE | 2021-03-08 08:55 | CA_ITS ---
APPROVED REPORT EXAM: Comprehensive 2D, Doppler, and color-flow Echocardiogram Communication Electronic Technician: Haley Madden, RT(R) Ht: 5 ft 10 in Wt: 204lbs BSA: 2.10 HR: 68 bpm BP: 130/88 mmHg Rhythm: PVC's Indications: cp, gallstones, delerium,fever Echo Enhancing Agent Comments: pt in delerium cannot be positioned 2D Dimensions IVSd 0.95 cm LVEF (Visual) 80.20 % PWd 0.97 cm LA Volume 70.10 mL LVDd 4.86 cm LA Volume Index [id number] mL/m2 (M/F) 16-34 LVDs 2.48 cm Aortic Root 3.40 cm Left Atrium 2.41 cm LVOT 2.07 cm (M/F) 1.5-2.5 M-Mode Dimensions RVDd 3.93 cm (0.9-2.6) LA Diam 3.39 cm (1.9-4.0) LVDd 5.21 cm (3.5-5.7) Ao Diam 3.87 cm (2.0-3.7) LVDs 2.96 cm (3.5-5.7) IVSd 0.82 cm (0.6-1.1) PWd 1.11 cm (0.6-1.1) EF (Teich) 73.90% EPSs 0.65 cm FS 43.20% EDV (Teich) 130.10 mL TAPSE 2.34 (<1.7) ESV (Teich) 33.90 mL LV Diastology E Decel Time 203.00 (160-240 msec) E/A Ratio 1.66 MED E' 12.40 (< 7 cm/sec) MED A' 10.80 cm/s E'/MED E' Ratio 7.97 (>14) LAT E' 12.90 (<10 cm/sec) LAT A' 9.50 cm/s E/LAT E' Ratio 7.66 (>14) Aortic Valve LVOT Max 112.00 (70-110 cm/s) LVOT VTI 20.42 cm AoV Peak Reinaldo. 159.00 (50-130 cm/s) AO Peak GR. 10.10 mmHg AO Mean GR. 5.00 (<5 mmHg) AO VTI 31.14 (18-25 cm) BENITA (VTI) 2.21 (2.5-4.5 cm2) Mitral Valve MV E Max Reinaldo. 99.00 (40-130 cm/s) MV A Velocity 60.00 (40-130 cm/s) E/A Ratio 1.66 MV Decel. Time 203.00 (160-240 ms) MV PHT 60.00 ms Pulmonary Valve PV Peak Velocity 80.00 (50-150 cm/s) Tricuspid Valve TR P. Velocity 165.00 cm/s RAP Estimate 10.00 mmHg RVSP 20.90 mmHg Left Ventricle Left atrium is normal size, left ventricle is normal size, there is no concentric left ventricular hypertrophy, visually estimated ejection fraction 50% with no regional wall motion abnormality, diastolic parameters are within normal range. Right Ventricle Right atrium and right ventricle are normal size and contractility. Aortic Valve Aortic valve is minimally thickened and fibrosed, there is no aortic stenosis or aortic insufficiency. Mitral Valve Mitral valve grossly normal, there is trace mitral regurgitation. Tricuspid Valve Tricuspid grossly normal, there is trace tricuspid regurgitation, tricuspid regurgitation jet velocity is inadequate for calculation of the right ventricular systolic pressure. Pulmonic Valve Pulmonic valve is poorly visualized. Great Vessels Aortic root is normal size. Pericardium No significant pericardial effusion noted. Conclusion 1. Normal left ventricular size, preserved left ventricular systolic function, visually estimated ejection fraction 50% with no regional wall motion abnormality, diastolic parameters are within normal range. 2. Trace mitral and tricuspid regurgitation 3. No significant pericardial effusion noted. Electronically signed by : Rafael Castle, 03/09/2021 15:40:26
[2021-03-08 09:17] LABS: Troponin I < 0.01 ng/ml (0.00-0.034)
[2021-03-08 09:23] LABS: Creatine Kinase 1109 U/L (55-170)
[2021-03-08 09:34] LABS: CKMB Relative Index 0.2 U/L (0-4.0)
--- NOTE | 2021-03-08 10:00 | HMH.CNCARD ---
History of Present Illness Consult date: 03/08/21 Requesting physician: Mitch De Consult reason: chest pain Chief complaint: chest pain History of present illness: This is a 60-year-old white gentleman who was [facility] the [facility] for altered mental status, fever and delirium. During the patient's work-up he was found to have an ascending colon lesion. He did undergo endoscopy for this which showed an ascending colon mass. The patient will require a right colon resection in approximately 34 days. He also had gallstones and will likely undergo cholecystectomy at the time of his right colon resection. This morning the patient started complaining of chest pain. He does have an altered mental status during my examination today. He does not really tell me his name, where he is or what year it is. He seems very lethargic this morning but has had some Ativan because of his underlying psychiatric issues. He does report that he is having chest pain and states that it is a pressure sensation and points to the center of his chest. He denied any radiation of the chest pain but the review of systems is not very accurate because of his mental status at the time. He also complains of some shortness of breath. He denied any nausea. That is the only information I can get from the review of systems. He is unable to give me any of his family history and all of his other history is obtained from his medical records. [facility] History I have reviewed the patient's past medical history: Yes Medical History: Reports:: Anxiety, Hypertension Denies:: Cancer, Diabetes Mellitus Type 1, Diabetes Mellitus Type 2, MRSA *Have you ever received a pneumonia vaccine?: No *Have you received a flu vaccine this season?: Yes Other Medical History: Reports: Arthritis, Hypothyroidism Anesthesia experience/problems:: nac Other Surgeries: Yes: No Previous Surgery Amputation: No Fractures: Yes - *Social History Smoking Status: Current every day smoker Tobacco Type: cigarettes # Packs/Day (cigarettes): 1 Alcohol Intake: former Substance Use Type: denies use *Occupational Status:: disabled Housing: assisted living facility Household Members: none *Travel in the last 8 weeks: None - Psychiatric History Pschychiatric History:: Reports:: Anxiety Family Hx:: Unable to obtain Meds Home Medications Medication Instructions Recorded Confirmed Type clonazepam 1 mg tablet 1 mg PO BID 02/25/18 03/06/21 History divalproex 500 mg tablet,delayed 500 mg PO BID 02/25/18 03/06/21 History release levothyroxine 100 mcg capsule 100 mcg PO DAILY 02/25/18 03/06/21 History omega-3 fatty acids 1,000 mg 1,000 mg PO BID 02/25/18 03/06/21 History capsule OXcarbazepine [Oxcarbazepine] 600 mg PO BID 09/30/19 03/06/21 History haloperidoL [Haldol 5mg tablet] 10 mg PO TID 10/01/19 03/06/21 History gabapentin 100 mg capsule 100 mg PO QHS #30 cap 10/24/20 03/06/21 Rx Amlodipine Besylate 2.5 mg PO HS 11/21/20 03/06/21 History Acetaminophen [Mapap] 500 mg PO Q6HP PRN 11/22/20 03/05/21 History Lactulose [Lactulose 10gm/15ml 20 gm PO DAILYP PRN 11/22/20 03/06/21 History Oral Soln] clonazePAM [Clonazepam] 1 mg PO TIDP PRN 11/22/20 03/06/21 History Quetiapine Fumarate [Seroquel] 400 mg PO DAILY 03/05/21 03/06/21 History risperiDONE [Risperidone] 4 mg PO BID 03/06/21 03/06/21 History Allergies Allergy/AdvReac Type Severity Reaction Status Date / Time No Known Allergies Allergy Verified 10/05/20 10:53 Exam Vital signs and Labs for Last 24 Hours: Temp Pulse Resp BP Pulse Ox 97.3 F L 69 16 149/63 H 96 03/08/21 08:00 03/08/21 08:00 03/08/21 08:00 03/08/21 08:00 03/08/21 08:00 Laboratory Results - last 24 hr 03/08/21 05:57: WBC 6.9, RBC 4.79, Hgb 13.8 L, Hct 41.1 L, MCV 85.9, MCH 28.9, MCHC 33.6, RDW 13.4, Plt Count 147, MPV 12.1 H, Neut % (Auto) 63.0, Lymph % (Auto) 23.6, [place] % (Auto) 11.9 H, Eos % (Auto) 0.9, Baso % (Auto) 0.6, N
[2021-03-08 12:13] LABS: Troponin I < 0.01 ng/ml (0.00-0.034)
[2021-03-08 15:09] LABS: Troponin I < 0.01 ng/ml (0.00-0.034)
[2021-03-08 16:00] VITALS: BP 122/78; PULSE 61; RESP 16; O2SAT 97
--- NOTE | 2021-03-08 18:32 | PC.NURSE ---
0823- pt c/o chest pain 08- EKG performed, MD De present during morning rounds, ordered the following Serial troponins, CT chest PE protocol, Ativan 1mg IV NOW, cardiology consult 832- Ativan administered, pt no longer c/o chest pain
[2021-03-08 19:49] VITALS: BP 136/89; PULSE 62; RESP 17; TEMP 36.9; O2SAT 97
[2021-03-08 20:45] VITALS: O2SAT 97
--- NOTE | 2021-03-08 21:41 | HMH.ACPN2 ---
Internal Medicine - PN: Subj *Date: 03/08/21 *Time: 21:43 Interval history: 60-year-old patient lying in bed he is anxious this morning reports that he just does not feel right, he reports midsternal chest pain cannot get a good full description of chest pain or radiation, will consult cardiology, EKG showing sinus rhythm with PACs After rounding and patient had calm down and returned to baseline mental status Long discussion regarding findings of cancer on colonoscopy, planned future surgery, and probable ECF placement for rehab. Patient verbalizes understanding and is agreement with this 03/07/21 Colonosocy: Ascending colon mass Moderate adenomatous appearing proximal transverse colon polyp x3 Distal transverse colon polyp Moderately large splenic flexure polyps, removed and area marked with Anna ink Small descending colon polyp Small sigmoid colon polyp Recommendations:: He will need a right colon resection. This may build to be arranged to be done after discharge. Distal margin would depend on final pathology of the polypectomy. May undergo open cholecystectomy at the time of right colon resection. Exam Vital signs and Labs for Last 24 Hours: Temp Pulse Resp BP Pulse Ox 98.5 F 62 17 136/89 97 03/08/21 19:49 03/08/21 19:49 03/08/21 19:49 03/08/21 19:49 03/08/21 19:49 Laboratory Results - last 24 hr 03/08/21 05:57: WBC 6.9, RBC 4.79, Hgb 13.8 L, Hct 41.1 L, MCV 85.9, MCH 28.9, MCHC 33.6, RDW 13.4, Plt Count 147, MPV 12.1 H, Neut % (Auto) 63.0, Lymph % (Auto) 23.6, [place] % (Auto) 11.9 H, Eos % (Auto) 0.9, Baso % (Auto) 0.6, Neut # (Auto) 4.4, Lymph # (Auto) 1.6, [place] # (Auto) 0.8, Eos # (Auto) 0.1, Baso # (Auto) 0.0 03/08/21 05:57: Sodium 141, Potassium 3.9 D, Chloride 107, Carbon Dioxide 25, Anion Gap 12.9, BUN 11 D, Creatinine 0.90, Estimated Creat Clear 116, Estimated GFR 86, Est GFR ( Amer) 105, Glucose 100, Calcium 9.1 03/08/21 08:43: Total Creatine Kinase 1109 H*, CK-MB (CK-2) 2.0, CK-MB (CK-2) Rel Index 0.2, Troponin I < 0.01 03/08/21 11:33: Troponin I < 0.01 03/08/21 14:40: Troponin I < 0.01 I & O for Last 24 hours: Intake & Output 03/05/21 03/06/21 03/07/21 03/08/21 23:59 23:59 23:59 23:59 Intake Total 1080 / 1080 1712 / 1712 1610 / 1610 Output Total 725 / 725 Balance 355 / 355 1712 / 1712 1610 / 1610 Weight 240 lb 207 lb 7 oz 203 lb 4 oz 204 lb 1 oz Microbiology Reports for the Last 24 Hours: Microbiology 03/05/21 00:00 Urine,Catheterized Urine Culture - Final NO GROWTH AFTER 48 HOURS 03/05/21 21:45 Blood Blood Culture - Preliminary NO GROWTH AFTER 48 HOURS 03/05/21 21:45 Blood Blood Culture - Preliminary NO GROWTH AFTER 48 HOURS - Constitutional no acute distress, disheveled - *Routine HEENT Exam Head: Present: normocephalic Eye: Present: EOMI ENT: Present: mucous membranes moist - *Routine Neck Exam Present: trachea midline. Absent: tracheal deviation - *Routine Respiratory Exam Present: CTA bilaterally. Absent: accessory muscle use - *Routine Cardiovascular Exam Present: RRR - *Routine Abdominal Exam Present: soft, normoactive bowel sounds. Absent: tenderness, guarding, firm - *Routine Extremities Exam Present: edema, full ROM, pulses intact. Absent: cyanosis, clubbing - *Routine Skin Exam Present: intact, dry, warm. Absent: cyanosis, erythema - *Routine Neurological Exam Present: alert, moving all extremities. Absent: motor deficit - Routine Psychiatric Exam Present: cooperative, anxious, agitated Assessment and Plan (1) Chest pain Status: Acute Category: Medical Code(s): R07.9 - Chest pain, unspecified (2) Shortness of breath Status: Acute Category: Medical Code(s): R06.02 - Shortness of breath (3) Right bundle branch block Status: Acute Category: Medical Code(s): I45.10 - Unspecified right bundl
--- NOTE | 2021-03-08 22:38 | PC.NURSE ---
He is alert to name, birthday, and place. He did not know the year. He is able to voice his needs. Ambulates with a steady gait. He is resting in bed at this time. Continues on RA. Repetitively asks for a pop and has been educated about no caffeine. He is drinking gatorade.
--- NOTE | 2021-03-09 | CA_ITS ---
APPROVED REPORT Exam: Pharmacologic Technologist: Yaneth Grimm, Ht: 5 ft 10 in Wt: 203 lbs BSA: 2.10 m2 HR: 63 bpm BP: 140/91 mmHg Medical History Medications: Amlodipine,,,,, Levothyroxine,,,,, Gabapentin,,,,, Acetaminophen,,,,, Seroquel,,,,, HALDOL,,,,, Lactulose,,,,, RIsperidone,,,,, Oxcarbazepine,,,,, ClonAZapam,,,,, Duralproex,,,,, Stress Test Details Test: LEXISCAN HR Resting HR: 57 bpm Max Heart Rate (APMHR): 161.962127 bpm Max HR Achieved: 96 bpm Target HR (85% APMHR): 136.048272 bpm % of APMHR: 59.63 Recovery HR: 75 bpm BP Resting BP: 140/91 mmHg Max BP: 140/91 mmHg Recovery BP: 135.0/92.0 mmHg ECG Resting ECG: Sinus sudhakar, PAC, RBBB Clinical Exercise duration: 04:00 min Highest Stage Achieved: Stress ECG Conclusion Symptoms: None Arrhythmias/Ectopy: None ST-T Changes: No significant changes Conclusion: Unremarkable Lexiscan stress. Myoiew images reported separately. Electronically signed by : Rafael Castle, 03/09/2021 15:00:59
[2021-03-09 04:00] VITALS: BP 131/82; PULSE 72; RESP 16; TEMP 36.6; O2SAT 94
[2021-03-09 06:00] VITALS: BMI 27.1
[2021-03-09 06:54] LABS: Basophils % 0.5 % (0.1-2.0); Eosinophils # 0.1 K/mm3 (0.0-0.4); Eosinophils % 2.9 % (0.1-12.0); Hematocrit 38.4 % (42.0-52.0); Hemoglobin 12.9 g/dL (14.1-18.0); Lymphocytes # 1.7 K/mm3 (0.7-4.5); Lymphocytes % 34.4 % (10-50); Mean Corpuscular HGB Conc 33.6 g/dL (31.8-35.4); Mean Corpuscular Hemoglobin 28.9 pg (27.0-31.2); Monocytes # 0.3 K/mm3 (0.1-1.0); Monocytes % 6.8 % (1.7-9.3); Neutrophils # 2.7 K/mm3 (1.8-7.8); Neutrophils % 55.4 % (37.0-80.0); Platelet Count 141 K/mm3 (142-424); Red Blood Count 4.46 M/mm3 (4.60-6.20); Red Cell Distribution Width 13.6 % (11.5-17.5); White Blood Count 4.8 K/mm3 (4.8-10.8)
--- NOTE | 2021-03-09 06:54 | PC.NURSE ---
He has left the floor with radiology at this time.
[2021-03-09 07:07] LABS: Anion Gap 8.2 mEq/L (5-15); Blood Urea Nitrogen 7 mg/dl (9-20); Carbon Dioxide 31 mmol/L (22.0-30.0); Chloride 109 mmol/L (98-107); Chol/HDL Ratio 4.3 (1-3.5); Cholesterol 152 mg/dl (140-200); Creatinine Clearance Estimated 97 mL/min (50-200); Estimated Glomerular Filt Rate 76 ml/min (>60); GFR (African American) 93 ML/MIN (>60); Glucose 98 mg/dl (74-100); HDL Cholesterol 35 mg/dl (40-60); Potassium 3.2 mmoL/L (3.5-5.1); Sodium 145 mmol/L (136-145); Triglycerides 249 mg/dl (30-150); VLDL Cholesterol 50 mg/dL (0-40)
[2021-03-09 07:17] LABS: Direct LDL Cholesterol 65.23 mg/dL (100-129)
--- NOTE | 2021-03-09 09:54 | NM_ITS ---
APPROVED REPORT Exam: Nuclear Stress Test Indication: chest pain Patient Location: Inpatient Stress Tech: Yaneth Grimm MT Tech:MADISON Marr RT(R)(N) Ht: 5 ft 10 in Wt: 230 lbs HR: 63 bpm BP: 140/91 mmHg BSA: 2.21 m2 BMI: 32.9 History: chest pain Procedure: Patient received a 0.4 mg of intravenous Lexiscan, resting heart rate 63 bpm, resting blood pressure 140/91 mmHg, with Lexiscan maximum heart rate achived was 96 bpm which is Less than 85 % of the maximum predicted heart rate and blood pressure was 120/81 mmHg. With Lexiscan, patient denied any complaint of chest pain. pt unable to lay on his belly. Electrocardiogram Resting electrocardiogram showed sinus rhythm, with Lexiscan there is less than 1.[address] segment depression noted from the baseline EKG. The EKG portion of the Lexiscan is nondiagnostic. Cardiac Stress and Resting SPECT Images: Cardiac Stress and Resting SPECT images were obtained using technetium 99m Myoview 30.1 mCi stress and 10.44 mCi at rest. Gated SPECT for analysis of segmental wall motion and calculation of the ejection fraction also done. Cardiac stress and resting SPECT images show mild fixed defect in the inferior wall with normal contractility gated SPECT is likely secondary to soft tissue attenuation, computer derived ejection fraction is 45% with no regional wall motion abnormality, right ventricle is normal size and contractility. Conclusion: 1. The EKG portion of the Lexiscan is nondiagnostic. 2. No scintigraphic evidence of reversible ischemia seen, computer derived ejection fraction of 25% with no regional wall motion abnormality, right ventricle is normal size and contractility. 3. Likely normal Lexiscan Myoview study. Electronically signed by : Rafael Castle, 03/09/2021 15:04:50
--- NOTE | 2021-03-09 10:30 | HMH.ACPN ---
Internal Medicine - PN: Subj *Date: 03/09/21 *Time: 10:30 Exam Vital signs and Labs for Last 24 Hours: Temp Pulse Resp BP Pulse Ox 97.9 F 72 16 131/82 94 L 03/09/21 04:00 03/09/21 04:00 03/09/21 04:00 03/09/21 04:00 03/09/21 04:00 Laboratory Results - last 24 hr 03/08/21 11:33: Troponin I < 0.01 03/08/21 14:40: Troponin I < 0.01 03/09/21 06:02: Sodium 145, Potassium 3.2 L, Chloride 109 H, Carbon Dioxide 31 H D, Anion Gap 8.2, BUN 7 L D, Creatinine 1.00, Estimated Creat Clear 97, Estimated GFR 76, Est GFR ( Amer) 93, Glucose 98, Calcium 9.0, Triglycerides 249 H, Cholesterol 152, LDL Cholesterol Direct 65.23 L, VLDL Cholesterol 50 H, HDL Cholesterol 35 L, Cholesterol/HDL Ratio 4.3 H 03/09/21 06:02: WBC 4.8 D, RBC 4.46 L, Hgb 12.9 L, Hct 38.4 L, MCV 86.0, MCH 28.9, MCHC 33.6, RDW 13.6, Plt Count 141 L, MPV 10.0, Neut % (Auto) 55.4, Lymph % (Auto) 34.4, [place] % (Auto) 6.8, Eos % (Auto) 2.9, Baso % (Auto) 0.5, Neut # (Auto) 2.7, Lymph # (Auto) 1.7, [place] # (Auto) 0.3, Eos # (Auto) 0.1, Baso # (Auto) 0.0 I & O for Last 24 hours: Intake & Output 03/06/21 03/07/21 03/08/21 03/09/21 23:59 23:59 23:59 23:59 Intake Total 1080 / 1080 1711 / 1712 161 / 161 Output Total 725 / 725 Balance 355 / 355 1711 / 1711 1609 / 1609 Weight 94.092 kg 92.193 kg 92.561 kg 86.183 kg Assessment and Plan (1) Chest pain Status: Acute Category: Medical Code(s): R07.9 - Chest pain, unspecified (2) Shortness of breath Status: Acute Category: Medical Code(s): R06.02 - Shortness of breath (3) Right bundle branch block Status: Acute Category: Medical Code(s): I45.10 - Unspecified right bundle-branch block (4) Lesion of colon Status: Acute Category: Medical Code(s): K63.9 - Disease of intestine, unspecified (5) Acute delirium Status: Acute Category: Medical Code(s): R41.0 - Disorientation, unspecified (6) Cholelithiasis Status: Acute Qualifiers: Cholelithiasis location: gallbladder Cholecystitis presence: without cholecystitis Biliary obstruction: without biliary obstruction Qualified Code(s): K80.20 - Calculus of gallbladder without cholecystitis without obstruction Category: Medical Code(s): K80.20 - Calculus of gallbladder without cholecystitis without obstruction (7) Febrile illness, acute Status: Acute Category: Medical Code(s): R50.9 - Fever, unspecified (8) Multiple gallstones Status: Acute Category: Medical Code(s): K80.20 - Calculus of gallbladder without cholecystitis without obstruction The patient's infection will respond to the chosen ABx?: Yes Is the patient receiving the right drug, dose, and route?: Yes Could a more targeted ABx be ordered?: No
[2021-03-09 12:00] VITALS: BP 140/86; PULSE 81; RESP 18; TEMP 36.6; O2SAT 97
[2021-03-09 12:52] LABS: CEA 2.1 ng/mL (0.0-4.7)
--- NOTE | 2021-03-09 15:42 | HMH.PNCARD ---
Subjective Date: 03/09/21 Time: 15:42 Principal diagnosis: chest pain Interval history: 60-year-old white male in chair sleeping in his room in no acute distress. Denies any chest pain, pressure or tightness. Nurses relate he has been standing in the [place] most of the day watching the events of the [place]. Stress test showed no evidence of ischemia and essentially normal exam. Exam Vital signs and Labs for Last 24 Hours: Temp Pulse Resp BP Pulse Ox 97.8 F 81 18 140/86 97 03/09/21 12:00 03/09/21 12:00 03/09/21 12:00 03/09/21 12:00 03/09/21 12:00 Laboratory Results - last 24 hr 03/08/21 08:43: Carcinoembryonic Ag 2.1 03/09/21 06:02: Sodium 145, Potassium 3.2 L, Chloride 109 H, Carbon Dioxide 31 H D, Anion Gap 8.2, BUN 7 L D, Creatinine 1.00, Estimated Creat Clear 97, Estimated GFR 76, Est GFR ( Amer) 93, Glucose 98, Calcium 9.0, Triglycerides 249 H, Cholesterol 152, LDL Cholesterol Direct 65.23 L, VLDL Cholesterol 50 H, HDL Cholesterol 35 L, Cholesterol/HDL Ratio 4.3 H 03/09/21 06:02: WBC 4.8 D, RBC 4.46 L, Hgb 12.9 L, Hct 38.4 L, MCV 86.0, MCH 28.9, MCHC 33.6, RDW 13.6, Plt Count 141 L, MPV 10.0, Neut % (Auto) 55.4, Lymph % (Auto) 34.4, [place] % (Auto) 6.8, Eos % (Auto) 2.9, Baso % (Auto) 0.5, Neut # (Auto) 2.7, Lymph # (Auto) 1.7, [place] # (Auto) 0.3, Eos # (Auto) 0.1, Baso # (Auto) 0.0 I & O for Last 24 hours: Intake & Output 03/07/21 03/08/21 03/09/21 03/10/21 11:59 11:59 11:59 11:59 Intake Total 1831 1490 / 1490 1090 / 1090 360 / 360 Balance 1832 / 1832 1490 / 1490 1090 / 1090 360 / 360 Weight 203 lb 4 oz 204 lb 1 oz 190 lb - Constitutional no acute distress - *Routine HEENT Exam Head: Present: normocephalic Eye: Present: EOMI, PERRL ENT: Present: mucous membranes moist - *Routine Neck Exam Present: supple. Absent: lymphadenopathy - *Routine Respiratory Exam Present: CTA bilaterally - *Routine Cardiovascular Exam Present: RRR - *Routine Abdominal Exam Present: soft, normoactive bowel sounds. Absent: tenderness - *Routine Extremities Exam Absent: cyanosis, clubbing, edema - *Routine Skin Exam Present: warm. Absent: rash - *Routine Neurological Exam Present: alert, oriented X3 Progress Note: A&P (1) Chest pain Status: Acute (2) Shortness of breath Status: Acute (3) Right bundle branch block Status: Acute (4) Lesion of colon Status: Acute (5) Acute delirium Status: Acute (6) Cholelithiasis Status: Acute (7) Febrile illness, acute Status: Acute (8) Multiple gallstones Status: Acute Assessment and Plan for All Diagnoses:: Chest pain with echocardiogram showing normal ejection fraction with no wall motion abnormalities and no significant valvular heart disease. Lexiscan Myoview shows no ischemia with ejection fraction of approximately 45%. No further cardiac testing recommended. Patient could be discharged home from cardiac standpoint Would recommend aspirin 81 mg daily but will defer instituting this to PCP or surgery due to the patient's colon lesion and upcoming surgery.
--- NOTE | 2021-03-09 16:05 | PC.NURSE ---
has done well this shift with no complaints. has been up walking in room and hallway with no issues. multiple teachings done with patient on plan of care. vitals have been stable. tolerating diet. eager to go home
--- NOTE | 2021-03-09 17:54 | HMH.ACPN2 ---
Internal Medicine - PN: Subj *Date: 03/09/21 *Time: 17:54 Interval history: gxt this morning cardiology notes reviewed endoscopy report revd quiescent abdomen seemingly back to baseline mentation Exam Vital signs and Labs for Last 24 Hours: Temp Pulse Resp BP Pulse Ox 97.8 F 81 18 140/86 97 03/09/21 12:00 03/09/21 12:00 03/09/21 12:00 03/09/21 12:00 03/09/21 12:00 Laboratory Results - last 24 hr 03/08/21 08:43: Carcinoembryonic Ag 2.1 03/09/21 06:02: Sodium 145, Potassium 3.2 L, Chloride 109 H, Carbon Dioxide 31 H D, Anion Gap 8.2, BUN 7 L D, Creatinine 1.00, Estimated Creat Clear 97, Estimated GFR 76, Est GFR ( Amer) 93, Glucose 98, Calcium 9.0, Triglycerides 249 H, Cholesterol 152, LDL Cholesterol Direct 65.23 L, VLDL Cholesterol 50 H, HDL Cholesterol 35 L, Cholesterol/HDL Ratio 4.3 H 03/09/21 06:02: WBC 4.8 D, RBC 4.46 L, Hgb 12.9 L, Hct 38.4 L, MCV 86.0, MCH 28.9, MCHC 33.6, RDW 13.6, Plt Count 141 L, MPV 10.0, Neut % (Auto) 55.4, Lymph % (Auto) 34.4, [place] % (Auto) 6.8, Eos % (Auto) 2.9, Baso % (Auto) 0.5, Neut # (Auto) 2.7, Lymph # (Auto) 1.7, [place] # (Auto) 0.3, Eos # (Auto) 0.1, Baso # (Auto) 0.0 I & O for Last 24 hours: Intake & Output 03/06/21 03/07/21 03/08/21 03/09/21 23:59 23:59 23:59 23:59 Intake Total 1080 / 1080 1712 / 1712 1610 / 1610 370 / 370 Output Total 725 / 725 Balance 355 / 355 1711 / 1712 1610 / 1610 370 / 370 Weight 207 lb 7 oz 203 lb 4 oz 204 lb 1 oz 190 lb - Constitutional no acute distress - *Routine HEENT Exam Head: Present: normocephalic Eye: Present: EOMI, PERRL ENT: Present: mucous membranes moist - *Routine Neck Exam Present: supple. Absent: lymphadenopathy - *Routine Respiratory Exam Present: CTA bilaterally - *Routine Cardiovascular Exam Present: RRR - *Routine Abdominal Exam Present: soft. Absent: normoactive bowel sounds, tenderness, firm, rigid - *Routine Extremities Exam Absent: cyanosis, clubbing, edema - *Routine Skin Exam Present: warm. Absent: jaundice, rash - *Routine Neurological Exam Present: alert, oriented X3 Assessment and Plan (1) Chest pain Status: Acute Category: Medical Code(s): R07.9 - Chest pain, unspecified (2) Shortness of breath Status: Acute Category: Medical Code(s): R06.02 - Shortness of breath (3) Right bundle branch block Status: Acute Category: Medical Code(s): I45.10 - Unspecified right bundle-branch block (4) Lesion of colon Status: Acute Category: Medical Code(s): K63.9 - Disease of intestine, unspecified (5) Acute delirium Status: Acute Category: Medical Code(s): R41.0 - Disorientation, unspecified (6) Cholelithiasis Status: Acute Qualifiers: Cholelithiasis location: gallbladder Cholecystitis presence: without cholecystitis Biliary obstruction: without biliary obstruction Qualified Code(s): K80.20 - Calculus of gallbladder without cholecystitis without obstruction Category: Medical Code(s): K80.20 - Calculus of gallbladder without cholecystitis without obstruction (7) Febrile illness, acute Status: Acute Category: Medical Code(s): R50.9 - Fever, unspecified (8) Multiple gallstones Status: Acute Category: Medical Code(s): K80.20 - Calculus of gallbladder without cholecystitis without obstruction - Assessment and plan all Dx Assessment and Plan for all problems:: continue regimen surgery plans reviewed
[2021-03-09 20:00] VITALS: BP 120/86; PULSE 70; RESP 18; TEMP 36.8; O2SAT 97
[2021-03-10 04:00] VITALS: BP 128/77; PULSE 68; RESP 18; TEMP 36.7; O2SAT 95
--- NOTE | 2021-03-10 05:00 | PC.NURSE ---
pt has rested intermittently t/o shift, no complaints of pain or SOA, remains on room air, has ambulated independently in room, is able to answer orientation questions
[2021-03-10 06:37] VITALS: BMI 28.6
[2021-03-10 08:00] VITALS: BP 134/73; PULSE 64; RESP 17; TEMP 36.7; O2SAT 98
[2021-03-10 08:30] VITALS: PULSE 64; RESP 17; O2SAT 98
--- NOTE | 2021-03-10 09:38 | HMH.DCSUM ---
General - General Admission date:: 03/06/21 Discharge date: 03/10/21 HPI HPI: 60-year-old male presented to ed for decrease LOC, foul odor urine and fever. Work-up in the emergency department included CT scan which revealed findings of possible ascending colon lesion and distended gallbladder with gallstones. He did undergo gallbladder ultrasound that show multiple gallstones. Patient denies abdominal complaints. No abdominal pain. pt admitted for further work up and surgery consult Hospital Course Hospital Course: Laboratory Tests 03/05/21 03/05/21 03/05/21 21:45 21:45 21:45 WBC 10.5 RBC 5.45 Hgb 15.8 Hct 46.9 MCV 86.0 MCH 29.0 MCHC 33.7 RDW 13.3 Plt Count 177 MPV 10.0 Neut % (Auto) 87.2 H Lymph % (Auto) 6.4 L [place] % (Auto) 6.0 Eos % (Auto) 0.1 Baso % (Auto) 0.4 Neut # (Auto) 9.2 H Lymph # (Auto) 0.7 [place] # (Auto) 0.6 Eos # (Auto) 0.0 Baso # (Auto) 0.0 Total Counted 100 Neutrophils % (Manual) 85 H Band Neutrophils % 4.0 Lymphocytes % (Manual) 5 L Atypical Lymphs % Monocytes % (Manual) 6 Platelet Estimate Normal RBC Morphology Normal ESR 6 Sodium 137 Potassium 3.8 Chloride 105 Carbon Dioxide 23 Anion Gap 12.8 BUN 25 H Creatinine 1.40 H Estimated Creat Clear 87 Estimated GFR 52 L Est GFR ( Amer) 63 Glucose 129 H Lactate Calcium 8.7 Magnesium Total Bilirubin 0.4 AST 23 ALT 13 Alkaline Phosphatase 75 Total Creatine Kinase CK-MB (CK-2) CK-MB (CK-2) Rel Index Troponin I C-Reactive Protein 61.4 H Total Protein 6.3 Albumin 3.7 Globulin 2.6 Albumin/Globulin Ratio 1.4 Triglycerides Cholesterol LDL Cholesterol Direct VLDL Cholesterol HDL Cholesterol Cholesterol/HDL Ratio Carcinoembryonic Ag Procalcitonin 0.670 Urine Color Yellow Urine Appearance Clear Urine pH 6.5 Ur Specific [place] 1.015 Urine Protein Negative Urine Glucose (UA) Negative Urine Ketones Trace Urine Blood Negative Urine Nitrate Negative Urine Bilirubin Negative Urine Urobilinogen 0.2 Ur Leukocyte Esterase Negative Urine RBC None Urine WBC 3-5 Ur Squamous Epith Cells None Urine Bacteria None Urine Mucus 2+ Chlamy pneumoniae PCR Adenovirus (PCR) B. pertussis DNA (PCR) Coronavirus OC43 (PCR) Coronavirus HKU1 (PCR) Coronavirus 229E (PCR) SARS-CoV-2 (PCR) Coronavirus NL63 (PCR) Human Metapneumovir PCR Influenza A (H1) PCR Influ A (H1N1/09) PCR Influenza A (H3) PCR Influenza Type A (PCR) Influenza Type B (PCR) M. pneumoniae (PCR) Parainfluenza 1 (PCR) Parainfluenza 2 (PCR) Parainfluenza 3 (PCR) Parainfluenza 4 (PCR) RSV (PCR) Entero/Rhino (PCR) 03/05/21 03/05/21 03/06/21 21:45 21:55 06:54 WBC 10.1 RBC 5.24 Hgb 15.1 Hct 45.3 MCV 86.5 MCH 28.9 MCHC 33.4 RDW 13.3 Plt Count 138 L MPV 10.0 Neut % (Auto) 86.1 H Lymph % (Auto) 8.1 L [place] % (Auto) 5.1 Eos % (Auto) 0.5 Baso % (Auto) 0.3 Neut # (Auto) 8.7 H Lymph # (Auto) 0.8 [place] # (Auto) 0.5 Eos # (Auto) 0.1 Baso # (Auto) 0.0 Total Counted 100 Neutrophils % (Manual) 61 Band Neutrophils % 27.0 H Lymphocytes % (Manual) 5 L Atypical Lymphs % 5.0 Monocytes % (Manual) 2 Platelet Estimate Normal RBC Morphology Normal ESR Sodium Potassium Chloride Carbon Dioxide Anion Gap BUN Creatinine Estimated Creat Clear Estimated GFR Est GFR ( Amer) Glucose Lactate 1.2 Calcium Magnesium Total Bilirubin AST ALT Alkaline Phosphatase Total Creatine Kinase CK-MB (CK-2) CK-MB (CK-2) Rel Index Troponin I C-Reactive Protein Total Protein Albumin Globulin Albumin/Globulin Rat
[2021-04-17 12:32] LABS: POC Glucose,Bedside 128 (70-110)
== END 2021-03-10 10:45 | disposition home or self-care (01) | DRG 446 ==
LOC: ER 03-06 01:08 → 2ND 03-06 10:50
PROVIDERS: Nurse Practitioner Family; Surgery; Admitting Provider Emergency Medicine; Emergency Provider Emergency Medicine; PCP Emergency Medicine; Visit Provider Emergency Medicine
PROC: 0DJD8ZZ Inspection of Lower Intestinal Tract, Via Natural or Artificial Opening Endoscopic (ICD-10-PCS; principal; 2021-03-07 10:30)
DX: K80.20 Calculus of gallbladder without cholecystitis without obstruction (principal); F20.9 Schizophrenia, unspecified; K63.5 Polyp of colon; I10 Essential (primary) hypertension; Z20.822 Contact with and (suspected) exposure to COVID-19; I45.10 Unspecified right bundle-branch block; E03.9 Hypothyroidism, unspecified; E66.9 Obesity, unspecified; F17.210 Nicotine dependence, cigarettes, uncomplicated; M19.90 Unspecified osteoarthritis, unspecified site; F41.9 Anxiety disorder, unspecified; I25.10 Atherosclerotic heart disease of native coronary artery without angina pectoris; R41.0 Disorientation, unspecified; Z68.28 Body mass index [BMI] 28.0-28.9, adult
CPT/HCPCS: 45392; 44389; 36415; 70450; 71045; 71275; 74177; 76705; 78452; 80048; 80053; 80061; 81001; 82378; 82550; 82553; 82962; 83605; 83735; 84145; 84484; 85007; 85025; 85651; 86140; 87040; 87086; 87581; 87633; 87798; 88305; 93005; 93017; 93306; 94640; 96365; 97162; 97166; 99284; A9502; J2704; J2785; Q9967

== ENCOUNTER → 2021-04-08 09:01 | Outpatient (CLI) | payer MEDICAID, SELFPAY ==
[2021-04-08 09:27] LABS: Basophils # 0.1 K/mm3 (0-0.2); Basophils % 0.7 % (0.1-2.0); Eosinophils # 0.5 K/mm3 (0.0-0.4); Eosinophils % 6.4 % (0.1-12.0); Hematocrit 41.4 % (42.0-52.0); Hemoglobin 13.7 g/dL (14.1-18.0); Lymphocytes # 1.8 K/mm3 (0.7-4.5); Lymphocytes % 25.1 % (10-50); Mean Corpuscular HGB Conc 33.1 g/dL (31.8-35.4); Mean Corpuscular Hemoglobin 28.8 pg (27.0-31.2); Mean Corpuscular Volume 86.9 fl (80-94); Mean Platelet Volume 9.8 fl (7.4-10.4); Monocytes # 0.7 K/mm3 (0.1-1.0); Monocytes % 9.1 % (1.7-9.3); Neutrophils # 4.3 K/mm3 (1.8-7.8); Neutrophils % 58.7 % (37.0-80.0); Platelet Count 149 K/mm3 (142-424); Red Blood Count 4.77 M/mm3 (4.60-6.20); Red Cell Distribution Width 13.9 % (11.5-17.5); White Blood Count 7.3 K/mm3 (4.8-10.8)
[2021-04-08 11:02] LABS: Chloride 103 mmol/L (98-107)
[2021-04-08 11:03] LABS: Potassium 3.8 mmoL/L (3.5-5.1); Sodium 140 mmol/L (136-145)
[2021-04-08 11:05] LABS: Alanine Aminotransferase 15 U/L (12-78); Aspartate Amino Transferase 18 U/L (17-59); Blood Urea Nitrogen 10 mg/dl (9-20); Estimated Glomerular Filt Rate 76 ml/min (>60); GFR (African American) 93 ML/MIN (>60)
[2021-04-08 11:06] LABS: Albumin/Globulin Ratio 1.7 (1.1-1.8); Alkaline Phosphatase 89 U/L (38-126); Anion Gap 10.8 mEq/L (5-15); Bilirubin,Total 0.3 mg/dl (0.2-1.3); Calcium 8.9 mg/dl (8.4-10.2); Carbon Dioxide 30 mmol/L (22.0-30.0); Globulin 2.4 g/dL (1.3-3.2); Glucose 126 mg/dl (74-100); Total Protein,Serum 6.4 g/dl (6.3-8.2)
== END ==
PROVIDERS: Visit Provider Surgery
DX: K63.89 Other specified diseases of intestine (principal)
CPT/HCPCS: 36415; 80053; 85025; U0003

== ENCOUNTER 2021-04-11 10:25 | Inpatient (IN) | payer MEDICAID, SELFPAY ==
[2021-04-11] VITALS (25 sets, daily range): BP systolic 107–142; BP diastolic 67–92; PULSE 73–100; RESP 12–22; TEMP 36.6–40; O2SAT 90–95; BMI 28.8; BMI 29.3
--- NOTE | 2021-04-11 07:54 | PC.NURSE ---
verified with Elisha, director at [facility], that patient is legally and mentally competent to sign consent, no person or entity has legal or medical power of health care attorney nor is patient a kramer of the state. Patient able to state name, date, date of , reason for admission, surgery today
--- NOTE | 2021-04-11 08:03 | HMH.ANESCL ---
[facility] Anesthesia Checklist - Structural Data Admitted From: Long-term Nursing [facility] Planned Operative Procedure/s: colon resection Consent for Planned Operative Procedure(s) Verified: Yes - Additional verifications Anesthesia Reactions: No Hx Blood Transfusions: No Blood Transfusion Reaction: No - Airway Assessment C-Spine Mobility Assessed: Yes TMJ Mobility Assessed: Yes Dentition: Edentulous - Neurological Assessment Level of Consciousness: Awake, Alert, Appropriate - Anesthesia Plan Anesthesia Risk discussed: Yes Anesthesia Plan: Verified ASA Class: III Anesthesia Type: General [facility] History I have reviewed the patient's past medical history: Yes Medical History: Reports:: Anxiety, Hypertension Denies:: Cancer, Diabetes Mellitus Type 1, Diabetes Mellitus Type 2, Internal Pacemaker, MRSA, Seizures *Have you ever received a pneumonia vaccine?: No *Have you received a flu vaccine this season?: No Other Medical History: Reports: Arthritis, Hypothyroidism. Denies: Blood Transfusion Reaction Anesthesia experience/problems:: none Other Surgeries: Yes: No Previous Surgery, Colonoscopy. No: Pacemaker Amputation: No Fractures: Yes - *Social History Last grade of school completed: 7th or 8th Smoking Status: Current every day smoker Tobacco Type: cigarettes # Packs/Day (cigarettes): 1 Alcohol Intake: former Substance Use Type: denies use *Occupational Status:: disabled Housing: assisted living facility Household Members: other *Travel in the last 8 weeks: None - Psychiatric History Pschychiatric History:: Reports:: Anxiety Family Hx:: Unable to obtain
--- NOTE | 2021-04-11 11:06 | HMH.OPNOTE ---
Date of procedure: 04/11/21 Pre-op Diagnosis:: Right colon mass Distended gallbladder with gallstones Post-op Diagnosis:: Same Procedure performed:: Right hemicolectomy with ileocolic anastomosis Open cholecystectomy Surgeon:: Chris Reina MD Hose Operator(s):: Noah Sterling MD AGRICULTURAL ECONOMIST:: Kee Lety Anesthesia: GETA Estimated blood loss (mL): 50 Clinical Note:: Patient is a 60-year-old male with history of schizophrenia, encephalomalacia on multiple medications who is a resident of [facility]. He had recently been admitted with mental status changes. His work-up included CT scan which revealed findings of distended gallbladder with gallstones as well as possible right colon mass. Patient had no signs of acute cholecystitis and seemed to be asymptomatic from his gallbladder. During his hospitalization he underwent colonoscopy. Most notable was a large ascending colon mass. He also had additional polyps removed. 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 Polypectomies at the splenic flexure revealed multiple tubular adenomas. Operative findings:: Patient had a palpable mass in the ascending colon. He had appreciable redundancy of the sigmoid colon. There was a large amount of visceral adipose tissue. Gallbladder was massively distended and hydropic with numerous gallstones. Operative note:: He had undergone reported bowel preparation and antibiotic prep at [facility]. He was taken to the operating room. He was positioned in supine position. General anesthesia was induced via endotracheal tube. Ortiz catheter was placed. Abdomen was prepped and draped in the standard surgical fashion. Midline laparotomy incision was made. Dissection was carried down through subcutaneous tissues. Fascia was incised and the peritoneal cavity was entered. There was a large amount of visceral adipose tissue present. Exposure was achieved. The gallbladder is immediately noted to be massively distended tense firm. Incision was extended inferiorly and superiorly to allow for visualization. Right colon was mobilized by incising the peritoneum laterally along the white line of Toldt. The lesion was palpable in the ascending colon. The colon was mobilized on its mesentery. The colon was divided at the proximal transverse colon with a OPAL-75 linear cutting stapling device. Terminal ileum was divided with a OPAL-75 linear cutting stapling device. The colonic mesentery was scored. Mesentery was divided with the Enseal device. Larger vessels were clamped divided and suture ligated with 0 Surgilon sutures. The terminal ileum with right colon was then sent off as specimen. Attention was then addressed to the gallbladder. Gallbladder was massively distended and tense. Due to its firm distention and large size small incision was made in the apex of the gallbladder and contents were aspirated. This was consistent with clear mucus consistent with gallbladder neck obstruction resulting in hydrops of the gallbladder. The gallbladder was partially taken down from the liver in a dome down fashion using electrocautery. The visceral peritoneum at the neck of the gallbladder was incised. Exposure and visualization of landmarks were somewhat difficult due to the massively distended gallbladder and inflammation. However ultimately the apparent cystic duct was identified. Multiple clips were placed and it was sharply divided. The cystic artery was identified and clamped with a right angle. It was ligated with Surgilon tie. Remainder of the attachments to the gallbladder were incised from the liver. Gallbladder was sent off as a specimen. This was massively distended gallbladder filled with numerous gallstones. Attention was then turned to the ileocolic anastomosis. The terminal ileum stump and colonic stump were opened at the staple line. This was after applying bowel clamps. There was a very large amount of stool and
--- NOTE | 2021-04-11 11:20 | HMH.ANESI ---
[facility] Anesthesia Record Part I Intake, IV Amount: 3,500 Estimated blood loss (mL): 600 Urine output (mL): 600 Blood Pressure: 107/68 SaO2: 92 Pulse Rate: 74 Respiratory Rate: 12 Temperature: 98 F Patient is:: Awake, Stable Stable to PACU at:: 11:15
--- NOTE | 2021-04-11 11:24 | PC.NURSE ---
Abdoment soft and nontender, hypoactive bowel sounds present in all 4 quadrants
[2021-04-11 11:29] LABS: Microscopic,Cath URINE MICROSCOPIC (MICROSCOPIC)
--- NOTE | 2021-04-11 11:29 | PC.NURSE ---
Abdomen soft and nontender, hypoactive bowel sounds present in all 4 quadrants
[2021-04-11 11:32] LABS: Appearance,Urine/Cath CLEAR (Clear); Bilirubin,Cath Negative (Negative); Blood, Urine/Cath Negative (Negative); Color,Urine/Cath YELLOW (Yellow); Glucose,Urine/Cath (UA) Negative (Negative); Ketones,Urine/Cath Negative (Negative); Leukocyte Esterase,Cath Negative (Negative); Nitrate,Cath Negative (Negative); PH,Urine/Cath 8.5 (5.0-8.5); Protein,Urine/Cath Negative (Negative); Urobilinogen,Cath 0.2 EU/dl (0.2)
--- NOTE | 2021-04-11 11:37 | PC.NURSE ---
Abdomen soft and nontender, hypoactive bowel sounds present in all 4 quadrants
--- NOTE | 2021-04-11 11:44 | PC.NURSE ---
Abdomen soft and nontender, hypoactive bowel sounds in all 4 quadrants
--- NOTE | 2021-04-11 11:56 | PC.NURSE ---
Abdomen soft and nontender, hypoactive bowel sounds noted in all 4 quadrants
--- NOTE | 2021-04-11 12:10 | PC.NURSE ---
Abdomen soft and nontender, hypoactive bowel sounds present in all 4 quadrants
--- NOTE | 2021-04-11 13:33 | P.CONPHA_ITS ---
[facility] Pharmacy VTE Monitoring - Patient Demographics Admission date: 04/11/21 Report Date: 04/11/21 Time: 13:33 Allergies/Adverse Reactions: Patient Allergies No Known Allergies Allergy (Verified 04/11/21 06:36) Height: 1.83 m Weight: 98.118 kg - Prophylaxis VTE Prophylaxis Ordered?: Yes Types of VTE Prophylaxis: TEDS Knee High, Pharmacological Location of Applied Device: Bilateral Lower Extremeties Pharmacologic Type: Enoxaparin
--- NOTE | 2021-04-11 13:34 | SW/DCPLANNER ---
Addendum entered by [facility] 04/18/21 09:35: This patient will discharge to [facility] today. COVID is negative and has been faxed. 30 day exempt Passr has been signed and faxed. Addendum entered by [facility] 04/17/21 13:49: Chel with [facility] has accepted this patient pending negative COVID swab for tomorrow. I have informed the following of discharge plan for tomorrow pending no setbacks: Dr De, Hoda, Elisha and Scot with [facility]. Addendum entered by [facility] 04/17/21 11:50: [facility] denied this patient due to financial reasoning. Patient information has been faxed to Chel with [facility]. I will also speak with Aylin from [facility]. Addendum entered by [facility] 04/17/21 10:27: Rose with [facility] is currently reviewing patient information. Addendum entered by [facility] 04/17/21 09:29: Patient has had a setback from a physical standpoint and will need placement at time of discharge. Patient information has been faxed to [facility]. I will follow up with Tanya from [facility] once patient information is reviewed. I have information Scot/Elisha regarding the need for placement for this patient. Original Note: This patient currently resides at [facility]. I spoke with Scot from [facility] and she has stated that the plan is for this patient to return to [facility] pending no setbacks or if any other complications arise. I will continue to follow up with Scot regarding this patient. Patient did have surgery today.
--- NOTE | 2021-04-11 15:10 | PC.NURSE ---
Patient admitted this afternoon after colon resection and cholecystectomy, denies any pain since arrival to floor, alert to person and place, midline abdominal incision with dsg intact, scant amount of ss drainage noted, unchanged since arrival, Morphine POT PRESS OPERATOR for pain control, educated patient on use of POT PRESS OPERATOR, abd soft but tender, hypoactive bowel sounds in all quads, NPO except for ice chips, FC patent and draining clear yellow urine at bedside, SCDS in place, vital signs have remained stable, no s/s of distress noted, will continue to monitor.
[2021-04-12] VITALS (12 sets, daily range): BP systolic 112–141; BP diastolic 70–94; PULSE 72–115; RESP 18–30; TEMP 36.6–37.7; O2SAT 88–95
--- NOTE | 2021-04-12 03:12 | PC.NURSE ---
Patient slept well all shift. A/O to person and place. Pt has a midline abdominal incision dressing is intact with scant amount of drainage. Pt has CARE ASST pump 1mg Q 10 min. Educated pt on CARE ASST pump use. O2 at 3 L NC. NPO only ice chips. Hypoactive bowel sounds x4 quads. Pt has gardiner cath draining clear yellow urine. SCDS in place, VSS. No concerns at this time.
[2021-04-12 06:17] LABS: Basophils % 0.1 % (0.1-2.0); Eosinophils # 0.1 K/mm3 (0.0-0.4); Eosinophils % 0.6 % (0.1-12.0); Hematocrit 38.5 % (42.0-52.0); Hemoglobin 12.9 g/dL (14.1-18.0); Lymphocytes # 1.1 K/mm3 (0.7-4.5); Lymphocytes % 6.9 % (10-50); Mean Corpuscular HGB Conc 33.5 g/dL (31.8-35.4); Mean Corpuscular Volume 86.6 fl (80-94); Monocytes # 0.6 K/mm3 (0.1-1.0); Neutrophils # 13.5 K/mm3 (1.8-7.8); Neutrophils % 88.3 % (37.0-80.0); Platelet Count 126 K/mm3 (142-424); Red Blood Count 4.45 M/mm3 (4.60-6.20); Red Cell Distribution Width 14.2 % (11.5-17.5); White Blood Count 15.3 K/mm3 (4.8-10.8)
[2021-04-12 06:22] LABS: Chloride 105 mmol/L (98-107); Potassium 3.8 mmoL/L (3.5-5.1); Sodium 137 mmol/L (136-145)
[2021-04-12 06:24] LABS: Blood Urea Nitrogen 20 mg/dl (9-20); Creatinine Clearance Estimated 100 mL/min (50-200); Estimated Glomerular Filt Rate 69 ml/min (>60); GFR (African American) 83 ML/MIN (>60)
[2021-04-12 06:25] LABS: Alanine Aminotransferase 49 U/L (12-78); Albumin/Globulin Ratio 1.3 (1.1-1.8); Alkaline Phosphatase 64 U/L (38-126); Anion Gap 6.8 mEq/L (5-15); Aspartate Amino Transferase 44 U/L (17-59); Bilirubin,Total 0.5 mg/dl (0.2-1.3); Carbon Dioxide 29 mmol/L (22.0-30.0); Globulin 2.3 g/dL (1.3-3.2); Glucose 117 mg/dl (74-100); MANUAL DIFFERENTIAL MANUAL DIFFERENTIAL (MANUAL DIFF); Total Protein,Serum 5.3 g/dl (6.3-8.2)
--- NOTE | 2021-04-12 07:31 | HMH.PHAINT ---
clarified home medication list using medication list from personal nursing home
--- NOTE | 2021-04-12 07:36 | P.PN_ITS ---
Subjective Narrative: Patient has no complaints. Progress Note: A&P Assessment and Plan for All Diagnoses:: Labs within reasonable limits. Continue IV antibiotics due to suboptimal bowel preparation. Continue n.p.o. except for meds, ice chips, and sips at this time. Exam Vital signs and Labs for Last 24 Hours: Temp Pulse Resp BP Pulse Ox 98.2 F 72 18 138/72 95 04/12/21 04:00 04/12/21 04:00 04/12/21 04:00 04/12/21 04:00 04/12/21 04:00 Laboratory Results - last 24 hr 04/11/21 07:30: Urine Color Yellow, Urine Appearance Clear, Urine pH 8.5, Ur Specific [place] 1.010, Urine Protein Negative, Urine Glucose (UA) Negative, Urine Ketones Negative, Urine Blood Negative, Urine Nitrate Negative, Urine Bilirubin Negative, Urine Urobilinogen 0.2, Ur Leukocyte Esterase Negative, Urine RBC None, Urine WBC 3-5, Ur Squamous Epith Cells 3-5, Urine Bacteria None 04/12/21 05:55: WBC 15.3 H, RBC 4.45 L, Hgb 12.9 L, Hct 38.5 L, MCV 86.6, MCH 29.0, MCHC 33.5, RDW 14.2, Plt Count 126 L, MPV 10.0, Neut % (Auto) 88.3 H, Lymph % (Auto) 6.9 L, [place] % (Auto) 4.0, Eos % (Auto) 0.6, Baso % (Auto) 0.1, Neut # (Auto) 13.5 H, Lymph # (Auto) 1.1, [place] # (Auto) 0.6, Eos # (Auto) 0.1, Baso # (Auto) 0.0 04/12/21 05:55: Sodium 137, Potassium 3.8, Chloride 105, Carbon Dioxide 29, Anion Gap 6.8, BUN 20, Creatinine 1.10, Estimated Creat Clear 100, Estimated GFR 69, Est GFR ( Amer) 83, Glucose 117 H, Calcium 8.0 L, Total Bilirubin 0.5, AST 44, ALT 49, Alkaline Phosphatase 64, Total Protein 5.3 L, Albumin 3.0 L , Globulin 2.3, Albumin/Globulin Ratio 1.3 I & O for Last 24 hours: Intake & Output 04/09/21 04/10/21 04/11/21 04/12/21 11:59 11:59 11:59 11:59 Intake Total 3500 / 3500 0 / 0 Output Total 450 / 450 Balance 3500 / 3500 -450 / -450 Weight 201 lb 216 lb 5 oz Microbiology Reports for the Last 24 Hours: Microbiology 04/11/21 11:40 Nasopharyngeal Coronavirus COVID-19 PCR - Final Narrative: Patient is somewhat diaphoretic. - *Routine Abdominal Exam Present: soft Comments: Dressing dry and intact
--- NOTE | 2021-04-12 08:05 | HMH.CONS ---
*Admission Date: 04/11/21 *Reason for consult:: Medical Consult *History of present illness: 60-year-old male patient recently admitted to [facility] with altered mental status. During his work-up CT scan revealed distended gallbladder with gallstones and possible right colon mass. During his stay he displayed no signs of acute cholecystitis and reports no complaints with his gallbladder. Also during the admission he also underwent a colonoscopy which revealed a large ascending colon mass, he also had several polyps removed. Biopsies of the ascending colon were consistent with tubulovillous adenoma. Yesterday patient underwent a right hemicolectomy with ileocolic anastomosis and open cholecystectomy for right colon mass and distended gallbladder with gallstones. This morning patient is sitting up in bed resting quietly with eyes open he reports that his pain is at a tolerable level, he explains use of CLEANING PORTER correctly. He is slightly diaphoretic, he reports he does have a nonproductive cough. We will order breathing treatments and chest x-ray. Oxygen saturation currently 94% on 3 L per nasal cannula, temperature 98.2. [facility] History Medical History: Reports:: Anxiety, Hypertension Denies:: Cancer, Diabetes Mellitus Type 1, Diabetes Mellitus Type 2, Internal Pacemaker, MRSA, Seizures *Have you ever received a pneumonia vaccine?: Yes *Have you received a flu vaccine this season?: Yes Other Medical History: Reports: Arthritis, Hypothyroidism. Denies: Blood Transfusion Reaction Anesthesia experience/problems:: none Other Surgeries: Yes: No Previous Surgery, Colonoscopy. No: Pacemaker Amputation: No Fractures: Yes - *Social History Last grade of school completed: 7th or 8th Smoking Status: Current every day smoker Tobacco Type: cigarettes # Packs/Day (cigarettes): 1 Alcohol Intake: never Substance Use Type: denies use *Occupational Status:: other Housing: other Household Members: other *Travel in the last 8 weeks: None - Psychiatric History Pschychiatric History:: Reports:: Anxiety Family Hx:: Unable to obtain Review of Systems - Review of Systems Review of systems:: pertinent systems reviewed and negative unless documented below - Constitutional Denies anorexia, Denies body ache(s) - Eyes Denies blurry vision, Denies double vision - ENT Denies dental pain, Denies dizziness - *Cardiovascular Denies chest pain, Denies shortness of breath - *Respiratory Denies chest congestion, Denies shortness of breath - *Gastrointestinal Reports abdominal pain, Denies loose stools, Denies nausea - *Musculoskeletal Denies abnormal walking, Denies back pain - Integumentary/Breasts Denies change in skin color, Denies yellowing of the skin - *Neurologic Denies abnormal walking, Denies seizure-like activity - Psychiatric Denies anxiety, Denies depression - Endocrine Denies cold intolerance, Denies heat intolerance - Hematologic/Lymphatic Denies easy bleeding, Denies easy bruising - Allergic/Immunologic Denies GI upset with certain foods, Denies wheezing Meds Home Medications Medication Instructions Recorded Confirmed Type divalproex 500 mg tablet,delayed 500 mg PO BID 02/25/18 04/11/21 History release levothyroxine 100 mcg capsule 100 mcg PO DAILY 02/25/18 04/11/21 History omega-3 fatty acids 1,000 mg 1,000 mg PO BID 02/25/18 04/11/21 History capsule OXcarbazepine [Oxcarbazepine] 300 mg PO BID 09/30/19 04/12/21 History haloperidoL [Haldol 5mg tablet] 10 mg PO TID 10/01/19 04/11/21 History Amlodipine Besylate 2.5 mg PO HS 11/21/20 04/11/21 History Lactulose [Lactulose 10gm/15ml 15 ml PO DAILYP PRN 11/22/20 04/12/21 History Oral Soln] clonazePAM [Clonazepam] 1 mg PO TIDP PRN 11/22/20 04/11/21 History Quetiapine Fumarate [Seroquel] 400 mg PO DAILY 03/05/21 04/11/21 History risperiDONE [Risperidone] 4 mg PO BID 03/06/21 04/11/21 Hist
--- NOTE | 2021-04-12 08:07 | HMH.ANESII ---
[facility] Anesthesia Record Part II Discharge Time: 12:05 Destination: Medical Surgical Department PACU nurse assessment reviewed?: Yes Patient Condition:: Good Anesthesia Complications:: None Swallowing reflex intact?: Yes Cyanosis?: No Blood Pressure: 120/70 Pulse Rate: 75 Temperature: 98 F Mental Status: Alert & Oriented Pain level:: 0 Nausea and/or vomitting:: None Intake, IV Amount: 0
--- NOTE | 2021-04-12 08:34 | XR_ITS ---
PROCEDURE: XR CHEST PORTABLE CLINICAL HISTORY: SOA COMPARISON: CR XR CHEST 2V from 09/30/2019 CR XR CHEST PORTABLE from 11/21/2020 CR XR CHEST PORTABLE from 03/05/[address] ANGIO CHEST from 03/08/2021 FINDINGS: There is cardiomegaly without failure. There are low lung volumes with increased density in both lower lobes suggesting bilateral lower lobe atelectasis and or infiltrate. Small left pleural effusion noted. There is an old right clavicular fracture No acute bony abnormalities. IMPRESSION: Bilateral lower lobe airspace disease suggesting bilateral lower lobe pneumonia and or atelectatic change with small left effusion Dictated by: Tyson Negrete MD 04/12/2021 09:12 Tyson Negrete MD in OV 04/12/2021 09:12
[2021-04-12 09:30] LABS: Lymphocytes % 14 % (10-50); Monocytes % 6 % (2-9); Neutrophils % 80 % (42-76); RBC Morphology Normal; Total Cells Counted 100
[2021-04-12 09:31] LABS: Platelet Estimate Normal
--- NOTE | 2021-04-12 12:21 | PC.NURSE ---
Sputum induced. Pt encouraged to cough. Specimen cup left at bedside.
--- NOTE | 2021-04-12 16:20 | HMH.PULMCON ---
*Admission Date: 04/11/21 *Reason for consult:: Acute hypoxic respiratory failure *History of present illness: Mr. Huang is a 60-year-old male with significant smoking history currently smokes 1 pack a day resides in a [facility] retirement and presented to the hospital for abdominal pain found to have a colonic mass status post colectomy was found to have worsening hypoxic respiratory failure and pulmonary was called for further evaluation. [facility] History Medical History: Reports:: Anxiety, Hypertension Denies:: Cancer, Diabetes Mellitus Type 1, Diabetes Mellitus Type 2, Internal Pacemaker, MRSA, Seizures *Have you ever received a pneumonia vaccine?: Yes *Have you received a flu vaccine this season?: Yes Other Medical History: Reports: Arthritis, Hypothyroidism. Denies: Blood Transfusion Reaction Anesthesia experience/problems:: none Other Surgeries: Yes: No Previous Surgery, Colonoscopy. No: Pacemaker Amputation: No Fractures: Yes - *Social History Last grade of school completed: 7th or 8th Smoking Status: Current every day smoker Tobacco Type: cigarettes # Packs/Day (cigarettes): 1 Alcohol Intake: never Substance Use Type: denies use *Occupational Status:: other Housing: other Household Members: other *Travel in the last 8 weeks: None - Psychiatric History Pschychiatric History:: Reports:: Anxiety Family Hx:: Unable to obtain ROS - Card Reports shortness of breath, Reports shortness of breath with activity - Resp Respiratory: Denies chest congestion, Reports cough, Reports dyspnea on exertion Meds Home Medications Medication Instructions Recorded Confirmed Type divalproex 500 mg tablet,delayed 500 mg PO BID 02/25/18 04/11/21 History release levothyroxine 100 mcg capsule 100 mcg PO DAILY 02/25/18 04/11/21 History omega-3 fatty acids 1,000 mg 1,000 mg PO BID 02/25/18 04/11/21 History capsule OXcarbazepine [Oxcarbazepine] 300 mg PO BID 09/30/19 04/12/21 History haloperidoL [Haldol 5mg tablet] 10 mg PO TID 10/01/19 04/11/21 History Amlodipine Besylate 2.5 mg PO HS 11/21/20 04/11/21 History Lactulose [Lactulose 10gm/15ml 15 ml PO DAILYP PRN 11/22/20 04/12/21 History Oral Soln] clonazePAM [Clonazepam] 1 mg PO TIDP PRN 11/22/20 04/11/21 History Quetiapine Fumarate [Seroquel] 400 mg PO DAILY 03/05/21 04/11/21 History risperiDONE [Risperidone] 4 mg PO BID 03/06/21 04/11/21 History Aspirin [Aspirin 81mg chewable 81 mg PO DAILY 04/11/21 04/11/21 History tab] Neomycin Sulfate 500 mg PO DIRECTED 04/11/21 04/12/21 History metroNIDAZOLE [Metronidazole] 500 mg PO DIRECTED 04/11/21 04/12/21 History Gabapentin [Gabapentin 100mg Cap] 100 mg PO HS 04/12/21 04/12/21 History clonazePAM [Klonopin 1mg tablet] 1 mg PO BID 04/12/21 04/11/21 History Allergies Allergy/AdvReac Type Severity Reaction Status Date / Time No Known Allergies Allergy Verified 04/11/21 06:36 Exam - Constitutional Constitutional:: Present: no acute distress, comfortable - HENMT Exam HENMT: Present: normocephalic, atraumatic - Eye Exam Eyes:: Present: normal appearance both eyes and related structures - Neck Exam Neck:: Present: normal visual inspection - Respiratory Exam Respiratory:: Present: able to speak in complete sentences, normal respiratory effort, crackles - Cardiovascular Exam Cardiac:: Present: S1, S2 - GI Exam GI:: Present: soft, no tenderness Comments: Midline scar dressing intact. Abdomen nontender. - Skin Exam Skin: Present: warm, no rash - Neurological Exam Neurological: Present: alert, awake - Extremities Exam Extremities: Present: no cyanosis, no clubbing, edema Internal Medicine - CN: Reslt - Labs CBC & Chem 7: 04/12/21 05:55 04/12/21 05:55 Labs: Short CBC 04/12/21 Range/Units 05:55 WBC 15.3 H (4.8-10.8) K/mm3 Hgb 12.9 L (14.1-18.0) g/dL Hct 38.5 L (42.0-52.0) % Plt Count 126 L (142-424) K/mm3 [facility] 04/12/21 05:55 Sodium 137 Potassium 3.
--- NOTE | 2021-04-12 17:52 | ECG_ITS ---
APPROVED REPORT Exam: Resting ECG HR:142 bpm ECG Measurements Heart Rate 142 AXES DC 128 P 55 QRSd 132 QRS 30 QT 304 T 34 QTc 467 Conclusion Sinus tachycardia Right bundle branch block Abnormal ECG Electronically signed by : Lane Awad, 04/15/2021 11:03:30
--- NOTE | 2021-04-12 18:20 | PC.NURSE ---
Pt has been pleasant and cooperative this shift. A&O X4. LOCAL AREA NETWORK SYSTEMS ADMINSTRATOR pump is present and 4 MG of Morphine have been administered thus far this shift. Pt is receiving O2 via NC @ 3 LPM with sats. >90%. Lung sounds reveal inspiratory/expiratory rhonchi. No edema noted. Abdominal dressing C/D/I. Telemetry reveals ST + BBB. Pt ambulates with stand-by assistance. Pt has sat up in the recliner for a few hours today. F/C DC'd this AM and pt is currently using the urinal to void clear, yellow urine without issue. No BM. 20 G peripheral IV in the RT hand is patent and infusing LR @ 50 ML/HR. Patient has been instructed to provide a sputum sample and a specimen cup is at bedside. HR has been elevated t/o this shift. Other VSS. Call light within reach. Will continue to monitor.
--- NOTE | 2021-04-12 18:51 | PC.NURSE ---
increased o2 4lpm n/c
[2021-04-12 18:57] LABS: Basophils % 0.2 % (0.1-2.0); Eosinophils # 0.1 K/mm3 (0.0-0.4); Eosinophils % 0.6 % (0.1-12.0); Hematocrit 39.4 % (42.0-52.0); Hemoglobin 13.6 g/dL (14.1-18.0); Lymphocytes # 0.7 K/mm3 (0.7-4.5); Lymphocytes % 5.4 % (10-50); Mean Corpuscular HGB Conc 34.6 g/dL (31.8-35.4); Mean Corpuscular Hemoglobin 29.8 pg (27.0-31.2); Mean Corpuscular Volume 86.2 fl (80-94); Mean Platelet Volume 10.9 fl (7.4-10.4); Monocytes # 0.6 K/mm3 (0.1-1.0); Monocytes % 4.8 % (1.7-9.3); Neutrophils # 11.8 K/mm3 (1.8-7.8); Neutrophils % 89.1 % (37.0-80.0); Platelet Count 126 K/mm3 (142-424); Red Blood Count 4.57 M/mm3 (4.60-6.20); Red Cell Distribution Width 13.9 % (11.5-17.5); White Blood Count 13.2 K/mm3 (4.8-10.8)
--- NOTE | 2021-04-12 18:58 | PC.NURSE ---
pt has trouble with the incentive spirometry tx. he does not understand the what to do. I explain in very simple terms for him
[2021-04-12 19:05] LABS: MANUAL DIFFERENTIAL MANUAL DIFFERENTIAL (MANUAL DIFF)
[2021-04-12 19:12] LABS: Anion Gap 10.7 mEq/L (5-15); Blood Urea Nitrogen 22 mg/dl (9-20); Calcium 8.6 mg/dl (8.4-10.2); Carbon Dioxide 27 mmol/L (22.0-30.0); Chloride 105 mmol/L (98-107); Creatinine Clearance Estimated 85 mL/min (50-200); Estimated Glomerular Filt Rate 57 ml/min (>60); GFR (African American) 68 ML/MIN (>60); Glucose 127 mg/dl (74-100); Potassium 3.7 mmoL/L (3.5-5.1); Sodium 139 mmol/L (136-145)
[2021-04-12 19:24] LABS: Troponin I < 0.01 ng/ml (0.00-0.034)
[2021-04-12 19:26] LABS: Lymphocytes % 5 % (10-50); Monocytes % 2 % (2-9); Neutrophils % 89 % (42-76); Platelet Estimate Normal; RBC Morphology Normal; Total Cells Counted 100
[2021-04-13] VITALS (9 sets, daily range): BP systolic 130–158; BP diastolic 82–94; PULSE 81–111; RESP 18–20; TEMP 36.7–37.2; O2SAT 92–100; BMI 28.4
--- NOTE | 2021-04-13 03:51 | PC.NURSE ---
Patient has been cooperative this shift. Has 20 G in right hand running LR @ 50ml/hr. Pt has the CONSUMER MARKETING ANALYST pump at 1 mg q 10 mins. Lockout at 20mg Q 4hrs. Educated pt on CONSUMER MARKETING ANALYST pump use. Pt is receiving O2 at 4 L NC patient staying >90%. HR has been elevated. Pt spiked a temp beginning of shift and admin Tylenol per JAN, temp has remained stable. B/P been stable all shift. Lung sounds inspiratory/expiratory rhonchi. Midline dressing C/D/I. Pt uses urinal to void clear, yellow urine. Pt is a standby assist x1. call light within reach, patient has been able to make needs known to staff. No concerns at this time.
--- NOTE | 2021-04-13 06:39 | P.PN_ITS ---
Subjective Patient reports: no new complaints, no flatus, no bowel movement Progress Note: A&P (1) Schizophrenia Status: Acute (2) Hypothyroidism Status: Acute (3) Anxiety Status: Acute (4) Obesity (BMI 30.0-34.9) Status: Acute (5) Tobacco use Status: Acute (6) DJD (degenerative joint disease), cervical Status: Acute (7) CAD (coronary artery disease) Status: Acute (8) Gallbladder hydrops Status: Acute (9) S/P right colectomy Status: Acute Assessment and Plan for All Diagnoses:: Overall, doing fairly well status post right colectomy/cholecystectomy. Increase ambulation Await return of bowel function Continue sips and chips for now Exam Vital signs and Labs for Last 24 Hours: Temp Pulse Resp BP Pulse Ox 98.7 F 87 20 158/82 H 94 L 04/13/21 04:00 04/13/21 06:09 04/13/21 04:00 04/13/21 04:00 04/13/21 06:09 Laboratory Results - last 24 hr 04/12/21 05:55: Total Counted 100, Neutrophils % (Manual) 80 H, Lymphocytes % (Manual) 14, Monocytes % (Manual) 6, Platelet Estimate Normal, RBC Morphology Normal 04/12/21 18:48: WBC 13.2 H, RBC 4.57 L, Hgb 13.6 L, Hct 39.4 L, MCV 86.2, MCH 29.8, MCHC 34.6, RDW 13.9, Plt Count 126 L, MPV 10.9 H, Neut % (Auto) 89.1 H, Lymph % (Auto) 5.4 L, [place] % (Auto) 4.8, Eos % (Auto) 0.6, Baso % (Auto) 0.2, Neut # (Auto) 11.8 H, Lymph # (Auto) 0.7, [place] # (Auto) 0.6, Eos # (Auto) 0.1, Baso # (Auto) 0.0, Total Counted 100, Neutrophils % (Manual) 89 H, Band Neutrophils % 4.0, Lymphocytes % (Manual) 5 L, Monocytes % (Manual) 2, Platelet Estimate Normal, RBC Morphology Normal 04/12/21 18:48: Sodium 139, Potassium 3.7, Chloride 105, Carbon Dioxide 27, Anion Gap 10.7, BUN 22 H, Creatinine 1.30 H, Estimated Creat Clear 85, Estimated GFR 57 L, Est GFR ( Amer) 68, Glucose 127 H, Calcium 8.6, Troponin I < 0.01 I & O for Last 24 hours: Intake & Output 04/10/21 04/11/21 04/12/21 04/13/21 11:59 11:59 11:59 11:59 Intake Total 3500 / 3500 0 / 0 2419 / 2419 Output Total 450 / 450 4100 / 4100 Balance 3500 / 3500 -450 / -450 -1681 / -1681 Weight 201 lb 216 lb 5 oz 210 lb - Constitutional no acute distress - *Routine Respiratory Exam Absent: respiratory distress - *Routine Cardiovascular Exam Present: RRR - *Routine Abdominal Exam Present: soft Comments: Incision clean, dry, and intact. No erythema.
[2021-04-13 08:27] LABS: Basophils % 0.1 % (0.1-2.0); Eosinophils % 0.1 % (0.1-12.0); Hemoglobin 12.7 g/dL (14.1-18.0); Lymphocytes # 0.8 K/mm3 (0.7-4.5); Lymphocytes % 6.6 % (10-50); Mean Corpuscular HGB Conc 33.5 g/dL (31.8-35.4); Mean Corpuscular Volume 86.5 fl (80-94); Mean Platelet Volume 10.1 fl (7.4-10.4); Monocytes # 0.6 K/mm3 (0.1-1.0); Monocytes % 4.5 % (1.7-9.3); Neutrophils # 11.2 K/mm3 (1.8-7.8); Neutrophils % 88.6 % (37.0-80.0); Platelet Count 125 K/mm3 (142-424); Red Cell Distribution Width 13.9 % (11.5-17.5); White Blood Count 12.7 K/mm3 (4.8-10.8)
[2021-04-13 08:32] LABS: Chloride 106 mmol/L (98-107)
[2021-04-13 08:33] LABS: Potassium 3.7 mmoL/L (3.5-5.1); Sodium 140 mmol/L (136-145)
[2021-04-13 08:36] LABS: Anion Gap 9.7 mEq/L (5-15); Blood Urea Nitrogen 22 mg/dl (9-20); Calcium 8.9 mg/dl (8.4-10.2); Carbon Dioxide 28 mmol/L (22.0-30.0); Creatinine Clearance Estimated 82 mL/min (50-200); Estimated Glomerular Filt Rate 57 ml/min (>60); GFR (African American) 68 ML/MIN (>60); Glucose 95 mg/dl (74-100); MANUAL DIFFERENTIAL MANUAL DIFFERENTIAL (MANUAL DIFF)
[2021-04-13 09:11] LABS: Lymphocytes % 6 % (10-50); Monocytes % 5 % (2-9); Neutrophils % 89 % (42-76); Platelet Estimate Normal; RBC Morphology Normal; Total Cells Counted 100
--- NOTE | 2021-04-13 09:48 | HMH.ACPN2 ---
Internal Medicine - PN: Subj *Date: 04/13/21 *Time: 08:10 Interval history: pt sitting up in chair states he is doing well. states he has not passed stool or gas. Exam Vital signs and Labs for Last 24 Hours: Temp Pulse Resp BP Pulse Ox 98.0 F 96 H 20 141/83 H 100 04/13/21 08:00 04/13/21 08:00 04/13/21 08:00 04/13/21 08:00 04/13/21 08:00 Laboratory Results - last 24 hr 04/12/21 18:48: WBC 13.2 H, RBC 4.57 L, Hgb 13.6 L, Hct 39.4 L, MCV 86.2, MCH 29.8, MCHC 34.6, RDW 13.9, Plt Count 126 L, MPV 10.9 H, Neut % (Auto) 89.1 H, Lymph % (Auto) 5.4 L, [place] % (Auto) 4.8, Eos % (Auto) 0.6, Baso % (Auto) 0.2, Neut # (Auto) 11.8 H, Lymph # (Auto) 0.7, [place] # (Auto) 0.6, Eos # (Auto) 0.1, Baso # (Auto) 0.0, Total Counted 100, Neutrophils % (Manual) 89 H, Band Neutrophils % 4.0, Lymphocytes % (Manual) 5 L, Monocytes % (Manual) 2, Platelet Estimate Normal, RBC Morphology Normal 04/12/21 18:48: Sodium 139, Potassium 3.7, Chloride 105, Carbon Dioxide 27, Anion Gap 10.7, BUN 22 H, Creatinine 1.30 H, Estimated Creat Clear 85, Estimated GFR 57 L, Est GFR ( Amer) 68, Glucose 127 H, Calcium 8.6, Troponin I < 0.01 04/13/21 08:00: WBC 12.7 H, RBC 4.40 L, Hgb 12.7 L, Hct 38.0 L, MCV 86.5, MCH 29.0, MCHC 33.5, RDW 13.9, Plt Count 125 L, MPV 10.1, Neut % (Auto) 88.6 H, Lymph % (Auto) 6.6 L, [place] % (Auto) 4.5, Eos % (Auto) 0.1, Baso % (Auto) 0.1, Neut # (Auto) 11.2 H, Lymph # (Auto) 0.8, [place] # (Auto) 0.6, Eos # (Auto) 0.0, Baso # (Auto) 0.0, Total Counted 100, Neutrophils % (Manual) 89 H, Lymphocytes % (Manual) 6 L, Monocytes % (Manual) 5, Platelet Estimate Normal, RBC Morphology Normal 04/13/21 08:00: Sodium 140, Potassium 3.7, Chloride 106, Carbon Dioxide 28, Anion Gap 9.7, BUN 22 H, Creatinine 1.30 H, Estimated Creat Clear 82, Estimated GFR 57 L, Est GFR ( Amer) 68, Glucose 95 D, Calcium 8.9 I & O for Last 24 hours: Intake & Output 04/10/21 04/11/21 04/12/21 04/13/21 11:59 11:59 11:59 11:59 Intake Total 3500 / 3500 0 / 0 2419 / 2419 Output Total 450 / 450 4100 / 4100 Balance 3500 / 3500 -450 / -450 -1681 / -1681 Weight 201 lb 216 lb 5 oz 210 lb - Constitutional no acute distress - *Routine HEENT Exam Head: Present: normocephalic Eye: Present: PERRL ENT: Present: mucous membranes moist - *Routine Neck Exam Present: supple. Absent: lymphadenopathy - *Routine Respiratory Exam Present: decreased breath sounds, rhonchi - *Routine Cardiovascular Exam Present: RRR - *Routine Abdominal Exam Present: soft, normoactive bowel sounds. Absent: tenderness Comments: midline incision with kavon present. no redness or drainage - *Routine Extremities Exam Present: full ROM, normal capillary refill - *Routine Skin Exam Present: warm. Absent: rash - *Routine Neurological Exam Present: alert - Routine Psychiatric Exam Present: normal affect Assessment and Plan (1) Schizophrenia Status: Acute Qualifiers: Schizophrenia type: unspecified Qualified Code(s): F20.9 - Schizophrenia, unspecified Category: Medical Code(s): F20.9 - Schizophrenia, unspecified (2) Hypothyroidism Status: Acute Qualifiers: Hypothyroidism type: acquired Qualified Code(s): E03.9 - Hypothyroidism, unspecified Category: Medical Code(s): E03.9 - Hypothyroidism, unspecified (3) Anxiety Status: Acute Category: Medical Code(s): F41.9 - Anxiety disorder, unspecified (4) Obesity (BMI 30.0-34.9) Status: Acute Category: Medical Code(s): E66.9 - Obesity, unspecified (5) Tobacco use Status: Acute Category: Social Hx Code(s): Z72.0 - Tobacco use (6) DJD (degenerative joint disease), cervical Status: Acute Category: Medical Code(s): M50.30 - Other cervical disc degeneration, unspecified cervical region (7) CAD (coronary artery disease) Status: Acute Qualifiers: Coronary Disease-Associated Artery/Lesion type: [place] artery [place] vs. transplanted heart: [place] heart
--- NOTE | 2021-04-13 10:37 | HMH.OTEV ---
OT Inpatient Evaluation Rehab OT IP Evaluation Start: 04/13/21 10:02 Freq: ONCE Status: Complete Protocol: Document 04/13/21 10:30 [facility] (Rec: 04/13/21 10:37 [facility] [id number]) Rehab OT IP Assessment Subjective History Pt oriented x 3 on arrival. Pt agreeable to engage in therapy evaluation. Pt was diagnosed with a right colon mass and a distended gallbladder. 04/11/21 pt had sx and had a right hemicolectomy with ileocolic anastomosis and an open cholecystectomy. Pt has a past medical history of schizophrenia, CAD, hypothyroidism, anxiety, and djd. Pt reports he lived at [facility] prior to surgery. He claims he was independent with all ADLs. Pt did rely on staff to complete IADLs. No use of AE during ambulation Subjective I can walk fine. Objective Patient Orientation Person,Place,Birthday Upper Extremity Gross ROM WFL Transfer Training Sit/Stand Transfer Assist Level Contact Guard/Hand Hold Chair Transfer Ability Contact Guard/Hand Hold Chair Transfer Technique Sit to/from Ambulatory Chair Transfer Assistive Devices None Rehab OT IP prob,goals,plan Problems Date of Evaluation: 04/13/21 OT IP Problems Bed Mobility,Transfers,Gait, Balance,Self care,Safety Rehab Potential Rehab Potential Good Equipment Needs Assistive Devices None / NA,Rolling / Wheeled Walker Plan OT intervention Plan Bed Mobility,Transfers,Gait, Balance,Self care,Safety, Therapeutic Exercise OT Plan Frequency BID Duration LOS Discharge Goals Bed Mobility Ability Standby Assistance Sit to Stand Chair Transfer Ability Supervision/Stand by Chair Transfer Ability Supervision/Stand by Chair Transfer Technique Sit to/from Ambulatory Chair Transfer Assistive Devices None Self care skills fully toilet trained,uses utensils to feed self Feeding Ability Assist with Tray Set Up Lower Body Dressing Ability Assistance X1 Upper Body Dressing Ability Standby Assistance Bathing Ability Assistance x1 Performi
--- NOTE | 2021-04-13 11:00 | HMH.PTEV ---
Physical Therapy Evaluation Rehab PT IP Evaluation Start: 04/13/21 10:01 Freq: ONCE Status: Active Protocol: Document 04/13/21 09:00 [facility]ORJOS[facility] LUIS (Rec: 04/13/21 11:00 PHORNE [id number]) Subjective/History History History 60 yowm adm to [facility] with colon mass, now S/P hemicolectomy. He resides at a [facility] and is independent with all mobility at baseline. Subjective Subjective Pt reports discomfort in his abdomen, but agrees to ambulation. Rehab PT IP Eval Objective Appearance Patient Behavior Appropriate Patient Orientation Person,Place,Time Difficulty following instructions none Speech Pattern Clear Ambulation Patient Able to Ambulate Yes Ambulation Observation IP General Gait Pattern Observation Wide Based Gait Ambulation Distance (feet) 20 Ambulation Assistive Device None Ambulation Ability Contact Guard/Hand Hold Balance Ability to Arise Able, uses arms to help Sitting Balance Steady, safe Standing Balance Steady, wide stance Dynamic Sitting Balance Ability Good Dynamic Standing Balance Ability Fair Transfers Bed Transfer Ability Minimal x 1 (25% assist) Chair Transfer Ability Minimal x 1 (25% assist) Sit to Stand Bed Transfer Ability Minimal x 1 (25% assist) Sit to Stand Chair Transfer Ability Minimal x 1 (25% assist) ROM All Extremities PT ROM Status WFL MMT All Extremities PT MMT WFL Rehab PT IP prob,goals,plan Problems Date of Evaluation: 04/13/21 PT IP Problems Bed Mobility,Transfers,Gait Rehab Potential Rehab Potential Good Plan PT Intervention Plan Bed Mobility,Transfers,Gait, Self care,Therapeutic Exercise PT Plan Frequency BID Duration LOS Discharge Goals Bed Transfer Ability Supervision/Stand by Sit to Stand Chair Transfer Ability Supervision/Stand by Ambulation Assistive Device None Ambulation Distance (feet) 50 Discharge Plan PT Discharge Plan Pt is most appropriate for rehab placement currently, but could return to personal long term if trasnfer ability and ambulatioon improve to at or near baseline ability. G -code Required No Eval Complexity Eval Charge Codes 56344 - Moderate Complexity
--- NOTE | 2021-04-13 12:02 | HMH.PULMPN ---
Internal Medicine - PN: Subj *Date: 04/13/21 *Time: 12:02 Interval history: No acute respite events overnight. Patient continued to improve, oxygen weaned to 2 L nasal cannula with saturations maintained at 95% and above. Exam - Constitutional Constitutional:: Present: no acute distress, comfortable - HENMT Exam HENMT: Present: normocephalic, atraumatic - Neck Exam Neck:: Present: normal visual inspection - Respiratory Exam Respiratory:: Present: able to speak in complete sentences, no respiratory distress, normal respiratory effort, crackles - Cardiovascular Exam Cardiac:: Present: S1, S2 - GI Exam GI:: Present: soft - Skin Exam Skin: Present: warm, no rash - Neurological Exam Neurological: Present: alert, awake - Extremities Exam Extremities: Present: no cyanosis, no clubbing Assessment and Plan (1) Schizophrenia Status: Acute Qualifiers: Schizophrenia type: unspecified Qualified Code(s): F20.9 - Schizophrenia, unspecified Category: Medical Code(s): F20.9 - Schizophrenia, unspecified (2) Hypothyroidism Status: Acute Qualifiers: Hypothyroidism type: acquired Qualified Code(s): E03.9 - Hypothyroidism, unspecified Category: Medical Code(s): E03.9 - Hypothyroidism, unspecified (3) Anxiety Status: Acute Category: Medical Code(s): F41.9 - Anxiety disorder, unspecified (4) Obesity (BMI 30.0-34.9) Status: Acute Category: Medical Code(s): E66.9 - Obesity, unspecified (5) Tobacco use Status: Acute Category: Social Hx Code(s): Z72.0 - Tobacco use (6) DJD (degenerative joint disease), cervical Status: Acute Category: Medical Code(s): M50.30 - Other cervical disc degeneration, unspecified cervical region (7) CAD (coronary artery disease) Status: Acute Qualifiers: Coronary Disease-Associated Artery/Lesion type: [place] artery [place] vs. transplanted heart: [place] heart Associated angina: unspecified whether angina present Qualified Code(s): I25.10 - Atherosclerotic heart disease of [place] coronary artery without angina pectoris Category: Medical Code(s): I25.10 - Atherosclerotic heart disease of [place] coronary artery without angina pectoris (8) Gallbladder hydrops Status: Acute Category: Medical Code(s): K82.1 - Hydrops of gallbladder (9) S/P right colectomy Status: Acute Category: Surgical Code(s): Z90.49 - Acquired absence of other specified parts of digestive tract - Assessment and plan all Dx Assessment and Plan for all problems:: #Acute hypoxic respiratory failure: 60-year-old significant smoking history currently smoking 1 pack a day not on any inhalers at baseline was presented hospital abdominal pain status post colectomy found to have worsening respiratory symptoms pulmonary was called for further management. Chest x-ray showed evidence of volume overload and bilateral lower lobe infiltrates concerning for atelectasis/ PNM. Patient receiving DVT prophylaxis since admission. Neutrophilic leukocytosis noted. Afebrile. Hemodynamically stable. Patient patient was given 20 mg of IV Lasix yesterday and was initiated on levofloxacin and incentive spirometry volume status improved from yesterday. Renal function stable. Warfarin pump discontinued today. Plan: -Recommend discontinuing ertapenem unless initiated for non-pulmonary infectious etiology -Strict aspiration precautions -Continue DuoNebs every 6 hours scheduled. -Continue incentive spirometry -Continue levofloxacin 750 mg IV daily -F/U Sputum culture- sputum induction today Thank you for involving pulmonary in this patient care. We will continue to follow. Please call pulmonary with any questions or concerns.
--- NOTE | 2021-04-13 17:33 | PC.NURSE ---
Pt has been pleasant and cooperative this shift. A&O X4. [employer] DC'd this AM. Pt has complained of pain X1 and received Morphine per MAR with favorable results. Pt is receiving O2 via NC @ 2 LPM with sats. >90%. Lung sounds reveal inspiratory/expiratory rhonchi. Generalized edema noted. Abdominal dressing C/D/I. Pt ambulates with stand-by assistance. Pt has sat up in the recliner for a few hours today. Pt worked with PT/OT today and has walked around the room several times. Pt uses the urinal to void clear, yellow urine without issue. No BM. 20 G peripheral IV in the RT hand is patent and SL. Patient has been instructed to provide a sputum sample and a specimen cup is at bedside. Pt has also been instructed to use the IS and [facility]. Call light within reach. Will continue to monitor.
[2021-04-14] VITALS (10 sets, daily range): BP systolic 117–134; BP diastolic 74–97; PULSE 84–101; RESP 16–18; TEMP 36.6–37.3; O2SAT 92–96; BMI 27.9
--- NOTE | 2021-04-14 04:57 | PC.NURSE ---
No acute changes this shift. Pt has been up to chair this shift x2. Ambulated with assist x2. Tolerated poorly. Pt has tolerated ice chips well. Pt has asked multiple times when he can have something to eat. Pt educated. Reinforcement needed. Incision site is [employer] and C/D/I. BS active. Medications administered per mar. No other concerns at this time. Will continue to monitor
--- NOTE | 2021-04-14 06:43 | PC.NURSE ---
Pt was noted to be diaphoretic this AM. VS and FSBS was obtained. Glucose was 62. 0.5 amp of D50 administered. Pt is NPO. Repeat FSBS is 83.
[2021-04-14 07:07] LABS: Chloride 105 mmol/L (98-107); Potassium 3.6 mmoL/L (3.5-5.1); Sodium 141 mmol/L (136-145)
[2021-04-14 07:10] LABS: Anion Gap 11.6 mEq/L (5-15); Basophils % 0.3 % (0.1-2.0); Blood Urea Nitrogen 23 mg/dl (9-20); Calcium 8.8 mg/dl (8.4-10.2); Carbon Dioxide 28 mmol/L (22.0-30.0); Creatinine Clearance Estimated 88 mL/min (50-200); Eosinophils % 0.3 % (0.1-12.0); Estimated Glomerular Filt Rate 62 ml/min (>60); GFR (African American) 75 ML/MIN (>60); Glucose 91 mg/dl (74-100); Hematocrit 36.5 % (42.0-52.0); Hemoglobin 11.8 g/dL (14.1-18.0); Mean Corpuscular HGB Conc 32.2 g/dL (31.8-35.4); Mean Corpuscular Hemoglobin 28.7 pg (27.0-31.2); Mean Corpuscular Volume 88.9 fl (80-94); Mean Platelet Volume 10.2 fl (7.4-10.4); Monocytes # 0.5 K/mm3 (0.1-1.0); Monocytes % 4.5 % (1.7-9.3); Neutrophils # 8.5 K/mm3 (1.8-7.8); Neutrophils % 84.9 % (37.0-80.0); Platelet Count 141 K/mm3 (142-424); Red Blood Count 4.11 M/mm3 (4.60-6.20); Red Cell Distribution Width 13.8 % (11.5-17.5)
--- NOTE | 2021-04-14 08:44 | HMH.GSPN ---
Subjective Patient reports: no new complaints, no flatus, no bowel movement Progress Note: A&P (1) Schizophrenia Status: Acute (2) Hypothyroidism Status: Acute (3) Anxiety Status: Acute (4) Obesity (BMI 30.0-34.9) Status: Acute (5) Tobacco use Status: Acute (6) DJD (degenerative joint disease), cervical Status: Acute (7) CAD (coronary artery disease) Status: Acute (8) Gallbladder hydrops Status: Acute (9) S/P right colectomy Status: Acute Assessment and Plan for All Diagnoses:: Awaiting evidence of bowel function before starting clear liquids Exam Vital signs and Labs for Last 24 Hours: Temp Pulse Resp BP Pulse Ox 97.8 F 92 H 16 134/97 H 96 04/14/21 08:00 04/14/21 08:00 04/14/21 08:00 04/14/21 08:00 04/14/21 08:00 Laboratory Results - last 24 hr 04/13/21 08:00: Total Counted 100, Neutrophils % (Manual) 89 H, Lymphocytes % (Manual) 6 L, Monocytes % (Manual) 5, Platelet Estimate Normal, RBC Morphology Normal 04/14/21 06:34: WBC 10.0, RBC 4.11 L, Hgb 11.8 L, Hct 36.5 L, MCV 88.9, MCH 28.7, MCHC 32.2, RDW 13.8, Plt Count 141 L, MPV 10.2, Neut % (Auto) 84.9 H, Lymph % (Auto) 10.0, [place] % (Auto) 4.5, Eos % (Auto) 0.3, Baso % (Auto) 0.3, Neut # (Auto) 8.5 H, Lymph # (Auto) 1.0, [place] # (Auto) 0.5, Eos # (Auto) 0.0, Baso # (Auto) 0.0 04/14/21 06:34: Sodium 141, Potassium 3.6, Chloride 105, Carbon Dioxide 28, Anion Gap 11.6, BUN 23 H, Creatinine 1.20, Estimated Creat Clear 88, Estimated GFR 62, Est GFR ( Amer) 75, Glucose 91, Calcium 8.8 I & O for Last 24 hours: Intake & Output 04/11/21 04/12/21 04/13/21 04/14/21 11:59 11:59 11:59 11:59 Intake Total 3500 / 3500 0 / 0 2419 / 2419 360 / 360 Output Total 450 / 450 4100 / 4100 1600 / 1600 Balance 3500 / 3500 -450 / -450 -1681 / -1681 -1240 / -1240 Weight 201 lb 216 lb 5 oz 210 lb 206 lb 7 oz - *Routine Abdominal Exam Present: soft Comments: Incision clean
--- NOTE | 2021-04-14 08:45 | HMH.ACPN2 ---
Internal Medicine - PN: Subj *Date: 04/14/21 *Time: 08:10 Interval history: pt sitting up in chair, pt states he is doing well, states no gas or bm Exam Vital signs and Labs for Last 24 Hours: Temp Pulse Resp BP Pulse Ox 97.8 F 92 H 16 134/97 H 96 04/14/21 08:00 04/14/21 08:00 04/14/21 08:00 04/14/21 08:00 04/14/21 08:00 Laboratory Results - last 24 hr 04/13/21 08:00: Total Counted 100, Neutrophils % (Manual) 89 H, Lymphocytes % (Manual) 6 L, Monocytes % (Manual) 5, Platelet Estimate Normal, RBC Morphology Normal 04/14/21 06:34: WBC 10.0, RBC 4.11 L, Hgb 11.8 L, Hct 36.5 L, MCV 88.9, MCH 28.7, MCHC 32.2, RDW 13.8, Plt Count 141 L, MPV 10.2, Neut % (Auto) 84.9 H, Lymph % (Auto) 10.0, [place] % (Auto) 4.5, Eos % (Auto) 0.3, Baso % (Auto) 0.3, Neut # (Auto) 8.5 H, Lymph # (Auto) 1.0, [place] # (Auto) 0.5, Eos # (Auto) 0.0, Baso # (Auto) 0.0 04/14/21 06:34: Sodium 141, Potassium 3.6, Chloride 105, Carbon Dioxide 28, Anion Gap 11.6, BUN 23 H, Creatinine 1.20, Estimated Creat Clear 88, Estimated GFR 62, Est GFR ( Amer) 75, Glucose 91, Calcium 8.8 I & O for Last 24 hours: Intake & Output 04/11/21 04/12/21 04/13/21 04/14/21 11:59 11:59 11:59 11:59 Intake Total 3500 / 3500 0 / 0 2419 / 2419 360 / 360 Output Total 450 / 450 4100 / 4100 1600 / 1600 Balance 3500 / 3500 -450 / -450 -1681 / -1681 -1240 / -1240 Weight 201 lb 216 lb 5 oz 210 lb 206 lb 7 oz - Constitutional no acute distress - *Routine HEENT Exam Head: Present: normocephalic Eye: Present: PERRL ENT: Present: mucous membranes moist - *Routine Neck Exam Present: supple. Absent: lymphadenopathy - *Routine Respiratory Exam Present: rhonchi - *Routine Cardiovascular Exam Present: RRR - *Routine Abdominal Exam Present: soft, surgical scars. Absent: tenderness Comments: dressing c/d/i - *Routine Extremities Exam Absent: cyanosis, clubbing, edema - *Routine Skin Exam Present: warm. Absent: rash - *Routine Neurological Exam Present: alert - Routine Psychiatric Exam Present: normal affect Assessment and Plan (1) Schizophrenia Status: Acute Qualifiers: Schizophrenia type: unspecified Qualified Code(s): F20.9 - Schizophrenia, unspecified Category: Medical Code(s): F20.9 - Schizophrenia, unspecified (2) Hypothyroidism Status: Acute Qualifiers: Hypothyroidism type: acquired Qualified Code(s): E03.9 - Hypothyroidism, unspecified Category: Medical Code(s): E03.9 - Hypothyroidism, unspecified (3) Anxiety Status: Acute Category: Medical Code(s): F41.9 - Anxiety disorder, unspecified (4) Obesity (BMI 30.0-34.9) Status: Acute Category: Medical Code(s): E66.9 - Obesity, unspecified (5) Tobacco use Status: Acute Category: Social Hx Code(s): Z72.0 - Tobacco use (6) DJD (degenerative joint disease), cervical Status: Acute Category: Medical Code(s): M50.30 - Other cervical disc degeneration, unspecified cervical region (7) CAD (coronary artery disease) Status: Acute Qualifiers: Coronary Disease-Associated Artery/Lesion type: [place] artery [place] vs. transplanted heart: [place] heart Associated angina: unspecified whether angina present Qualified Code(s): I25.10 - Atherosclerotic heart disease of [place] coronary artery without angina pectoris Category: Medical Code(s): I25.10 - Atherosclerotic heart disease of [place] coronary artery without angina pectoris (8) Gallbladder hydrops Status: Acute Category: Medical Code(s): K82.1 - Hydrops of gallbladder (9) S/P right colectomy Status: Acute Category: Surgical Code(s): Z90.49 - Acquired absence of other specified parts of digestive tract - Assessment and plan all Dx Assessment and Plan for all problems:: rounded with dr rich all orders per dr rich wait for bs follow with surgery
[2021-04-14 12:00] LABS: POC Glucose,Bedside 62 (70-110)
[2021-04-14 12:00] LABS: POC Glucose,Bedside 83 (70-110)
--- NOTE | 2021-04-14 12:23 | HMH.PULMPN ---
Internal Medicine - PN: Subj *Date: 04/14/21 *Time: 12:23 Interval history: No acute respiratory vents overnight. Patient weaned to room air this morning saturating 89 to 90%. Exam - Constitutional Constitutional:: Present: no acute distress, comfortable - HENMT Exam HENMT: Present: normocephalic, atraumatic - Eye Exam Eyes:: Present: normal appearance both eyes and related structures - Neck Exam Neck:: Present: normal visual inspection - Respiratory Exam Respiratory:: Present: able to speak in complete sentences, normal breath sounds, no respiratory distress, normal respiratory effort, crackles - Cardiovascular Exam Cardiac:: Present: S1, S2 - Skin Exam Skin: Present: warm, no rash - Neurological Exam Neurological: Present: alert, awake - Extremities Exam Extremities: Present: no cyanosis, no clubbing, edema Assessment and Plan (1) Schizophrenia Status: Acute Qualifiers: Schizophrenia type: unspecified Qualified Code(s): F20.9 - Schizophrenia, unspecified Category: Medical Code(s): F20.9 - Schizophrenia, unspecified (2) Hypothyroidism Status: Acute Qualifiers: Hypothyroidism type: acquired Qualified Code(s): E03.9 - Hypothyroidism, unspecified Category: Medical Code(s): E03.9 - Hypothyroidism, unspecified (3) Anxiety Status: Acute Category: Medical Code(s): F41.9 - Anxiety disorder, unspecified (4) Obesity (BMI 30.0-34.9) Status: Acute Category: Medical Code(s): E66.9 - Obesity, unspecified (5) Tobacco use Status: Acute Category: Social Hx Code(s): Z72.0 - Tobacco use (6) DJD (degenerative joint disease), cervical Status: Acute Category: Medical Code(s): M50.30 - Other cervical disc degeneration, unspecified cervical region (7) CAD (coronary artery disease) Status: Acute Qualifiers: Coronary Disease-Associated Artery/Lesion type: [place] artery [place] vs. transplanted heart: [place] heart Associated angina: unspecified whether angina present Qualified Code(s): I25.10 - Atherosclerotic heart disease of [place] coronary artery without angina pectoris Category: Medical Code(s): I25.10 - Atherosclerotic heart disease of [place] coronary artery without angina pectoris (8) Gallbladder hydrops Status: Acute Category: Medical Code(s): K82.1 - Hydrops of gallbladder (9) S/P right colectomy Status: Acute Category: Surgical Code(s): Z90.49 - Acquired absence of other specified parts of digestive tract - Assessment and plan all Dx Assessment and Plan for all problems:: #Acute hypoxic respiratory failure: 60-year-old significant smoking history currently smoking 1 pack a day not on any inhalers at baseline was presented hospital abdominal pain status post colectomy found to have worsening respiratory symptoms pulmonary was called for further management. Chest x-ray showed evidence of volume overload and bilateral lower lobe infiltrates concerning for atelectasis/ PNM. Patient receiving DVT prophylaxis since admission. Patient respiratory status continued to improve with nebulizer therapy and Lasix. He is weaned to room air this morning however saturating 89 to 90%. Bilateral coarse breath sounds heard. Plan: -Lasix 20 mg IV once today -Flutter valve -Mucomyst every 12 hours for 24 to 48 hours -Continue levofloxacin 750 mg IV daily, can be switched to oral on discharge to complete a total of 5-day course -Continue DuoNebs every 6 hours scheduled, can be discharged on LAMA LABA inhaler therapy along with albuterol every 6 hours as needed -Strict aspiration precautions -Continue incentive spirometry Thank you for involving pulmonary in this patient care. Please call with any questions or concerns.
--- NOTE | 2021-04-14 13:20 | HMH.GSHP ---
HPI HPI: Patient is a 60-year-old male with history of schizophrenia, encephalomalacia on multiple medications who is a resident of [facility]. He had recently been admitted with mental status changes. His work-up included CT scan which revealed findings of distended gallbladder with gallstones as well as possible right colon mass. Patient had no signs of acute cholecystitis and seemed to be asymptomatic from his gallbladder. During his hospitalization he underwent colonoscopy. Most notable was a large ascending colon mass. He also had additional polyps removed. 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 Plan was made to proceed with colon resection and possible cholecystectomy. [facility] History I have reviewed the patient's past medical history: Yes Medical History: Reports:: Anxiety, Hypertension Denies:: Cancer, Diabetes Mellitus Type 1, Diabetes Mellitus Type 2, Internal Pacemaker, MRSA, Seizures *Have you ever received a pneumonia vaccine?: Yes *Have you received a flu vaccine this season?: Yes Other Medical History: Reports: Arthritis, Hypothyroidism. Denies: Blood Transfusion Reaction Anesthesia experience/problems:: none Other Surgeries: Yes: No Previous Surgery, Colonoscopy. No: Pacemaker Amputation: No Fractures: Yes - *Social History Last grade of school completed: 7th or 8th Smoking Status: Current every day smoker Tobacco Type: cigarettes # Packs/Day (cigarettes): 1 Alcohol Intake: never Substance Use Type: denies use *Occupational Status:: other Housing: other Household Members: other *Travel in the last 8 weeks: None - Psychiatric History Pschychiatric History:: Reports:: Anxiety Family Hx:: Unable to obtain Review of Systems - Review of Systems Review of systems:: unable to obtain - *Neurologic Denies abnormal walking, Denies seizure-like activity, Denies dizziness Meds Home Medications Medication Instructions Recorded Confirmed Type divalproex 500 mg tablet,delayed 500 mg PO BID 02/25/18 04/11/21 History release levothyroxine 100 mcg capsule 100 mcg PO DAILY 02/25/18 04/11/21 History omega-3 fatty acids 1,000 mg 1,000 mg PO BID 02/25/18 04/11/21 History capsule OXcarbazepine [Oxcarbazepine] 300 mg PO BID 09/30/19 04/12/21 History haloperidoL [Haldol 5mg tablet] 10 mg PO TID 10/01/19 04/11/21 History Amlodipine Besylate 2.5 mg PO HS 11/21/20 04/11/21 History Lactulose [Lactulose 10gm/15ml 15 ml PO DAILYP PRN 11/22/20 04/12/21 History Oral Soln] clonazePAM [Clonazepam] 1 mg PO TIDP PRN 11/22/20 04/11/21 History Quetiapine Fumarate [Seroquel] 400 mg PO DAILY 03/05/21 04/11/21 History risperiDONE [Risperidone] 4 mg PO BID 03/06/21 04/11/21 History Aspirin [Aspirin 81mg chewable 81 mg PO DAILY 04/11/21 04/11/21 History tab] Neomycin Sulfate 500 mg PO DIRECTED 04/11/21 04/12/21 History metroNIDAZOLE [Metronidazole] 500 mg PO DIRECTED 04/11/21 04/12/21 History Gabapentin [Gabapentin 100mg Cap] 100 mg PO HS 04/12/21 04/12/21 History clonazePAM [Klonopin 1mg tablet] 1 mg PO BID 04/12/21 04/11/21 History Allergies Allergy/AdvReac Type Severity Reaction Status Date / Time No Known Allergies Allergy Verified 04/11/21 06:36 Exam Vital signs and Labs for Last 24 Hours: Temp Pulse Resp BP Pulse Ox 97.8 F 92 H 16 134/97 H 96 04/14/21 08:00 04/14/21 08:00 04/14/21 08:00 04/14/21 08:00 04/14/21 08:00 Laboratory Results - last 24 hr 04/14/21 06:15: POC Glucose 62 L 04/14/21 06:34: WBC 10.0, RBC 4.11 L, Hgb 11.8 L, Hct 36.5 L, MCV 88.9, MCH 28.7, MCHC 32.2, RDW 13.8, Plt Count 141 L, MPV 10.2, Neut % (Auto) 84.9 H, Lymph % (Auto) 10.0, [place] % (Auto) 4.5, Eos % (Auto) 0.3, Baso % (Auto) 0.3, Neut # (Auto) 8.5 H, Lymph # (Auto) 1.0, [place] # (Auto) 0.5, Eos # (Auto) 0.0, Baso # (Auto) 0.0 04/14/21 06:34: Sodium 141, Potassium 3.6, Chloride 105, Carbon Dioxide 28, Anion Gap 11.6, BUN 23 H, Creatinine 1.20, Estimated Creat Clear
--- NOTE | 2021-04-14 16:46 | PC.NURSE ---
Pt has been pleasant this shift. Pt has ambulated in room multiple times this shift. Pt is now on RA w/ o2 sats >92%. Pt has urinated multiple times this shift. Urine is cloudy, light yellow. Midline incision remains [employer]. No drainage noted. Pt has not had any BM's this shift, hypoactive bowel sounds noted in all 4 quads. No other acute changes or complaints at this time. Will continue to monitor.
[2021-04-15] VITALS (9 sets, daily range): BP systolic 129–146; BP diastolic 75–90; PULSE 71–100; RESP 17–18; TEMP 36.8–37.3; O2SAT 88–94; BMI 28.7
--- NOTE | 2021-04-15 04:40 | PC.NURSE ---
Patient oriented times three. Patient does not understand the concept of time. Patient has slept comfortably with eyes closed this shift. Patient midline incision clean, dry and intact. No purluent or serous drainage noted from site. Patient states no gas or bowel movement prior to sleeping. Will continue to monitor for any acute changes.
[2021-04-15 06:18] LABS: Basophils # 0.1 K/mm3 (0-0.2); Basophils % 0.4 % (0.1-2.0); Eosinophils # 0.1 K/mm3 (0.0-0.4); Eosinophils % 0.9 % (0.1-12.0); Hematocrit 36.4 % (42.0-52.0); Hemoglobin 12.2 g/dL (14.1-18.0); Lymphocytes # 1.2 K/mm3 (0.7-4.5); Lymphocytes % 11.4 % (10-50); Mean Corpuscular HGB Conc 33.4 g/dL (31.8-35.4); Mean Corpuscular Hemoglobin 28.9 pg (27.0-31.2); Mean Corpuscular Volume 86.4 fl (80-94); Mean Platelet Volume 10.2 fl (7.4-10.4); Monocytes # 0.7 K/mm3 (0.1-1.0); Monocytes % 6.3 % (1.7-9.3); Neutrophils # 8.7 K/mm3 (1.8-7.8); Platelet Count 182 K/mm3 (142-424); Red Blood Count 4.21 M/mm3 (4.60-6.20); Red Cell Distribution Width 13.9 % (11.5-17.5); White Blood Count 10.8 K/mm3 (4.8-10.8)
[2021-04-15 06:23] LABS: Chloride 105 mmol/L (98-107); Sodium 140 mmol/L (136-145)
[2021-04-15 06:24] LABS: Potassium 3.3 mmoL/L (3.5-5.1)
[2021-04-15 06:27] LABS: Anion Gap 12.3 mEq/L (5-15); Blood Urea Nitrogen 26 mg/dl (9-20); Calcium 8.9 mg/dl (8.4-10.2); Carbon Dioxide 26 mmol/L (22.0-30.0); Creatinine Clearance Estimated 98 mL/min (50-200); Estimated Glomerular Filt Rate 69 ml/min (>60); GFR (African American) 83 ML/MIN (>60); Glucose 79 mg/dl (74-100)
--- NOTE | 2021-04-15 08:26 | HMH.ACPN2 ---
Internal Medicine - PN: Subj *Date: 04/15/21 *Time: 08:27 Interval history: doing ok sl distended - labs ok Exam Vital signs and Labs for Last 24 Hours: Temp Pulse Resp BP Pulse Ox 98.3 F 100 H 17 141/90 H 93 L 04/15/21 07:26 04/15/21 07:26 04/15/21 04:00 04/15/21 07:26 04/15/21 07:52 Laboratory Results - last 24 hr 04/14/21 06:15: POC Glucose 62 L 04/14/21 06:55: POC Glucose 83 04/15/21 05:25: WBC 10.8, RBC 4.21 L, Hgb 12.2 L, Hct 36.4 L, MCV 86.4, MCH 28.9, MCHC 33.4, RDW 13.9, Plt Count 182 D, MPV 10.2, Neut % (Auto) 81.0 H, Lymph % (Auto) 11.4, [place] % (Auto) 6.3, Eos % (Auto) 0.9, Baso % (Auto) 0.4, Neut # (Auto) 8.7 H, Lymph # (Auto) 1.2, [place] # (Auto) 0.7, Eos # (Auto) 0.1, Baso # (Auto) 0.1 04/15/21 05:25: Sodium 140, Potassium 3.3 L, Chloride 105, Carbon Dioxide 26, Anion Gap 12.3, BUN 26 H, Creatinine 1.10, Estimated Creat Clear 98, Estimated GFR 69, Est GFR ( Amer) 83, Glucose 79, Calcium 8.9 I & O for Last 24 hours: Intake & Output 04/12/21 04/13/21 04/14/21 04/15/21 11:59 11:59 11:59 11:59 Intake Total 0 / 0 2419 / 2419 360 / 360 100 / 100 Output Total 450 / 450 4100 / 4100 1600 / 1600 350 / 350 Balance -450 / -450 -1681 / -1681 -1240 / -1240 -250 / -250 Weight 216 lb 5 oz 210 lb 206 lb 7 oz 212 lb Microbiology Reports for the Last 24 Hours: Microbiology 04/12/21 19:23 Blood Blood Culture - Preliminary NO GROWTH AFTER 48 HOURS 04/12/21 19:23 Blood Blood Culture - Preliminary NO GROWTH AFTER 48 HOURS - Constitutional no acute distress - *Routine HEENT Exam Head: Present: normocephalic Eye: Present: EOMI, PERRL ENT: Present: mucous membranes dry - *Routine Neck Exam Present: supple - *Routine Respiratory Exam Present: CTA bilaterally - *Routine Cardiovascular Exam Present: RRR, murmur - *Routine Abdominal Exam Present: soft, distended - *Routine Extremities Exam Absent: calf tenderness - *Routine Skin Exam Present: intact - *Routine Neurological Exam Present: alert, CN II-XII intact - Routine Psychiatric Exam Present: normal affect Assessment and Plan (1) Schizophrenia Status: Acute Qualifiers: Schizophrenia type: unspecified Qualified Code(s): F20.9 - Schizophrenia, unspecified Category: Medical Code(s): F20.9 - Schizophrenia, unspecified (2) Hypothyroidism Status: Acute Qualifiers: Hypothyroidism type: acquired Qualified Code(s): E03.9 - Hypothyroidism, unspecified Category: Medical Code(s): E03.9 - Hypothyroidism, unspecified (3) Anxiety Status: Acute Category: Medical Code(s): F41.9 - Anxiety disorder, unspecified (4) Obesity (BMI 30.0-34.9) Status: Acute Category: Medical Code(s): E66.9 - Obesity, unspecified (5) Tobacco use Status: Acute Category: Social Hx Code(s): Z72.0 - Tobacco use (6) DJD (degenerative joint disease), cervical Status: Acute Category: Medical Code(s): M50.30 - Other cervical disc degeneration, unspecified cervical region (7) CAD (coronary artery disease) Status: Acute Qualifiers: Coronary Disease-Associated Artery/Lesion type: [place] artery [place] vs. transplanted heart: [place] heart Associated angina: unspecified whether angina present Qualified Code(s): I25.10 - Atherosclerotic heart disease of [place] coronary artery without angina pectoris Category: Medical Code(s): I25.10 - Atherosclerotic heart disease of [place] coronary artery without angina pectoris (8) Gallbladder hydrops Status: Acute Category: Medical Code(s): K82.1 - Hydrops of gallbladder (9) S/P right colectomy Status: Acute Category: Surgical Code(s): Z90.49 - Acquired absence of other specified parts of digestive tract
--- NOTE | 2021-04-15 08:30 | PC.NURSE ---
Pt ambulated from the windows to outside of room w/ assistance from staff. Pt has a very unsteady gait.
--- NOTE | 2021-04-15 09:28 | HMH.ACPN ---
Internal Medicine - PN: Subj *Date: 04/15/21 *Time: 09:28 Exam Vital signs and Labs for Last 24 Hours: Temp Pulse Resp BP Pulse Ox 98.3 F 100 H 17 141/90 H 93 L 04/15/21 07:26 04/15/21 07:26 04/15/21 04:00 04/15/21 07:26 04/15/21 07:52 Laboratory Results - last 24 hr 04/14/21 06:15: POC Glucose 62 L 04/14/21 06:55: POC Glucose 83 04/15/21 05:25: WBC 10.8, RBC 4.21 L, Hgb 12.2 L, Hct 36.4 L, MCV 86.4, MCH 28.9, MCHC 33.4, RDW 13.9, Plt Count 182 D, MPV 10.2, Neut % (Auto) 81.0 H, Lymph % (Auto) 11.4, [place] % (Auto) 6.3, Eos % (Auto) 0.9, Baso % (Auto) 0.4, Neut # (Auto) 8.7 H, Lymph # (Auto) 1.2, [place] # (Auto) 0.7, Eos # (Auto) 0.1, Baso # (Auto) 0.1 04/15/21 05:25: Sodium 140, Potassium 3.3 L, Chloride 105, Carbon Dioxide 26, Anion Gap 12.3, BUN 26 H, Creatinine 1.10, Estimated Creat Clear 98, Estimated GFR 69, Est GFR ( Amer) 83, Glucose 79, Calcium 8.9 I & O for Last 24 hours: Intake & Output 04/12/21 04/13/21 04/14/21 04/15/21 23:59 23:59 23:59 23:59 Intake Total 2419 / 2419 360 / 360 100 / 100 Output Total 3100 / 3100 2000 / 2600 600 / 600 350 / 350 Balance -681 / -681 -1640 / -2240 -600 / -600 -250 / -250 Weight 95.254 kg 93.638 kg 96.162 kg Microbiology Reports for the Last 24 Hours: Microbiology 04/12/21 19:23 Blood Blood Culture - Preliminary NO GROWTH AFTER 48 HOURS 04/12/21 19:23 Blood Blood Culture - Preliminary NO GROWTH AFTER 48 HOURS Assessment and Plan (1) Schizophrenia Status: Acute Qualifiers: Schizophrenia type: unspecified Qualified Code(s): F20.9 - Schizophrenia, unspecified Category: Medical Code(s): F20.9 - Schizophrenia, unspecified (2) Hypothyroidism Status: Acute Qualifiers: Hypothyroidism type: acquired Qualified Code(s): E03.9 - Hypothyroidism, unspecified Category: Medical Code(s): E03.9 - Hypothyroidism, unspecified (3) Anxiety Status: Acute Category: Medical Code(s): F41.9 - Anxiety disorder, unspecified (4) Obesity (BMI 30.0-34.9) Status: Acute Category: Medical Code(s): E66.9 - Obesity, unspecified (5) Tobacco use Status: Acute Category: Social Hx Code(s): Z72.0 - Tobacco use (6) DJD (degenerative joint disease), cervical Status: Acute Category: Medical Code(s): M50.30 - Other cervical disc degeneration, unspecified cervical region (7) CAD (coronary artery disease) Status: Acute Qualifiers: Coronary Disease-Associated Artery/Lesion type: [place] artery [place] vs. transplanted heart: [place] heart Associated angina: unspecified whether angina present Qualified Code(s): I25.10 - Atherosclerotic heart disease of [place] coronary artery without angina pectoris Category: Medical Code(s): I25.10 - Atherosclerotic heart disease of [place] coronary artery without angina pectoris (8) Gallbladder hydrops Status: Acute Category: Medical Code(s): K82.1 - Hydrops of gallbladder (9) S/P right colectomy Status: Acute Category: Surgical Code(s): Z90.49 - Acquired absence of other specified parts of digestive tract The patient's infection will respond to the chosen ABx?: Yes Is the patient receiving the right drug, dose, and route?: Yes Could a more targeted ABx be ordered?: No
--- NOTE | 2021-04-15 10:41 | HMH.GSPN ---
Subjective Narrative: The patient feels okay . He currently complains that the kavon are hurting . He reports that he has passed no flatus and has yet to have a bowel movement; however, nursing staff states that he thought he messed himself early today . Inspection revealed no bowel movement so it was assumed that he had passed some gas . Progress Note: A&P (1) Schizophrenia Status: Acute (2) Hypothyroidism Status: Acute (3) Anxiety Status: Acute (4) Obesity (BMI 30.0-34.9) Status: Acute (5) Tobacco use Status: Acute (6) DJD (degenerative joint disease), cervical Status: Acute (7) CAD (coronary artery disease) Status: Acute (8) Gallbladder hydrops Status: Acute (9) S/P right colectomy Status: Acute Assessment and Plan for All Diagnoses:: Overall, he is doing fairly well status post right colectomy/cholecystectomy. Although he possibly passed some flatus earlier today he remains mildly distended and has yet to have a bowel movement. Cautious clears (no tray) as directed per nursing staff Continue to increase ambulation Continue antibiotics for now secondary to intraoperative soilage. As he has been placed on Levaquin per the Pulmonology Service, Invanz will be discontinued and Flagyl will be started. Exam Vital signs and Labs for Last 24 Hours: Temp Pulse Resp BP Pulse Ox 98.3 F 100 H 17 141/90 H 93 L 04/15/21 07:26 04/15/21 07:26 04/15/21 04:00 04/15/21 07:26 04/15/21 07:52 Laboratory Results - last 24 hr 04/14/21 06:15: POC Glucose 62 L 04/14/21 06:55: POC Glucose 83 04/15/21 05:25: WBC 10.8, RBC 4.21 L, Hgb 12.2 L, Hct 36.4 L, MCV 86.4, MCH 28.9, MCHC 33.4, RDW 13.9, Plt Count 182 D, MPV 10.2, Neut % (Auto) 81.0 H, Lymph % (Auto) 11.4, [place] % (Auto) 6.3, Eos % (Auto) 0.9, Baso % (Auto) 0.4, Neut # (Auto) 8.7 H, Lymph # (Auto) 1.2, [place] # (Auto) 0.7, Eos # (Auto) 0.1, Baso # (Auto) 0.1 04/15/21 05:25: Sodium 140, Potassium 3.3 L, Chloride 105, Carbon Dioxide 26, Anion Gap 12.3, BUN 26 H, Creatinine 1.10, Estimated Creat Clear 98, Estimated GFR 69, Est GFR ( Amer) 83, Glucose 79, Calcium 8.9 I & O for Last 24 hours: Intake & Output 04/12/21 04/13/21 04/14/21 04/15/21 11:59 11:59 11:59 11:59 Intake Total 0 / 0 2419 / 2419 360 / 360 100 / 100 Output Total 450 / 450 4100 / 4100 1600 / 1600 350 / 350 Balance -450 / -450 -1681 / -1681 -1240 / -1240 -250 / -250 Weight 216 lb 5 oz 210 lb 206 lb 7 oz 212 lb Microbiology Reports for the Last 24 Hours: Microbiology 04/12/21 19:23 Blood Blood Culture - Preliminary NO GROWTH AFTER 48 HOURS 04/12/21 19:23 Blood Blood Culture - Preliminary NO GROWTH AFTER 48 HOURS - Constitutional no acute distress - *Routine Respiratory Exam Absent: respiratory distress - *Routine Cardiovascular Exam Present: tachycardia - *Routine Abdominal Exam Present: soft Comments: Incision is clean, dry, and intact. No erythema. Mild distention noted (mostly in left mid and upper quadrant).
--- NOTE | 2021-04-15 16:45 | PC.NURSE ---
Pt has rested well this shift. After ambulating in room, pt did c/o abd pain. PRN pain meds administered per JAN. Pt has coarse crackles noted t/o all lung loyd. Pt has been encouraged to cough and to use IS. IS @ best 500cc's. Pt has been a x1-2 assist at times. Pt currently sitting up to chair watching TV. Pt is tolerating clear liquids cautiously. Bowel sounds active in all 4 quads. Pt still says he is not passing any gas, but frequently believes he is incontinent of bowels. Midline incision remains free of drainage, kavon remain intact. x2 kavon were removed per pt's request and MD Sterling's permission. No other acute changes or complaints at this time. Will continue to monitor.
[2021-04-16] VITALS (8 sets, daily range): BP systolic 110–151; BP diastolic 75–97; PULSE 63–100; RESP 16–20; TEMP 36.9–38.4; O2SAT 90–96
--- NOTE | 2021-04-16 04:25 | PC.NURSE ---
shift summary pt is alert and oriented X4. coarse crackles noted upon auscultating lungs, sats have maintained 90% or above on room air. pt is able to use bedside urinal with assist X1 urine is clear and yellow in color. pt was able to get up in his chair for a little while. pt denies any pain, nausea, vomiting, or diarrhea. no acute changes will continue to monitor.
[2021-04-16 06:07] LABS: Basophils # 0.1 K/mm3 (0-0.2); Basophils % 0.5 % (0.1-2.0); Eosinophils # 0.2 K/mm3 (0.0-0.4); Eosinophils % 1.6 % (0.1-12.0); Hematocrit 37.9 % (42.0-52.0); Hemoglobin 12.7 g/dL (14.1-18.0); Lymphocytes # 1.4 K/mm3 (0.7-4.5); Lymphocytes % 13.1 % (10-50); Mean Corpuscular HGB Conc 33.3 g/dL (31.8-35.4); Mean Corpuscular Hemoglobin 28.8 pg (27.0-31.2); Mean Corpuscular Volume 86.2 fl (80-94); Mean Platelet Volume 10.4 fl (7.4-10.4); Monocytes # 0.9 K/mm3 (0.1-1.0); Neutrophils # 8.4 K/mm3 (1.8-7.8); Neutrophils % 76.7 % (37.0-80.0); Platelet Count 197 K/mm3 (142-424); Red Cell Distribution Width 13.7 % (11.5-17.5); White Blood Count 10.9 K/mm3 (4.8-10.8)
[2021-04-16 06:09] LABS: Chloride 102 mmol/L (98-107); Sodium 137 mmol/L (136-145)
[2021-04-16 06:10] LABS: Potassium 3.5 mmoL/L (3.5-5.1)
[2021-04-16 06:12] LABS: Blood Urea Nitrogen 25 mg/dl (9-20); Creatinine Clearance Estimated 98 mL/min (50-200); Estimated Glomerular Filt Rate 69 ml/min (>60); GFR (African American) 83 ML/MIN (>60)
[2021-04-16 06:13] LABS: Anion Gap 10.5 mEq/L (5-15); Calcium 8.5 mg/dl (8.4-10.2); Carbon Dioxide 28 mmol/L (22.0-30.0); Glucose 170 mg/dl (74-100)
--- NOTE | 2021-04-16 09:10 | HMH.GSPN ---
Subjective Patient reports: flatus (Per nursing staff (patient denies)), no bowel movement Progress Note: A&P (1) Schizophrenia Status: Acute (2) Hypothyroidism Status: Acute (3) Anxiety Status: Acute (4) Obesity (BMI 30.0-34.9) Status: Acute (5) Tobacco use Status: Acute (6) DJD (degenerative joint disease), cervical Status: Acute (7) CAD (coronary artery disease) Status: Acute (8) Gallbladder hydrops Status: Acute (9) S/P right colectomy Status: Acute (10) Postoperative ileus Status: Acute Assessment and plan: improving Assessment and Plan for All Diagnoses:: Overall, doing fairly well status post right colectomy/cholecystectomy. His postoperative ileus is slowly improving (nursing staff reports flatus). Clear liquids ordered for lunch. Full liquids ordered for dinner. Continue to increase ambulation. Continue Levaquin/Flagyl for now (likely discontinue soon). Exam Vital signs and Labs for Last 24 Hours: Temp Pulse Resp BP Pulse Ox 98.4 F 90 17 151/97 H 91 L 04/16/21 08:00 04/16/21 08:00 04/16/21 08:00 04/16/21 08:00 04/16/21 08:00 Laboratory Results - last 24 hr 04/16/21 05:27: WBC 10.9 H, RBC 4.40 L, Hgb 12.7 L, Hct 37.9 L, MCV 86.2, MCH 28.8, MCHC 33.3, RDW 13.7, Plt Count 197, MPV 10.4, Neut % (Auto) 76.7, Lymph % (Auto) 13.1, [place] % (Auto) 8.0, Eos % (Auto) 1.6, Baso % (Auto) 0.5, Neut # (Auto) 8.4 H, Lymph # (Auto) 1.4, [place] # (Auto) 0.9, Eos # (Auto) 0.2, Baso # (Auto) 0.1 04/16/21 05:27: Sodium 137, Potassium 3.5, Chloride 102, Carbon Dioxide 28, Anion Gap 10.5, BUN 25 H, Creatinine 1.10, Estimated Creat Clear 98, Estimated GFR 69, Est GFR ( Amer) 83, Glucose 170 H, Calcium 8.5 I & O for Last 24 hours: Intake & Output 04/13/21 04/14/21 04/15/21 04/16/21 11:59 11:59 11:59 11:59 Intake Total 2419 / 2419 360 / 360 100 / 100 1330 / 1330 Output Total 4100 / 4100 1600 / 1600 350 / 350 1600 / 1600 Balance -1681 / -1681 -1240 / -1240 -250 / -250 -270 / -270 Weight 210 lb 206 lb 7 oz 212 lb - Constitutional no acute distress - *Routine Respiratory Exam Absent: respiratory distress - *Routine Cardiovascular Exam Present: RRR - *Routine Abdominal Exam Present: soft Comments: Mild distention remains. Incision is clean, dry, and intact. No erythema.
--- NOTE | 2021-04-16 09:38 | HMH.ACPN2 ---
Internal Medicine - PN: Subj *Date: 04/17/21 *Time: 07:12 Interval history: doing better - no specific c/o Exam Vital signs and Labs for Last 24 Hours: Temp Pulse Resp BP Pulse Ox 98.4 F 90 17 151/97 H 91 L 04/16/21 08:00 04/16/21 08:00 04/16/21 08:00 04/16/21 08:00 04/16/21 08:00 Laboratory Results - last 24 hr 04/16/21 05:27: WBC 10.9 H, RBC 4.40 L, Hgb 12.7 L, Hct 37.9 L, MCV 86.2, MCH 28.8, MCHC 33.3, RDW 13.7, Plt Count 197, MPV 10.4, Neut % (Auto) 76.7, Lymph % (Auto) 13.1, [place] % (Auto) 8.0, Eos % (Auto) 1.6, Baso % (Auto) 0.5, Neut # (Auto) 8.4 H, Lymph # (Auto) 1.4, [place] # (Auto) 0.9, Eos # (Auto) 0.2, Baso # (Auto) 0.1 04/16/21 05:27: Sodium 137, Potassium 3.5, Chloride 102, Carbon Dioxide 28, Anion Gap 10.5, BUN 25 H, Creatinine 1.10, Estimated Creat Clear 98, Estimated GFR 69, Est GFR ( Amer) 83, Glucose 170 H, Calcium 8.5 I & O for Last 24 hours: Intake & Output 04/13/21 04/14/21 04/15/21 04/16/21 11:59 11:59 11:59 11:59 Intake Total 2419 / 2419 360 / 360 100 / 100 1330 / 1330 Output Total 4100 / 4100 1600 / 1600 350 / 350 1600 / 1600 Balance -1681 / -1681 -1240 / -1240 -250 / -250 -270 / -270 Weight 210 lb 206 lb 7 oz 212 lb - Constitutional no acute distress - *Routine HEENT Exam Head: Present: normocephalic Eye: Present: EOMI, PERRL ENT: Present: mucous membranes dry - *Routine Neck Exam Present: supple - *Routine Respiratory Exam Present: CTA bilaterally - *Routine Cardiovascular Exam Present: RRR - *Routine Abdominal Exam Present: soft, distended - *Routine Extremities Exam Absent: calf tenderness - *Routine Skin Exam Present: intact - *Routine Neurological Exam Present: alert - Routine Psychiatric Exam Present: normal affect Assessment and Plan (1) Schizophrenia Status: Acute Qualifiers: Schizophrenia type: unspecified Qualified Code(s): F20.9 - Schizophrenia, unspecified Category: Medical Code(s): F20.9 - Schizophrenia, unspecified (2) Hypothyroidism Status: Acute Qualifiers: Hypothyroidism type: acquired Qualified Code(s): E03.9 - Hypothyroidism, unspecified Category: Medical Code(s): E03.9 - Hypothyroidism, unspecified (3) Anxiety Status: Acute Category: Medical Code(s): F41.9 - Anxiety disorder, unspecified (4) Obesity (BMI 30.0-34.9) Status: Acute Category: Medical Code(s): E66.9 - Obesity, unspecified (5) Tobacco use Status: Acute Category: Social Hx Code(s): Z72.0 - Tobacco use (6) DJD (degenerative joint disease), cervical Status: Acute Category: Medical Code(s): M50.30 - Other cervical disc degeneration, unspecified cervical region (7) CAD (coronary artery disease) Status: Acute Qualifiers: Coronary Disease-Associated Artery/Lesion type: [place] artery [place] vs. transplanted heart: [place] heart Associated angina: unspecified whether angina present Qualified Code(s): I25.10 - Atherosclerotic heart disease of [place] coronary artery without angina pectoris Category: Medical Code(s): I25.10 - Atherosclerotic heart disease of [place] coronary artery without angina pectoris (8) Gallbladder hydrops Status: Acute Category: Medical Code(s): K82.1 - Hydrops of gallbladder (9) S/P right colectomy Status: Acute Category: Surgical Code(s): Z90.49 - Acquired absence of other specified parts of digestive tract (10) Postoperative ileus Status: Acute Category: Medical Code(s): K91.89 - Other postprocedural complications and disorders of digestive system; K56.7 - Ileus, unspecified
--- NOTE | 2021-04-16 16:59 | PC.NURSE ---
Addendum entered by Olesya Paul RN 04/16/21 17:24: Pt was febrile x1 this shift (101.1). PRN tylenol administered. Upon reassessment pt's temp declined to 99.4 Original Note: Pt has tolerated clear liquids appropriately this shift. No BM noted this shift, this RN witnessed flatulence while pt ambulated in his room today. Pt has been a x2 assist this shift and has shown great difficulty ambulating. Coarse crackles noted t/o all lung loyd per auscultation. 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 IS @ best this shift-1500cc's. Pt has requested pain medication x1 this shift, upon reassessment pt says he doesn't have any pain . No other acute changes or complaints at this time. Will continue to monitor.
[2021-04-17] VITALS (8 sets, daily range): BP systolic 109–133; BP diastolic 67–78; PULSE 76–98; RESP 18–20; TEMP 36.7–37.1; O2SAT 90–97; BMI 28.6
--- NOTE | 2021-04-17 04:21 | PC.NURSE ---
VSS. no acute changes. patient max 2 assist during transfer from chair to bed. patient is alert and oriented x3. coarse crackles and expiratory rhonchi noted upon auscultation- patient educated on benefits of IS; encouraged to use IS frequently while awake. no acute changes throughout shift. will continue to monitor.
[2021-04-17 06:16] LABS: Basophils # 0.1 K/mm3 (0-0.2); Basophils % 0.5 % (0.1-2.0); Eosinophils # 0.3 K/mm3 (0.0-0.4); Eosinophils % 2.4 % (0.1-12.0); Hematocrit 39.4 % (42.0-52.0); Hemoglobin 13.2 g/dL (14.1-18.0); Lymphocytes # 1.4 K/mm3 (0.7-4.5); Lymphocytes % 10.6 % (10-50); Mean Corpuscular HGB Conc 33.5 g/dL (31.8-35.4); Mean Corpuscular Hemoglobin 29.1 pg (27.0-31.2); Mean Corpuscular Volume 87.1 fl (80-94); Mean Platelet Volume 9.7 fl (7.4-10.4); Monocytes # 0.9 K/mm3 (0.1-1.0); Monocytes % 6.6 % (1.7-9.3); Neutrophils # 10.4 K/mm3 (1.8-7.8); Platelet Count 203 K/mm3 (142-424); Red Blood Count 4.52 M/mm3 (4.60-6.20); Red Cell Distribution Width 13.7 % (11.5-17.5)
[2021-04-17 06:27] LABS: Chloride 100 mmol/L (98-107); Potassium 3.2 mmoL/L (3.5-5.1); Sodium 135 mmol/L (136-145)
[2021-04-17 06:30] LABS: Anion Gap 8.2 mEq/L (5-15); Blood Urea Nitrogen 19 mg/dl (9-20); Carbon Dioxide 30 mmol/L (22.0-30.0); Creatinine Clearance Estimated 98 mL/min (50-200); Estimated Glomerular Filt Rate 69 ml/min (>60); GFR (African American) 83 ML/MIN (>60)
[2021-04-17 06:31] LABS: Calcium 8.2 mg/dl (8.4-10.2); Glucose 142 mg/dl (74-100)
--- NOTE | 2021-04-17 08:20 | P.PN_ITS ---
Subjective Patient reports: no new complaints, bowel movement Narrative: Patient on full liquids. Did report bowel movement this morning. Progress Note: A&P (1) Schizophrenia Status: Acute (2) Hypothyroidism Status: Acute (3) Anxiety Status: Acute (4) Obesity (BMI 30.0-34.9) Status: Acute (5) Tobacco use Status: Acute (6) DJD (degenerative joint disease), cervical Status: Acute (7) CAD (coronary artery disease) Status: Acute (8) Gallbladder hydrops Status: Acute (9) S/P right colectomy Status: Acute (10) Postoperative ileus Status: Acute Assessment and Plan for All Diagnoses:: Close to ready for discharge. However, reportedly patient is virtually full assist with ambulation of only several feet. Initiate discharge planning. Exam Vital signs and Labs for Last 24 Hours: Temp Pulse Resp BP Pulse Ox 98.7 F 87 18 124/78 90 L 04/17/21 04:00 04/17/21 05:50 04/17/21 04:00 04/17/21 04:00 04/17/21 05:50 Laboratory Results - last 24 hr 04/17/21 05:43: WBC 13.0 H, RBC 4.52 L, Hgb 13.2 L, Hct 39.4 L, MCV 87.1, MCH 29.1, MCHC 33.5, RDW 13.7, Plt Count 203, MPV 9.7, Neut % (Auto) 80.0, Lymph % (Auto) 10.6, [place] % (Auto) 6.6, Eos % (Auto) 2.4, Baso % (Auto) 0.5, Neut # (Auto) 10.4 H, Lymph # (Auto) 1.4, [place] # (Auto) 0.9, Eos # (Auto) 0.3, Baso # (Auto) 0.1 04/17/21 05:43: Sodium 135 L, Potassium 3.2 L, Chloride 100, Carbon Dioxide 30, Anion Gap 8.2, BUN 19, Creatinine 1.10, Estimated Creat Clear 98, Estimated GFR 69, Est GFR ( Amer) 83, Glucose 142 H, Calcium 8.2 L I & O for Last 24 hours: Intake & Output 04/14/21 04/15/21 04/16/21 04/17/21 11:59 11:59 11:59 11:59 Intake Total 360 / 360 100 / 100 1330 / 1330 1800 / 1800 Output Total 1600 / 1600 350 / 350 1600 / 1600 500 / 500 Balance -1240 / -1240 -250 / -250 -270 / -270 1300 / 1300 Weight 206 lb 7 oz 212 lb - *Routine Abdominal Exam Present: soft Comments: Slightly distended
--- NOTE | 2021-04-17 12:52 | HMH.PULMPN ---
Internal Medicine - PN: Subj *Date: 04/17/21 *Time: 12:52 Interval history: No acuute respiratory events over the weekend. He remained od RA with no resp distress Exam - Constitutional Constitutional:: Present: no acute distress, comfortable - HENMT Exam HENMT: Present: normocephalic, atraumatic - Neck Exam Neck:: Present: normal visual inspection - Respiratory Exam Respiratory:: Present: able to speak in complete sentences, no respiratory distress, normal respiratory effort, crackles - Cardiovascular Exam Cardiac:: Present: S1, S2 - GI Exam GI:: Present: soft - Skin Exam Skin: Present: warm, no rash - Neurological Exam Neurological: Present: alert, awake, normal cognition Assessment and Plan (1) Schizophrenia Status: Acute Qualifiers: Schizophrenia type: unspecified Qualified Code(s): F20.9 - Schizophrenia, unspecified Category: Medical Code(s): F20.9 - Schizophrenia, unspecified (2) Hypothyroidism Status: Acute Qualifiers: Hypothyroidism type: acquired Qualified Code(s): E03.9 - Hypothyroidism, unspecified Category: Medical Code(s): E03.9 - Hypothyroidism, unspecified (3) Anxiety Status: Acute Category: Medical Code(s): F41.9 - Anxiety disorder, unspecified (4) Obesity (BMI 30.0-34.9) Status: Acute Category: Medical Code(s): E66.9 - Obesity, unspecified (5) Tobacco use Status: Acute Category: Social Hx Code(s): Z72.0 - Tobacco use (6) DJD (degenerative joint disease), cervical Status: Acute Category: Medical Code(s): M50.30 - Other cervical disc degeneration, unspecified cervical region (7) CAD (coronary artery disease) Status: Acute Qualifiers: Coronary Disease-Associated Artery/Lesion type: [place] artery [place] vs. transplanted heart: [place] heart Associated angina: unspecified whether angina present Qualified Code(s): I25.10 - Atherosclerotic heart disease of [place] coronary artery without angina pectoris Category: Medical Code(s): I25.10 - Atherosclerotic heart disease of [place] coronary artery without angina pectoris (8) Gallbladder hydrops Status: Acute Category: Medical Code(s): K82.1 - Hydrops of gallbladder (9) S/P right colectomy Status: Acute Category: Surgical Code(s): Z90.49 - Acquired absence of other specified parts of digestive tract (10) Postoperative ileus Status: Acute Category: Medical Code(s): K91.89 - Other postprocedural complications and disorders of digestive system; K56.7 - Ileus, unspecified - Assessment and plan all Dx Assessment and Plan for all problems:: #Acute hypoxic respiratory failure - Resolved: #Greater than [id number] smoking history 60-year-old significant smoking history currently smoking 1 pack a day not on any inhalers at baseline was presented hospital abdominal pain status post colectomy found to have worsening respiratory symptoms pulmonary was called for further management. Chest x-ray showed evidence of volume overload and bilateral lower lobe infiltrates concerning for atelectasis/ PNM. Patient receiving DVT prophylaxis since admission. Patient respiratory status continued to improve with nebulizer therapy and Lasix. He has been on room air for the last 4 days with no respiratory distress. Etiology of patient respiratory is likely a combination of volume overload and postop atelectasis with a combination of possible underlying COPD given his significant smoking history. The possibility of aspiration pneumonia cannot also be completed daily ruled out, he completed 5 days of levofloxacin Plan: -Continue DuoNebs every 6 hours scheduled, can be discharged on LAMA LABA inhaler therapy along with albuterol every 6 hours as needed -Strict aspiration precautions -Flutter valve -Continue incentive spirometry -Continue levofloxacin 750 mg IV daily, for a total of 5 days day 03/08 Thank you for involving pulmonary in this patient care. We will follow the
[2021-04-17 14:13] LABS: Coronavirus 19, PCR Not Detected (NotDetected); Influenza A, PCR Not Detected (NotDetected); Influenza B, PCR Not Detected (NotDetected)
--- NOTE | 2021-04-17 14:54 | HMH.DCSUM ---
General - General Admission date:: 04/11/21 <Lizandro Sterling - 04/18/21 10:54> 04/11/21 <Chris Reina - 04/17/21 14:56> Discharge date: 04/18/21 <Chris Reina - 04/17/21 14:56> HPI HPI: Patient is a 60-year-old male who is a resident of [facility] with history of schizophrenia, encephalomalacia on multiple medications. He had recently been admitted with mental status changes. His work-up included CT scan which revealed findings of distended gallbladder with gallstones as well as possible right colon mass. Patient had no signs of acute cholecystitis and seemed to be asymptomatic from his gallbladder therefore emergent inpatient cholecystectomy was not performed. During his hospitalization he underwent colonoscopy. Most notable was a large ascending colon mass. He also had additional polyps removed. 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 He was able to be discharged from that hospitalization with definitive care to follow. Plan was made to proceed with colon resection and possible cholecystectomy. <Chris Reina - 04/17/21 15:18> Hospital Course Hospital Course: Patient had undergone reportedly outpatient mechanical and antibiotic bowel preparation. He was taken to the operating room at which time he underwent exploratory laparotomy with right colon resection with ileocolic anastomosis and open cholecystectomy. He was found to have a palpable mass in the ascending colon. He had appreciable redundancy of the sigmoid colon. There was a large amount of visceral adipose tissue. Gallbladder was massively distended and hydropic with numerous gallstones. There was some unavoidable spillage of thick liquid stool and vegetable matter despite undergoing reported bowel preparation as an outpatient. He was able to undergo primary anastomosis. Please see operative dictation for complete details. He was admitted for inpatient management. He was continued on intravenous Invanz due to the contamination. Medical service was consulted. On postoperative day #1 patient was somewhat diaphoretic and was on supplemental oxygen per nasal cannula. Medicine initiated pulmonary consultation. Patient was seen by pulmonary medicine service. Recommendations were given. Pulmonary toilet was initiated. He underwent imaging to rule out DVT. He was started on levofloxacin by the pulmonary service. His Invanz was discontinued and metronidazole was added to the levofloxacin for anaerobic coverage. He had his Ortiz catheter removed. His pertinent home medications were restarted. He had postoperative ileus characterized by lack of flatus or bowel movements. He therefore remained on ice chips and sips only for several days. Patient was given intravenous Lasix. He was weaned off nasal cannula to room air. Physical therapy was consulted and evaluated worked with the patient. By postoperative day #4 it had been determined that the patient may be passing some flatus. He was therefore given limited clear liquids which he tolerated without issue. Patient's diet was advanced to clear liquid diet by postoperative day #5 and quickly to full liquid diet that evening which he tolerated without difficulty. He began moving his bowels. On postoperative day #6 at least half of his kavon were removed. His incision was clean and intact. Discharge planning was undertaken and plan was for discharge to [facility]. Please note that pathology of the colon revealed tubulovillous adenoma with 17 - lymph nodes. Gallbladder pathology revealed chronic cholecystitis with cholelithiasis. <Chris Reina - 04/17/21 15:26> Objective Vital signs: Temp Pulse Resp BP Pulse Ox 97.6 F 20 L 17 140/92 H 95 04/18/21 08:00 04/18/21 08:00 04/18/21 04:10 04/18/21 08:00 04/18/21 08:00 <Lizandro Sterling - 04/18/21 10:54> Temp Pulse Resp BP Pulse Ox 98.5 F 89 20 109/67 L 95 06
--- NOTE | 2021-04-17 17:34 | HMH.ACPN2 ---
Internal Medicine - PN: Subj *Date: 04/17/21 *Time: 08:00 Interval history: pt sitting up in chair asking to go back to bed. pt states he had a bm last pm Exam Vital signs and Labs for Last 24 Hours: Temp Pulse Resp BP Pulse Ox 98.5 F 89 20 109/67 L 95 04/17/21 08:00 04/17/21 12:16 04/17/21 08:00 04/17/21 08:00 04/17/21 08:00 Laboratory Results - last 24 hr 04/17/21 05:43: WBC 13.0 H, RBC 4.52 L, Hgb 13.2 L, Hct 39.4 L, MCV 87.1, MCH 29.1, MCHC 33.5, RDW 13.7, Plt Count 203, MPV 9.7, Neut % (Auto) 80.0, Lymph % (Auto) 10.6, [place] % (Auto) 6.6, Eos % (Auto) 2.4, Baso % (Auto) 0.5, Neut # (Auto) 10.4 H, Lymph # (Auto) 1.4, [place] # (Auto) 0.9, Eos # (Auto) 0.3, Baso # (Auto) 0.1 04/17/21 05:43: Sodium 135 L, Potassium 3.2 L, Chloride 100, Carbon Dioxide 30, Anion Gap 8.2, BUN 19, Creatinine 1.10, Estimated Creat Clear 98, Estimated GFR 69, Est GFR ( Amer) 83, Glucose 142 H, Calcium 8.2 L 04/17/21 14:05: SARS-CoV-2 (PCR) Not detected, Influenza A Untype (PCR) Not detected, Influenza Type B (PCR) Not detected I & O for Last 24 hours: Intake & Output 04/15/21 04/16/21 04/17/21 04/18/21 11:59 11:59 11:59 11:59 Intake Total 100 / 100 1330 / 1330 2660 / 2660 740 / 740 Output Total 350 / 350 1600 / 1600 500 / 500 2100 / 2100 Balance -250 / -250 -270 / -270 2160 / 2160 -1360 / -1360 Weight 212 lb 211 lb 10.3 oz - Constitutional no acute distress - *Routine HEENT Exam Head: Present: normocephalic Eye: Present: PERRL ENT: Present: mucous membranes moist - *Routine Neck Exam Present: supple. Absent: lymphadenopathy - *Routine Respiratory Exam Present: rhonchi - *Routine Cardiovascular Exam Present: RRR - *Routine Abdominal Exam Present: soft, normoactive bowel sounds. Absent: tenderness Comments: midline incision with partial kavon removed - *Routine Extremities Exam Absent: cyanosis, clubbing, edema - *Routine Skin Exam Present: warm. Absent: rash Comments: healing midline abd incision no drainage noted - *Routine Neurological Exam Present: alert - Routine Psychiatric Exam Present: normal affect Assessment and Plan (1) Schizophrenia Status: Acute Qualifiers: Schizophrenia type: unspecified Qualified Code(s): F20.9 - Schizophrenia, unspecified Category: Medical Code(s): F20.9 - Schizophrenia, unspecified (2) Hypothyroidism Status: Acute Qualifiers: Hypothyroidism type: acquired Qualified Code(s): E03.9 - Hypothyroidism, unspecified Category: Medical Code(s): E03.9 - Hypothyroidism, unspecified (3) Anxiety Status: Acute Category: Medical Code(s): F41.9 - Anxiety disorder, unspecified (4) Obesity (BMI 30.0-34.9) Status: Acute Category: Medical Code(s): E66.9 - Obesity, unspecified (5) Tobacco use Status: Acute Category: Social Hx Code(s): Z72.0 - Tobacco use (6) DJD (degenerative joint disease), cervical Status: Acute Category: Medical Code(s): M50.30 - Other cervical disc degeneration, unspecified cervical region (7) CAD (coronary artery disease) Status: Acute Qualifiers: Coronary Disease-Associated Artery/Lesion type: [place] artery [place] vs. transplanted heart: [place] heart Associated angina: unspecified whether angina present Qualified Code(s): I25.10 - Atherosclerotic heart disease of [place] coronary artery without angina pectoris Category: Medical Code(s): I25.10 - Atherosclerotic heart disease of [place] coronary artery without angina pectoris (8) Gallbladder hydrops Status: Acute Category: Medical Code(s): K82.1 - Hydrops of gallbladder (9) S/P right colectomy Status: Acute Category: Surgical Code(s): Z90.49 - Acquired absence of other specified parts of digestive tract (10) Postoperative ileus Status: Acute Category: Medical Code(s): K91.89 - Other postprocedural complications and disorders of digestive system; K56.7 - Ileus, unspecified - Asse
--- NOTE | 2021-04-17 18:35 | PC.NURSE ---
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 NO CHANGES NOTED. WILL CONTINUE TO MONITOR.
[2021-04-18 00:36] VITALS: PULSE 84; PULSE 93
[2021-04-18 04:10] VITALS: BP 129/81; PULSE 85; RESP 17; TEMP 36.8; O2SAT 96
[2021-04-18 05:18] VITALS: BMI 29.4
--- NOTE | 2021-04-18 05:53 | PC.NURSE ---
Patient oriented X 4. Patient resting comfortably most of this shift. Patient did not c/o pain. Flagyl given as per order. Patient incessantly ruminates on Staple removal and going to rehab. Will continue to monitor for any acute changes.
[2021-04-18 05:55] VITALS: PULSE 90; O2SAT 87
[2021-04-18 06:54] LABS: Basophils # 0.1 K/mm3 (0-0.2); Basophils % 0.7 % (0.1-2.0); Eosinophils # 0.3 K/mm3 (0.0-0.4); Eosinophils % 2.5 % (0.1-12.0); Hematocrit 39.2 % (42.0-52.0); Lymphocytes # 2.1 K/mm3 (0.7-4.5); Lymphocytes % 15.5 % (10-50); Mean Corpuscular HGB Conc 33.2 g/dL (31.8-35.4); Mean Corpuscular Hemoglobin 28.9 pg (27.0-31.2); Mean Corpuscular Volume 87.2 fl (80-94); Mean Platelet Volume 9.7 fl (7.4-10.4); Monocytes # 1.1 K/mm3 (0.1-1.0); Monocytes % 8.1 % (1.7-9.3); Neutrophils # 9.7 K/mm3 (1.8-7.8); Neutrophils % 73.3 % (37.0-80.0); Platelet Count 237 K/mm3 (142-424); Red Cell Distribution Width 13.9 % (11.5-17.5); White Blood Count 13.3 K/mm3 (4.8-10.8)
[2021-04-18 06:58] LABS: Chloride 103 mmol/L (98-107); Potassium 3.7 mmoL/L (3.5-5.1); Sodium 138 mmol/L (136-145)
[2021-04-18 07:01] LABS: Anion Gap 10.7 mEq/L (5-15); Blood Urea Nitrogen 14 mg/dl (9-20); Carbon Dioxide 28 mmol/L (22.0-30.0); Creatinine Clearance Estimated 123 mL/min (50-200); Estimated Glomerular Filt Rate 86 ml/min (>60); GFR (African American) 105 ML/MIN (>60)
[2021-04-18 07:02] LABS: Calcium 8.3 mg/dl (8.4-10.2); Glucose 135 mg/dl (74-100)
--- NOTE | 2021-04-18 07:16 | P.PN_ITS ---
Subjective Patient reports: flatus, bowel movement Progress Note: A&P (1) Schizophrenia Status: Acute (2) Hypothyroidism Status: Acute (3) Anxiety Status: Acute (4) Obesity (BMI 30.0-34.9) Status: Acute (5) Tobacco use Status: Acute (6) DJD (degenerative joint disease), cervical Status: Acute (7) CAD (coronary artery disease) Status: Acute (8) Gallbladder hydrops Status: Acute (9) S/P right colectomy Status: Acute (10) Postoperative ileus Status: Resolved Assessment and Plan for All Diagnoses:: Overall, doing well status post right colectomy/cholecystectomy. His postoperative ileus has resolved and he wants to go home . One half of his kavon will be removed today. Likely discharge back to facility later today. Exam Vital signs and Labs for Last 24 Hours: Temp Pulse Resp BP Pulse Ox 98.2 F 90 17 129/81 87 L 04/18/21 04:10 04/18/21 05:55 04/18/21 04:10 04/18/21 04:10 04/18/21 05:55 Laboratory Results - last 24 hr 04/17/21 14:05: SARS-CoV-2 (PCR) Not detected, Influenza A Untype (PCR) Not detected, Influenza Type B (PCR) Not detected 04/18/21 06:34: WBC 13.3 H, RBC 4.50 L, Hgb 13.0 L, Hct 39.2 L, MCV 87.2, MCH 28.9, MCHC 33.2, RDW 13.9, Plt Count 237, MPV 9.7, Neut % (Auto) 73.3, Lymph % (Auto) 15.5, [place] % (Auto) 8.1, Eos % (Auto) 2.5, Baso % (Auto) 0.7, Neut # (Auto) 9.7 H, Lymph # (Auto) 2.1, [place] # (Auto) 1.1 H, Eos # (Auto) 0.3, Baso # (Auto) 0.1 04/18/21 06:34: Sodium 138, Potassium 3.7, Chloride 103, Carbon Dioxide 28, Anion Gap 10.7, BUN 14 D, Creatinine 0.90, Estimated Creat Clear 123, Estimated GFR 86, Est GFR ( Amer) 105 D, Glucose 135 H, Calcium 8.3 L I & O for Last 24 hours: Intake & Output 04/15/21 04/16/21 04/17/21 04/18/21 11:59 11:59 11:59 11:59 Intake Total 100 / 100 1330 / 1330 2660 / 2660 2904 / 2904 Output Total 350 / 350 1600 / 1600 500 / 500 3000 / 3000 Balance -250 / -250 -270 / -270 2160 / 2160 -96 / -96 Weight 212 lb 211 lb 10.3 oz 217 lb 2 oz Microbiology Reports for the Last 24 Hours: Microbiology 04/12/21 19:23 Blood Blood Culture - Final NO GROWTH AFTER 5 DAYS 04/12/21 19:23 Blood Blood Culture - Final NO GROWTH AFTER 5 DAYS - Constitutional no acute distress - *Routine Respiratory Exam Absent: respiratory distress - *Routine Cardiovascular Exam Present: RRR - *Routine Abdominal Exam Present: soft Comments: Incision clean, dry, and intact. No erythema.
[2021-04-18 08:00] VITALS: BP 140/92; PULSE 20; PULSE 94; TEMP 36.4; O2SAT 95
--- NOTE | 2021-04-18 08:47 | HMH.CONFU ---
Internal Medicine - PN: Subj *Date: 04/18/21 *Time: 09:08 Interval history: 60-year-old male patient sitting up in bed resting quietly, he reports having a bowel movement last night and passing gas. Reports his abdomen feels better. Discharge to rehab facility discussed with patient, he is in agreement to this. Exam Vital signs and Labs for Last 24 Hours: Temp Pulse Resp BP Pulse Ox 98.2 F 90 17 129/81 87 L 04/18/21 04:10 04/18/21 05:55 04/18/21 04:10 04/18/21 04:10 04/18/21 05:55 Laboratory Results - last 24 hr 04/17/21 14:05: SARS-CoV-2 (PCR) Not detected, Influenza A Untype (PCR) Not detected, Influenza Type B (PCR) Not detected 04/18/21 06:34: WBC 13.3 H, RBC 4.50 L, Hgb 13.0 L, Hct 39.2 L, MCV 87.2, MCH 28.9, MCHC 33.2, RDW 13.9, Plt Count 237, MPV 9.7, Neut % (Auto) 73.3, Lymph % (Auto) 15.5, [place] % (Auto) 8.1, Eos % (Auto) 2.5, Baso % (Auto) 0.7, Neut # (Auto) 9.7 H, Lymph # (Auto) 2.1, [place] # (Auto) 1.1 H, Eos # (Auto) 0.3, Baso # (Auto) 0.1 04/18/21 06:34: Sodium 138, Potassium 3.7, Chloride 103, Carbon Dioxide 28, Anion Gap 10.7, BUN 14 D, Creatinine 0.90, Estimated Creat Clear 123, Estimated GFR 86, Est GFR ( Amer) 105 D, Glucose 135 H, Calcium 8.3 L I & O for Last 24 hours: Intake & Output 04/15/21 04/16/21 04/17/21 04/18/21 23:59 23:59 23:59 23:59 Intake Total 1430 / 1430 1480 / 1600 2540 / 2540 1544 / 1544 Output Total 950 / 950 1500 / 1500 2100 / 2100 900 / 900 Balance 480 / 480 -20 / 100 440 / 440 644 / 644 Weight 212 lb 211 lb 10.3 oz 217 lb 2 oz Microbiology Reports for the Last 24 Hours: Microbiology 04/12/21 19:23 Blood Blood Culture - Final NO GROWTH AFTER 5 DAYS 04/12/21 19:23 Blood Blood Culture - Final NO GROWTH AFTER 5 DAYS - Constitutional no acute distress - *Routine HEENT Exam Head: Present: normocephalic Eye: Present: EOMI ENT: Present: mucous membranes moist - *Routine Neck Exam Present: trachea midline. Absent: tracheal deviation - *Routine Respiratory Exam Absent: accessory muscle use - *Routine Cardiovascular Exam Present: RRR - *Routine Abdominal Exam Present: soft, normoactive bowel sounds, tenderness, distended. Absent: firm, rigid - *Routine Extremities Exam Present: full ROM, pulses intact. Absent: cyanosis, calf tenderness - *Routine Skin Exam Present: dry, warm, wounds. Absent: intact Comments: Midline abdomen incision edges well approximated Big Arm intact, every other staple removed - *Routine Neurological Exam Present: alert, altered mental status - Routine Psychiatric Exam Present: unable to assess Assessment and Plan (1) Schizophrenia Status: Acute Qualifiers: Schizophrenia type: unspecified Qualified Code(s): F20.9 - Schizophrenia, unspecified Category: Medical Code(s): F20.9 - Schizophrenia, unspecified (2) Hypothyroidism Status: Acute Qualifiers: Hypothyroidism type: acquired Qualified Code(s): E03.9 - Hypothyroidism, unspecified Category: Medical Code(s): E03.9 - Hypothyroidism, unspecified (3) Anxiety Status: Acute Category: Medical Code(s): F41.9 - Anxiety disorder, unspecified (4) Obesity (BMI 30.0-34.9) Status: Acute Category: Medical Code(s): E66.9 - Obesity, unspecified (5) Tobacco use Status: Acute Category: Social Hx Code(s): Z72.0 - Tobacco use (6) DJD (degenerative joint disease), cervical Status: Acute Category: Medical Code(s): M50.30 - Other cervical disc degeneration, unspecified cervical region (7) CAD (coronary artery disease) Status: Acute Qualifiers: Coronary Disease-Associated Artery/Lesion type: [place] artery [place] vs. transplanted heart: [place] heart Associated angina: unspecified whether angina present Qualified Code(s): I25.10 - Atherosclerotic heart disease of [place] coronary artery without angina pectoris Category: Medical
--- NOTE | 2021-04-18 09:54 | HMH.ACPN ---
Internal Medicine - PN: Subj *Date: 04/18/21 *Time: 09:54 Exam Vital signs and Labs for Last 24 Hours: Temp Pulse Resp BP Pulse Ox 97.6 F 20 L 17 140/92 H 95 04/18/21 08:00 04/18/21 08:00 04/18/21 04:10 04/18/21 08:00 04/18/21 08:00 Laboratory Results - last 24 hr 04/17/21 14:05: SARS-CoV-2 (PCR) Not detected, Influenza A Untype (PCR) Not detected, Influenza Type B (PCR) Not detected 04/18/21 06:34: WBC 13.3 H, RBC 4.50 L, Hgb 13.0 L, Hct 39.2 L, MCV 87.2, MCH 28.9, MCHC 33.2, RDW 13.9, Plt Count 237, MPV 9.7, Neut % (Auto) 73.3, Lymph % (Auto) 15.5, [place] % (Auto) 8.1, Eos % (Auto) 2.5, Baso % (Auto) 0.7, Neut # (Auto) 9.7 H, Lymph # (Auto) 2.1, [place] # (Auto) 1.1 H, Eos # (Auto) 0.3, Baso # (Auto) 0.1 04/18/21 06:34: Sodium 138, Potassium 3.7, Chloride 103, Carbon Dioxide 28, Anion Gap 10.7, BUN 14 D, Creatinine 0.90, Estimated Creat Clear 123, Estimated GFR 86, Est GFR ( Amer) 105 D, Glucose 135 H, Calcium 8.3 L I & O for Last 24 hours: Intake & Output 04/15/21 04/16/21 04/17/21 04/18/21 23:59 23:59 23:59 23:59 Intake Total 1430 / 1430 1480 / 1600 2540 / 2540 2504 / 2504 Output Total 950 / 950 1500 / 1500 2100 / 2100 1300 / 1300 Balance 480 / 480 -20 / 100 440 / 440 1204 / 1204 Weight 96.162 kg 96 kg 98.486 kg Microbiology Reports for the Last 24 Hours: Microbiology 04/12/21 19:23 Blood Blood Culture - Final NO GROWTH AFTER 5 DAYS 04/12/21 19:23 Blood Blood Culture - Final NO GROWTH AFTER 5 DAYS Assessment and Plan (1) Schizophrenia Status: Acute Qualifiers: Schizophrenia type: unspecified Qualified Code(s): F20.9 - Schizophrenia, unspecified Category: Medical Code(s): F20.9 - Schizophrenia, unspecified (2) Hypothyroidism Status: Acute Qualifiers: Hypothyroidism type: acquired Qualified Code(s): E03.9 - Hypothyroidism, unspecified Category: Medical Code(s): E03.9 - Hypothyroidism, unspecified (3) Anxiety Status: Acute Category: Medical Code(s): F41.9 - Anxiety disorder, unspecified (4) Obesity (BMI 30.0-34.9) Status: Acute Category: Medical Code(s): E66.9 - Obesity, unspecified (5) Tobacco use Status: Acute Category: Social Hx Code(s): Z72.0 - Tobacco use (6) DJD (degenerative joint disease), cervical Status: Acute Category: Medical Code(s): M50.30 - Other cervical disc degeneration, unspecified cervical region (7) CAD (coronary artery disease) Status: Acute Qualifiers: Coronary Disease-Associated Artery/Lesion type: [place] artery [place] vs. transplanted heart: [place] heart Associated angina: unspecified whether angina present Qualified Code(s): I25.10 - Atherosclerotic heart disease of [place] coronary artery without angina pectoris Category: Medical Code(s): I25.10 - Atherosclerotic heart disease of [place] coronary artery without angina pectoris (8) Gallbladder hydrops Status: Acute Category: Medical Code(s): K82.1 - Hydrops of gallbladder (9) S/P right colectomy Status: Acute Category: Surgical Code(s): Z90.49 - Acquired absence of other specified parts of digestive tract (10) Postoperative ileus Status: Resolved Category: Medical Code(s): K91.89 - Other postprocedural complications and disorders of digestive system; K56.7 - Ileus, unspecified The patient's infection will respond to the chosen ABx?: Yes Is the patient receiving the right drug, dose, and route?: Yes Could a more targeted ABx be ordered?: No (PATIENT AFEBRILE/FEELING BETTER. WBC 13.3. CONTINUE CURRENT ABX.)
--- NOTE | 2021-04-18 12:17 | PC.NURSE ---
CALLED REPORT TO JEISON AT [facility].
[2021-04-18 12:43] VITALS: BP 138/75; PULSE 99; RESP 19; TEMP 36.4; O2SAT 91
== END 2021-04-18 12:45 | DRG 329 ==
LOC: 2ND 10:28
PROVIDERS: Internal Medicine Adolescent Medicine; Nurse Practitioner Family; Admitting Provider Surgery; PCP Emergency Medicine; Visit Provider Surgery
PROC: 0DTF0ZZ Resection of Right Large Intestine, Open Approach (ICD-10-PCS; CPT 44140; principal; 2021-04-11 07:30)
DX: D12.2 Benign neoplasm of ascending colon (principal); J96.01 Acute respiratory failure with hypoxia; K80.10 Calculus of gallbladder with chronic cholecystitis without obstruction; K82.1 Hydrops of gallbladder; K56.7 Ileus, unspecified; J98.11 Atelectasis; Z20.822 Contact with and (suspected) exposure to COVID-19; F17.210 Nicotine dependence, cigarettes, uncomplicated; I10 Essential (primary) hypertension; F41.9 Anxiety disorder, unspecified; M19.90 Unspecified osteoarthritis, unspecified site; F20.9 Schizophrenia, unspecified; E66.9 Obesity, unspecified; Z68.29 Body mass index [BMI] 29.0-29.9, adult; E87.70 Fluid overload, unspecified
CPT/HCPCS: 44140; 47600; 36415; 71045; 80048; 80053; 81001; 82962; 84484; 85007; 85025; 87040; 93005; 94640; 94761; 96374; 97110; 97116; 97162; 97166; 97530; 97535; G0238; J1335; J1956; U0003

== ENCOUNTER 2021-04-28 17:35 | Emergency (ER) | payer MEDICAID, SELFPAY ==
[2021-04-28 17:35] VITALS: BP 118/81; PULSE 95; RESP 16; TEMP 36.6; O2SAT 97; BMI 27.9
--- NOTE | 2021-04-28 17:45 | CT_ITS ---
PROCEDURE INFORMATION: Exam: CT Head Without Contrast Exam date and time: 04/28/2021 5:45 PM Age: 61 years old Clinical indication: Injury or trauma; Blunt trauma (contusions or hematomas); Consciousness not specified; Patient HX: Fall, unsure if he hit his head TECHNIQUE: Imaging protocol: Computed tomography of the head without contrast. 3D rendering (Not supervised by radiologist): MIP and/or 3D reconstructed images were created by the technologist. Radiation optimization: All CT scans at this facility use at least one of these dose optimization techniques: automated exposure control; mA and/or kV adjustment per patient size (includes targeted exams where dose is matched to clinical indication); or iterative reconstruction. COMPARISON: CT HEAD/BRAIN WO CON 03/05/2021 11:[address] HEAD/BRAIN WO CON 11/21/2020 10:44:[address] HEAD/BRAIN WO CON 09/30/2019 8:01:30 PM FINDINGS: Beam hardening artifact partially obscures the brainstem. Brain, intra-axial space and extra-axial space: Low attenuating white matter changes, a nonspecific finding that likely reflects sequela of chronic small vessel ischemic disease. Redemonstrated 1.4 x 1.4 cm centrally cerebrospinal fluid appearing lesion with peripheral partial calcification, likely reflecting encephalomalacia related to remote old stroke. No intracranial hemorrhage detected on this study. No acute, large vascular territory ischemic infarct detected on this CT study. No midline shift. Redemonstrated 1.8 x 0.9 x 1.2 cm coarsely calcified extra-axial structure immediately adjacent or adherent to the left tentorium cerebelli and extending into the region of the left quadrigeminal/left ambient cistern likely reflecting a calcified meningioma. 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 Cerebral ventricles: Enlarged ventricles, prominent sulci and cisterns are suggestive of brain atrophy. Paranasal sinuses: Opacification of multiple ethmoid air cells. Marked mucosal thickening in the left maxillary sinus. Large mucous retention cyst and/or mucosal thickening in the right maxillary sinus. Mild mucosal thickening in the left frontal sinus. Mastoid air cells: No mastoid effusion. Vasculature: Atherosclerosis of the vessels at the skull base. Redemonstrated 6 x 6 mm prominence of the basilar artery in the region of the basilar tip. Bones/joints: Degenerative changes of the temporomandibular joints. No acute fracture detected on this study. Soft tissues: Unremarkable. IMPRESSION: No intracranial hemorrhage or acute fracture detected on this study. Redemonstrated sinus disease as described above. 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 CTA of the head is recommended for further evaluation. Other findings noted above. The findings and recommendation were verbally communicated by Dr. Acevedo via telephone conference with MADELINE Villalba at 7:13 PM EDT on 04/28/2021. The findings and recommendation were acknowledged and understood.
--- NOTE | 2021-04-28 17:45 | HMH.EDGENADL ---
ED Disposition Condition on Discharge: Good - Critical Care Critical Care Time: No <Rob Rutherford - Last Filed: 04/28/21 19:23> <Mitch De - Last Filed: 04/28/21 20:39> Clinical Impression: Abrasion Fall Qualifiers: Encounter type: initial encounter Qualified Code(s): W19.XXXA - Unspecified fall, initial encounter Disposition: Home, Self-Care Instructions: How to Prevent Falls Additional Instructions: resume meds Referrals: Provider,Referral, [Referring] - Attestation: On 04/28/21, the high probability of a clinically significant, sudden or life threatening deterioration of the following system(s) required my full and direct attention, intervention and personal management. The time I documented below is in addition to time spent performing reported procedures but includes the following listed in this critical care notation. Medical Decision Making - Medical Records Medical records reviewed: Yes: I reviewed the patient's medical records. - Jayce Inquiry Pt receiving controlled substance: No - Lab Data Lab results reviewed: Yes: I reviewed the patient's lab results. Result diagrams: 04/28/21 18:35 04/28/21 18:35 - ECG Data Tracing #1 ECG initial impression date: 04/28/21 ECG initial impression time: 18:47 <Rob Rutherford - Last Filed: 04/28/21 19:23> - Lab Data Result diagrams: 04/28/21 18:35 04/28/21 18:35 <Mitch De - Last Filed: 04/28/21 20:39> Vital Signs: 04/28/21 17:35 04/28/21 18:00 04/28/21 18:30 Temperature 97.9 F Temperature Source Oral Pulse Rate 83 84 Pulse Rate [Right] 95 H Respiratory Rate 16 Blood Pressure 123/76 131/81 Blood Pressure [Right Arm] 118/81 Blood Pressure Mean 86 88 Blood Pressure Mean [Right Arm] 93 02 Sat by Pulse Oximetry 97 95 94 L Oxygen Delivery Method Room Air 04/28/21 20:00 Temperature Temperature Source Pulse Rate 76 Pulse Rate [Right] Respiratory Rate Blood Pressure 124/79 Blood Pressure [Right Arm] Blood Pressure Mean 89 Blood Pressure Mean [Right Arm] 02 Sat by Pulse Oximetry 95 Oxygen Delivery Method - Lab Data Lab Results 04/28/21 18:35: WBC 8.4, RBC 3.95 L, Hgb 11.3 L, Hct 33.9 L, MCV 85.7, MCH 28.5, MCHC 33.3, RDW 13.8, Plt Count 365, MPV 9.2, Neut % (Auto) 63.8, Lymph % (Auto) 22.9, [place] % (Auto) 8.8, Eos % (Auto) 3.9, Baso % (Auto) 0.6, Neut # (Auto) 5.4, Lymph # (Auto) 1.9, [place] # (Auto) 0.7, Eos # (Auto) 0.3, Baso # (Auto) 0.1 04/28/21 18:35: Sodium 140, Potassium 3.9, Chloride 104, Carbon Dioxide 31 H, Anion Gap 8.9, BUN 11, Creatinine 1.10, Estimated Creat Clear 89, Estimated GFR 68, Est GFR ( Amer) 83, Glucose 106 H, Calcium 8.7 Orders (Tests/Meds): ED MEDICATIONS Discontinued Medications Generic Name Dose Route Start Last Admin Trade Name Yanickq PRN Reason Stop Dose Admin Iopamidol 100 ml 04/28/21 19:42 04/28/21 19:44 Iopamidol-300 (61%) 50ml Vial IV 04/28/21 19:43 100 ml ONCE ONE Administration Protocol - ECG Data Tracing #1 87 bpm, normal sinus rhythm, right bundle branch block, no ST elevation or depression (Rob Rutherford) Medical Decision Narrative: 61yo M evaluated after fall at the care home. Patient no acute distress on initial evaluation. He has a small abrasion to his right knee but he has no tenderness with range of motion, no limit to his range of motion, nontender to palpate. Patient's head shows a minor abrasion/contusion to his right forehead. Nontender to palpate. No other trauma appreciated. Patient sent for CT of his head, basic labs obtained. EKG completed and unremarkable. Radiologist called to report no intracranial lesion, mass, bleed but does point out a 6 mm basilar artery defect and recommends CT head with contrast to ensure no thrombus. Patient already has an IV established and is being sent for follow-up study. This will not be completed prior to signout and the patient will be signed over
[2021-04-28 18:00] VITALS: BP 123/76; PULSE 83; O2SAT 95
[2021-04-28 18:30] VITALS: BP 131/81; PULSE 84; O2SAT 94
[2021-04-28 18:45] LABS: Basophils # 0.1 K/mm3 (0-0.2); Basophils % 0.6 % (0.1-2.0); Eosinophils # 0.3 K/mm3 (0.0-0.4); Eosinophils % 3.9 % (0.1-12.0); Hematocrit 33.9 % (42.0-52.0); Hemoglobin 11.3 g/dL (14.1-18.0); Lymphocytes # 1.9 K/mm3 (0.7-4.5); Lymphocytes % 22.9 % (10-50); Mean Corpuscular HGB Conc 33.3 g/dL (31.8-35.4); Mean Corpuscular Hemoglobin 28.5 pg (27.0-31.2); Mean Corpuscular Volume 85.7 fl (80-94); Mean Platelet Volume 9.2 fl (7.4-10.4); Monocytes # 0.7 K/mm3 (0.1-1.0); Monocytes % 8.8 % (1.7-9.3); Neutrophils # 5.4 K/mm3 (1.8-7.8); Neutrophils % 63.8 % (37.0-80.0); Platelet Count 365 K/mm3 (142-424); Red Blood Count 3.95 M/mm3 (4.60-6.20); Red Cell Distribution Width 13.8 % (11.5-17.5); White Blood Count 8.4 K/mm3 (4.8-10.8)
--- NOTE | 2021-04-28 18:45 | ECG_ITS ---
APPROVED REPORT Exam: Resting ECG HR:87 bpm ECG Measurements Heart Rate 87 AXES DC 146 P 85 QRSd 144 QRS 3 QT 398 T 38 QTc 478 Conclusion Normal sinus rhythm Right bundle branch block Abnormal ECG Electronically signed by : Lane Awad, 04/29/2021 21:28:18
[2021-04-28 18:52] LABS: Anion Gap 8.9 mEq/L (5-15); Blood Urea Nitrogen 11 mg/dl (9-20); Calcium 8.7 mg/dl (8.4-10.2); Carbon Dioxide 31 mmol/L (22.0-30.0); Chloride 104 mmol/L (98-107); Creatinine Clearance Estimated 89 mL/min (50-200); Estimated Glomerular Filt Rate 68 ml/min (>60); GFR (African American) 83 ML/MIN (>60); Glucose 106 mg/dl (74-100); Potassium 3.9 mmoL/L (3.5-5.1); Sodium 140 mmol/L (136-145)
--- NOTE | 2021-04-28 19:12 | CT_ITS ---
PROCEDURE INFORMATION: Exam: CT Angiography Head With Contrast, Arteriography Exam date and time: 04/28/2021 7:12 PM Age: 61 years old Clinical indication: Injury or trauma; Fall; Blunt trauma (contusions or hematomas); Without loss of consciousness; Patient HX: Basilar art defect TECHNIQUE: Imaging protocol: Computed tomography angiography of the head with contrast. Exam focused on the arteries. 3D rendering (Not supervised by radiologist): MIP and/or 3D reconstructed images were created by the technologist. Radiation optimization: All CT scans at this facility use at least one of these dose optimization techniques: automated exposure control; mA and/or kV adjustment per patient size (includes targeted exams where dose is matched to clinical indication); or iterative reconstruction. Contrast material: ISOVUE; Contrast volume: 100 ml; Contrast route: IV; COMPARISON: CT HEAD/BRAIN WO CON 04/28/2021 6:10 PM FINDINGS: ANTERIOR CIRCULATION: Right internal carotid artery: Small calcified atherosclerotic plaques, areas of very mild narrowing less than 50%. Intracranial segment is patent with no high-grade stenosis. No aneurysm. Right middle cerebral artery: Unremarkable. No occlusion or significant stenosis. No aneurysm. Right anterior cerebral artery: Unremarkable. No occlusion or significant stenosis. No aneurysm. Left internal carotid artery: Small calcified atherosclerotic plaques, areas of very mild narrowing less than 50%. Intracranial segment is patent with no high-grade stenosis. No aneurysm. Left middle cerebral artery: Unremarkable. No occlusion or significant stenosis. No aneurysm. Left anterior cerebral artery: Unremarkable. No occlusion or significant stenosis. No aneurysm. POSTERIOR CIRCULATION: Right vertebral artery: Some dense calcified plaque, see series 3, image 19. However, stenosis appears mild less than 50% . No occlusion or high-grade stenosis. No aneurysm. Left vertebral artery: Some very small calcified atherosclerotic plaques, very mild narrowing less than 50%. No occlusion or high-grade stenosis. No aneurysm. Basilar artery: Unremarkable. No occlusion or significant stenosis. No aneurysm. Right posterior cerebral artery: Unremarkable. No occlusion or significant stenosis. No aneurysm. Left posterior cerebral artery: Unremarkable. No occlusion or significant stenosis. No aneurysm. Brain: No acute findings compared with the prior exam. No edema, swelling or mass-effect. Generalized cerebral cortical atrophy/volume loss and chronic microvascular ischemic changes . Chronic right cerebellar infarct/encephalomalacia with some parenchymal calcification. A chronic calcified 1.6 cm lesion at the left posterior margin of the pineal gland and tentorium, probably chronic calcified meningioma, unchanged. Multiple chronic supratentorial falcine and meningeal calcifications. Cerebral ventricles: The ventricles are xvug-[id number] enlarged, most likely due to central atrophy. No significant hydrocephalus. Bones/joints: No acute skull fracture. No lytic lesions. Soft tissues: There are no soft tissue masses or fluid collections. Chronic scalp calcifications. Paranasal sinuses: Chronic sinusitis greatest in the maxillary sinuses, ethmoid sinuses and left frontal sinus. Trace fluid and bubbly secretions in the left maxillary sinus, probably due to qizxs-gx-gfzuhtv sinusitis. IMPRESSION: 1. No high-grade large vessel stenosis or occlusion. 2. Small calcified plaques in the intracranial carotid and vertebral arteries with mild narrowing less than 50%. 3. No aneurysm of the [id number]; specifi
[2021-04-28 20:00] VITALS: BP 124/79; PULSE 76; O2SAT 95
[2021-04-28 20:30] VITALS: BP 144/90; PULSE 87; O2SAT 94
--- NOTE | 2021-04-28 20:30 | PC.NURSE ---
I Spoke with [facility] and they are sending someone to come pick pt up.
[2021-04-28 20:38] VITALS: BP 144/90; PULSE 89; RESP 18; TEMP 36.6; O2SAT 93
--- NOTE | 2021-04-28 21:07 | PC.NURSE ---
[facility] called and said it will be a little while before they can come get pt
== END 2021-04-28 21:15 | disposition home or self-care (01) ==
PROVIDERS: Emergency Provider Family Medicine; PCP Emergency Medicine
DX: S00.81XA Abrasion of other part of head, initial encounter (principal); S80.211A Abrasion, right knee, initial encounter; W18.00XA Striking against unspecified object with subsequent fall, initial encounter; Y92.129 Unspecified place in nursing home as the place of occurrence of the external cause; F41.9 Anxiety disorder, unspecified; I10 Essential (primary) hypertension; E03.9 Hypothyroidism, unspecified; F17.210 Nicotine dependence, cigarettes, uncomplicated
CPT/HCPCS: 70450; 70460; 80048; 85025; 93005; 99283; Q9967

== ENCOUNTER → 2021-05-15 07:40 | Outpatient (CLI) | payer MEDICAID, SELFPAY ==
--- NOTE | 2021-05-15 12:45 | RESP.PFTSS ---
Patient attempted several times but was unable to complete due to being unable to follow simple commands.
== END ==
PROVIDERS: PCP Emergency Medicine; Visit Provider Internal Medicine Pulmonary Disease
DX: R06.02 Shortness of breath (principal)
CPT/HCPCS: 94618

== ENCOUNTER 2022-05-03 10:44 | Emergency (ER) | payer MEDICAID, SELFPAY ==
[2022-05-03 10:48] VITALS: BP 121/80; PULSE 95; RESP 18; TEMP 36.6; O2SAT 95; BMI 19.0
--- NOTE | 2022-05-03 10:59 | PC.NURSE ---
hand wound cleaned for MD evaluation
[2022-05-03 11:00] VITALS: BP 110/74; PULSE 85; RESP 16; O2SAT 93
--- NOTE | 2022-05-03 11:05 | PC.NURSE ---
drink provided to patient
--- NOTE | 2022-05-03 11:06 | PC.NURSE ---
pt ambulatory to restroom with assistance from JAS Bryant. No complications.
--- NOTE | 2022-05-03 11:07 | PC.NURSE ---
pt ambulated to the restroom with no complications
--- NOTE | 2022-05-03 11:20 | PC.NURSE ---
goran sánchez called for update on pt condition. updated on POC
[2022-05-03 11:49] VITALS: BP 109/73; PULSE 76; RESP 18; O2SAT 98
--- NOTE | 2022-05-03 11:56 | HMH.EDGENADL ---
ED Disposition Clinical Impression: Hand laceration Qualifiers: Encounter type: initial encounter Foreign body presence: without foreign body Laterality: right Qualified Code(s): S61.411A - Laceration without foreign body of right hand, initial encounter Disposition: Home, Self-Care Condition on Discharge: Good Instructions: DI for Laceration Repair-Skin Glue, How to Prevent Falls Referrals: Mitch De MD [Primary Care Provider] - - Critical Care Critical Care Time: No Attestation: On 05/03/22, the high probability of a clinically significant, sudden or life threatening deterioration of the following system(s) required my full and direct attention, intervention and personal management. The time I documented below is in addition to time spent performing reported procedures but includes the following listed in this critical care notation. Medical Decision Making - Jayce Inquiry Pt receiving controlled substance: No Vital Signs: 05/03/22 10:48 05/03/22 11:00 05/03/22 11:49 Temperature 97.8 F Temperature Source Oral Pulse Rate 85 76 Pulse Rate [Left Radial] 95 H Respiratory Rate 18 16 18 Blood Pressure 110/74 109/73 L Blood Pressure [Right Arm] 121/80 Blood Pressure Mean 86 80 Blood Pressure Mean [Right Arm] 93 02 Sat by Pulse Oximetry 95 93 L 98 Oxygen Delivery Method Room Air Room Air Orders (Tests/Meds): ED MEDICATIONS Discontinued Medications Generic Name Dose Route Start Last Admin Trade Name Freq PRN Reason Stop Dose Admin Tetanus/Reduced Diphtheria/Acell Pertussis 0.5 ml 05/03/22 11:59 Tet/Diphth/Pert-Adult 0.5ml Syringe IM 05/03/22 12:00 .ONCE ONE General Adult HPI - General Chief complaint: Fall Stated complaint: Fall Time Seen by Provider: 05/03/22 11:56 Mode of Arrival: EMS Limitations: No Limitations Description of Symptoms (Recalled from ER Triage Doc. by RN): pt to ed c/o fall. pt states he lost his balance and fell to his bottom and he reached for a metal rail as he was falling and cut his right index finger. pt denies pain anywhere. - History of Present Illness HPI narrative: Brought in by ambulance from [facility]. Patient states that he stumbled and fell and cut his right ring finger on a rail when he was falling. Denies any other injuries. Denies any other complaints. He has been up and ambulatory in the emergency department without difficulty. Last tetanus immunization is unknown. - Related Data Home Medications Medication Instructions Recorded Confirmed divalproex 500 mg tablet,delayed 500 mg PO BID 02/25/18 04/24/21 release levothyroxine 100 mcg capsule 100 mcg PO DAILY 02/25/18 04/24/21 omega-3 fatty acids 1,000 mg 1,000 mg PO BID 02/25/18 04/24/21 capsule OXcarbazepine [Oxcarbazepine] 300 mg PO BID 09/30/19 04/24/21 haloperidoL [Haldol 5mg tablet] 10 mg PO TID 10/01/19 04/24/21 Amlodipine Besylate 2.5 mg PO HS 11/21/20 04/24/21 Lactulose [Lactulose 10gm/15ml 15 ml PO DAILYP PRN 11/22/20 04/24/21 Oral Soln] Quetiapine Fumarate [Seroquel] 400 mg PO DAILY 03/05/21 04/24/21 risperiDONE [Risperidone] 4 mg PO BID 03/06/21 04/24/21 Aspirin [Aspirin 81mg chewable 81 mg PO DAILY 04/11/21 04/24/21 tab] Previous Rx's Medication Instructions Recorded Nicotine [Nicoderm 21mg/24hr 21 mg TD DAILY #30 patch.td24 04/18/21 patch] clonazepam 1 mg tablet 1 mg PO BID #90 tab 02/14/22 gabapentin 100 mg capsule 100 mg PO HS #30 cap 03/14/22 Allergies Allergy/AdvReac Type Severity Reaction Status Date / Time No Known Allergies Allergy Verified 04/24/21 10:30 [facility] History - Hepatitis A Screen Attestation statement:: This patient has been screened for Hepatitis A risk factors. I have reviewed the patient's past medical history: Yes Medical History: Reports:: Anxiety, Hypertension Denies:: Cancer, Diabetes Mellitus Type 1, Diabetes Mellitus Type 2, Internal Pacemaker, MRSA, Seizures Other Medic
--- NOTE | 2022-05-03 11:58 | PC.NURSE ---
YAN AKHTAR at
[2022-05-03 12:00] VITALS: BP 113/73; PULSE 82; O2SAT 97
--- NOTE | 2022-05-03 12:13 | PC.NURSE ---
calling for transport for d/c
--- NOTE | 2022-05-03 12:16 | PC.NURSE ---
called multple times to reach the [facility] or [facility] with no answer. 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
[2022-05-03 12:30] VITALS: BP 116/75; PULSE 80; O2SAT 98
[2022-05-03 12:40] VITALS: BP 116/75; PULSE 78; RESP 16; TEMP 36.6; O2SAT 96
== END 2022-05-03 12:41 | disposition home or self-care (01) ==
PROVIDERS: Emergency Provider Emergency Medicine; PCP Emergency Medicine
DX: S61.411A Laceration without foreign body of right hand, initial encounter (principal); Z23 Encounter for immunization; W19.XXXA Unspecified fall, initial encounter; Z79.82 Long term (current) use of aspirin; Z79.899 Other long term (current) drug therapy; I10 Essential (primary) hypertension; F41.9 Anxiety disorder, unspecified; M19.90 Unspecified osteoarthritis, unspecified site; E03.9 Hypothyroidism, unspecified; F20.9 Schizophrenia, unspecified
CPT/HCPCS: 90471; 90715; 99283

== ENCOUNTER 2022-10-04 11:25 | Emergency (ER) | payer MEDICAID, SELFPAY ==
[2022-10-04] VITALS (7 sets, daily range): BP systolic 121–137; BP diastolic 83–91; PULSE 74–84; RESP 18–22; TEMP 37.2; O2SAT 93–100; BMI 23.7
--- NOTE | 2022-10-04 11:36 | XR_ITS ---
FINAL REPORT CLINICAL HISTORY: SOB/CP COMPARISON: 04/12/2021 FINDINGS: SINGLE-VIEW CHEST There is mild cardiomegaly. The mediastinum is normal. There are chronic changes at the bases. The lungs are otherwise clear. There is no pneumothorax. IMPRESSION: No acute cardiopulmonary process. Reviewed, Interpreted and Dictated by Ezekiel Lott MD Transcribed by Jess Portillo Authenticated and [facility]
--- NOTE | 2022-10-04 11:36 | CT_ITS ---
FINAL REPORT TECHNIQUE: Axial images were obtained of the cervical spine by computed tomography. Coronal and sagittal reconstruction process performed. This study was performed with techniques to keep radiation doses as low as reasonably achievable (ALARA). Individualized dose reduction techniques using automated exposure control or adjustment of mA and/or kV according to the patient''s size were employed. CLINICAL HISTORY: fall FINDINGS: Cervical vertebrae show normal height. There is moderate disc space narrowing at C5-6 and C6-7. There is no malalignment. The facets are properly aligned. C2-3: No significant central canal stenosis or neural foraminal narrowing. C3-4: No significant central canal stenosis or neural foraminal narrowing. C4-5: No significant central canal stenosis or neural foraminal narrowing. C5-6: Mild endplate hypertrophy is present with mild left neural foraminal narrowing. C6-7: Mild to moderate endplate hypertrophy is present. There is mild to moderate bilateral neural foraminal narrowing. C7-T1: No significant disc bulge or protrusion IMPRESSION: Degenerative disc disease at C5-6 and C6-7 with neural foraminal compromise, most evident at C6-7 Reviewed, Interpreted and Dictated by Ezekiel Lott MD Transcribed by Jess Portillo Authenticated and [facility]
--- NOTE | 2022-10-04 11:36 | CT_ITS ---
FINAL REPORT TECHNIQUE: Axial CT images were performed through the head. Coronal reformatted images were submitted. This study was performed with techniques to keep radiation doses as low as reasonably achievable (ALARA). Individualized dose reduction techniques using automated exposure control or adjustment of mA and/or kV according to the patient's size were employed. CLINICAL HISTORY: head injury COMPARISON: 04/28/2021 FINDINGS: There is mild cortical atrophy. There is proportional ventricularmegaly. There is mild patchy decreased attenuation in the deep white matter. There is dense calcification in the anterior interhemispheric falx. There is dystrophic calcification and encephalomalacia in the right cerebellar hemisphere. The right hemisphere appears asymmetrically smaller than the left. It is unclear whether this is developmental or postsurgical. There is bulky calcification or ossification in the region of the left quadrigeminal plate cistern. Findings are stable since previous. There is extensive mucoperiosteal thickening throughout the maxillary sinuses, ethmoid air cells, and frontal sinuses consistent with chronic pansinusitis. IMPRESSION: Dystrophic calcification and encephalomalacia in a hypoplastic right cerebellar hemisphere, stable. Extensive changes of chronic pansinusitis. Findings are more evident than previous. Reviewed, Interpreted and Dictated by Ezekiel Lott MD Transcribed by Jess Portillo Authenticated and [facility]
[2022-10-04 11:42] LABS: Coronavirus 19, PCR Not Detected (NotDetected); Influenza B, PCR Not Detected (NotDetected)
--- NOTE | 2022-10-04 11:46 | HMH.EDGENADL ---
Discharge Plan Disposition Patient Disposition: Home, Self-Care Condition: Good Prescriptions Prescriptions: New oseltamivir 75 mg capsule 75 mg PO DAILY 7 Days Qty: 7 0RF No Action divalproex 500 mg tablet,delayed release (DR/EC) 500 mg PO BID omega-3 fatty acids [Fish Oil Concentrate] 1,000 mg capsule 1,000 mg PO BID levothyroxine 100 mcg capsule 100 mcg PO DAILY gabapentin 100 mg capsule 100 mg PO HS Qty: 30 5RF clonazepam 1 mg tablet 1 mg PO BID Qty: 90 5RF Rx Instructions: plus one prn daily amlodipine 2.5 MG tablet 2.5 mg PO HS lactulose 10 GM/15 ML solution 15 ml PO DAILYP PRN (Reason: Constipation) quetiapine 400 MG tablet 400 mg PO DAILY risperidone 4 MG tablet 4 mg PO BID aspirin 81 MG tablet,chewable 81 mg PO DAILY nicotine 21 MG/PATCH patch 24 hour 21 mg TD DAILY Qty: 30 2RF oxcarbazepine 300 MG tablet 300 mg PO BID haloperidol 5 MG tablet 10 mg PO TID Referrals Follow up/Referrals: Provider,Referral, MD [Primary Care Provider] - See instructions Clinical Impressions Clinical Impression: Fall, Influenza A Instructions Patient Instructions: How to Prevent Falls, DI for Influenza -- Adult, Oseltamivir Discharge ED Provider: Mahad Del Rio Adult HPI General Chief complaint: Fall Stated complaint: falls Time Seen by Provider: 10/04/22 11:29 History of Present Illness HPI narrative: 62-year-old female from [facility] facility brought in by EMS, history of schizophrenia, respiratory failure with hypoxia, coronary artery disease, renal insufficiency, tobacco abuse. He presents today status post fall with bruising above the eyebrow. He is not on any anticoagulants, denies any loss of consciousness, denies any neck or back pain, numbness or tingling, blurry or double vision, nausea or vomiting. There is report from facility for generalized weakness however patient denies this, states he is just chronically off balance he was try to get up out of his chair and fell forward. No treatments prior to this assessment, currently denies headache or any other symptoms. Related Data Home Medications Medication Instructions Recorded Confirmed divalproex 500 mg tablet,delayed 500 mg PO BID mood stabilizer 02/25/18 04/24/21 release levothyroxine 100 mcg capsule 100 mcg PO DAILY hypothyroidism 02/25/18 04/24/21 omega-3 fatty acids 1,000 mg 1,000 mg PO BID Cholesterol 02/25/18 04/24/21 capsule (Fish Oil Concentrate) oxcarbazepine 300 mg tablet 300 mg PO BID mood stabilizer 09/30/19 04/24/21 haloperidol 5 mg tablet 10 mg PO TID Mood stabilizer 10/01/19 04/24/21 amlodipine 2.5 mg tablet 2.5 mg PO HS Hypertension 11/21/20 04/24/21 lactulose 10 gram/15 mL oral 15 ml PO DAILYP PRN Constipation 11/22/20 04/24/21 solution quetiapine 400 mg tablet 400 mg PO DAILY Mood stabilizer 03/05/21 04/24/21 risperidone 4 mg tablet 4 mg PO BID mood stabilizer 03/06/21 04/24/21 aspirin 81 mg chewable tablet 81 mg PO DAILY heart health 04/11/21 04/24/21 Previous Rx's Medication Instructions Recorded nicotine 21 mg/24 hr daily 21 mg TD DAILY ##30 04/18/21 transdermal patch gabapentin 100 mg capsule 100 mg PO HS neuropathic pain #30 09/12/22 caps clonazepam 1 mg tablet 1 mg PO BID Agitation #90 tabs 09/25/22 oseltamivir 75 mg capsule 75 mg PO DAILY 7 days #7 caps 10/04/22 Allergies Allergy/AdvReac Type Severity Reaction Status Date / Time No Known Allergies Allergy Verified 04/24/21 10:30 [facility] Disclaimer: The information contained in this section may have been updated after the patient was seen, as this information can be updated by other users. Social History Smoking Status: Current every day smoker tobacco type: cigarettes packs per day: 1 second hand exposure: No alcohol intake: never substance use type: denies use current o
--- NOTE | 2022-10-04 11:53 | PC.NURSE ---
pt in CT
--- NOTE | 2022-10-04 12:26 | ECG_ITS ---
APPROVED REPORT Exam: Resting ECG HR:76 bpm ECG Measurements Heart Rate 76 AXES AR 161 P 50 QRSd 161 QRS 26 QT 422 T 33 QTc 453 Conclusion SINUS RHYTHM RIGHT BUNDLE BRANCH BLOCK [120+ ms QRS DURATION, UPRIGHT V1, 40+ ms S IN I/aVL/V4/V5/V6] ABNORMAL ECG UNCONFIRMED REPORT Electronically signed by : Lane Awad MD 10/04/2022 21:30:09
[2022-10-04 12:29] LABS: Basophils # 0.1 K/mm3 (0-0.2); Basophils % 1.8 % (0.1-2.0); Eosinophils % 0.2 % (0.1-12.0); Hemoglobin 14.1 g/dL (14.1-18.0); Lymphocytes # 0.9 K/mm3 (0.7-4.5); Lymphocytes % 18.8 % (10-50); Mean Corpuscular HGB Conc 32.1 g/dL (31.8-35.4); Mean Corpuscular Hemoglobin 29.9 pg (27.0-31.2); Mean Corpuscular Volume 92.9 fl (80-94); Mean Platelet Volume 11.4 fl (7.4-10.4); Monocytes # 0.7 K/mm3 (0.1-1.0); Monocytes % 13.8 % (1.7-9.3); Neutrophils # 3.2 K/mm3 (1.8-7.8); Neutrophils % 65.3 % (37.0-80.0); Platelet Count 129 K/mm3 (142-424); Red Blood Count 4.73 M/mm3 (4.60-6.20); Red Cell Distribution Width 13.5 % (11.5-17.5); White Blood Count 4.9 K/mm3 (4.8-10.8)
[2022-10-04 12:32] LABS: Influenza A, PCR Detected (NotDetected)
[2022-10-04 12:40] LABS: Chloride 103 mmol/L (98-107); Potassium 3.3 mmoL/L (3.5-5.1); Sodium 140 mmol/L (136-145)
--- NOTE | 2022-10-04 12:40 | PC.NURSE ---
pt given urinal, notified pt we need a urine specimen
[2022-10-04 12:42] LABS: Blood Urea Nitrogen 20 mg/dl (9-20)
[2022-10-04 12:43] LABS: Alanine Aminotransferase 24 U/L (12-78); Albumin Level 3.9 g/dl (3.5-5.0); Albumin/Globulin Ratio 1.6 (1.1-1.8); Alkaline Phosphatase 76 U/L (38-126); Anion Gap 10.3 mEq/L (5-15); Aspartate Amino Transferase 63 U/L (17-59); Bilirubin,Total 0.3 mg/dl (0.2-1.3); Calcium 9.1 mg/dl (8.4-10.2); Carbon Dioxide 30 mmol/L (22.0-30.0); Creatinine Clearance Estimated 65 mL/min (50-200); Estimated Glomerular Filt Rate 56 ml/min (>60); GFR (African American) 68 ML/MIN (>60); Globulin 2.5 g/dL (1.3-3.2); Glucose 71 mg/dl (74-100); Magnesium 2.1 mg/dl (1.6-2.3); Total Protein,Serum 6.4 g/dl (6.3-8.2)
[2022-10-04 12:52] LABS: NT Pro Brain Natriuretic Pep. 125 pg/mL (0-125)
[2022-10-04 12:56] LABS: Troponin I 0.02 ng/ml (0.00-0.034)
--- NOTE | 2022-10-04 14:27 | PC.NURSE ---
notified [facility] staff pt is ready for d/c
== END 2022-10-04 15:32 | disposition home or self-care (01) ==
PROVIDERS: Emergency Provider Emergency Medicine
DX: J10.1 Influenza due to other identified influenza virus with other respiratory manifestations (principal)
CPT/HCPCS: 70450; 71045; 72125; 80053; 83735; 83880; 84484; 85025; 93005; C9803; U0003; U0005

== ENCOUNTER 2022-10-07 09:17 | Inpatient (IN) | payer MEDICAID, SELFPAY ==
[2022-10-07] VITALS (15 sets, daily range): BP systolic 117–142; BP diastolic 72–89; PULSE 71–86; RESP 16–18; TEMP 36.8–37.4; O2SAT 87–98; BMI 24.3; BMI 23.3
--- NOTE | 2022-10-07 09:18 | XR_ITS ---
PROCEDURE INFORMATION: Exam: XR Right Knee Exam date and time: 10/07/2022 9:40 AM Age: 62 years old Clinical indication: Injury or trauma; Fall; Additional info: Knee pain TECHNIQUE: Imaging protocol: Radiologic exam of the Right knee. Views: 3 views. COMPARISON: No relevant prior studies available. FINDINGS: Bones/joints: No acute fracture or malalignment. Mild tricompartmental degenerative changes. No joint effusion. Osteopenia. Soft tissues: Normal. IMPRESSION: No acute fracture or malalignment.
--- NOTE | 2022-10-07 09:18 | XR_ITS ---
PROCEDURE INFORMATION: Exam: XR Left Knee Exam date and time: 10/07/2022 9:40 AM Age: 62 years old Clinical indication: Injury or trauma; Fall; Additional info: Knee pain TECHNIQUE: Imaging protocol: Radiologic exam of the Left knee. Views: 3 views. COMPARISON: No relevant prior studies available. FINDINGS: Bones/joints: No acute fracture or malalignment. Mild tricompartmental degenerative changes. Small joint effusion. Soft tissues: Normal. IMPRESSION: No acute fracture or malalignment.
--- NOTE | 2022-10-07 09:20 | PC.NURSE ---
notified ER MD of pt SaO2 87% on RA, pt placed on 2L per NC
--- NOTE | 2022-10-07 09:23 | HMH.EDFALL ---
Discharge Plan Disposition Chief Complaint: Fall Discharge ED Provider: Shilpa Martinez HPI General Chief Complaint: Fall Stated Complaint: fall Time Seen by Provider: 10/07/22 09:23 Mode of Arrival: Ambulatory Source of Information: Patient and EMS Limitations: No Limitations History of Present Illness HPI Narrative: Mr. Huang is a 62-year-old male w/ PMH for schizophrenia, hypothyroidism, tobacco abuse w/ COPD, CAD who presents to the emergency department from nursing facility for multiple recurrent falls over the last week. Patient reports he slipped and landed on his knees bilaterally. Patient denies hitting his head negative loss of consciousness. [facility] he has had >5 falls over the last 24 hours. The last fall he did hit his head against the concrete. care home reports he has had increased weakness since being diagnosed w/ the flu on . Patient reports isolated pain to the bilateral knees, worse on (R) knee. He denies neck pain, chest pain, abdominal pain, back pain or other extremity pain. Patient denies dyspnea or chest pain at this time but is hypoxic 87% on RA, no oxygen requirement [facility]. Of Note patient leans toward the left side at baseline. No focal neurological deficits on exam. MD complaint: fall Onset (ago): day(s) Fall from: standing Fall witnessed: yes, by bystander Place fall occurred: home Loss of consciousness: none Length of LOC: second(s) Prolonged down time: no Symptoms prior to fall: none Context: tripped/slipped Related Data Home Medications Medication Instructions Recorded Confirmed divalproex 500 mg tablet,delayed 500 mg PO BID mood stabilizer 02/25/18 10/07/22 release levothyroxine 100 mcg capsule 100 mcg PO DAILY hypothyroidism 02/25/18 10/07/22 omega-3 fatty acids 1,000 mg 1,000 mg PO BID Cholesterol 02/25/18 10/07/22 capsule (Fish Oil Concentrate) oxcarbazepine 300 mg tablet 600 mg PO BID mood stabilizer 09/30/19 10/07/22 haloperidol 5 mg tablet 10 mg PO TID Mood stabilizer 10/01/19 10/07/22 amlodipine 2.5 mg tablet 2.5 mg PO HS Hypertension 11/21/20 10/07/22 quetiapine 400 mg tablet 300 mg PO BID Mood stabilizer 03/05/21 10/07/22 risperidone 4 mg tablet 4 mg PO BID mood stabilizer 03/06/21 10/07/22 aspirin 81 mg chewable tablet 81 mg PO DAILY heart health 04/11/21 10/07/22 Previous Rx's Medication Instructions Recorded gabapentin 100 mg capsule 100 mg PO HS neuropathic pain #30 09/12/22 caps clonazepam 1 mg tablet 1 mg PO BID Agitation #90 tabs 09/25/22 oseltamivir 75 mg capsule 75 mg PO DAILY 7 days #7 caps 10/04/22 Allergies Allergy/AdvReac Type Severity Reaction Status Date / Time No Known Allergies Allergy Verified 04/24/21 10:30 [facility] Disclaimer: The information contained in this section may have been updated after the patient was seen, as this information can be updated by other users. Social History Smoking Status: Current every day smoker tobacco type: cigarettes packs per day: 1 second hand exposure: No alcohol intake: never substance use type: denies use current occupational status: other Travel in the last 8 weeks: None household members: other housing: other caffeine: Yes ROS Obtained: Yes All systems reviewed & no additional complaints except as documented Physical Exam General General appearance: alert and in no apparent distress Head Head exam: atraumatic and normal inspection Eye Eye exam: Present normal appearance and EOMI ENT ENT exam: Present normal exam, normal oropharynx and mucous membranes moist Neck Neck exam: Present normal inspection and full ROM Chest Chest inspection: Present normal inspection and symmetric chest wall rise Respiratory Respiratory exam: Present normal lung sounds bilaterally Cardiovascular Cardiovascular exam: Present regular rate and normal rhythm Abdominal Exam Abdominal exam: Present soft
--- NOTE | 2022-10-07 09:26 | PC.NURSE ---
rad at for portable xrays
--- NOTE | 2022-10-07 09:28 | XR_ITS ---
PROCEDURE INFORMATION: Exam: XR Chest Exam date and time: 10/07/2022 10:15 AM Age: 62 years old Clinical indication: Injury or trauma; Fall; Additional info: Fall, unwitnessed TECHNIQUE: Imaging protocol: Radiologic exam of the chest. Views: 4 or more views. COMPARISON: CR XR CHEST PORTABLE 10/04/2022 12:03 PM FINDINGS: Lungs: Bibasilar airspace opacities. Pleural spaces: Possible small left pleural effusion. No pneumothorax is seen. Heart/Mediastinum: Unremarkable. No cardiomegaly. Bones/joints: Remote right rib fractures. IMPRESSION: 1. Bibasilar airspace opacities may reflect atelectasis versus aspiration or pneumonia. 2. Possible small left pleural effusion.
--- NOTE | 2022-10-07 09:31 | CT_ITS ---
PROCEDURE INFORMATION: Exam: CT Head Without Contrast Exam date and time: 10/07/2022 9:57 AM Age: 62 years old Clinical indication: Injury or trauma; Fall; Additional info: Falls TECHNIQUE: Imaging protocol: Computed tomography of the head without contrast. Radiation optimization: All CT scans at this facility use at least one of these dose optimization techniques: automated exposure control; mA and/or kV adjustment per patient size (includes targeted exams where dose is matched to clinical indication); or iterative reconstruction. COMPARISON: CT HEAD/BRAIN WO CON 10/04/2022 11:45 AM FINDINGS: Brain: Similar encephalomalacia with coarse calcification in the right cerebellar hemisphere. Patchy hypoattenuation in the periventricular and subcortical white matter, consistent with chronic small vessel ischemia. No CT evidence of acute ischemia. No acute hemorrhage. No mass effect. Similar coarse calcification in the region of the quadrigeminal cistern. Cerebral ventricles: Global cerebral volume loss with ex vacuo dilatation of the ventricles. Paranasal sinuses: Severe mucosal thickening of the paranasal sinuses, similar to prior. Mastoid air cells: Visualized mastoid air cells are well aerated. Bones/joints: Unremarkable. No acute fracture. Soft tissues: Soft tissue contusion over the left maxillary region. IMPRESSION: 1. No significant change. No acute intracranial abnormality. Please note that MRI is more sensitive for early changes of acute ischemia. 2. Severe mucosal thickening of the paranasal sinuses, similar to prior.
--- NOTE | 2022-10-07 09:52 | PC.NURSE ---
pt to CT via stretcher
[2022-10-07 10:00] LABS: Basophils # 0.1 K/mm3 (0-0.2); Basophils % 0.4 % (0.1-2.0); Eosinophils # 0.1 K/mm3 (0.0-0.4); Eosinophils % 0.9 % (0.1-12.0); Hematocrit 42.4 % (42.0-52.0); Hemoglobin 13.9 g/dL (14.1-18.0); Lymphocytes # 1.1 K/mm3 (0.7-4.5); Lymphocytes % 8.7 % (10-50); Mean Corpuscular HGB Conc 32.7 g/dL (31.8-35.4); Mean Corpuscular Hemoglobin 29.6 pg (27.0-31.2); Mean Corpuscular Volume 90.6 fl (80-94); Mean Platelet Volume 11.1 fl (7.4-10.4); Monocytes # 1.1 K/mm3 (0.1-1.0); Monocytes % 9.1 % (1.7-9.3); Platelet Count 147 K/mm3 (142-424); Red Blood Count 4.69 M/mm3 (4.60-6.20); Red Cell Distribution Width 13.3 % (11.5-17.5); White Blood Count 12.3 K/mm3 (4.8-10.8)
[2022-10-07 10:04] LABS: Chloride 102 mmol/L (98-107); Potassium 3.1 mmoL/L (3.5-5.1); Sodium 137 mmol/L (136-145)
[2022-10-07 10:07] LABS: Alanine Aminotransferase 39 U/L (12-78); Albumin Level 3.7 g/dl (3.5-5.0); Albumin/Globulin Ratio 1.3 (1.1-1.8); Alkaline Phosphatase 69 U/L (38-126); Anion Gap 6.1 mEq/L (5-15); Aspartate Amino Transferase 70 U/L (17-59); Bilirubin,Total 0.2 mg/dl (0.2-1.3); Blood Urea Nitrogen 16 mg/dl (9-20); Carbon Dioxide 32 mmol/L (22.0-30.0); Creatinine Clearance Estimated 60 mL/min (50-200); Estimated Glomerular Filt Rate 52 ml/min (>60); GFR (African American) 62 ML/MIN (>60); Globulin 2.8 g/dL (1.3-3.2); Total Protein,Serum 6.5 g/dl (6.3-8.2)
[2022-10-07 10:08] LABS: Calcium 9.2 mg/dl (8.4-10.2); Glucose 87 mg/dl (74-100)
--- NOTE | 2022-10-07 10:17 | ECG_ITS ---
APPROVED REPORT Exam: Resting ECG HR:75 bpm ECG Measurements Heart Rate 75 AXES DE 151 P 66 QRSd 162 QRS 15 QT 414 T 0 QTc 443 Conclusion SINUS RHYTHM INTRAVENTRICULAR CONDUCTION DELAY [130+ ms QRS DURATION] ABNORMAL ECG UNCONFIRMED REPORT Electronically signed by : Lane Awad MD 10/08/2022 20:02:26
[2022-10-07 10:21] LABS: Troponin I < 0.01 ng/ml (0.00-0.034)
--- NOTE | 2022-10-07 10:42 | PC.NURSE ---
housekeeper supervisor states hospitalist (dr. reagan) is currently in the OR, states she will have him call down to the ER when he is finished in the OR
[2022-10-07 11:06] LABS: Coronavirus 19, PCR Not Detected (NotDetected); Influenza B, PCR Not Detected (NotDetected)
[2022-10-07 11:28] LABS: Influenza A, PCR Detected (NotDetected)
--- NOTE | 2022-10-07 11:28 | PC.NURSE ---
notified datawarehouse developer of admission
[2022-10-07 11:59] LABS: Valproic Acid, (Depakene) 74.4 ug/ml (50-100)
--- NOTE | 2022-10-07 12:10 | PC.NURSE ---
per annual greenhouse manager pt in [facility] bed status at this time, states there is a pt soon to d/c from second floor and then pt go be transported to second floor
--- NOTE | 2022-10-07 12:43 | PC.NURSE ---
report called to ade grewal rn at this time
--- NOTE | 2022-10-07 13:00 | PC.NURSE ---
Pt arrived to the floor at this time
[2022-10-07 13:49] LABS: Troponin I 0.01 ng/ml (0.00-0.034)
--- NOTE | 2022-10-07 13:51 | EXP.HP ---
History of Present Illness *Admission Date: 10/07/22 *Reason for visit:: falls, weakness, Flu, pneumonia *History of present illness: Mr. Huang is a 62-year-old male w/ PMH for schizophrenia, hypothyroidism, tobacco abuse w/ COPD, CAD who presents to the emergency department from [facility] where he has been having multiple recurrent falls for the past week. He has been feeling more weak and fatigued. Recent fall with slipping landing on his knees causing significant pain. He denies any trauma to his head. No loss of consciousness. No open bleeding wounds. On evaluation in the ER, patient has mild hypoxemia necessitating supplemental oxygen. He is flu positive. Afebrile at this time. Per review of documentation, his correction has reported that he has fallen more than 5 times in the past day. Increased weakness since being diagnosed with flu on . Complaining of pain in his knees. Denies any chest pain, headache, nausea or vomiting. In the ER, Bedside CXR showed pneumonia. Labs with mild white cell count elevation. Initiated on Rocephin given duration of symptoms, outside the window for Tamiflu. Started on supplemental oxygen. CT head w/out contrast and XR of bilateral knees are non actionable. Viral panel positive for known Flu A. Although trauma workup is negative, patient is fall risk and would benefit from admission. Medicine consulted for admission. ? ? ? After arriving to the floor, patient is pleasant and interactive. No acute complaints. Asks appropriate questions. Of note patient leans toward the left side at baseline. No focal neurological deficits on exam. Admitted for new oxygen requirement, pneumonia, debility and inability to return to his correction. [facility] Disclaimer: The information contained in this section may have been updated after the patient was seen, as this information can be updated by other users. Medical History (Updated 10/07/22 @ 16:57 by Tyler Menendez RN) Schizophrenia Family History (Updated 10/07/22 @ 16:56 by Tyler Menendez RN) No significant family history Social History Smoking Status: Current every day smoker tobacco type: cigarettes packs per day: 1 second hand exposure: No alcohol intake: never substance use type: denies use current occupational status: other Travel in the last 8 weeks: None household members: other housing: other caffeine: Yes Review of Systems Review of Systems Review of systems (narrative): 14 point review of systems performed, pertinent positives and negatives as per [facility] Meds Home Medications and Allergies Home Medications Medication Instructions Recorded Confirmed Type divalproex 500 mg tablet,delayed 500 mg PO BID mood stabilizer 02/25/18 10/07/22 History release levothyroxine 100 mcg capsule 100 mcg PO DAILY hypothyroidism 02/25/18 10/07/22 History omega-3 fatty acids 1,000 mg 1,000 mg PO BID Cholesterol 02/25/18 10/07/22 History capsule (Fish Oil Concentrate) amlodipine 2.5 mg tablet 2.5 mg PO HS Hypertension 11/21/20 10/07/22 History risperidone 4 mg tablet 4 mg PO BID mood stabilizer 03/06/21 10/07/22 History aspirin 81 mg chewable tablet 81 mg PO DAILY heart health 04/11/21 10/07/22 History gabapentin 100 mg capsule 100 mg PO HS neuropathic pain #30 09/12/22 10/07/22 Rx caps clonazepam 1 mg tablet 1 mg PO BID Agitation #90 tabs 09/25/22 10/07/22 Rx haloperidol 10 mg tablet 10 mg PO TID MOOD 10/07/22 10/07/22 History oxcarbazepine 600 mg tablet 600 mg PO BID MOOD 10/07/22 10/07/22 History quetiapine 300 mg tablet,extended 600 mg PO DAILY MOOD 10/07/22 10/07/22 History release 24 hr New Prescriptions to Start Prescriptions: Allergies Allergy/AdvReac Type Severity Reaction Status Date / Time No Known Allergies Allergy Verified 04/24/21 10:30 Exam Data for Last 24 hours Vital signs and Labs for
--- NOTE | 2022-10-07 14:33 | P.CONPHA_ITS ---
Pharmacy Intervention Comments: MEDICATION RECONCILIATION COMPLETED ON PATIENT USING MAR FROM [facility]. -JUNAID GENTILE, JAIROND
--- NOTE | 2022-10-07 14:33 | HMH.PHAINT1 ---
Pharmacy Intervention Comments: MEDICATION RECONCILIATION COMPLETED ON PATIENT USING MAR FROM [facility]. -JUNAID GENTILE, JAIROND
[2022-10-07 16:05] LABS: Troponin I < 0.01 ng/ml (0.00-0.034)
[2022-10-08] VITALS (8 sets, daily range): BP systolic 108–132; BP diastolic 75–91; PULSE 68–83; RESP 16–20; TEMP 36.6–37.4; O2SAT 90–98; BMI 23.6
[2022-10-08 06:45] LABS: Basophils % 0.4 % (0.1-2.0); Eosinophils % 0.2 % (0.1-12.0); Hematocrit 41.7 % (42.0-52.0); Hemoglobin 13.3 g/dL (14.1-18.0); Lymphocytes # 1.3 K/mm3 (0.7-4.5); Lymphocytes % 13.2 % (10-50); Mean Corpuscular HGB Conc 31.9 g/dL (31.8-35.4); Mean Corpuscular Hemoglobin 28.7 pg (27.0-31.2); Mean Corpuscular Volume 90.1 fl (80-94); Mean Platelet Volume 10.8 fl (7.4-10.4); Monocytes # 0.8 K/mm3 (0.1-1.0); Monocytes % 8.1 % (1.7-9.3); Neutrophils % 78.2 % (37.0-80.0); Platelet Count 142 K/mm3 (142-424); Red Blood Count 4.62 M/mm3 (4.60-6.20); Red Cell Distribution Width 13.3 % (11.5-17.5); White Blood Count 10.2 K/mm3 (4.8-10.8)
[2022-10-08 06:51] LABS: Chloride 104 mmol/L (98-107); Potassium 3.1 mmoL/L (3.5-5.1); Sodium 138 mmol/L (136-145)
[2022-10-08 06:53] LABS: Blood Urea Nitrogen 13 mg/dl (9-20); Creatinine Clearance Estimated 96 mL/min (50-200); Estimated Glomerular Filt Rate 86 ml/min (>60); GFR (African American) 104 ML/MIN (>60)
[2022-10-08 06:54] LABS: Alanine Aminotransferase 30 U/L (12-78); Albumin Level 3.3 g/dl (3.5-5.0); Albumin/Globulin Ratio 1.2 (1.1-1.8); Alkaline Phosphatase 67 U/L (38-126); Anion Gap 6.1 mEq/L (5-15); Aspartate Amino Transferase 51 U/L (17-59); Bilirubin,Total 0.3 mg/dl (0.2-1.3); Calcium 8.6 mg/dl (8.4-10.2); Carbon Dioxide 31 mmol/L (22.0-30.0); Globulin 2.7 g/dL (1.3-3.2); Glucose 127 mg/dl (74-100)
--- NOTE | 2022-10-08 07:33 | PC.NURSE ---
pt is alert and oriented with some confusion. pt was bathed this shift, dry skin on feet is flaking off. pt ambulated to the bathroom with assistance X2 this morning and is currently up to chair. Call galeas in reach
--- NOTE | 2022-10-08 07:52 | EXP.ACUTE.PN ---
Subjective *Date: 10/08/22 *Time: 10:43 Interval history: Tolerating p.o. intake on rounds this morning. Stable on 2 L nasal cannula oxygen. PT/OT saw patient this morning, would benefit from skilled placement for rehab. Case management consulted and assisting with placement options. Patient denies any chest pain, nausea or vomiting. Still has mild shortness of breath. Afebrile and hemodynamically stable overnight. In bedside chair on arrival Medical Exam Vital signs and Labs for Last 24 Hours: Vital Signs Temp Pulse Pulse Resp BP BP Pulse Ox 10/08/22 04:00 99.3 F 78 18 131/81 91 L 10/08/22 00:00 97.8 F 71 18 113/78 91 L 10/07/22 23:11 80 10/07/22 23:11 82 10/07/22 23:11 88 L 10/07/22 20:00 99.3 F 79 18 142/82 H 92 L 10/07/22 18:30 86 10/07/22 18:30 84 10/07/22 18:30 87 L 10/07/22 15:26 98.3 F 78 18 134/89 94 L 10/07/22 13:13 98.9 F 81 17 134/78 93 L 10/07/22 12:30 71 16 121/72 93 L 10/07/22 12:00 71 18 121/73 94 L 10/07/22 13:00 98.7 F 71 18 121/72 10/07/22 11:30 73 126/77 94 L 10/07/22 11:00 72 133/86 94 L 10/07/22 10:30 74 117/73 92 L 10/07/22 09:20 87 L 10/07/22 10:26 122/75 10/07/22 09:45 79 122/75 98 10/07/22 09:17 98.7 F 86 18 117/87 87 L Intake and Output 10/07/22 10/07/22 10/08/22 15:59 23:59 07:59 Intake Total 120 / 948 828 / 948 Output Total 700 / 700 Balance 120 / 248 128 / 248 Intake: Intake, Oral Amount 120 / 360 240 / 360 Intake, Total IV Amount 588 / 588 Ringers Solution,Lactated 1,000 588 / 588 ml @ 150 mls/hr IV .[id number] [facility] Rx#:[id number] Output: Output, Urine Amount 700 / 700 Other: Number of Unmeasured Voids 1 Number of Urine Attends/Diapers 1 Weight 87.146 kg 87.77 kg Patient Weight 10/08/22 23:59 Weight 87.77 kg Laboratory Results - last 24 hr 10/07/22 09:51: WBC 12.3 H D, RBC 4.69, Hgb 13.9 L, Hct 42.4, MCV 90.6, MCH 29.6, MCHC 32.7, RDW 13.3, Plt Count 147, MPV 11.1 H, Neut % (Auto) 81.0 H, Lymph % (Auto) 8.7 L, [place] % (Auto) 9.1, Eos % (Auto) 0.9, Baso % (Auto) 0.4, Neut # (Auto) 10.0 H, Lymph # (Auto) 1.1, [place] # (Auto) 1.1 H, Eos # (Auto) 0.1, Baso # (Auto) 0.1 10/07/22 09:51: Sodium 137, Potassium 3.1 L, Chloride 102, Carbon Dioxide 32 H, Anion Gap 6.1, BUN 16, Creatinine 1.40 H, Estimated Creat Clear 60, Estimated GFR 52 L, Est GFR ( Amer) 62, Glucose 87, Calcium 9.2, Total Bilirubin 0.2, AST 70 H, ALT 39 D, Alkaline Phosphatase 69, Troponin I < 0.01, Total Protein 6.5, Albumin 3.7, Globulin 2.8, Albumin/Globulin Ratio 1.3 10/07/22 09:51: Total Valproic Acid 74.4 10/07/22 11:00: SARS-CoV-2 (PCR) Not detected, Influenza A Untype (PCR) Detected A, Influenza Type B (PCR) Not detected 10/07/22 12:42: Troponin I 0.01 10/07/22 15:35: Troponin I < 0.01 10/08/22 06:14: WBC 10.2, RBC 4.62, Hgb 13.3 L, Hct 41.7 L, MCV 90.1, MCH 28.7, MCHC 31.9, RDW 13.3, Plt Count 142, MPV 10.8 H, Neut % (Auto) 78.2, Lymph % (Auto) 13.2, [place] % (Auto) 8.1, Eos % (Auto) 0.2, Baso % (Auto) 0.4, Neut # (Auto) 8.0 H, Lymph # (Auto) 1.3, [place] # (Auto) 0.8, Eos # (Auto) 0.0, Baso # (Auto) 0.0 10/08/22 06:14: Sodium 138, Potassium 3.1 L, Chloride 104, Carbon Dioxide 31 H, Anion Gap 6.1, BUN 13, Creatinine 0.90 D, Estimated Creat Clear 96, Estimated GFR 86, Est GFR ( Amer) 104 D, Glucose 127 H D, Calcium 8.6, Magnesium 2.0, Total Bilirubin 0.3, AST 51 D, ALT 30, Alkaline Phosphatase 67, Total Protein 6.0 L, Albumin 3.3 L D, Globulin 2.7, Albumin/Globulin Ratio 1.2 I & O for Labs for Last 24 Hours: Intake & Output 10/05/22 10/06/22 10/07/22 10/08/22 23:59 23:59 23:59 23:59 Intake Total 948 / 948 Output Total 700 / 700 Balance 248 / 248 Weight 87.146 kg 87.77 kg Constitutional: Present no acute distress, average body habitus and chronically ill appearing Comment::
--- NOTE | 2022-10-08 09:49 | HMH.PTEV ---
Physical Therapy Evaluation Rehab PT IP Evaluation Start: 10/07/22 15:36 Freq: ONCE Status: Active Protocol: Document 10/08/22 09:39 PHORNE (Rec: 10/08/22 09:48 PHORNE [id number]) Subjective/History History History 62 yowm adm to [facility] with PNA and flu+. He reports being incependent with mobility prior to adm. He lives in a half-way at baseline. Subjective Subjective Currently no c/o, He reports feeling better than yesterday. Rehab PT IP Eval Objective Appearance Patient Behavior Appropriate Patient Orientation Person,Place,Year Difficulty following instructions none Speech Pattern Clear Ambulation Patient Able to Ambulate Yes Ambulation Observation IP General Gait Pattern Observation Shuffling Step Ambulation Distance (feet) 20 Ambulation Assistive Device None Ambulation Ability Minimal x 1 (25% assist) Balance Ability to Arise Able, uses arms to help Sitting Balance Steady, safe Standing Balance Steady, wide stance Dynamic Sitting Balance Ability Good Dynamic Standing Balance Ability Fair Transfers Bed Transfer Ability Minimal x 1 (25% assist) Chair Transfer Ability Minimal x 1 (25% assist) Sit to Stand Bed Transfer Ability Minimal x 1 (25% assist) Sit to Stand Chair Transfer Ability Minimal x 1 (25% assist) ROM All Extremities PT ROM Status WFL MMT All Extremities PT MMT WFL Rehab PT IP prob,goals,plan Problems Date of Evaluation: 10/08/22 PT IP Problems Bed Mobility,Transfers,Gait Rehab Potential Rehab Potential Good Plan PT Intervention Plan Bed Mobility,Transfers,Gait, Therapeutic Exercise PT Plan Frequency BID Duration LOS Discharge Goals Bed Transfer Ability Contact Guard/Hand Hold Sit to Stand Chair Transfer Ability Contact Guard/Hand Hold Ambulation Distance (feet) 40 Discharge Plan PT Discharge Plan Pt is currently most appropriate for rehab placement once medically stable. Should he significantly improve mobility , he may be appropriate to return to prior living situation. G -code Required No Eval Complexity Eval Charge Codes 01573 - Moderate Complexity PHYSI
--- NOTE | 2022-10-08 10:05 | HMH.OTEV ---
OT Inpatient Evaluation Rehab OT IP Evaluation Start: 10/07/22 16:27 Freq: ONCE Status: Complete Protocol: Document 10/08/22 10:00 SANJAYREA (Rec: 10/08/22 10:05 [facility] [id number]) Rehab OT IP Assessment Subjective History Pt oriented x 3 on arrival. Pt agreeable to engage in therapy evaluation. Pt was admitted via ED on 10/07/22 due to falls, weakness, Flu, and pneumonia. Pt was living at [facility] prior to being in the hospital. Pt claims he was independent with dressing, bathing, and feeding prior to becoming ill. Pt was dependent upon staff to complete all IADLs. Pt did not require AE during ambulation. Pt has a past medical history of: Schizophrenia Subjective I need you to come here and talk to me. Objective Patient Orientation Person,Place,Birthday Upper Extremity Gross ROM WFL Transfer Training Sit/Stand Transfer Assist Level Minimal x 1 (25% assist) Chair Transfer Ability Minimal x 1 (25% assist) Chair Transfer Technique Sit to/from Ambulatory Rehab OT IP prob,goals,plan Problems Date of Evaluation: 10/08/22 OT IP Problems Bed Mobility,Transfers,Balance ,Self care,Safety Rehab Potential Rehab Potential Good Equipment Needs Assistive Devices Rolling / Wheeled Walker Plan OT intervention Plan Bed Mobility,Transfers,Balance ,Self care,Safety,Therapeutic Exercise OT Plan Frequency BID Duration LOS Discharge Goals Bed Mobility Ability Standby Assistance Sit to Stand Chair Transfer Ability Contact Guard/Hand Hold Chair Transfer Ability Contact Guard/Hand Hold Chair Transfer Technique Sit to/from Ambulatory Chair Transfer Assistive Devices Rolling Walker Feeding Ability Assist with Tray Set Up Lower Body Dressing Ability Assistance X1 Upper Body Dressing Ability Standby Assistance Bathing Ability Assistance x1 Performing Toilet Hygiene Ability Standby Assistance Overall Commode/Toilet Transfer Ability Assistance x1 Commode/Toilet Transfer Technique Sit to/from Ambulatory decrease in endurance No
--- NOTE | 2022-10-08 10:09 | SW/DCPLANNER ---
Addendum entered by Maria Isabel [place] 10/10/22 09:15: The plan for this patient is to return to [facility] today. Elisha barrios/ Mick Thompson did onsite this patient this AM and stated that he is safe to return. [facility] will transport patient once medically stable for discharge. Addendum entered by Aby Garg RN 10/09/22 16:08: [facility] can accept this patient, but I asked them to hold off on starting the precert. Tin is coming to evaluate patient in the morning as therapy says he could return there and he is also no longer on Oxygen. Will follow up with them tomorrow. Addendum entered by [facility] 10/08/22 14:43: aKthie barrios/ [facility] stated that she will be onsite tomorrow morning to evaluate this patient. Addendum entered by [facility] 10/08/22 13:53: At this time the following facilities are not able to accept this patient: [facility], [facility] and [facility]. Patient information has been faxed to [facility], [facility], [facility] and [facility]. Addendum entered by [facility] 10/08/22 11:47: Geurda barrios/ [facility] stated that she can not accept patient at this time due to bed availability. Addendum entered by [facility] 10/08/22 10:19: [facility] stated that they can not meet patient's needs at this time. I will fax patient information to [facility], [facility], [facility] and [facility]. Original Note: This patient currently resides at [facility]. Patient was evaluated by PT/OT this AM and have recommended placement for this patient. Patient has been to [facility] in the past: patient information has been faxed to [facility] this AM. Patient is medically stable for discharge. I have updated [facility] regarding this patient.
--- NOTE | 2022-10-08 17:45 | PC.NURSE ---
pt has been up to chair some this shift, ambulating to bathroom with an assist, inspiratory and expiratory rhonchi noted on auscultation, has remained on room air t/o most of shift with O2 sats 90-92%, no complaints of pain or SOA
[2022-10-09] VITALS (11 sets, daily range): BP systolic 125–139; BP diastolic 77–91; PULSE 74–85; RESP 16–18; TEMP 36.8–37.4; O2SAT 87–95; BMI 23.3
--- NOTE | 2022-10-09 06:37 | PC.NURSE ---
No acute changes over night. Pt was 87% on RA this am so 2LNC applied. No complaints from pt.
[2022-10-09 07:12] LABS: Chloride 105 mmol/L (98-107); Potassium 3.3 mmoL/L (3.5-5.1); Sodium 140 mmol/L (136-145)
[2022-10-09 07:13] LABS: Basophils # 0.1 K/mm3 (0-0.2); Basophils % 0.9 % (0.1-2.0); Eosinophils # 0.1 K/mm3 (0.0-0.4); Eosinophils % 0.9 % (0.1-12.0); Hematocrit 43.4 % (42.0-52.0); Hemoglobin 13.9 g/dL (14.1-18.0); Lymphocytes # 1.9 K/mm3 (0.7-4.5); Lymphocytes % 18.7 % (10-50); Mean Corpuscular Hemoglobin 28.7 pg (27.0-31.2); Mean Corpuscular Volume 89.9 fl (80-94); Mean Platelet Volume 10.8 fl (7.4-10.4); Monocytes # 0.8 K/mm3 (0.1-1.0); Monocytes % 7.9 % (1.7-9.3); Neutrophils # 7.1 K/mm3 (1.8-7.8); Neutrophils % 71.5 % (37.0-80.0); Platelet Count 201 K/mm3 (142-424); Red Blood Count 4.83 M/mm3 (4.60-6.20); Red Cell Distribution Width 13.2 % (11.5-17.5)
[2022-10-09 07:15] LABS: Anion Gap 9.3 mEq/L (5-15); Blood Urea Nitrogen 10 mg/dl (9-20); Calcium 8.7 mg/dl (8.4-10.2); Carbon Dioxide 29 mmol/L (22.0-30.0); Creatinine Clearance Estimated 95 mL/min (50-200); Estimated Glomerular Filt Rate 86 ml/min (>60); GFR (African American) 104 ML/MIN (>60); Glucose 130 mg/dl (74-100)
--- NOTE | 2022-10-09 09:25 | ECG_ITS ---
APPROVED REPORT Exam: Resting ECG HR:80 bpm ECG Measurements Heart Rate 80 AXES MI 152 P 68 QRSd 153 QRS 28 QT 392 T 0 QTc 428 Conclusion SINUS RHYTHM RIGHT BUNDLE BRANCH BLOCK [120+ ms QRS DURATION, UPRIGHT V1, 40+ ms S IN I/aVL/V4/V5/V6] ABNORMAL ECG UNCONFIRMED REPORT Electronically signed by : Lane Awad MD 10/09/2022 20:54:18
--- NOTE | 2022-10-09 09:34 | XR_ITS ---
FINAL REPORT CLINICAL HISTORY: pleural effusion FINDINGS: SINGLE-VIEW CHEST There is cardiomegaly. The mediastinum is normal. There are bibasilar opacities, left greater than right which may represent atelectasis or pneumonia. Small left effusion is identified. There is no pneumothorax. There is a chronic left clavicle fracture. IMPRESSION: Bibasilar atelectasis or pneumonia with small left effusion. Reviewed, Interpreted and Dictated by Chris Samuel III, MD Transcribed by Jess Portillo Authenticated and [facility]
--- NOTE | 2022-10-09 15:25 | EXP.PULM.CON ---
History of Present Illness History of present illness: Mr. Huang is a 62-year-old female history of COPD, CAD, current smoker greater than [id number] smoking history presented to the hospital for initiating intermediate secondary to recurrent falls and found to be in respiratory distress implant the PCR positive and pulmonary was called for further evaluation. [facility] Disclaimer: The information contained in this section may have been updated after the patient was seen, as this information can be updated by other users. Medical History (Updated 10/09/22 @ 16:30 by Carmen Simms MD) Influenza Pneumonia Schizophrenia Family History (Updated 10/07/22 @ 16:56 by Tyler Menendez RN) Other No significant family history Social History Smoking Status: Current every day smoker tobacco type: cigarettes packs per day: 1 second hand exposure: No alcohol intake: never substance use type: denies use current occupational status: other Travel in the last 8 weeks: None household members: other housing: other caffeine: Yes Review of Systems Constitutional Constitutional: Reports fatigue Eyes Eyes: Denies eye discharge, Denies dry eyes, Denies irritation and Denies itchy eyes ENT Ears, Nose, Mouth, and Throat: Denies epistaxis, Denies facial pain, Denies lip swelling and Denies throat swelling *Cardiovascular Cardiovascular: Reports dyspnea and Reports dyspnea on exertion *Respiratory Respiratory: Reports chest congestion, Reports cough, Reports dyspnea, Reports dyspnea on exertion and Reports excessive phlegm production *Gastrointestinal Gastrointestinal: Denies abdominal pain, Denies belching and Denies cramping *Musculoskeletal Musculoskeletal: Reports back pain, Reports myalgias and Reports other (No small joint swelling or Pain) Psychiatric Psychiatric: Denies homicidal ideation and Denies suicidal ideation Endocrine Endocrine: Reports fatigue and Denies heat intolerance Hematologic/Lymphatic Hematologic/Lymphatic: Denies easy bleeding and Denies lymphadenopathy Allergic/Immunologic Allergic/Immunologic: Denies itchy eyes, Denies lip swelling and Denies throat swelling Pulmonology Exam Inpatient Vital signs and Labs for Last 24 Hours: Temp Pulse Resp BP Pulse Ox 98.2 F 82 18 139/77 90 L 10/09/22 11:45 10/09/22 11:45 10/09/22 11:45 10/09/22 11:45 10/09/22 11:45 Laboratory Results - last 24 hr 10/09/22 06:30: WBC 10.0, RBC 4.83, Hgb 13.9 L, Hct 43.4, MCV 89.9, MCH 28.7, MCHC 32.0, RDW 13.2, Plt Count 201 D, MPV 10.8 H, Neut % (Auto) 71.5, Lymph % (Auto) 18.7, [place] % (Auto) 7.9, Eos % (Auto) 0.9, Baso % (Auto) 0.9, Neut # (Auto) 7.1, Lymph # (Auto) 1.9, [place] # (Auto) 0.8, Eos # (Auto) 0.1, Baso # (Auto) 0.1 10/09/22 06:30: Sodium 140, Potassium 3.3 L, Chloride 105, Carbon Dioxide 29, Anion Gap 9.3, BUN 10, Creatinine 0.90, Estimated Creat Clear 95, Estimated GFR 86, Est GFR ( Amer) 104, Glucose 130 H, Calcium 8.7 I & O for Labs for Last 24 Hours: Intake & Output 10/06/22 10/07/22 10/08/22 10/09/22 23:59 23:59 23:59 23:59 Intake Total 948 / 948 3270 / 3270 2040 / 2040 Output Total 700 / 700 0 / 0 300 / 300 Balance 248 / 248 3270 / 3270 1740 / 1740 Weight 192 lb 2 oz 194 lb 0.108 oz 191 lb 7 oz Microbiology Reports for the Last 24 Hours: Microbiology 10/07/22 12:42 Blood Blood Culture - Preliminary NO GROWTH AFTER 48 HOURS Constitutional: Present mild distress Head: Present normocephalic and atraumatic ENT: Present normal exam and normal oropharynx Neck: Present normal inspection and full ROM Respiratory: Present diminished air movement and able to speak in complete sentences; Absent respiratory distress, wheezes or crackles Comment:: Decreased breath sounds left lower lung loyd. Cardiac: Present S1/S2, Tachycardia and radial pulses present GI: Present soft and distenti
--- NOTE | 2022-10-09 16:00 | EXP.ACUTE.PN ---
Subjective *Date: 10/09/22 *Time: 16:00 Interval history: Pleasantly confused, unable to provide thorough history. Complaining of left chest pain at all times present for weeks, cannot elaborate further. Medical Exam Vital signs and Labs for Last 24 Hours: Vital Signs Temp Pulse Pulse Resp BP Pulse Ox 10/09/22 11:45 98.2 F 82 18 139/77 90 L 10/09/22 10:02 77 18 10/09/22 08:00 99.4 F 79 16 132/84 95 10/09/22 06:19 77 10/09/22 06:19 74 10/09/22 06:19 87 L 10/09/22 04:00 98.8 F 74 16 126/78 94 L 10/09/22 00:58 80 10/09/22 00:58 80 10/08/22 19:51 99.0 F 83 20 130/91 H 94 L 10/08/22 18:35 82 10/08/22 18:35 81 Intake and Output 10/09/22 10/09/22 10/09/22 07:59 15:59 23:59 Intake Total 480 / 2040 1560 / 2040 Output Total 300 / 300 0 / 300 Balance 180 / 1740 1560 / 1740 Intake: Intake, Oral Amount 480 / 2040 1560 / 2040 Output: Output, Urine Amount 300 / 300 0 / 300 Other: Number of Unmeasured Voids 1 1 Weight 86.835 kg Patient Weight 10/09/22 23:59 Weight 86.835 kg Laboratory Results - last 24 hr 10/09/22 06:30: WBC 10.0, RBC 4.83, Hgb 13.9 L, Hct 43.4, MCV 89.9, MCH 28.7, MCHC 32.0, RDW 13.2, Plt Count 201 D, MPV 10.8 H, Neut % (Auto) 71.5, Lymph % (Auto) 18.7, [place] % (Auto) 7.9, Eos % (Auto) 0.9, Baso % (Auto) 0.9, Neut # (Auto) 7.1, Lymph # (Auto) 1.9, [place] # (Auto) 0.8, Eos # (Auto) 0.1, Baso # (Auto) 0.1 10/09/22 06:30: Sodium 140, Potassium 3.3 L, Chloride 105, Carbon Dioxide 29, Anion Gap 9.3, BUN 10, Creatinine 0.90, Estimated Creat Clear 95, Estimated GFR 86, Est GFR ( Amer) 104, Glucose 130 H, Calcium 8.7 I & O for Labs for Last 24 Hours: Intake & Output 10/06/22 10/07/22 10/08/22 10/09/22 23:59 23:59 23:59 23:59 Intake Total 948 / 948 3270 / 3270 2039 Output Total 700 / 700 0 / 0 300 / 300 Balance 248 / 248 3270 / 3270 1740 / 1740 Weight 87.146 kg 88 kg 86.835 kg Microbiology Reports for the Last 24 Hours: Microbiology 10/07/22 15:35 Blood Blood Culture - Preliminary NO GROWTH AFTER 48 HOURS 10/07/22 12:42 Blood Blood Culture - Preliminary NO GROWTH AFTER 48 HOURS Head: Present atraumatic Neck: Present normal inspection and full ROM Respiratory: Present CTA bilaterally; Absent accessory muscle use Cardiac: Present Reg Rate and Rhythm GI: Present soft Rectal (male): Present deferred (male): Present deferred Extremities: Present normal inspection Skin: Present intact Neuro: Present Cranial Nerve 2-12 Intact, alert and awake Assessment and Plan *Assessment and plan (1) Pneumonia: Status: Acute Category: Medical Code(s): J18.9 - Pneumonia, unspecified organism (2) Influenza A: Status: Acute Category: Medical Code(s): J10.1 - Influenza due to other identified influenza virus with other respiratory manifestations (3) Schizophrenia: Status: Acute Qualifiers: Schizophrenia type: unspecified Qualified Code(s): F20.9 - Schizophrenia, unspecified Category: Medical Code(s): F20.9 - Schizophrenia, unspecified (4) Hypothyroidism: Status: Acute Qualifiers: Hypothyroidism type: acquired Qualified Code(s): E03.9 - Hypothyroidism, unspecified Category: Medical Code(s): E03.9 - Hypothyroidism, unspecified (5) Anxiety: Status: Acute Category: Medical Code(s): F41.9 - Anxiety disorder, unspecified (6) Fall: Status: Acute Category: Medical Code(s): W19.XXXA - Unspecified fall, initial encounter (7) Pleural effusion: Status: Acute Category: Medical Code(s): J90 - Pleural effusion, not elsewhere classified Plan 62-year-old male with significant psych history who lives at [facility].? Admitted for pneumonia superimposed o
--- NOTE | 2022-10-09 19:43 | PC.NURSE ---
No acute changes this shift. Remains on RA. Dr. Vu has consulted on pt. VSS.
[2022-10-10 04:00] VITALS: BP 125/73; PULSE 78; RESP 18; TEMP 36.9; O2SAT 92
[2022-10-10 04:08] VITALS: BMI 23.1
[2022-10-10 06:06] VITALS: PULSE 82; O2SAT 90
[2022-10-10 07:57] VITALS: BP 148/82; PULSE 81; RESP 17; TEMP 36.8; O2SAT 96
--- NOTE | 2022-10-10 09:36 | EXP.PULM.PN ---
Subjective *Date: 10/10/22 *Time: 11:09 Interval history: No acute respiratory vents overnight. Patient denies any complaints except for left-sided chest pain. Pulmonology Exam Inpatient Vital signs and Labs for Last 24 Hours: Temp Pulse Resp BP Pulse Ox 98.2 F 81 17 148/82 H 96 10/10/22 07:57 10/10/22 07:57 10/10/22 07:57 10/10/22 07:57 10/10/22 07:57 I & O for Labs for Last 24 Hours: Intake & Output 10/07/22 10/08/22 10/09/22 10/10/22 23:59 23:59 23:59 23:59 Intake Total 948 / 948 3270 / 3270 2520 / 2520 360 / 360 Output Total 700 / 700 0 / 0 300 / 300 Balance 248 / 248 3270 / 3270 2220 / 2220 360 / 360 Weight 192 lb 2 oz 194 lb 0.108 oz 191 lb 7 oz 190 lb 3 oz Microbiology Reports for the Last 24 Hours: Microbiology 10/07/22 15:35 Blood Blood Culture - Preliminary NO GROWTH AFTER 48 HOURS 10/07/22 12:42 Blood Blood Culture - Preliminary NO GROWTH AFTER 48 HOURS Constitutional: Present mild distress Head: Present normocephalic and atraumatic ENT: Present normal exam and normal oropharynx Neck: Present normal inspection and full ROM Respiratory: Present diminished air movement and able to speak in complete sentences; Absent respiratory distress, wheezes or crackles Comment:: Decreased breath sounds left lower lung loyd. Cardiac: Present S1/S2, Tachycardia and radial pulses present GI: Present soft and distention; Absent tenderness or guarding Skin: Present intact; Absent cyanosis or jaundice Neuro: Present alert, awake and oriented x 3 Extremities: Present normal inspection; Absent clubbing or cyanosis Psychiatric: Present normal affect and cooperative Assessment and Plan *Assessment and plan (1) Pleural effusion: Status: Acute Category: Medical Code(s): J90 - Pleural effusion, not elsewhere classified (2) Influenza: Status: Acute Category: Medical Code(s): J11.1 - Influenza due to unidentified influenza virus with other respiratory manifestations (3) Pneumonia: Status: Acute Category: Medical Code(s): J18.9 - Pneumonia, unspecified organism Plan #Influenza pneumonia: #Community-acquired pneumonia: #Left lower lobe atelectasis: #Pleural effusion: Poor historian. 62-year-old female current smoker. Carries a diagnosis COPD. Denies any use of inhalers at baseline. Present with worsening respiratory symptomology possible influenza pneumonia. Chest x-ray on this admission reviewed, no dense consolidation noted. Left lower lobe atelectasis along with small pleural effusion noted. Receiving Tamiflu levofloxacin admission. Currently awaiting placement. Otherwise clinically stable. On room air with saturations maintained at 92% and above. Auscultation bilaterally clear breath sounds with no significant wheezing. Decreased breath sounds at left lower lung loyd. Blood cultures from this admission no growth 48 hours. Plan: Continue Tamiflu x5 days Continue levofloxacin 750 mg daily oral x5 days Ibuprofen 400 every 6 hrs as needed for pain. Initiate incentive spirometry. Continue with PT OT. #Thank you for involving pulmonary in this patient care. Will continue to follow.
[2022-10-10 11:15] VITALS: BP 133/89; PULSE 84; RESP 17; TEMP 37.1; O2SAT 95
--- NOTE | 2022-10-10 11:22 | PC.NURSE ---
report called to goran sánchez, waiting on ride
--- NOTE | 2022-10-10 21:04 | EXP.DC.SUM ---
General Admission date:: 10/07/22 Discharge date: 10/10/22 HPI HPI HPI: Mr. Huang is a 62-year-old male w/ PMH for schizophrenia, hypothyroidism, tobacco abuse w/ COPD, CAD who presents to the emergency department from [facility] where he has been having multiple recurrent falls for the past week. He has been feeling more weak and fatigued. Recent fall with slipping landing on his knees causing significant pain. He denies any trauma to his head. No loss of consciousness. No open bleeding wounds. On evaluation in the ER, patient has mild hypoxemia necessitating supplemental oxygen. He is flu positive. Afebrile at this time. Per review of documentation, his long-term has reported that he has fallen more than 5 times in the past day. Increased weakness since being diagnosed with flu on . Complaining of pain in his knees. Denies any chest pain, headache, nausea or vomiting. In the ER, Bedside CXR showed pneumonia. Labs with mild white cell count elevation. Initiated on Rocephin given duration of symptoms, outside the window for Tamiflu. Started on supplemental oxygen. CT head w/out contrast and XR of bilateral knees are non actionable. Viral panel positive for known Flu A. Although trauma workup is negative, patient is fall risk and would benefit from admission. Medicine consulted for admission. ? ? ? After arriving to the floor, patient is pleasant and interactive. No acute complaints. Asks appropriate questions. Of note patient leans toward the left side at baseline. No focal neurological deficits on exam. Admitted for new oxygen requirement, pneumonia, debility and inability to return to his long-term. Hospital Course Hospital Course Hospital Course: The patient was admitted to the medical floor with pulmonology consult. Blood cultures were acquired and he was started on broad-spectrum antibiotic therapy. He was maintained on oxygen supplementation. Labs and inflammatory markers were trended. He identified improvement and pulmonology assisted with discharge therapy plan. He understands to follow-up with his PCP and specialist as scheduled. Exam Data for Last 24 hours Vital signs and Labs for Last 24 Hours: Temp Pulse Resp BP Pulse Ox 98.7 F 84 17 133/89 95 10/10/22 11:15 10/10/22 11:15 10/10/22 11:15 10/10/22 11:15 10/10/22 11:15 I & O for Last 24 hours: Intake & Output 10/07/22 10/08/22 10/09/22 10/10/22 23:59 23:59 23:59 23:59 Intake Total 948 / 948 3270 / 3270 2520 / 2520 360 / 360 Output Total 700 / 700 0 / 0 300 / 300 0 / 0 Balance 248 / 248 3270 / 3270 2220 / 2220 360 / 360 Weight 87.146 kg 88 kg 86.835 kg 86.268 kg Constitutional Constitutional: no acute distress *Routine HEENT Exam Head: Present normocephalic Eye: Present EOMI and PERRL ENT: Present mucous membranes moist *Routine Neck Exam Neck: Present supple; Absent lymphadenopathy *Routine Respiratory Exam Respiratory: Present CTA bilaterally *Routine Cardiovascular Exam Cardiovascular: Present RRR *Routine Abdominal Exam Abdominal: Present soft and normoactive bowel sounds; Absent tenderness *Routine Extremities Exam Extremities: Absent cyanosis, clubbing or edema *Routine Skin Exam Skin: Present warm; Absent rash *Routine Neurological Exam Neurological: Present alert and oriented X3 Results Data Completed and Pending Labs on day of discharge: Preliminary micro results at discharge 10/07/22 15:35 Blood Culture - Preliminary Blood NO GROWTH AFTER 48 HOURS 10/07/22 12:42 Blood Culture - Preliminary Blood NO GROWTH AFTER 48 HOURS DS: Diagnosis Discharge Diagnosis (1) Pleural effusion: Status: Acute (2) Influenza: Status: Acute (3) Pneumonia: Status: Acute Meds Home Medications and Allergies Home Medications Medication Instructions Recorded Confirmed Type divalproex 500 mg tablet,delayed 500 mg PO BID mood stabilizer 02/25/18 10/07/22
--- NOTE | 2022-10-11 11:07 | CARE MANAGER ---
Spoke with Tin Krishnamurthy) and she states that patient is dong well and has no issues at this time.
== END 2022-10-10 12:15 | disposition home or self-care (01) | DRG 193 ==
LOC: ER 10:25 → 2ND 12:01
PROVIDERS: Internal Medicine Adolescent Medicine; Admitting Provider Family Medicine; Emergency Provider Student in an Organized Health Care Education/Training Program; PCP Emergency Medicine; Visit Provider Family Medicine
DX: J10.1 Influenza due to other identified influenza virus with other respiratory manifestations (principal); J96.00 Acute respiratory failure, unspecified whether with hypoxia or hypercapnia; J90 Pleural effusion, not elsewhere classified; J98.11 Atelectasis; F20.9 Schizophrenia, unspecified; E03.9 Hypothyroidism, unspecified; M25.562 Pain in left knee; M25.561 Pain in right knee; W01.0XXA Fall on same level from slipping, tripping and stumbling without subsequent striking against object, initial encounter; F17.210 Nicotine dependence, cigarettes, uncomplicated; I10 Essential (primary) hypertension; J15.9 Unspecified bacterial pneumonia
CPT/HCPCS: 36415; 70450; 71045; 72125; 73562; 80048; 80053; 80164; 83735; 83880; 84484; 85025; 87040; 93005; 94640; 94761; 97116; 97162; 97166; 97530; 99285; C9803; J0696; U0003; U0005

== ENCOUNTER 2023-04-27 14:05 | Emergency (ER) | payer MEDICAID, SELFPAY ==
[2023-04-27] VITALS (7 sets, daily range): BP systolic 102–127; BP diastolic 66–74; PULSE 89–106; RESP 18–22; TEMP 36.7–37.3; O2SAT 87–95; BMI 22.9
--- NOTE | 2023-04-27 14:27 | ECG_ITS ---
APPROVED REPORT Exam: Resting ECG HR:101 bpm ECG Measurements Heart Rate 101 AXES SD 149 P 67 QRSd 146 QRS 54 QT 375 T 32 QTc 433 Conclusion SINUS TACHYCARDIA RIGHT BUNDLE BRANCH BLOCK [120+ ms QRS DURATION, UPRIGHT V1, 40+ ms S IN I/aVL/V4/V5/V6] ABNORMAL ECG UNCONFIRMED REPORT Electronically signed by : Lane Awad MD 04/27/2023 21:13:19
--- NOTE | 2023-04-27 14:34 | XR_ITS ---
PROCEDURE INFORMATION: Exam: XR Chest Exam date and time: 04/27/2023 2:39 PM Age: 63 years old Clinical indication: Other: AMS; Additional info: Found down, altered, vomiing TECHNIQUE: Imaging protocol: Radiologic exam of the chest. Views: 1 view. COMPARISON: CR XR CHEST PORTABLE 10/09/2022 9:48 AM FINDINGS: Lungs: Unremarkable. No consolidation. Pleural spaces: Unremarkable. No pleural effusion. No pneumothorax. Heart/Mediastinum: Aortic atherosclerosis. No cardiomegaly. Bones/joints: Unremarkable. IMPRESSION: No acute findings.
[2023-04-27 14:50] LABS: Basophils % 0.6 % (0.1-2.0); Eosinophils # 0.1 K/mm3 (0.0-0.4); Hematocrit 45.9 % (42.0-52.0); Hemoglobin 14.9 g/dL (14.1-18.0); Lymphocytes # 1.5 K/mm3 (0.7-4.5); Lymphocytes % 33.6 % (10-50); Mean Corpuscular HGB Conc 32.6 g/dL (31.8-35.4); Mean Corpuscular Hemoglobin 28.1 pg (27.0-31.2); Mean Corpuscular Volume 86.4 fl (80-94); Mean Platelet Volume 10.5 fl (7.4-10.4); Monocytes # 0.3 K/mm3 (0.1-1.0); Neutrophils # 2.6 K/mm3 (1.8-7.8); Neutrophils % 56.7 % (37.0-80.0); Platelet Count 178 K/mm3 (142-424); Red Blood Count 5.31 M/mm3 (4.60-6.20); Red Cell Distribution Width 13.8 % (11.5-17.5); White Blood Count 4.6 K/mm3 (4.8-10.8)
--- NOTE | 2023-04-27 14:51 | HMH.EDGENADL ---
Discharge Plan Disposition Patient Disposition: Home, Self-Care Condition: Good Chief Complaint: Altered Mental Status Prescriptions Prescriptions: No Action divalproex 500 mg tablet,delayed release (DR/EC) 500 mg PO BID omega-3 fatty acids [Fish Oil Concentrate] 1,000 mg capsule 1,000 mg PO BID levothyroxine 100 mcg capsule 100 mcg PO DAILY clonazepam 1 mg tablet 1 mg PO BID Qty: 90 5RF Rx Instructions: plus one prn daily gabapentin 100 mg capsule 100 mg PO HS Qty: 30 5RF amlodipine 2.5 MG tablet 2.5 mg PO HS risperidone 4 MG tablet 4 mg PO BID aspirin 81 MG tablet,chewable 81 mg PO DAILY quetiapine 300 mg tablet extended release 24 hr 600 mg PO DAILY haloperidol 10 mg tablet 10 mg PO TID oxcarbazepine 600 mg tablet 600 mg PO BID oseltamivir [Tamiflu] 75 mg Capsule 75 mg PO BID Qty: 2 0RF levofloxacin 750 mg Tablet 750 mg PO DAILY Qty: 3 0RF Referrals Follow up/Referrals: Provider,Referral, MD [Primary Care Provider] - See instructions Clinical Impressions Clinical Impression: Altered mental status Qualifiers: Altered mental status type: transient alteration of awareness Qualified Code(s): R40.4 - Transient alteration of awareness Instructions Patient Instructions: DI for Altered Mental Status Discharge ED Provider: Nnamdi Archuleta General Adult HPI General Chief complaint: Altered Mental Status Stated complaint: Fall Time Seen by Provider: 04/27/23 14:13 Mode of Arrival: EMS Source of Information: Patient and EMS Limitations: Altered Mental Status Description of Symptoms (Recalled from ER Triage Doc. by RN): pt to ed via ems. ems states they were called to a man down on the street. ems reports pt is a resident of [facility]. ems reports pt was lethargic and unable to walk on scene. on arrival to ed pt denies any symptoms, just tired. pt denies any recollection of falling today. History of Present Illness HPI narrative: This is a 63-year-old male with history of schizophrenia, hypothyroidism, CAD presenting with altered mental status and being found down. Patient is at longterm facility. Receives medications pertinent nursing staff there, was found by EMS laying on the sidewalk. Appears to be atraumatic, responsive, alert, oriented. No complaints at this time, other than feeling tired. Related Data Home Medications Medication Instructions Recorded Confirmed divalproex 500 mg tablet,delayed 500 mg PO BID mood stabilizer 02/25/18 10/07/22 release levothyroxine 100 mcg capsule 100 mcg PO DAILY hypothyroidism 02/25/18 10/07/22 omega-3 fatty acids 1,000 mg 1,000 mg PO BID Cholesterol 02/25/18 10/07/22 capsule (Fish Oil Concentrate) amlodipine 2.5 mg tablet 2.5 mg PO HS Hypertension 11/21/20 10/07/22 risperidone 4 mg tablet 4 mg PO BID mood stabilizer 03/06/21 10/07/22 aspirin 81 mg chewable tablet 81 mg PO DAILY heart health 04/11/21 10/07/22 haloperidol 10 mg tablet 10 mg PO TID MOOD 10/07/22 10/07/22 oxcarbazepine 600 mg tablet 600 mg PO BID MOOD 10/07/22 10/07/22 quetiapine 300 mg tablet,extended 600 mg PO DAILY MOOD 10/07/22 10/07/22 release 24 hr Previous Rx's Medication Instructions Recorded levofloxacin 750 mg tablet 750 mg PO DAILY #3 tabs 10/10/22 oseltamivir 75 mg capsule (Tamiflu) 75 mg PO BID #2 caps 10/10/22 clonazepam 1 mg tablet 1 mg PO BID Agitation #90 tabs 11/09/22 gabapentin 100 mg capsule 100 mg PO HS neuropathic pain #30 11/21/22 caps Allergies Allergy/AdvReac Type Severity Reaction Status Date / Time No Known Allergies Allergy Verified 04/24/21 10:30 [facility] Disclaimer: The information contained in this section may have been updated after the patient was seen, as this information can be updated by other users. Medical History (Updated 04/27/23 @ 15:47 by Nnamdi Archuleta MD) DJD (degenerative joint disease), cervical Encephalomalacia Influenza Pneumon
[2023-04-27 14:54] LABS: Alanine Aminotransferase 27 U/L (12-78); Albumin Level 4.1 g/dl (3.5-5.0); Albumin/Globulin Ratio 1.5 (1.1-1.8); Alkaline Phosphatase 79 U/L (38-126); Anion Gap 16.4 mEq/L (5-15); Aspartate Amino Transferase 32 U/L (17-59); Bilirubin,Total 0.4 mg/dl (0.2-1.3); Blood Urea Nitrogen 13 mg/dl (9-20); Calcium 8.8 mg/dl (8.4-10.2); Carbon Dioxide 27 mmol/L (22.0-30.0); Chloride 103 mmol/L (98-107); Creatine Kinase 72 U/L (55-170); Creatinine Clearance Estimated 79 mL/min (50-200); Estimated Glomerular Filt Rate 76 ml/min (>60); GFR (African American) 92 ML/MIN (>60); Globulin 2.7 g/dL (1.3-3.2); Glucose 109 mg/dl (74-100); Lipase 170 U/L (23-300); Potassium 4.4 mmoL/L (3.5-5.1); Sodium 142 mmol/L (136-145); Total Protein,Serum 6.8 g/dl (6.3-8.2)
[2023-04-27 14:55] LABS: Acetaminophen < 10 ug/ml (10-30); Acetone, Serum (Rapid) None Detected (None Detect); Salicylate < 1.0 mg/dL (2.0-20.0)
[2023-04-27 15:01] LABS: Microscopic, Urine URINE MICROSCOPIC (MICROSCOPIC)
[2023-04-27 15:04] LABS: Appearance,Urine CLEAR (Clear); Bilirubin,Urine Negative (Negative); Blood, Urine Negative (Negative); Color,Urine YELLOW (Yellow); Glucose,Urine (UA) Negative (Negative); Ketones,Urine Negative (Negative); Leukocyte Esterase,Urine Negative (Negative); Nitrate,Urine Negative (Negative); Protein,Urine Negative (Negative); Specific Gravity, Urine <= 1.005 (1.005-1.030); Urobilinogen,Urine 0.2 EU/dl (0.2)
[2023-04-27 15:07] LABS: Coronavirus 19, PCR Not Detected (NotDetected); Influenza A, PCR Not Detected (NotDetected); Influenza B, PCR Not Detected (NotDetected)
[2023-04-27 15:08] LABS: Troponin I < 0.01 ng/ml (0.00-0.034)
[2023-04-27 15:11] LABS: T4 (Thyroxine) 6.6 ug/dl (5.53-11.0)
[2023-04-27 15:14] LABS: Ammonia 75 umol/L (9-30)
[2023-04-27 15:16] LABS: Amphetamine/Metha Screen,Urine Negative ng/ml (<1000)
[2023-04-27 15:17] LABS: Barbiturates Screen,Urine Negative ng/ml (<200)
[2023-04-27 15:18] LABS: Benzodiazepines Screen,Urine Negative ng/ml (<200); Cannabinoid Screen,Urine Negative ng/ml (<50)
[2023-04-27 15:19] LABS: Cocaine Screen,Urine Negative ng/ml (<300)
[2023-04-27 15:20] LABS: Methadone Screen,Urine Negative ng/ml (<300); Opiate Screen,Urine Negative ng/ml (<300)
[2023-04-27 15:21] LABS: Ethyl Alcohol < 10 mg/dl (0-10)
[2023-04-27 15:21] LABS: Phencyclidine Screen,Urine Negative ng/ml (<25)
[2023-04-27 15:24] LABS: WBC,Urine Occasional #/hpf (0-3)
[2023-04-27 15:24] LABS: Thyroid Stimulating Hormone 1.47 uIU/mL (0.465-4.68)
--- NOTE | 2023-04-27 15:58 | PC.NURSE ---
CALLED [facility] TO LET THEM KNOW PT WAS READY FOR DISCHARGE AND READY TO BE PICKED UP
--- NOTE | 2023-04-27 16:27 | PC.NURSE ---
called goran sánchez for and update
== END 2023-04-27 16:36 | disposition home or self-care (01) ==
PROVIDERS: Emergency Provider Emergency Medicine
DX: R40.4 Transient alteration of awareness (principal); F20.9 Schizophrenia, unspecified; R94.31 Abnormal electrocardiogram [ECG] [EKG]; I25.10 Atherosclerotic heart disease of native coronary artery without angina pectoris; E03.9 Hypothyroidism, unspecified
CPT/HCPCS: 71045; 80053; 80305; 80329; 81001; 82009; 82140; 82550; 83690; 84436; 84443; 84484; 85025; 87636; 93005; 96360; 99285; C9803; U0003; U0005

== ENCOUNTER 2023-11-20 12:06 | Emergency (ER) | payer MEDICAID, SELFPAY ==
[2023-11-20 12:06] VITALS: BP 119/82; PULSE 78; RESP 19; TEMP 36.8; O2SAT 93; BMI 22.8
--- NOTE | 2023-11-20 12:28 | HMH.EDGENADL ---
Discharge Plan Disposition Patient Disposition: Home, Self-Care Chief Complaint: Skin/Abscess/Foreign Body Prescriptions Prescriptions: No Action divalproex 500 mg tablet,delayed release (DR/EC) 500 mg PO BID omega-3 fatty acids [Fish Oil Concentrate] 1,000 mg capsule 1,000 mg PO BID levothyroxine 100 mcg capsule 100 mcg PO DAILY clonazepam 1 mg tablet 1 mg PO BID Qty: 90 5RF Rx Instructions: plus one prn daily gabapentin 100 mg capsule 100 mg PO HS Qty: 30 5RF amlodipine 2.5 MG tablet 2.5 mg PO HS risperidone 4 MG tablet 4 mg PO BID aspirin 81 MG tablet,chewable 81 mg PO DAILY quetiapine 300 mg tablet extended release 24 hr 600 mg PO DAILY haloperidol 10 mg tablet 10 mg PO TID oxcarbazepine 600 mg tablet 600 mg PO BID oseltamivir [Tamiflu] 75 mg Capsule 75 mg PO BID Qty: 2 0RF levofloxacin 750 mg Tablet 750 mg PO DAILY Qty: 3 0RF Referrals Follow up/Referrals: Kareen Miner DPM [Staff Physician] - See instructions Activity Restrictions/Add. Instructions Additional Instructions/Restrictions: At this time it was felt you are safe to be discharged home. If new or worsening symptoms please do not hesitate to return the emergency department. Please keep your feet as dry as possible and apply baby powder to the webspaces of your toes twice a day. You will be contacted with your podiatry appointment. If you are not contacted please make an appointment with Dr. Miner. Clinical Impressions Clinical Impression: Hyperkeratosis of forefoot, Intertrigo Discharge ED Provider: Evert Avalos General Adult HPI General Chief complaint: Skin/Abscess/Foreign Body Stated complaint: foot infection Time Seen by Provider: 11/20/23 12:12 Mode of Arrival: EMS Source of Information: Patient and EMS Limitations: No Limitations Description of Symptoms (Recalled from ER Triage Doc. by RN): pt presents to ED with c/o bilateral feet pain, odor. pt reports feet have had sores on them for a very long time but he has not been able to keep them clean. pt resides at [facility]. History of Present Illness HPI narrative: Patient is a 63-year-old male with past medical history of schizophrenia that lives on [facility] who presents emergency department for a foot evaluation. Per EMS report patient has been noncompliant with bathing and when they went to bathe him today they noticed lesions on his feet that became concerned and then caused him to come here for continued evaluation. Patient states that his feet have been like that for multiple years . He has no acute complaints at this time. Related Data Home Medications Medication Instructions Recorded Confirmed divalproex 500 mg tablet,delayed 500 mg PO BID mood stabilizer 02/25/18 10/07/22 release levothyroxine 100 mcg capsule 100 mcg PO DAILY hypothyroidism 02/25/18 10/07/22 omega-3 fatty acids 1,000 mg 1,000 mg PO BID Cholesterol 02/25/18 10/07/22 capsule (Fish Oil Concentrate) amlodipine 2.5 mg tablet 2.5 mg PO HS Hypertension 11/21/20 10/07/22 risperidone 4 mg tablet 4 mg PO BID mood stabilizer 03/06/21 10/07/22 aspirin 81 mg chewable tablet 81 mg PO DAILY heart health 04/11/21 10/07/22 haloperidol 10 mg tablet 10 mg PO TID MOOD 10/07/22 10/07/22 oxcarbazepine 600 mg tablet 600 mg PO BID MOOD 10/07/22 10/07/22 quetiapine 300 mg tablet,extended 600 mg PO DAILY MOOD 10/07/22 10/07/22 release 24 hr Previous Rx's Medication Instructions Recorded levofloxacin 750 mg tablet 750 mg PO DAILY #3 tabs 10/10/22 oseltamivir 75 mg capsule (Tamiflu) 75 mg PO BID #2 caps 10/10/22 clonazepam 1 mg tablet 1 mg PO BID Agitation #90 tabs 05/14/23 gabapentin 100 mg capsule 100 mg PO HS neuropathic pain #30 08/06/23 caps Allergies Allergy/AdvReac Type Severity Reaction Status Date / Time No Known Allergies Allergy Verified 04/24/21 10:30 [facility] Disclaimer: The information contained in this section may have been updated after the patient was seen, as this information can be updated by other users. Medical History (Updated 11/20/23 @ 12:35 by Evert Avalos MD) DJD (degenerative joint disease), cervical Encephalomalacia Influenza Pneumonia RBBB Schizophrenia Family History (Updated 10/07/22 @ 16:56 by Tyler Menendez RN) Other No significant family history Social History Smoking Status: Current every day smoker tobacco type: cigarettes packs per day: 1 second hand exposure: No alcohol intake: never substance use type: denies use current occupational status: other Travel in the last 8 weeks: None household members: other housing: other caffeine: Yes ROS Obtained: Yes Systems reviewed as appropriate & no additional complaints except as documented Physical Exam General General appearance: alert and in no apparent distress Head Head exam: atraumatic and normocephalic Eye Eye exam: Present PERRL and EOMI ENT ENT exam: Present mucous membranes moist Neck Neck exam: Present normal inspection Chest Chest inspection: Present normal inspection and symmetric chest wall rise Respiratory Respiratory exam: Absent respiratory distress Cardiovascular Cardiovascular exam: Present regular rate and normal rhythm Extremities Exam Extremities exam: Present normal capillary refill (In all digits BLE) and other (Hyperkeratotic lesions over the dorsal and plantar aspect of the distal feet, moist erythema in the webspaces, no purulence. Bounding dorsal pedal pulses bilaterally, no asymmetric edema of the bilateral lower extremities.) Neurological Exam Neurological exam: Present alert Skin Skin exam: Present warm Medical Decision Making Jayce Inquiry Pt receiving controlled substance: No Vital Signs: 11/20/23 12:06 Temperature 98.2 F Temperature Source Oral Pulse Rate [Left Radial] 78 Respiratory Rate 19 Blood Pressure [Right Arm] 119/82 Blood Pressure Mean [Right Arm] 94 02 Sat by Pulse Oximetry 93 L Oxygen Delivery Method Room Air Medical Decision Narrative: In summary patient is a 63-year-old male with past medical history described above who presents emergency department for evaluation of his feet. Patient is hemodynamically stable nontoxic-appearing upon arrival, afebrile. Patient has intertrigo in the webspaces of his feet, there are hyperkeratotic lesions on the distal aspect both dorsal and plantar of his feet of undetermined etiology, possibly fungal. However given the chronicity of this no emergent workup or imaging is indicated at this time although considered. I have no concern for cellulitis, no concern for necrotizing soft tissue infection or osteomyelitis. Patient's feet were cleaned with Hibiclens, dried and the webspaces were coated in drying powder. The importance of keeping his feet dry was stressed upon the patient and patient will follow-up on an outpatient basis with podiatry. Critical Care Critical Care Time Critical Care Time: No
[2023-11-20 12:30] VITALS: BP 119/81; PULSE 69; O2SAT 93
--- NOTE | 2023-11-20 12:35 | PC.NURSE ---
called [facility] and they were in the process of serving lunch and would be up here in about 10 mins to pick him up
--- NOTE | 2023-11-20 12:50 | PC.NURSE ---
Washed pt feet in hibicliens,dried pt feet and placed powder on pt with non skids socks
--- NOTE | 2023-11-20 12:51 | PC.NURSE ---
pt received a regular tray
[2023-11-20 13:07] VITALS: BP 119/81; PULSE 78; RESP 17; TEMP 36.7
--- NOTE | 2023-11-20 13:17 | PC.NURSE ---
SCHEDULED A FOLLOW UP APPT TO SEE 12/19/23 @ 13:15
== END 2023-11-20 13:14 | disposition home or self-care (01) ==
PROVIDERS: Emergency Provider Emergency Medicine
DX: L85.1 Acquired keratosis [keratoderma] palmaris et plantaris (principal); L30.4 Erythema intertrigo; M79.671 Pain in right foot; M79.672 Pain in left foot; F20.9 Schizophrenia, unspecified; F17.210 Nicotine dependence, cigarettes, uncomplicated
CPT/HCPCS: 99282

== ENCOUNTER 2024-01-09 16:14 | Emergency (ER) | payer MEDICAID, SELFPAY ==
[2024-01-09 16:14] VITALS: BP 112/72; PULSE 67; RESP 20; TEMP 36.8; O2SAT 95; BMI 32.6
--- NOTE | 2024-01-09 16:21 | HMH.EDGENADL ---
Discharge Plan Disposition Patient Disposition: Home, Self-Care Condition: Good Prescriptions Prescriptions: No Action levothyroxine 100 mcg tablet PO magnesium hydroxide [Milk of Magnesia] 400 mg/5 mL suspension PO nystatin 100,000 unit/gram powder 1 applic topical BID Qty: 45 3RF Rx Instructions: Apply between the toes daily ketoconazole 2 % cream 1 applic topical QDAY Qty: 30 3RF Rx Instructions: Apply to affected areas. Do not apply between toes. divalproex 500 mg tablet,delayed release (DR/EC) 500 mg PO BID omega-3 fatty acids [Fish Oil Concentrate] 1,000 mg capsule 1,000 mg PO BID levothyroxine 100 mcg capsule 100 mcg PO DAILY clonazepam 1 mg tablet 1 mg PO BID Qty: 90 5RF Rx Instructions: plus one prn daily gabapentin 100 mg capsule 100 mg PO HS Qty: 30 5RF amlodipine 2.5 MG tablet 2.5 mg PO HS risperidone 4 MG tablet 4 mg PO BID aspirin 81 MG tablet,chewable 81 mg PO DAILY quetiapine 300 mg tablet extended release 24 hr 600 mg PO DAILY haloperidol 10 mg tablet 10 mg PO TID oxcarbazepine 600 mg tablet 600 mg PO BID oseltamivir [Tamiflu] 75 mg Capsule 75 mg PO BID Qty: 2 0RF levofloxacin 750 mg Tablet 750 mg PO DAILY Qty: 3 0RF Referrals Follow up/Referrals: Provider,Referral, MD [Primary Care Provider] - See instructions Activity Restrictions/Add. Instructions Additional Instructions/Restrictions: Follow-up with PCP for any change or worsening symptoms. Please leave glue in place till it falls off. Clinical Impressions Clinical Impression: Laceration of left ear Qualifiers: Encounter type: initial encounter Qualified Code(s): S01.312A - Laceration without foreign body of left ear, initial encounter Discharge ED Provider: Nnamdi Archuleta General Adult HPI <SHADY Vargas - Last Filed: 01/09/24 18:09> General Chief complaint: Fall Stated complaint: FALL Time Seen by Provider: 01/09/24 16:19 History of Present Illness HPI narrative: Patient presents after having an unwitnessed fall at his assisted living facility. Patient denies loss of conscious and cannot tell us what caused him to fall. Patient denies chest pain fever chills hemoptysis hematochezia melena nausea vomit diarrhea. Patient did suffer a laceration to his left pinna Related Data Home Medications Medication Instructions Recorded Confirmed divalproex 500 mg tablet,delayed 500 mg PO BID mood stabilizer 02/25/18 12/09/23 release levothyroxine 100 mcg capsule 100 mcg PO DAILY hypothyroidism 02/25/18 12/09/23 omega-3 fatty acids 1,000 mg 1,000 mg PO BID Cholesterol 02/25/18 12/09/23 capsule (Fish Oil Concentrate) amlodipine 2.5 mg tablet 2.5 mg PO HS Hypertension 11/21/20 12/09/23 risperidone 4 mg tablet 4 mg PO BID mood stabilizer 03/06/21 12/09/23 aspirin 81 mg chewable tablet 81 mg PO DAILY heart health 04/11/21 12/09/23 haloperidol 10 mg tablet 10 mg PO TID MOOD 10/07/22 12/09/23 oxcarbazepine 600 mg tablet 600 mg PO BID MOOD 10/07/22 12/09/23 quetiapine 300 mg tablet,extended 600 mg PO DAILY MOOD 10/07/22 12/09/23 release 24 hr levothyroxine 100 mcg tablet mcg PO 12/09/23 12/09/23 magnesium hydroxide 400 mg/5 mL PO 12/09/23 12/09/23 oral suspension (Milk of Magnesia) Previous Rx's Medication Instructions Recorded levofloxacin 750 mg tablet 750 mg PO DAILY #3 tabs 10/10/22 oseltamivir 75 mg capsule (Tamiflu) 75 mg PO BID #2 caps 10/10/22 clonazepam 1 mg tablet 1 mg PO BID Agitation #90 tabs 05/14/23 gabapentin 100 mg capsule 100 mg PO HS neuropathic pain #30 08/06/23 caps ketoconazole 2 % topical cream 1 applic topical QDAY tinea pedis 12/09/23 #30 grams nystatin 100,000 unit/gram topical 1 applic topical BID #45 ea 12/09/23 powder Allergies Allergy/AdvReac Type Severity Reaction Status Date / Time No Known Allergies Allergy Verified 12/09/23 13:39 [facility] <SHADY Vargas - Last Filed: 01/09/24 18:09> [facility] Disclaimer: The information contained in this section may have been updated after the patient was seen, as this information can be updated by other users. Medical History DJD (degenerative joint disease), cervical Encephalomalacia Influenza Pneumonia RBBB Schizophrenia Family History Other No significant family history Social History Smoking Status: Current every day smoker tobacco type: cigarettes packs per day: 1 second hand exposure: No alcohol intake: never substance use type: denies use current occupational status: other Travel in the last 8 weeks: None household members: other housing: other caffeine: Yes <SHADY Vargas - Last Filed: 01/09/24 18:09> ROS Obtained: Yes Systems reviewed as appropriate & no additional complaints except as documented Physical Exam <SHADY Vargas - Last Filed: 01/09/24 18:09> General General appearance: alert and in no apparent distress Head Head exam: atraumatic and normal inspection Eye Eye exam: Present normal appearance, PERRL and EOMI ENT ENT exam: Present normal exam, normal oropharynx and mucous membranes moist; Absent normal external ear exam (Patient has a small laceration to the apex of the left pinna that does not have cartilage visible. Currently hemostatic) Neck Neck exam: Present normal inspection, full ROM, trachea midline and other (Patient appears to have chronic neck issues as he holds his neck bent forward into the left side no obvious deformities or tenderness on palpation.); Absent lymphadenopathy Chest Chest inspection: Present normal inspection and symmetric chest wall rise Respiratory Respiratory exam: Present normal lung sounds bilaterally; Absent accessory muscle use Cardiovascular Cardiovascular exam: Present regular rate, normal rhythm, normal heart sounds, +S1 and +S2 Abdominal Exam Abdominal exam: Present soft and normal bowel sounds; Absent tenderness, guarding or rebound Extremities Exam Extremities exam: Present normal inspection and full ROM Neurological Exam Neurological exam: Present alert, oriented X3 and CN II-XII intact Psychiatric Psychiatric exam: Present normal affect and normal mood Skin Skin exam: Present warm, dry, normal color and other (Except are mentioned above in the HEENT exam) Medical Decision Making <SHADY Vargas - Last Filed: 01/09/24 18:09> Medical Records Medical records reviewed: Yes I reviewed the patient's medical records. Jayce Inquiry Pt receiving controlled substance: No Vital Signs: 01/09/24 16:14 Temperature 98.3 F Temperature Source Oral Pulse Rate [Right] 67 Respiratory Rate 20 Blood Pressure [Right Arm] 112/72 Blood Pressure Mean [Right Arm] 85 Blood Pressure Source [Right Arm] Automatic Cuff 02 Sat by Pulse Oximetry 95 Oxygen Delivery Method Room Air Lab Data Lab results reviewed: Yes I reviewed the patient's lab results. Orders (Tests/Meds): ED MEDICATIONS Discontinued Medications Generic Name Dose Route Start Last Admin Trade Name Sabas PRN Reason Stop Dose Admin Acetaminophen 1,000 mg 01/09/24 16:27 01/09/24 16:45 Acetaminophen 500mg Tab PO 01/09/24 16:28 1,000 mg ONCE ONE Administration Cocaine HCl 1 ml 01/09/24 16:24 01/09/24 16:40 Cocaine 4% Topical Soln 4ml Bottle TP 01/09/24 16:25 1 ml ONCE ONE Administration Epinephrine HCl 1 mg 01/09/24 16:24 01/09/24 16:42 Epinephrine 1 Mg/Ml Ampul TP 01/09/24 16:25 1 mg ONCE ONE Administration Ketorolac Tromethamine 30 mg 01/09/24 16:27 01/09/24 16:45 Ketorolac 30mg/Ml Vial IM 01/09/24 16:28 30 mg ONCE ONE Administration Lidocaine HCl 1 ml 01/09/24 16:24 01/09/24 16:38 Lidocaine 2% Urojet 10ml TP 01/09/24 16:25 1 mg ONCE ONE Administration ORDERS Category Date Time Status CT cervical spine wo con Stat Cat Scan 01/09/24 16:[address] head/brain wo con Stat Cat Scan 01/09/24 17:02 Completed Medical Decision Narrative: In summary patient is a 63-year-old male who presents to the emergency department for evaluation of unwitnessed fall. Patient is hemodynamically stable upon arrival, afebrile. Physical exam is remarkable for a small laceration to the apex of the left pinna and no deformities noted to cranial palpation or cervical spine palpation and the remainder of his exam is nonfocal and unremarkable. Differential diagnosis includes press skull fracture cervical spine injury closed head injury intracranial bleed. Initial workup will be conducted with CT of the head and C-spine without contrast. Initial interventions include Toradol and acetaminophen. Initial workup reviewed by me shows no acute fracture per my informal interpretation of his CT scans with radiologist read pending. Upon repeat evaluation patient has no penetration of the laceration to the auricular cartilage therefore I closed the skin with skin glue with good hemostasis and wound edge approximation. Given this discharged back to his assisted living facility with instruction to follow-up with his PCP as needed for any change or worsening of his signs or symptoms. Patient verbalized understanding. <Nnamdi Archuleta MD - Last Filed: 01/09/24 18:11> Vital Signs: 01/09/24 16:14 Temperature 98.3 F Temperature Source Oral Pulse Rate [Right] 67 Respiratory Rate 20 Blood Pressure [Right Arm] 112/72 Blood Pressure Mean [Right Arm] 85 Blood Pressure Source [Right Arm] Automatic Cuff 02 Sat by Pulse Oximetry 95 Oxygen Delivery Method Room Air Orders (Tests/Meds): ED MEDICATIONS Discontinued Medications Generic Name Dose Route Start Last Admin Trade Name Freq PRN Reason Stop Dose Admin Acetaminophen 1,000 mg 01/09/24 16:27 01/09/24 16:45 Acetaminophen 500mg Tab PO 01/09/24 16:28 1,000 mg ONCE ONE Administration Cocaine HCl 1 ml 01/09/24 16:24 01/09/24 16:40 Cocaine 4% Topical Soln 4ml Bottle TP 01/09/24 16:25 1 ml ONCE ONE Administration Epinephrine HCl 1 mg 01/09/24 16:24 01/09/24 16:42 Epinephrine 1 Mg/Ml Ampul TP 01/09/24 16:25 1 mg ONCE ONE Administration Ketorolac Tromethamine 30 mg 01/09/24 16:27 01/09/24 16:45 Ketorolac 30mg/Ml Vial IM 01/09/24 16:28 30 mg ONCE ONE Administration Lidocaine HCl 1 ml 01/09/24 16:24 01/09/24 16:38 Lidocaine 2% Urojet 10ml TP 01/09/24 16:25 1 mg ONCE ONE Administration ORDERS Category Date Time Status CT cervical spine wo con Stat Cat Scan 01/09/24 16:[address] head/brain wo con Stat Cat Scan 01/09/24 17:02 Completed Medical Decision Narrative: In summary patient is a 63-year-old male who presents to the emergency department for evaluation of unwitnessed fall. Patient is hemodynamically stable upon arrival, afebrile. Physical exam is remarkable for a small laceration to the apex of the left pinna and no deformities noted to cranial palpation or cervical spine palpation and the remainder of his exam is nonfocal and unremarkable. Differential diagnosis includes press skull fracture cervical spine injury closed head injury intracranial bleed. Initial workup will be conducted with CT of the head and C-spine without contrast. Initial interventions include Toradol and acetaminophen. Initial workup reviewed by me shows no acute fracture per my informal interpretation of his CT scans with radiologist read pending. Upon repeat evaluation patient has no penetration of the laceration to the auricular cartilage therefore I closed the skin with skin glue with good hemostasis and wound edge approximation. Given this discharged back to his assisted living facility with instruction to follow-up with his PCP as needed for any change or worsening of his signs or symptoms. Patient verbalized understanding. I was consulted by the MARVIN, and we discussed the complexity of the problems being addressed. I approved the treatment and management plan for this patient?s care in the Emergency Department, thus performing a substantive portion of the medical decision making. Nnamdi Archuleta MD Procedures <SHADY Vargas - Last Filed: 01/09/24 18:09> Laceration Laceration 1: Site: other (Ear) Side (If applicable): left Size (cm): 1.5 Description: linear Depth: simple, single layer Local Anesthetic: other anesthetic (Topical) Pre-repair: irrigated extensively and deep structures intact Skin layer closed with: Dermabond Critical Care <SHADY Vargas - Last Filed: 01/09/24 18:09> Critical Care Time Critical Care Time: No
--- NOTE | 2024-01-09 16:27 | CT_ITS ---
PROCEDURE INFORMATION: Exam: CT Cervical Spine Without Contrast Exam date and time: 01/09/2024 5:11 PM Age: 63 years old Clinical indication: Injury or trauma; Fall; Blunt trauma; Additional info: Head trauma TECHNIQUE: Imaging protocol: Computed tomography of the cervical spine without contrast. Radiation optimization: All CT scans at this facility use at least one of these dose optimization techniques: automated exposure control; mA and/or kV adjustment per patient size (includes targeted exams where dose is matched to clinical indication); or iterative reconstruction. COMPARISON: CT CERVICAL SPINE WO CON 10/04/2022 11:47 AM FINDINGS: Bones/joints: Nonspecific straightening. Trace retrolisthesis of C3 on C4. Vertebral body heights are preserved. [id number] degenerative change about the dens. Mild to moderate prevertebral osteophytosis. There are facet joint degenerative changes. No acute cervical spine fracture. No definite high-grade central canal stenosis within limitations of technique. Scattered cervical foraminal stenoses. Chronic right clavicle fracture. Lungs: Lung apices are normal. Pleural spaces: No visible pneumothorax. Soft tissues: Unremarkable. IMPRESSION: No acute osseous abnormality.
[2024-01-09] MEDS: LIDOCAINE 2% UROJET 10ML TP (16:38)
[2024-01-09] MEDS: COCAINE 4% TOPICAL SOLN 4ML BOTTLE 1 ML TP (16:40)
[2024-01-09] MEDS: EPINEPHrine 1 MG/ML AMPUL TP (16:42)
[2024-01-09] MEDS: KETOROLAC 30MG/ML VIAL 30 MG IM (16:45)
[2024-01-09] MEDS: ACETAMINOPHEN 500MG TAB 1000 MG PO (16:45)
--- NOTE | 2024-01-09 17:02 | CT_ITS ---
PROCEDURE INFORMATION: Exam: CT Head Without Contrast Exam date and time: 01/09/2024 5:09 PM Age: 63 years old Clinical indication: Injury or trauma; Fall; Bleeding/hemorrhage and blunt trauma (contusions or hematomas); Consciousness not specified; Patient HX: Patient fell, left ear laceration. ; Additional info: Head trauma TECHNIQUE: Imaging protocol: Computed tomography of the head without contrast. Radiation optimization: All CT scans at this facility use at least one of these dose optimization techniques: automated exposure control; mA and/or kV adjustment per patient size (includes targeted exams where dose is matched to clinical indication); or iterative reconstruction. COMPARISON: CT HEAD/BRAIN WO CON 10/07/2022 9:57 AM FINDINGS: Brain: Age-related volume loss. Decreased attenuation of the supratentorial white matter is likely secondary to chronic microvascular ischemia. Right cerebellar encephalomalacia with dystrophic calcification. No acute intracranial hemorrhage or significant intracranial mass effect. Cerebral ventricles: Ventriculomegaly is commensurate for degree of volume loss. Paranasal sinuses: Mucosal disease involving the [id number]-right maxillary sinuses. Minimal scattered additional paranasal sinus disease. Mastoid air cells: Visualized mastoid air cells are well aerated. Bones/joints: Unremarkable. No acute fracture. Soft tissues: Left periorbital soft tissue swelling. IMPRESSION: No acute intracranial abnormality.
[2024-01-09 18:09] VITALS: BP 147/98; PULSE 66; O2SAT 98
--- NOTE | 2024-01-09 18:09 | PC.NURSE ---
[facility] staff called asking for a pt update. Update given and phone # left to call when he is ready for d/c
[2024-01-09 18:11] VITALS: BP 147/98; PULSE 66; RESP 17; TEMP 36.7; O2SAT 98
--- NOTE | 2024-01-09 18:27 | PC.NURSE ---
[facility] staff here and pt walked out with her.
== END 2024-01-09 18:27 | disposition home or self-care (01) ==
PROVIDERS: Emergency Provider Emergency Medicine
DX: S01.312A Laceration without foreign body of left ear, initial encounter (principal); F17.210 Nicotine dependence, cigarettes, uncomplicated; E03.9 Hypothyroidism, unspecified; I10 Essential (primary) hypertension; E78.5 Hyperlipidemia, unspecified; F20.9 Schizophrenia, unspecified; W19.XXXA Unspecified fall, initial encounter
CPT/HCPCS: 12001; 70450; 72125; 96372; 99284

== ENCOUNTER 2024-10-21 23:55 | Emergency (ER) | payer MEDICAID, SELFPAY ==
[2024-10-21 23:55] VITALS: BP 140/97; PULSE 69; RESP 14; TEMP 36.6; O2SAT 97; BMI 32.5
--- NOTE | 2024-10-22 | CT_ITS ---
PROCEDURE INFORMATION: Exam: CT Cervical Spine Without Contrast Exam date and time: 10/22/2024 12:18 AM Age: 64 years old Clinical indication: Injury or trauma; Fall; Blunt trauma TECHNIQUE: Imaging protocol: Computed tomography of the cervical spine without contrast. Radiation optimization: All CT scans at this facility use at least one of these dose optimization techniques: automated exposure control; mA and/or kV adjustment per patient size (includes targeted exams where dose is matched to clinical indication); or iterative reconstruction. COMPARISON: CT CERVICAL SPINE WO CON 01/09/2024 5:11 PM FINDINGS: Bones/joints: Mild disc space narrowing at all cervical levels. Large anterior osteophytes at C5 and C6. C2-C3: No significant disc bulge or herniation. No severe spinal canal stenosis. Facet hypertrophy with mild left foraminal stenosis. C3-C4: No significant disc bulge or herniation. No severe spinal canal stenosis. No significant neural foraminal narrowing. C4-C5: No significant disc bulge or herniation. No severe spinal canal stenosis. No significant neural foraminal narrowing. C5-C6: No significant disc bulge or herniation. No severe spinal canal stenosis. No significant neural foraminal narrowing. C6-C7: No significant disc bulge or herniation. No severe spinal canal stenosis. No significant neural foraminal narrowing. C7-T1: No significant disc bulge or herniation. No severe spinal canal stenosis. No significant neural foraminal narrowing. Lungs: Lung apices are normal. Soft tissues: Unremarkable. IMPRESSION: No acute fracture or subluxation. Mild multilevel degenerative disc disease. Facet hypertrophy with mild left foraminal stenosis at C2-C3.
--- NOTE | 2024-10-22 | CT_ITS ---
PROCEDURE INFORMATION: Exam: CT Head Without Contrast Exam date and time: 10/22/2024 12:16 AM Age: 64 years old Clinical indication: Injury or trauma; Fall; Blunt trauma (contusions or hematomas) TECHNIQUE: Imaging protocol: Computed tomography of the head without contrast. Radiation optimization: All CT scans at this facility use at least one of these dose optimization techniques: automated exposure control; mA and/or kV adjustment per patient size (includes targeted exams where dose is matched to clinical indication); or iterative reconstruction. COMPARISON: CT HEAD/BRAIN WO CON 01/09/2024 5:09 PM FINDINGS: Brain: Mild cerebral and cerebellar atrophy. No hemorrhage. Symmetric hypoattenuation in the periventricular white matter. No mass or mass effect. Stable encephalomalacia and calcification in the right cerebellar hemisphere. Stable calcification of the falx and tentorium. Cerebral ventricles: Stable mild dilation of the ventricles. Paranasal sinuses: Mucosal thickening in the bilateral maxillary sinuses. Mastoid air cells: Visualized mastoid air cells are well aerated. Bones: Unremarkable. No acute fracture. Soft tissues: Unremarkable. IMPRESSION: 1. No acute intracranial abnormality. 2. Age-related cortical atrophy. 3. Hypoattenuation in the periventricular white matter, suspicious for small vessel ischemic disease. 4. Stable Mild ventriculomegaly. The appearance is nonspecific, differential diagnosis includes age-related atrophy versus normal pressure hydrocephalus. Correlate clinically. 5. Stable chronic maxillary sinusitis.
--- NOTE | 2024-10-22 | XR_ITS ---
PROCEDURE INFORMATION: Exam: XR Chest Exam date and time: 10/22/2024 12:17 AM Age: 64 years old Clinical indication: Injury or trauma; Fall; Blunt trauma (contusions or hematomas) TECHNIQUE: Imaging protocol: Radiologic exam of the chest. Views: 1 view. COMPARISON: CR XR CHEST PORTABLE 04/27/2023 2:39 PM FINDINGS: Lungs: Unremarkable. No consolidation. Pleural spaces: Unremarkable. No pleural effusion. No pneumothorax. Heart/Mediastinum: Unremarkable. No cardiomegaly. Vasculature: Ectatic thoracic aorta. Bones/joints: Old mid right clavicular fracture. No acute fracture. IMPRESSION: No acute findings.
--- NOTE | 2024-10-22 00:05 | HMH.EDGENADL ---
Discharge Plan Disposition Patient Disposition: Home, Self-Care Condition: Good Prescriptions Prescriptions: No Action levothyroxine 100 mcg tablet PO magnesium hydroxide [Milk of Magnesia] 400 mg/5 mL suspension PO nystatin 100,000 unit/gram powder 1 applic topical BID Qty: 45 3RF Rx Instructions: Apply between the toes daily ketoconazole 2 % cream 1 applic topical QDAY Qty: 30 3RF Rx Instructions: Apply to affected areas. Do not apply between toes. divalproex 500 mg tablet,delayed release (DR/EC) 500 mg PO BID omega-3 fatty acids [Fish Oil Concentrate] 1,000 mg capsule 1,000 mg PO BID levothyroxine 100 mcg capsule 100 mcg PO DAILY clonazepam 1 mg tablet 1 mg PO BID Qty: 90 5RF Rx Instructions: plus one prn daily gabapentin 100 mg capsule 100 mg PO HS Qty: 30 5RF amlodipine 2.5 MG tablet 2.5 mg PO HS risperidone 4 MG tablet 4 mg PO BID aspirin 81 MG tablet,chewable 81 mg PO DAILY quetiapine 300 mg tablet extended release 24 hr 600 mg PO DAILY haloperidol 10 mg tablet 10 mg PO TID oxcarbazepine 600 mg tablet 600 mg PO BID oseltamivir [Tamiflu] 75 mg Capsule 75 mg PO BID Qty: 2 0RF levofloxacin 750 mg Tablet 750 mg PO DAILY Qty: 3 0RF Activity Restrictions/Add. Instructions Additional Instructions/Restrictions: Please follow-up with your primary care provider. Please return to the emergency department if you develop any new or worsening symptoms or become concerned for your health. Clinical Impressions Clinical Impression: Fall, Abrasion head Print Language Print Language: Malay Discharge ED Provider: [facility] HPI General Chief complaint: Fall Stated complaint: fall from bed Time Seen by Provider: 10/22/24 00:00 Mode of Arrival: EMS Source of Information: Patient Limitations: No Limitations Description of Symptoms (Recalled from ER Triage Doc. by RN): Patient reports he fell out of bed and hit his head on the right side of his forehead. Denies neck/back pain. States he just has a headache. History of Present Illness HPI narrative: 64-year-old male with history of schizophrenia, resident at [facility] presents after a fall. He reports that he fell out of bed and hit his head. He denies any other symptoms or injuries. Reports that he has a mild headache. Related Data Home Medications ?Medication ?Instructions ?Recorded ?Confirmed divalproex 500 mg tablet,delayed 500 mg PO BID mood stabilizer 02/25/18 12/09/23 release levothyroxine 100 mcg capsule 100 mcg PO DAILY hypothyroidism 02/25/18 12/09/23 omega-3 fatty acids 1,000 mg 1,000 mg PO BID Cholesterol 02/25/18 12/09/23 capsule (Fish Oil Concentrate) amlodipine 2.5 mg tablet 2.5 mg PO HS Hypertension 11/21/20 12/09/23 risperidone 4 mg tablet 4 mg PO BID mood stabilizer 03/06/21 12/09/23 aspirin 81 mg chewable tablet 81 mg PO DAILY heart health 04/11/21 12/09/23 haloperidol 10 mg tablet 10 mg PO TID MOOD 10/07/22 12/09/23 oxcarbazepine 600 mg tablet 600 mg PO BID MOOD 10/07/22 12/09/23 quetiapine 300 mg tablet,extended 600 mg PO DAILY MOOD 10/07/22 12/09/23 release 24 hr levothyroxine 100 mcg tablet mcg PO 12/09/23 12/09/23 magnesium hydroxide 400 mg/5 mL PO 12/09/23 12/09/23 oral suspension (Milk of Magnesia) Previous Rx's ?Medication ?Instructions ?Recorded levofloxacin 750 mg tablet 750 mg PO DAILY #3 tabs 10/10/22 oseltamivir 75 mg capsule (Tamiflu) 75 mg PO BID #2 caps 10/10/22 clonazepam 1 mg tablet 1 mg PO BID Agitation #90 tabs 05/14/23 gabapentin 100 mg capsule 100 mg PO HS neuropathic pain #30 08/06/23 caps ketoconazole 2 % topical cream 1 applic topical QDAY tinea pedis 12/09/23 #30 grams nystatin 100,000 unit/gram topical 1 applic topical BID #45 ea 12/09/23 powder Allergies Allergy/AdvReac Type Severity Reaction Status Date / Time No Known Allergies Allergy Verified 12/09/23 13:39 [facility] Disclaimer: The information contained in this section may have been updated after the patient was seen, as this information can be updated by other users. Medical History DJD (degenerative joint disease), cervical Encephalomalacia Influenza Pneumonia RBBB Schizophrenia Family History Other No significant family history Social History Smoking Status: Current every day smoker tobacco type: cigarettes packs per day: 1 second hand exposure: No alcohol intake: never substance use type: denies use current occupational status: other Travel in the last 8 weeks: None household members: other housing: other caffeine: Yes Other Medical History Have you received the Flu Vaccine for this season: No Have you received the Pneumonia Vaccine: No ROS Obtained: Yes All systems reviewed & no additional complaints except as documented Physical Exam General General appearance: alert and in no apparent distress Head Head exam: normocephalic and other (Forehead abrasion noted) Eye Eye exam: Present normal appearance, PERRL and EOMI ENT ENT exam: Present normal oropharynx and normal external ear exam Neck Neck exam: Present normal inspection and full ROM; Absent tenderness Chest Chest inspection: Present normal inspection and symmetric chest wall rise; Absent tenderness Respiratory Respiratory exam: Present normal lung sounds bilaterally; Absent respiratory distress Cardiovascular Cardiovascular exam: Present regular rate and normal rhythm Abdominal Exam Abdominal exam: Present soft; Absent distention, tenderness or guarding Extremities Exam Extremities exam: Present normal inspection; Absent edema or joint swelling Back Exam Back exam: Present normal inspection; Absent tenderness Neurological Exam Neurological exam: Present alert and oriented X3; Absent motor sensory deficit Psychiatric Psychiatric exam: Present normal affect and normal mood Skin Skin exam: Present warm, dry and normal color Lymphatic Lymphatic Findings: no adenopathy Medical Decision Making Medical Records Medical records reviewed: Yes I reviewed the patient's medical records. Screening: Per USPSTF and CDC recommendations, given the prevalence of disease in our region, it is our hospital?s policy to screen for HIV and viral Hepatitis for all patients aged 18 and over and those with ongoing risk factors. Jayce Inquiry Pt receiving controlled substance: No Jayce was queried for this patient: No Vital Signs: 10/21/24 23:55 10/22/24 00:30 10/22/24 01:00 Temperature 97.9 F Temperature Source Oral Pulse Rate 69 73 Pulse Rate [Right Radial] 69 Respiratory Rate 14 Blood Pressure 126/82 121/83 Blood Pressure [Right Arm] 140/97 H Blood Pressure Mean 91 Blood Pressure Mean [Right Arm] 111 Blood Pressure Source Blood Pressure Source [Right Arm] Automatic Cuff Blood Pressure Position Blood Pressure Position [Right Arm] Supine 02 Sat by Pulse Oximetry 97 96 96 Oxygen Delivery Method Room Air 10/22/24 01:42 Temperature 97.9 F Temperature Source Oral Pulse Rate 65 Pulse Rate [Right Radial] Respiratory Rate 16 Blood Pressure 129/74 Blood Pressure [Right Arm] Blood Pressure Mean Blood Pressure Mean [Right Arm] Blood Pressure Source Automatic Cuff Blood Pressure Source [Right Arm] Blood Pressure Position Supine Blood Pressure Position [Right Arm] 02 Sat by Pulse Oximetry Oxygen Delivery Method Room Air Lab Data Lab results reviewed: Yes I reviewed the patient's lab results. Orders (Tests/Meds): ORDERS Category Date Time Status CT cervical spine wo con Stat Cat Scan 10/22/24 00:[address] head/brain wo con Stat Cat Scan 10/22/24 00:00 Completed CXR --portable [XR chest portable] Stat Exams 10/22/24 00:00 Completed Medical Decision Narrative: 64-year-old male with history of schizophrenia presents after a fall out of bed at [facility]. History was obtained via interactive discussion with patient, EMS. On arrival, patient is [afebrile, hemodynamically stable, satting appropriately, alert, oriented x4, GCS 15], moving all extremities spontaneously. Full physical exam performed and significant for abrasion on the forehead, no midline C-spine tenderness, no chest abdomen back or extremity tenderness Differential includes but is not limited to intracranial trauma intrathoracic trauma intra-abdominal trauma spine trauma extremity trauma. Workup initiated including CT head, CT C-spine, chest x-ray. On re-evaluation, patient [remains afebrile, HD stable.] Imaging independently interpreted by me and significant for no evidence of intracranial bleeding, no cervical fracture, chest x-ray without focal opacity or fracture. See radiology read for full review of final results. Trauma scans, labs was considered, but deemed unnecessary due to history and exam. Given patient history, exam and workup, patient's presentation most likely represents fall with abrasion to the forehead. Patient was discharged in stable condition with return precautions. Procedures Risk/Benefits of Procedure(s) Were Explained: Yes Critical Care Critical Care Time Critical Care Time: No
[2024-10-22 00:30] VITALS: BP 126/82; PULSE 69; O2SAT 96
[2024-10-22 01:00] VITALS: BP 121/83; PULSE 73; O2SAT 96
[2024-10-22 01:42] VITALS: BP 129/74; PULSE 65; RESP 16; TEMP 36.6; O2SAT 98
== END 2024-10-22 02:09 | disposition home or self-care (01) ==
LOC: ER 10-22 00:24
PROVIDERS: Emergency Provider Emergency Medicine
DX: S00.91XA Abrasion of unspecified part of head, initial encounter (principal); R51.9 Headache, unspecified; W06.XXXA Fall from bed, initial encounter; Y93.89 Activity, other specified; Y92.122 Bedroom in nursing home as the place of occurrence of the external cause
CPT/HCPCS: 70450; 71045; 72125; 99284

== ENCOUNTER 2024-10-24 23:11 | Emergency (ER) | payer MEDICAID, SELFPAY ==
[2024-10-24 23:11] VITALS: BP 139/92; PULSE 77; RESP 18; TEMP 37.1; O2SAT 95; BMI 25.7
--- NOTE | 2024-10-24 23:23 | HMH.EDGENADL ---
Discharge Plan Disposition Patient Disposition: Home, Self-Care Prescriptions Prescriptions: No Action levothyroxine 100 mcg tablet PO magnesium hydroxide [Milk of Magnesia] 400 mg/5 mL suspension PO nystatin 100,000 unit/gram powder 1 applic topical BID Qty: 45 3RF Rx Instructions: Apply between the toes daily ketoconazole 2 % cream 1 applic topical QDAY Qty: 30 3RF Rx Instructions: Apply to affected areas. Do not apply between toes. divalproex 500 mg tablet,delayed release (DR/EC) 500 mg PO BID omega-3 fatty acids [Fish Oil Concentrate] 1,000 mg capsule 1,000 mg PO BID levothyroxine 100 mcg capsule 100 mcg PO DAILY clonazepam 1 mg tablet 1 mg PO BID Qty: 90 5RF Rx Instructions: plus one prn daily gabapentin 100 mg capsule 100 mg PO HS Qty: 30 5RF amlodipine 2.5 MG tablet 2.5 mg PO HS risperidone 4 MG tablet 4 mg PO BID aspirin 81 MG tablet,chewable 81 mg PO DAILY quetiapine 300 mg tablet extended release 24 hr 600 mg PO DAILY haloperidol 10 mg tablet 10 mg PO TID oxcarbazepine 600 mg tablet 600 mg PO BID oseltamivir [Tamiflu] 75 mg Capsule 75 mg PO BID Qty: 2 0RF levofloxacin 750 mg Tablet 750 mg PO DAILY Qty: 3 0RF Referrals Follow up/Referrals: Provider,Referral, MD [Primary Care Provider] - See instructions Activity Restrictions/Add. Instructions Additional Instructions/Restrictions: Please follow-up with your primary care provider. Please return to the emergency department if you develop any new or worsening symptoms or become concerned for your health. Clinical Impressions Clinical Impression: Fall Schizophrenia Qualifiers: Schizophrenia type: unspecified Qualified Code(s): F20.9 - Schizophrenia, unspecified Print Language Print Language: Mohawk Discharge ED Provider: [facility] Adult HPI General Chief complaint: Fall Stated complaint: Fall Time Seen by Provider: 10/24/24 23:23 History of Present Illness HPI narrative: 64-year-old male with history of multiple falls, schizophrenia, lives at [facility] presents for a fall. He reports he fell and hit his head and it hurts. He denies any other injuries. He was seen a few days ago for similar symptoms. Related Data Home Medications ?Medication ?Instructions ?Recorded ?Confirmed divalproex 500 mg tablet,delayed 500 mg PO BID mood stabilizer 02/25/18 12/09/23 release levothyroxine 100 mcg capsule 100 mcg PO DAILY hypothyroidism 02/25/18 12/09/23 omega-3 fatty acids 1,000 mg 1,000 mg PO BID Cholesterol 02/25/18 12/09/23 capsule (Fish Oil Concentrate) amlodipine 2.5 mg tablet 2.5 mg PO HS Hypertension 11/21/20 12/09/23 risperidone 4 mg tablet 4 mg PO BID mood stabilizer 03/06/21 12/09/23 aspirin 81 mg chewable tablet 81 mg PO DAILY heart health 04/11/21 12/09/23 haloperidol 10 mg tablet 10 mg PO TID MOOD 10/07/22 12/09/23 oxcarbazepine 600 mg tablet 600 mg PO BID MOOD 10/07/22 12/09/23 quetiapine 300 mg tablet,extended 600 mg PO DAILY MOOD 10/07/22 12/09/23 release 24 hr levothyroxine 100 mcg tablet mcg PO 12/09/23 12/09/23 magnesium hydroxide 400 mg/5 mL PO 12/09/23 12/09/23 oral suspension (Milk of Aspire) Previous Rx's ?Medication ?Instructions ?Recorded levofloxacin 750 mg tablet 750 mg PO DAILY #3 tabs 10/10/22 oseltamivir 75 mg capsule (Tamiflu) 75 mg PO BID #2 caps 10/10/22 clonazepam 1 mg tablet 1 mg PO BID Agitation #90 tabs 05/14/23 gabapentin 100 mg capsule 100 mg PO HS neuropathic pain #30 08/06/23 caps ketoconazole 2 % topical cream 1 applic topical QDAY tinea pedis 12/09/23 #30 grams nystatin 100,000 unit/gram topical 1 applic topical BID #45 ea 12/09/23 powder Allergies Allergy/AdvReac Type Severity Reaction Status Date / Time No Known Allergies Allergy Verified 12/09/23 13:39 [facility] Disclaimer: The information contained in this section may have been updated after the patient was seen, as this information can be updated by other users. Medical History DJD (degenerative joint disease), cervical Encephalomalacia Influenza Pneumonia RBBB Schizophrenia Family History Other No significant family history Social History Smoking Status: Current every day smoker tobacco type: cigarettes packs per day: 1 second hand exposure: No alcohol intake: never substance use type: denies use current occupational status: other Travel in the last 8 weeks: None household members: other housing: other caffeine: Yes Have you lived/traveled outside [place] in past 30 days?: No Contact w/someone who lives/traveled outside US past 30 days?: No Exposure to someone with infectious disease in past 14 days?: No Do you have a fever (greater than 100.4 F or 38 C)?: No Have you tested positive for COVID-19: No Exposed to someone with COVID-19 in past 14 days?: No Do you have a sore throat?: No Do you have a cough?: No Do you have any weakness?: No Do you have any diarrhea?: No Are you experiencing any unusual bleeding?: No Do you have any muscle aches/pain?: No Do you have any abdominal pain?: No Are you experiencing loss of taste or smell?: No Other Medical History Have you received the Flu Vaccine for this season: No Have you received the Pneumonia Vaccine: No ROS Obtained: Yes All systems reviewed & no additional complaints except as documented Physical Exam General General appearance: alert and in no apparent distress Head Head exam: atraumatic and normocephalic Eye Eye exam: Present normal appearance, PERRL and EOMI ENT ENT exam: Present normal oropharynx and normal external ear exam Neck Neck exam: Present normal inspection and full ROM Chest Chest inspection: Present normal inspection and symmetric chest wall rise; Absent tenderness Respiratory Respiratory exam: Present normal lung sounds bilaterally; Absent respiratory distress Cardiovascular Cardiovascular exam: Present regular rate and normal rhythm Abdominal Exam Abdominal exam: Present soft; Absent distention, tenderness or guarding Extremities Exam Extremities exam: Present normal inspection; Absent edema or joint swelling Back Exam Back exam: Present normal inspection; Absent tenderness Neurological Exam Neurological exam: Present alert and oriented X3; Absent motor sensory deficit Psychiatric Psychiatric exam: Present normal affect and normal mood Skin Skin exam: Present warm, dry and normal color Lymphatic Lymphatic Findings: no adenopathy Medical Decision Making Medical Records Medical records reviewed: Yes I reviewed the patient's medical records. Screening: Per USPSTF and CDC recommendations, given the prevalence of disease in our region, it is our hospital?s policy to screen for HIV and viral Hepatitis for all patients aged 18 and over and those with ongoing risk factors. Jayce Inquiry Pt receiving controlled substance: No Jayce was queried for this patient: No Vital Signs: 10/24/24 23:11 10/25/24 01:01 Temperature 98.7 F 98.5 F Temperature Source Oral Oral Pulse Rate 80 Pulse Rate [Left Radial] 77 Respiratory Rate 18 17 Blood Pressure 119/86 Blood Pressure [Right Arm] 139/92 H Blood Pressure Mean [Right Arm] 107 Blood Pressure Source Automatic Cuff Blood Pressure Source [Right Arm] Automatic Cuff Blood Pressure Position Sitting Blood Pressure Position [Right Arm] Sitting 02 Sat by Pulse Oximetry 95 Oxygen Delivery Method Room Air Room Air Lab Data Lab results reviewed: Yes I reviewed the patient's lab results. Orders (Tests/Meds): ORDERS Category Date Time Status CT cervical spine wo con Stat Cat Scan 10/24/24 23:[address] head/brain wo con Stat Cat Scan 10/24/24 23:43 Completed Medical Decision Narrative: 64-year-old male with history of schizophrenia, lives at [facility], seen often for falls, presents for fall. He reports he hit his head and it hurts. Denies loss of consciousness.. History was obtained via interactive discussion with patient, EMS. On arrival, patient is afebrile, hematin stable, at mental status baseline, moving all extremities spontaneously. Full physical exam performed and significant for no bruising over the scalp, no cervical thoracic or lumbar spinal tenderness, no tenderness over the chest abdomen or extremities Differential includes but is not limited to intracranial trauma intrathoracic trauma intra-abdominal trauma spine trauma extremity trauma. Workup initiated including CT head, CT C-spine. On re-evaluation, patient [remains afebrile, HD stable.] Imaging independently interpreted by me and significant for no evidence of intracranial trauma or cervical spinal trauma. See radiology read for full review of final results. Blood work and full trauma scans was considered, but deemed unnecessary due to history, benign exam. After negative workup patient was discharged but is spending the night in the ER because he has no transport back. Procedures Risk/Benefits of Procedure(s) Were Explained: Yes Critical Care Critical Care Time Critical Care Time: No
[2024-10-24 23:30] VITALS: BP 114/74; PULSE 71; O2SAT 93
--- NOTE | 2024-10-24 23:43 | CT_ITS ---
PROCEDURE INFORMATION: Exam: CT Cervical Spine Without Contrast Exam date and time: 10/25/2024 12:21 AM Age: 64 years old Clinical indication: Injury or trauma; Fall; Other: Pain TECHNIQUE: Imaging protocol: Computed tomography of the cervical spine without contrast. Radiation optimization: All CT scans at this facility use at least one of these dose optimization techniques: automated exposure control; mA and/or kV adjustment per patient size (includes targeted exams where dose is matched to clinical indication); or iterative reconstruction. COMPARISON: CT CERVICAL SPINE WO CON 10/22/2024 12:18 AM FINDINGS: Vertebral Bodies: There is no fracture or destructive lesion. The vertebral bodies and posterior elements are intact. Alignment: Normal. No subluxation. Reversal of cervical lordosis. Discs: disc space narrowing and osteophytosis at C5-C6 and C6-C7 Central canal: mild central canal stenosis at C5-C6 and C6-C7 Neural foramina: uncovertebral and facet hypertrophy with moderate bilateral foraminal stenosis at C5-C6 and C6-C7 The visualized portion of the posterior fossa and brainstem are unremarkable. The prevertebral soft tissues and airway are unremarkable. Lymph nodes: No suspicious lymph nodes. Thyroid gland: Normal. Carotid arteries: Normal. Lung apices: Normal. Soft tissues: Normal. IMPRESSION: 1. No acute fracture, dislocation or subluxation. 2. Multilevel degenerative disc disease and hypertrophic arthropathy with associated central canal and foraminal stenosis, as described above. 3. Straightening of the cervical spine, suspicious for muscular spasm.
--- NOTE | 2024-10-24 23:43 | CT_ITS ---
PROCEDURE INFORMATION: Exam: CT Head Without Contrast Exam date and time: 10/25/2024 12:17 AM Age: 64 years old Clinical indication: Injury or trauma; Fall; Other: Pain TECHNIQUE: Imaging protocol: Computed tomography of the head without contrast. Radiation optimization: All CT scans at this facility use at least one of these dose optimization techniques: automated exposure control; mA and/or kV adjustment per patient size (includes targeted exams where dose is matched to clinical indication); or iterative reconstruction. COMPARISON: CT HEAD/BRAIN WO CON 10/22/2024 12:16 AM FINDINGS: Brain: Mild cerebral and cerebellar atrophy. No hemorrhage. Symmetric hypoattenuation in the periventricular white matter. No mass or mass effect. Stable encephalomalacia and calcification in the right cerebellar hemisphere. Stable calcification of the falx and left tentorium. Cerebral ventricles: Normal. Paranasal sinuses: Mucosal thickening in the left maxillary sinus. No fluid levels. Mastoid air cells: Visualized mastoid air cells are well aerated. Bones: Unremarkable. No acute fracture. Soft tissues: Unremarkable. IMPRESSION: 1. No acute intracranial abnormality. 2. Age-related cortical atrophy. 3. Hypoattenuation in the periventricular white matter, suspicious for small vessel ischemic disease. 4. No significant interval change.
[2024-10-25] VITALS: BP 110/77; PULSE 70; O2SAT 92
[2024-10-25 01:01] VITALS: BP 119/86; PULSE 80; RESP 17; TEMP 36.9; O2SAT 92
--- NOTE | 2024-10-25 01:10 | PC.NURSE ---
Call made to [facility] to arrange patient transport back to facility. Spoke with an employee who states they have two employees working at this time and neither one has a route sales delivery drivers supervisor license who can come and pick out hand patient, but they will have someone that can come and pick patient up approx [phone] at change of shift. YAN Davidson called white sugar supervisor at [facility] and white sugar supervisor informed that they will attempt to get a ahold of dispatch for transportation. Per dispatch, police denied patient transport. Patient provided a warm blanket/pillow/sandwich and drink for comfort/request. Patient informed that he will be staying in ER until crime scene investigator.
--- NOTE | 2024-10-25 03:34 | PC.NURSE ---
Patient resting comfortably with eyes closed in bed at this time. Respirations even and unlabored. No needs at this time.
[2024-10-25 05:43] VITALS: BP 131/87; PULSE 72; O2SAT 96
--- NOTE | 2024-10-25 06:31 | PC.NURSE ---
Patient resting with eyes closed, respirations even and unlabored. No needs voiced at this time. warm blankets provided.
== END 2024-10-25 06:47 | disposition home or self-care (01) ==
PROVIDERS: Emergency Provider Emergency Medicine
DX: F20.9 Schizophrenia, unspecified (principal); R51.9 Headache, unspecified; W19.XXXA Unspecified fall, initial encounter; Y93.9 Activity, unspecified; Y92.9 Unspecified place or not applicable
CPT/HCPCS: 70450; 72125; 99284

== ENCOUNTER 2024-10-30 12:07 | Emergency (ER) | payer MEDICAID, SELFPAY ==
[2024-10-30] VITALS (7 sets, daily range): BP systolic 103–127; BP diastolic 72–90; PULSE 70–84; RESP 18–19; TEMP 36.3–36.7; O2SAT 91–96; BMI 37.6
--- NOTE | 2024-10-30 12:43 | CT_ITS ---
FINAL REPORT TECHNIQUE: Axial images were obtained through the chest without contrast. Sagittal and coronal reformatted images were obtained and reviewed. This study was performed with techniques to keep radiation doses as low as reasonably achievable, (ALARA). Individualized dose reduction techniques using automated exposure control or adjustment of mA and/or kV according to the patient's size were employed. CLINICAL HISTORY: R sided rib pain anterioly after fall COMPARISON: 03/08/2021 FINDINGS: There is dense coronary artery calcification. Small bilateral effusions are identified with overlying atelectasis at the lung bases. The heart size is normal. There is no pericardial effusion. There is a benign-appearing cyst arising from the superior pole of the right kidney measuring 1.5 cm. There are nonobstructing right kidney stones. 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 Findings are slightly larger than previous. IMPRESSION: Bilateral effusions with bibasilar atelectasis. Benign-appearing right renal cyst. Nonobstructing right renal stones. 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 Reviewed, Interpreted and Dictated by Ezekiel Lott MD Transcribed by Jess Portillo Authenticated and [facility]
--- NOTE | 2024-10-30 12:59 | ED_ITS ---
Discharge Plan Disposition Patient Disposition: Home, Self-Care Chief Complaint: PAIN Prescriptions Prescriptions: No Action levothyroxine 100 mcg tablet PO magnesium hydroxide [Milk of Magnesia] 400 mg/5 mL suspension PO nystatin 100,000 unit/gram powder 1 applic topical BID Qty: 45 3RF Rx Instructions: Apply between the toes daily ketoconazole 2 % cream 1 applic topical QDAY Qty: 30 3RF Rx Instructions: Apply to affected areas. Do not apply between toes. divalproex 500 mg tablet,delayed release (DR/EC) 500 mg PO BID omega-3 fatty acids [Fish Oil Concentrate] 1,000 mg capsule 1,000 mg PO BID levothyroxine 100 mcg capsule 100 mcg PO DAILY clonazepam 1 mg tablet 1 mg PO BID Qty: 90 5RF Rx Instructions: plus one prn daily gabapentin 100 mg capsule 100 mg PO HS Qty: 30 5RF amlodipine 2.5 MG tablet 2.5 mg PO HS risperidone 4 MG tablet 4 mg PO BID aspirin 81 MG tablet,chewable 81 mg PO DAILY quetiapine 300 mg tablet extended release 24 hr 600 mg PO DAILY haloperidol 10 mg tablet 10 mg PO TID oxcarbazepine 600 mg tablet 600 mg PO BID oseltamivir [Tamiflu] 75 mg Capsule 75 mg PO BID Qty: 2 0RF levofloxacin 750 mg Tablet 750 mg PO DAILY Qty: 3 0RF Referrals Follow up/Referrals: Provider,Referral, MD [Primary Care Provider] - See instructions Activity Restrictions/Add. Instructions Additional Instructions/Restrictions: Call your family doctor to establish care for this visit to the emergency department and schedule follow-up within 48 hours to ensure improvement. If you have any worsening of your condition or any other concerning signs or symptoms, return to the emergency department or your primary care doctor for further evaluation. Take Tylenol 1000 mg every 6 hours (4 times daily) and ibuprofen 400 mg every 6 hours (4 times daily) as needed with food and water to prevent GI upset and kidney damage. Clinical Impressions Clinical Impression: Rib pain on right side Print Language Print Language: [place] Discharge ED Provider: Nnamdi Archuleta General Adult HPI General Chief complaint: PAIN Stated complaint: right side pain Time Seen by Provider: 10/30/24 12:08 Mode of Arrival: EMS Source of Information: Patient and EMS Limitations: No Limitations Description of Symptoms (Recalled from ER Triage Doc. by RN): pt states pain in the right rib are, states no falls, old bruising noted in area History of Present Illness HPI narrative: Please note that above description of symptoms, in this electronic medical record under categorization of recalled from ER triage doctor by RN are reflective of an initial nursing assessment, however, is not reflective of my full history and physical exam that was personally taken and clarified. Consequentially, this preceding description of symptoms, which may include the patient's categorized chief complaint in the EMR, do not reflect my personal clinical impression, and the ultimate description of history of present illness and patient stated complaints should be deferred to this section of the note. Unless stated otherwise or congruent with this section of the note, additional signs, symptoms, or incongruence should be interpreted as inaccurate with my clinical impression. Related Data Home Medications ?Medication ?Instructions ?Recorded ?Confirmed divalproex 500 mg tablet,delayed 500 mg PO BID mood stabilizer 02/25/18 12/09/23 release levothyroxine 100 mcg capsule 100 mcg PO DAILY hypothyroidism 02/25/18 12/09/23 omega-3 fatty acids 1,000 mg 1,000 mg PO BID Cholesterol 02/25/18 12/09/23 capsule (Fish Oil Concentrate) amlodipine 2.5 mg tablet 2.5 mg PO HS Hypertension 11/21/20 12/09/23 risperidone 4 mg tablet 4 mg PO BID mood stabilizer 03/06/21 12/09/23 aspirin 81 mg chewable tablet 81 mg PO DAILY heart health 04/11/21 12/09/23 haloperidol 10 mg tablet 10 mg PO TID MOOD 10/07/22 12/09/23 oxcarbazepine 600 mg tablet 600 mg PO BID MOOD 10/07/22 12/09/23 quetiapine 300 mg tablet,extended 600 mg PO DAILY MOOD 10/07/22 12/09/23 release 24 hr levothyroxine 100 mcg tablet mcg PO 12/09/23 12/09/23 magnesium hydroxide 400 mg/5 mL PO 12/09/23 12/09/23 oral suspension (Milk of Magnesia) Previous Rx's ?Medication ?Instructions ?Recorded levofloxacin 750 mg tablet 750 mg PO DAILY #3 tabs 10/10/22 oseltamivir 75 mg capsule (Tamiflu) 75 mg PO BID #2 caps 10/10/22 clonazepam 1 mg tablet 1 mg PO BID Agitation #90 tabs 05/14/23 gabapentin 100 mg capsule 100 mg PO HS neuropathic pain #30 08/06/23 caps ketoconazole 2 % topical cream 1 applic topical QDAY tinea pedis 12/09/23 #30 grams nystatin 100,000 unit/gram topical 1 applic topical BID #45 ea 12/09/23 powder Allergies Allergy/AdvReac Type Severity Reaction Status Date / Time No Known Allergies Allergy Verified 12/09/23 13:39 [facility] Disclaimer: The information contained in this section may have been updated after the patient was seen, as this information can be updated by other users. Medical History DJD (degenerative joint disease), cervical Encephalomalacia Influenza Pneumonia RBBB Schizophrenia Family History Other No significant family history Social History Smoking Status: Former smoker tobacco type: cigarettes packs per day: 1 second hand exposure: No alcohol intake: never substance use type: denies use current occupational status: other Travel in the last 8 weeks: None household members: other housing: other caffeine: Yes Have you lived/traveled outside [place] in past 30 days?: No Contact w/someone who lives/traveled outside US past 30 days?: No Exposure to someone with infectious disease in past 14 days?: No Do you have a fever (greater than 100.4 F or 38 C)?: No Have you tested positive for COVID-19: No Exposed to someone with COVID-19 in past 14 days?: No Do you have a sore throat?: No Do you have a cough?: No Do you have any weakness?: No Do you have any diarrhea?: No Are you experiencing any unusual bleeding?: No Do you have any muscle aches/pain?: No Do you have any abdominal pain?: Yes Are you experiencing loss of taste or smell?: No Other Medical History Have you received the Flu Vaccine for this season: No Have you received the Pneumonia Vaccine: No ROS Obtained: Yes All systems reviewed & no additional complaints except as documented Physical Exam General General appearance: alert and in no apparent distress Comment: Chronically ill, acutely in no distress. Disheveled Head Head exam: atraumatic and normocephalic Eye Eye exam: Present normal appearance, PERRL and EOMI Neck Neck exam: Present normal inspection, full ROM and trachea midline Chest Chest inspection: Present tenderness (With associated scattered bruising on the right side of his chest wall. Breath sounds normal) Respiratory Respiratory exam: Absent respiratory distress, wheezes, stridor, accessory muscle use or prolonged expiratory phase Cardiovascular Cardiovascular exam: Present regular rate, normal rhythm and other (Pulses equal symmetric in upper and lower extremities) Abdominal Exam Abdominal exam: Present soft; Absent distention, tenderness or pulsatile mass Extremities Exam Extremities exam: Absent edema Neurological Exam Neurological exam: Present alert, oriented X3 and CN II-XII intact; Absent motor sensory deficit Skin Skin exam: Present warm and dry; Absent diaphoresis or erythema Medical Decision Making Medical Records Medical records reviewed: Yes I reviewed the patient's medical records. Screening: Per USPSTF and CDC recommendations, given the prevalence of disease in our region, it is our hospital?s policy to screen for HIV and viral Hepatitis for all patients aged 18 and over and those with ongoing risk factors. Jayce Inquiry Pt receiving controlled substance: No Jayce was queried for this patient: No Vital Signs: 10/30/24 12:07 Temperature 97.4 F L Temperature Source Oral Pulse Rate [Right Radial] 84 Respiratory Rate 18 Blood Pressure [Right Arm] 127/83 Blood Pressure Mean [Right Arm] 97 02 Sat by Pulse Oximetry 94 L Oxygen Delivery Method Room Air Orders (Tests/Meds): ED MEDICATIONS Discontinued Medications Generic Name Dose Route Start Last Admin Trade Name Freq PRN Reason Stop Dose Admin Ketorolac Tromethamine 15 mg 10/30/24 12:43 10/30/24 13:16 Ketorolac 30mg/Ml Vial IV 10/30/24 12:44 15 mg ONCE ONE Administration Lidocaine 1 each 10/30/24 12:43 10/30/24 13:16 Lidocaine 5% Transdermal Patch TP 10/30/24 12:44 1 each ONCE ONE Administration ORDERS Category Date Time Status CT chest wo con Stat Cat Scan 10/30/24 12:43 Taken HIV Combo Stat Lab 10/30/24 12:24 Received Hep C Ab with Reflex to RNA Stat Lab 10/30/24 12:24 Received Medical Decision Narrative: 64-year-old male history of hypertension, hyperlipidemia, diabetes, schizophrenia presenting with right-sided rib pain. Patient states that he fell a few days prior to arrival. Been having changed pain on the right side of his chest wall. Difficult to move, twist, stand, sit, cough. Has not been coughing up blood. No fevers or chills. No other associated pain or symptoms. History was obtained via conversation with patient. On arrival, patient hemodynamically stable, alert, oriented x4, appropriate, GCS 15, moving all extremities spontaneously, pupils equal and reactive to light. Full physical exam performed and significant for chronically ill male no acute distress. He does have scattered bruising over the right side of his chest wall that is resolving. He is tender here. Bilateral breath sounds are normal. Differential includes fracture, intercostal muscle strain, pneumothorax, pulmonary contusion, among others. Patient placed on continuous cardiac monitoring and continuous pulse ox with initial blood pressure 127/83, heart rate 84, saturation 94% on room. Patient given Toradol and lidocaine patch. On independent interpretation of imaging, patient has no obvious displaced rib fracture. Cortical abnormality of 1 rib anteriorly on the right, possibly nondisplaced rib fracture, but no acute lung injury or pneumothorax underlying. No evidence of pulmonary contusion. He does have bilateral pleural effusions, but no acute abnormality. On reevaluation, patient still resting at baseline, feeling better after the meds administered. Because patient at baseline without signs or symptoms of clinical decompensation, deemed appropriate for discharge. Results were relayed to patient who voiced understanding and were agreeable to outpatient management and follow up. I discussed my clinical impression with patient and answered all questions. At this time, the evidence for any other entities in the differential is insufficient to warrant any further testing or ED observation. This was explained as well. Advisory was given that persistent or worsening symptoms require further evaluation. I confirmed the understanding of this discussion. Pasteuriser Operator disclaimer Much of this encounter note is an electronic hospital security officer spoken language to printed text. Electronic hospital security officer of the spoken language may permit errors. Although I have reviewed the note, some errors may still exist. Critical Care Critical Care Time Critical Care Time: No
[2024-10-30] MEDS: LIDOCAINE 5% TRANSDERMAL PATCH 1 EACH TP (13:16)
[2024-10-30] MEDS: KETOROLAC 30MG/ML VIAL 15 MG IV (13:16)
--- NOTE | 2024-10-30 13:39 | PC.NURSE ---
[facility]AG NOTIFIED OF DISCHARGE
--- NOTE | 2024-10-30 13:45 | PC.NURSE ---
call made to [facility] s[facility] for pt transportation.
[2024-10-30 14:09] LABS: HIV Combo NEGATIVE (Negative)
[2024-10-31 07:08] LABS: HCV Ab Non Reactive (Non Reactive)
== END 2024-10-30 13:57 | disposition home or self-care (01) ==
PROVIDERS: Emergency Medicine
DX: R07.81 Pleurodynia (principal); R07.82 Intercostal pain
CPT/HCPCS: 71250; 86803; 87389; 96374; 99284; J1885

== ENCOUNTER 2025-01-28 07:51 | Observation (INO) | payer MEDICAID, SELFPAY ==
[2025-01-28] VITALS (13 sets, daily range): BP systolic 96–141; BP diastolic 55–85; PULSE 66–102; RESP 14–22; TEMP 36.6–37.6; O2SAT 90–97; BMI 28.3; BMI 26.7
--- NOTE | 2025-01-28 08:04 | PC.NURSE ---
c collar placed upon arrival to ED due to multiple unwitnessed falls.
--- NOTE | 2025-01-28 08:15 | CT_ITS ---
FINAL REPORT TECHNIQUE: Thin section axial images were obtained through the thoracic spine without contrast. Sagittal and coronal images were obtained from the axial data. CLINICAL HISTORY: sepsis, AMS, frequent falls FINDINGS: There is no acute fracture of the thoracic spine. There is no malalignment. There is multilevel degenerative disc disease. No acute paraspinal abnormality is identified. IMPRESSION: No acute osseous abnormality of the thoracic spine. Degenerative disc disease. Reviewed, Interpreted and Dictated by Remedios Concepcion MD Transcribed by [place] Michael Authenticated and [facility]
--- NOTE | 2025-01-28 08:15 | CT_ITS ---
FINAL REPORT TECHNIQUE: Thin section axial images were obtained through the cervical spine without contrast. Multiplanar reconstruction images were obtained from the axial data. Exam was performed using dose reduction techniques. CLINICAL HISTORY: sepsis, AMS, frequent falls COMPARISON: 10/25/2024 FINDINGS: There is no acute fracture or acute malalignment of the cervical spine. There is no evidence of unilateral or bilateral facet lock. The craniocervical junction is intact. Vertebral body height is preserved. There is multilevel degenerative disc disease which is unchanged from the prior exam. No acute paraspinal abnormality is identified. IMPRESSION: No acute osseous abnormality of the cervical spine. Multilevel degenerative disc disease. Reviewed, Interpreted and Dictated by Remedios Concepcion MD Transcribed by [place] Michael Authenticated and . [facility]
--- NOTE | 2025-01-28 08:15 | CT_ITS ---
FINAL REPORT TECHNIQUE: Axial images through the pelvis were performed by computed tomography. This study was performed with techniques to keep radiation doses as low as reasonably achievable (ALARA). Individualized dose reduction techniques using automated exposure control or adjustment of mA and/or kV according to the patient's size were employed. CLINICAL HISTORY: sepsis, AMS, frequent falls FINDINGS: CT BONY PELVIS There is no acute fracture of the pelvis or either hip. There are postoperative changes from ORIF of the left femoral neck. Visualized hardware is intact. There is degenerative joint disease of the hips bilaterally, left greater than right. There are findings of AVN of the left femoral head. IMPRESSION: No acute osseous abnormality of the pelvis or either hip. AVN of the left femoral head with postoperative changes from ORIF of the femoral neck. Reviewed, Interpreted and Dictated by Remedios Concepcion MD Transcribed by [place] Michael Authenticated and [facility]
--- NOTE | 2025-01-28 08:15 | CT_ITS ---
FINAL REPORT TECHNIQUE: Axial imaging of the chest is obtained after the administration of contrast. 3-D MIP reformatted images were also obtained and reviewed per PE protocol. CLINICAL HISTORY: sepsis, AMS, frequent falls COMPARISON: 10/30/2024 FINDINGS: There is suboptimal opacification of the peripheral pulmonary arteries for evaluation of pulmonary embolus. There is no central or proximal segmental pulmonary embolism. There is no aortic dissection. Heart size is normal. There is no mediastinal, hilar, or axillary lymphadenopathy. There is bilateral lower lobe atelectasis. There are left, greater than right, lower lobe groundglass opacities which could represent mild edema or could be infectious or inflammatory. There are very small bilateral pleural effusions. There is a small pericardial effusion. No acute osseous abnormality. Several chronic right rib fractures are noted. IMPRESSION: No central or proximal segmental pulmonary embolism. Evaluation is limited. Small pleural effusions. Possible, very mild pulmonary edema. An infectious or inflammatory process is difficult to exclude. Reviewed, Interpreted and Dictated by Remedios Concepcion MD Transcribed by [place] Michael Authenticated and [facility]
--- NOTE | 2025-01-28 08:15 | CT_ITS ---
FINAL REPORT TECHNIQUE: Thin section axial images were obtained from skull base to vertex without contrast. Coronal and sagittal reconstruction images were obtained from the axial data. Exam was performed using dose reduction techniques such as automated exposure control, adjustment of the mA and kV according to patient size, and use of iterative reconstruction technique. CLINICAL HISTORY: sepsis, AMS, frequent falls COMPARISON: 10/07/2022, 10/25/2024 FINDINGS: There is atrophy unchanged when compared to the prior exams. No mass effect or midline shift. No intracranial hemorrhage. No hydrocephalus. Periventricular low density is likely related to changes of chronic small vessel ischemia. The basilar cisterns are preserved. There is right cerebellar encephalomalacia with calcification, stable when compared to the prior exam. There is mucoperiosteal thickening in the maxillary sinuses bilaterally, left greater than right. No acute osseous abnormality is identified. IMPRESSION: No acute intracranial abnormality. Atrophy and changes suggesting chronic small vessel ischemia. Reviewed, Interpreted and Dictated by Remedios Concepcion MD Transcribed by Corin Galeas Authenticated and . [facility]
--- NOTE | 2025-01-28 08:15 | CT_ITS ---
FINAL REPORT TECHNIQUE: Thin section axial images are obtained through the abdomen and pelvis after intravenous contrast. Reconstruction images were obtained from the axial data. Exam was performed using dose reduction techniques. CLINICAL HISTORY: sepsis, AMS, frequent falls COMPARISON: 03/05/2021 FINDINGS: LIVER: Homogeneous. No focal lesion. GALLBLADDER/BILIARY SYSTEM: Gallbladder is present. No gallstones. No biliary dilatation. SPLEEN: Enlarged at 17 cm. PANCREAS: Unremarkable. ADRENALS: Unremarkable. KIDNEYS/URETERS/BLADDER: Nonobstructing right renal stones. There is no hydronephrosis. Small bilateral hypodense renal lesions are too small to characterize. Unremarkable urinary bladder. GI TRACT: There are mildly prominent fluid-filled and thick-walled small bowel loops. There are changes from partial right colectomy. There is fluid and stool in the descending distal colon and there is rectal fecal impaction. PELVIC ORGANS: Unremarkable for age. LYMPH NODES/RETROPERITONEUM/MESENTERY: No lymphadenopathy. No abdominal aortic aneurysm. ABDOMINAL WALL: There is an umbilical hernia containing unobstructed small bowel. FREE FLUID: No ascites. BONES: No acute osseous abnormality. Multiple chronic appearing right transverse process fractures. IMPRESSION: Fluid-filled and thick-walled small bowel loops are concerning for enteritis. Severe distal constipation and rectal fecal impaction. Splenomegaly. Other chronic findings as above. Reviewed, Interpreted and Dictated by Remedios Concepcion MD Transcribed by [place] Michael Authenticated and [facility]
--- NOTE | 2025-01-28 08:20 | ED_ITS ---
Discharge Plan Disposition Patient Disposition: Admitted Condition: Good Clinical Impressions Clinical Impression: AMS (altered mental status), Frequent falls, Hypokalemia, Acidosis, lactic, Dehydration, General weakness, Enteritis Discharge ED Provider: Kathie Voss General Adult HPI General Chief complaint: Altered Mental Status Stated complaint: Fall Time Seen by Provider: 01/28/25 08:03 Mode of Arrival: EMS Source of Information: EMS Description of Symptoms (Recalled from ER Triage Doc. by RN): pt is altered mental status, multiple falls, saturation on room air 90%. lethargic. incontinent. poor historian History of Present Illness HPI narrative: This patient is a 64-year-old male with a history of obesity, tobacco use, CAD, schizophrenia, hypothyroidism, and anxiety presenting to the emergency department for evaluation with concern for multiple frequent unwitnessed falls, altered mental status, and incontinence at [facility]. No further history provided by facility. EMS notes that the patient was stable en route with mild tachycardia noted on telemetry. Patient is alert and oriented to person, place, but not time. He states that he is sick and does not feel good but does not provide any further history. He notes multiple falls but has not hurt himself at all and denies any current pain anywhere. Related Data Home Medications ?Medication ?Instructions ?Recorded ?Confirmed divalproex 500 mg tablet,delayed 500 mg PO BID 02/25/18 01/28/25 release amlodipine 2.5 mg tablet 2.5 mg PO HS 11/21/20 01/28/25 risperidone 4 mg tablet 4 mg PO BID 03/06/21 01/28/25 aspirin 81 mg chewable tablet 81 mg PO DAILY 04/11/21 01/28/25 haloperidol 10 mg tablet 10 mg PO TID 10/07/22 01/28/25 oxcarbazepine 600 mg tablet 600 mg PO BID 10/07/22 01/28/25 quetiapine 300 mg tablet,extended 600 mg PO DAILY 10/07/22 01/28/25 release 24 hr cholecalciferol (vitamin D3) 1,250 1,250 mcg PO WEEKLY 01/28/25 01/28/25 mcg (50,000 unit) capsule clonazepam 1 mg tablet 1 mg PO BIDP PRN Agitation 01/28/25 01/28/25 gabapentin 100 mg capsule 100 mg PO HS 01/28/25 01/28/25 lactulose 10 gram/15 mL oral 10 g PO DAILYP PRN Constipation 01/28/25 01/28/25 solution levothyroxine 100 mcg tablet 100 mcg PO DAILY 01/28/25 01/28/25 magnesium hydroxide 400 mg/5 mL 30 ml PO DAILYP PRN Constipation 01/28/25 01/28/25 oral suspension (Milk of Magnesia) omega 2-ing-bcg-fish oil 1,000 mg 1 cap PO BID 01/28/25 01/28/25 (120 mg-180 mg) capsule (Fish Oil) Allergies Allergy/AdvReac Type Severity Reaction Status Date / Time No Known Allergies Allergy Verified 12/09/23 13:39 [facility] Disclaimer: The information contained in this section may have been updated after the patient was seen, as this information can be updated by other users. Medical History Hypothyroid Pneumonia Influenza Schizophrenia RBBB Encephalomalacia DJD (degenerative joint disease), cervical Surgical History (Updated 01/28/25 @ 12:54 by Ruby Gould RN) Hx of cholecystectomy History of left hip replacement Family History Other No significant family history Social History Smoking Status: Current every day smoker tobacco type: cigarettes packs per day: 1 second hand exposure: No alcohol intake: never substance use type: denies use current occupational status: other Travel in the last 8 weeks: None household members: other housing: other caffeine: Yes Have you lived/traveled outside [place] in past 30 days?: No Contact w/someone who lives/traveled outside US past 30 days?: No Exposure to someone with infectious disease in past 14 days?: No Do you have a fever (greater than 100.4 F or 38 C)?: No Have you tested positive for COVID-19: No Exposed to someone with COVID-19 in past 14 days?: No Do you have a sore throat?: No Do you have a cough?: No Do you have any weakness?: Yes Do you have any diarrhea?: No Are you experiencing any unusual bleeding?: No Do you have any muscle aches/pain?: No Do you have any abdominal pain?: No Are you experiencing loss of taste or smell?: No Other Medical History Have you received the Flu Vaccine for this season: No Have you received the Pneumonia Vaccine: No ROS Obtained: Yes unobtainable due to mental status Physical Exam General General appearance: in no apparent distress Head Head exam: atraumatic and normocephalic Eye Eye exam: Present normal appearance, PERRL and EOMI ENT ENT exam: Present mucous membranes dry Neck Neck exam: Present normal inspection Chest Chest inspection: Present normal inspection and symmetric chest wall rise Respiratory Respiratory exam: Present normal lung sounds bilaterally; Absent respiratory distress or wheezes Cardiovascular Cardiovascular exam: Present normal rhythm and tachycardia Abdominal Exam Abdominal exam: Present soft; Absent distention, tenderness, guarding or rebound Extremities Exam Extremities exam: Present edema (mild BLE pitting) Back Exam Back exam: Present normal inspection; Absent tenderness Neurological Exam Neurological exam: Absent oriented X3 Expanded Neurological Exam Patient oriented to: Present person and place; Absent time Coma scale eye opening: To voice Coma scale motor response: Obeys commands Coma scale verbal response: Confused Coma scale total: 13 Comment: Moving all 4 extremities equally, generally weak without any focal deficits. Psychiatric Psychiatric exam: Present flat affect Skin Skin exam: Present warm and dry Medical Decision Making Medical Records Screening: Per USPSTF and CDC recommendations, given the prevalence of disease in our region, it is our hospital?s policy to screen for HIV and viral Hepatitis for all patients aged 18 and over and those with ongoing risk factors. Jayce Inquiry Pt receiving controlled substance: No Vital Signs: 01/28/25 07:56 01/28/25 08:06 01/28/25 08:30 Temperature 99.7 F H Temperature Source Oral Pulse Rate 99 H 99 H Pulse Rate [Right] 102 H Respiratory Rate 22 15 Blood Pressure 96/55 L 103/65 L Blood Pressure [Right Arm] 112/65 Blood Pressure Mean Blood Pressure Mean [Right Arm] 80 02 Sat by Pulse Oximetry 90 L 90 L 90 L Oxygen Delivery Method Room Air Room Air Room Air 01/28/25 09:30 01/28/25 10:00 01/28/25 10:30 Temperature Temperature Source Pulse Rate 92 H 90 92 H Pulse Rate [Right] Respiratory Rate 17 20 14 Blood Pressure 114/75 121/75 114/85 Blood Pressure [Right Arm] Blood Pressure Mean 86 Blood Pressure Mean [Right Arm] 02 Sat by Pulse Oximetry 92 L 95 95 Oxygen Delivery Method Room Air Room Air 01/28/25 11:00 01/28/25 11:30 01/28/25 12:02 Temperature Temperature Source Pulse Rate 88 95 H Pulse Rate [Right] Respiratory Rate 19 15 Blood Pressure 106/77 L 121/73 Blood Pressure [Right Arm] Blood Pressure Mean 78 Blood Pressure Mean [Right Arm] 02 Sat by Pulse Oximetry 94 L 94 L Oxygen Delivery Method Room Air Room Air 01/28/25 12:11 Temperature 99.0 F Temperature Source Oral Pulse Rate 84 Pulse Rate [Right] Respiratory Rate 19 Blood Pressure 137/82 Blood Pressure [Right Arm] Blood Pressure Mean Blood Pressure Mean [Right Arm] 02 Sat by Pulse Oximetry Oxygen Delivery Method Room Air Lab Data Lab Results 01/28/25 07:55: WBC 8.3, RBC 4.82, Hgb 14.0 L, Hct 42.2, MCV 87.6, MCH 29.0, MCHC 33.2, RDW 13.2, Plt Count 137 L, MPV 12.2 H, Neut % (Auto) 90.7 H, Lymph % (Auto) 3.7 L, [place] % (Auto) 4.9, Eos % (Auto) 0.1, Baso % (Auto) 0.2, Neut # (Auto) 7.6, Lymph # (Auto) 0.3 L, [place] # (Auto) 0.4, Eos # (Auto) 0.0, Baso # (Auto) 0.0, Total Counted 100, Neutrophils % (Manual) 89 H, Lymphocytes % (Manual) 10, Monocytes % (Manual) 1 L, Platelet Estimate Slight decrease, RBC Morphology Normal, PT 11.0, INR 0.98, APTT 26.1, Sodium 138, Potassium 3.2 L, Chloride 103, Carbon Dioxide 19 L, Anion Gap 19.2 H, BUN 27 H, Creatinine 1.40 H , Estimated Creat Clear 70, Estimated GFR 51 L, Est GFR ( Amer) 62, G lucose 134 H, Calcium 8.7, Phosphorus 2.2 L, Magnesium 1.9, Total Bilirubin 0.5, AST 36, ALT 22, Alkaline Phosphatase 75, Total Creatine Kinase 385 H, Troponin I 0.02, C-Reactive Protein 35.0 H, NT-Pro-B Natriuret Pep 159 H, Total Protein 6.1 L, Albumin 3.9, Globulin 2.2, Albumin/Globulin Ratio 1.8, TSH 1.63, Thyroxine (T4) 4.6 L 01/28/25 08:16: VBG pH 7.36, VBG pCO2 32.7 L, VBG pO2 78.0 H, VBG HCO3 18.0 L, V BG Total CO2 19.0 L, VBG O2 Saturation 95.6 H, VBG Base Excess -7.4 L, VBG Lactic Acid 4.4 H 01/28/25 09:20: Urine Color Yellow, Urine Appearance Clear, Urine pH 6.0, Ur Specific [place] 1.015, Urine Protein Negative, Urine Glucose (UA) Negative, Urine Ketones Trace, Urine Blood Negative, Urine Nitrate Negative, Urine Bilirubin Negative, Urine Urobilinogen 0.2, Ur Leukocyte Esterase Negative, Urine RBC None, Urine WBC Occasional, Ur Squamous Epith Cells Occasional, Urine Bacteria Trace, SARS-CoV-2 (PCR) Not detected, Influenza A Untype (PCR) Not detected, Influenza Type B (PCR) Not detected 01/28/25 11:09: Lactate 1.2, Troponin I 0.02 01/28/25 11:46: Lactate 1.1 01/28/25 07:55 01/28/25 07:55 Orders (Tests/Meds): ED MEDICATIONS Generic Name Dose Route Start Last Admin Trade Name Freq PRN Reason Stop Dose Admin Sodium Chloride 3 ml 01/28/25 08:12 01/28/25 15:02 Sodium Chloride 3% 15ml Neb IH 02/27/25 08:11 3 ml ONCE PRN Administration INDUCE SPUTUM [employer]LECTION Discontinued Medications Generic Name Dose Route Start Last Admin Trade Name Freq PRN Reason Stop Dose Admin Lactated Ringer's 1,000 mls @ 999 mls/hr 01/28/25 08:12 01/28/25 08:33 Lactated Ringer's 1000 Ml Bag IV 01/28/25 09:12 999 mls/hr .Q1H1M ONE Administration Potassium Chloride/Water 100 mls @ 100 mls/hr 01/28/25 08:30 01/28/25 10:57 Potassium Chloride 10meq/100ml Ivpb IV 01/28/25 10:29 100 mls/hr Q1H MICKEY Administration Piperacillin Sod/Tazobactam 50 mls @ 100 mls/hr 01/28/25 11:05 01/28/25 11:22 Sod 3.375 gm/ Sodium Chloride IV 01/28/25 11:34 100 mls/hr ONCE ONE Administration Iopamidol 80 ml 01/28/25 08:59 01/28/25 09:00 Iopamidol-370 (76%);100ml Bottle IV 01/28/25 09:00 80 ml ONCE ONE Administration Sodium Chloride 40 ml 01/28/25 08:59 01/28/25 09:00 0.9 % Sodium Chloride 50 Ml Vial IV 01/28/25 09:00 40 ml ONCE ONE Administration Sodium Chloride 10 ml 01/28/25 08:59 01/28/25 09:00 Sodium Chloride 0.9% 10ml Syr (Rad Only) IV 01/28/25 09:00 10 ml ONCE ONE Administration ORDERS Category Date Time Status CT abdomen pelvis w con Stat Cat Scan 01/28/25 08:[address] angio chest PE protocol Stat Cat Scan 01/28/25 08:[address] bony pelvis Stat Cat Scan 01/28/25 08:[address] cervical spine wo con Stat Cat Scan 01/28/25 08:[address] head/brain wo con Stat Cat Scan 01/28/25 08:[address] thoracic spine wo con Stat Cat Scan 01/28/25 08:15 Completed Activated Partial Thrombo Time Stat Lab 01/28/25 07:55 Completed BNP [NT Pro Brain Natriuretic Pep.] Stat Lab 01/28/25 07:55 Completed C-Reactive Protein Stat Lab 01/28/25 07:55 Completed Complete Blood Count Auto Diff Stat Lab 01/28/25 07:55 Completed Comprehensive Metabolic Panel Stat Lab 01/28/25 07:55 Completed Creatine Kinase Stat Lab 01/28/25 07:55 Completed Diarrhea 23 Panel, PCR Stat Lab 01/28/25 13:20 Received Lactic Acid Stat Lab 01/28/25 11:09 Completed MAG [Magnesium] Stat Lab 01/28/25 07:55 Completed PHOS [Phosphorous] Stat Lab 01/28/25 07:55 Completed Prothrombin Time INR Stat Lab 01/28/25 07:55 Completed Rapid PCR Covid and Flu A/B Stat Lab 01/28/25 09:20 Completed T4 (Thyroxine) Stat Lab 01/28/25 07:55 Completed TSH [Thyroid Stimulating Hormone] Stat Lab 01/28/25 07:55 Completed Trop I [Troponin I] Stat Lab 01/28/25 07:55 Completed Troponin I Q3H Lab 01/28/25 11:09 Completed Urinalysis and Microscopic Stat Lab 01/28/25 09:20 Completed Blood Culture Stat Micro 01/28/25 09:20 Received Sputum Culture & Gram Stain Stat Micro 01/28/25 08:13 Ordered Urine Culture Stat Micro 01/28/25 09:20 Received VBG [Venous Blood Gas] Stat RT 01/28/25 08:16 Completed ECG Data Tracing #1: I reviewed this ECG and interpreted as documented below: Normal sinus rhythm with a ventricular rate of 99 bpm. Right bundle branch block. No acute ST changes concerning for STEMI. ECG initial impression date: 01/28/25 ECG initial impression time: 08:33 Medical Decision Narrative: In summary, this patient is a 64-year-old male presenting to the Emergency Department for evaluation of altered mental status, frequent falls, incontinence of stool. Differential diagnoses considered include but are not limited to gastroenteritis, sepsis, LILI, dehydration, hypothyroid crisis, traumatic injuries from fall. Ruling out the most morbid conditions drove assessment. It should be noted patient's history includes hypothyroidism, CAD, tobacco use, schizophrenia, anxiety which likely are not at goal therapy. This complicates all aspects of care by increasing patient's risk for morbidity. I reviewed patient's past medical records and noted multiple prior ED visits for frequent falls. Patient generally is a GCS of 15 according to prior provider notes.. On exam, the patient is lying in bed in no acute distress. He is sleeping but arouses to voice, oriented to person and place but not time. GCS 13. he is generally weak but moving all 4 extremities equally without any focal deficits. Cardiopulmonary and abdominal exams are benign. He is mildly tachycardic with a temp of 99.7 ?F, O2 sat 90% on RA, but otherwise vitals are reassuring on cardiac telemetry. Workup included broad lab evaluation to evaluate for infectious, metabolic, cardiac derangements as well as CT scans from head to pelvis to look for any sort of traumatic injury or infectious etiology that would be causing any sort of altered mental status. Patient was given a bolus of IV fluids but was not given a sepsis bolus because of history of cardiac dysfunction and lower extremity edema concerning for possible volume overload. EKG obtained demonstrated no acute STEMI. I independently interpreted CT scans prior to the radiologist read and noted no obvious acute fracture, no intracranial hemorrhage, no obvious acute surgical intra-abdominal process. He does have small pulmonary effusions as well as fluid-filled loops of bowel. please see their read for final interpretation. They noted concerns for fecal impaction, but he is having good bowel movements. I do not feel that he likely has impaction. labs were obtained that demonstrated reassuring CBC with no significant leukocytosis or anemia, chemistry demonstrating hypokalemia for which IV replacement was ordered. I did not order oral replacement as I feel patient is significantly altered. He has an LILI with a mildly elevated anion gap and BUN.. Urine is not overtly concerning for infection. Ultimately, patient has enterocolitis with borderline fever, elevated lactic acid, LILI, tachycardia, which could potentially be concerning for sepsis. I ordered IV Zosyn. He got a liter bolus of IV fluids but did not get sepsis bolus given history of cardiac dysfunction and pleural effusions noted on CT scan. Ultimately, I feel patient would benefit from admission given his altered mental status and endorgan dysfunction. I had an interactive discussion with the hospitalist who admitted the patient in stable condition. Critical Care Critical Care Time Critical Care Time: Yes Attestation: On 01/28/25, the high probability of a clinically significant, sudden or life threatening deterioration of the following system(s) required my full and direct attention, intervention and personal management. The time I documented below is in addition to time spent performing reported procedures but includes the following listed in this critical care notation. Total Time Total Critical Care Time: 35
[2025-01-28 08:22] LABS: Basophils % 0.2 % (0.1-2.0); Eosinophils % 0.1 % (0.1-12.0); Hematocrit 42.2 % (42.0-52.0); Lymphocytes # 0.3 K/mm3 (0.7-4.5); Lymphocytes % 3.7 % (10-50); Mean Corpuscular HGB Conc 33.2 g/dL (31.8-35.4); Mean Corpuscular Volume 87.6 fl (80-94); Mean Platelet Volume 12.2 fl (7.4-10.4); Monocytes # 0.4 K/mm3 (0.1-1.0); Monocytes % 4.9 % (1.7-9.3); Neutrophils # 7.6 K/mm3 (1.8-7.8); Neutrophils % 90.7 % (37.0-80.0); Platelet Count 137 K/mm3 (142-424); Red Blood Count 4.82 M/mm3 (4.60-6.20); Red Cell Distribution Width 13.2 % (11.5-17.5); White Blood Count 8.3 K/mm3 (4.8-10.8)
[2025-01-28 08:26] LABS: VBG Base Excess -7.4 mmol/L (-2.4-2.3); VBG Oxygen Saturation 95.6 % (50-70); VBG PCO2 32.7 mmol/L (35-51); VBG PH 7.36 mmol/L (7.31-7.41)
[2025-01-28 08:26] LABS: Alanine Aminotransferase 22 U/L (12-78); Albumin Level 3.9 g/dl (3.5-5.0); Albumin/Globulin Ratio 1.8 (1.1-1.8); Alkaline Phosphatase 75 U/L (38-126); Anion Gap 19.2 mEq/L (5-15); Aspartate Amino Transferase 36 U/L (17-59); Bilirubin,Total 0.5 mg/dl (0.2-1.3); Blood Urea Nitrogen 27 mg/dl (9-20); Calcium 8.7 mg/dl (8.4-10.2); Carbon Dioxide 19 mmol/L (22.0-30.0); Chloride 103 mmol/L (98-107); Creatine Kinase 385 U/L (55-170); Creatinine Clearance Estimated 70 mL/min (50-200); Estimated Glomerular Filt Rate 51 ml/min (>60); GFR (African American) 62 ML/MIN (>60); Globulin 2.2 g/dL (1.3-3.2); Glucose 134 mg/dl (74-100); Potassium 3.2 mmoL/L (3.5-5.1); Sodium 138 mmol/L (136-145); Total Protein,Serum 6.1 g/dl (6.3-8.2)
--- NOTE | 2025-01-28 08:27 | PC.NURSE ---
lactic 4.4 received from respiratory, dr pak notified
[2025-01-28 08:28] LABS: Lactate Venous 4.4 mmol/L (0.4-2.0)
[2025-01-28 08:28] LABS: Activated Partial Thrombo Time 26.1 seconds (22.8-30.6); INR 0.98 (0.9-1.1)
--- NOTE | 2025-01-28 08:29 | ECG_ITS ---
APPROVED REPORT Exam: Resting ECG HR:99 bpm ECG Measurements Heart Rate 99 AXES AL 142 P 78 QRSd 165 QRS 24 QT 399 T 78 QTc 455 Conclusion SINUS RHYTHM RIGHT BUNDLE BRANCH BLOCK [120+ ms QRS DURATION, UPRIGHT V1, 40+ ms S IN I/aVL/V4/V5/V6] No STEMI Electronically signed by : DONNA SCHWARZ, 01/28/2025 16:16:23
[2025-01-28 08:32] LABS: MANUAL DIFFERENTIAL MANUAL DIFFERENTIAL (MANUAL DIFF)
[2025-01-28] MEDS: LACTATED RINGERS 1000ML 1,000 ML 999 ML IV (08:33)
[2025-01-28 08:40] LABS: NT Pro Brain Natriuretic Pep. 159 pg/mL (0-125); Troponin I 0.02 ng/ml (0.00-0.034)
[2025-01-28] MEDS: KCl 10mEq/100ml 100 ML 100 MEQ IV ×2 (08:40→10:57)
[2025-01-28 08:42] LABS: Magnesium 1.9 mg/dl (1.6-2.3); Phosphorous 2.2 mg/dl (2.5-4.5)
[2025-01-28 08:45] LABS: T4 (Thyroxine) 4.6 ug/dl (5.53-11.0)
[2025-01-28 08:58] LABS: Thyroid Stimulating Hormone 1.63 uIU/mL (0.465-4.68)
[2025-01-28] MEDS: IOPAMIDOL-370 (76%);100ML BOTTLE 80 ML IV (09:00)
[2025-01-28] MEDS: SODIUM CHLORIDE 0.9% 10ML SYR (RAD ONLY) 10 ML IV (09:00)
[2025-01-28] MEDS: 0.9 % SODIUM CHLORIDE 50 ML VIAL 40 ML IV (09:00)
[2025-01-28 09:02] LABS: Lymphocytes % 10 % (10-50); Monocytes % 1 % (2-9); Neutrophils % 89 % (42-76); Platelet Estimate Slight Decrease; RBC Morphology Normal; Total Cells Counted 100
[2025-01-28 09:28] LABS: Appearance,Urine CLEAR (Clear); Bilirubin,Urine Negative (Negative); Blood, Urine Negative (Negative); Color,Urine YELLOW (Yellow); Coronavirus 19, PCR Not Detected (NotDetected); Glucose,Urine (UA) Negative (Negative); Influenza A, PCR Not Detected (NotDetected); Influenza B, PCR Not Detected (NotDetected); Ketones,Urine TRACE (Negative); Leukocyte Esterase,Urine Negative (Negative); Microscopic, Urine URINE MICROSCOPIC (MICROSCOPIC); Nitrate,Urine Negative (Negative); Protein,Urine Negative (Negative); Specific Gravity, Urine 1.015 (1.005-1.030); Urobilinogen,Urine 0.2 EU/dl (0.2)
[2025-01-28 09:46] LABS: Bacteria,Urine Trace /lpf; Squamous Epithelial Cell,Urine Occasional #/hpf (0-5); WBC,Urine Occasional #/hpf (0-3)
--- NOTE | 2025-01-28 11:04 | PC.NURSE ---
dr pak attempted to reach hospitalist for admission
[2025-01-28] MEDS: PIPERACILLIN/TAZO 3.375 GM in 0.9 % SODIUM CHLORIDE 50 ML IV (11:22)
--- NOTE | 2025-01-28 11:29 | PC.NURSE ---
Dr Moody accepted pt. o and m supervisor contacted for bed assignment
[2025-01-28 11:34] LABS: Lactic Acid 1.2 mmol/L (0.7-2.1)
[2025-01-28 11:46] LABS: Troponin I 0.02 ng/ml (0.00-0.034)
--- NOTE | 2025-01-28 11:50 | PC.NURSE ---
Called registration to check status of admission, they are still working on it .
--- NOTE | 2025-01-28 11:59 | PC.NURSE ---
Pt is admitted, ok to call report now
--- NOTE | 2025-01-28 12:02 | PC.NURSE ---
Called report to Arcadio VERDUZCO
[2025-01-28 12:28] LABS: Reflex Lactic Add Lactic Reflex
[2025-01-28 12:36] LABS: Lactic Acid Follow Up (RFLX 1) 1.1 mmol/L (0.7-2.1)
--- NOTE | 2025-01-28 13:13 | P.CONPHA_ITS ---
Pharmacy Intervention Comments: MEDICATION RECONCILIATION COMPLETED ON PATIENT USING MAR FROM [facility]. -JUNAID GENTILE, JAIROND
--- NOTE | 2025-01-28 13:13 | HMH.PHAINT1 ---
Pharmacy Intervention Comments: MEDICATION RECONCILIATION COMPLETED ON PATIENT USING [facility]. -JUNAID GENTILE, JAIROND
[2025-01-28 13:34] LABS: Adenovirus F 40/41, stool Not Detected (NotDetected); Astrovirus Not Detected (NotDetected); Campylobacter Not Detected (NotDetected); Clostridium Difficile A/B, PCR Not Detected (NotDetected); Cryptosporidium Not Detected (NotDetected); Cyclospora Cayetanesis Not Detected (NotDetected); Entamoeba histolytica Not Detected (NotDetected); Enteroaggregative E coli Not Detected (NotDetected); Enteropathogenic E coli Not Detected (NotDetected); Enterotoxigenic E coli Not Detected (NotDetected); Giardia lamblia Not Detected (NotDetected); Plesimonas Shigalloides, PCR Not Detected (NotDetected); Rotavirus A Not Detected (NotDetected); Salmonella, PCR Not Detected (NotDetected); Sapovirus Not Detected (NotDetected); Shiga-like toxin E coli Not Detected (NotDetected); Shigella Enterovasive E coli Not Detected (NotDetected); Vibrio Cholerae Not Detected (NotDetected); Vibrio, PCR Not Detected (NotDetected); Yersinia Entercolitica, PCR Not Detected (NotDetected)
--- NOTE | 2025-01-28 14:13 | SW/DCPLANNER ---
This patient resides at [facility]. PT/OT evaluated patient and stated that patient can return back to [facility] once medically stable for discharge. I will follow up w/ Marilu at [facility] once medically stable for discharge.
[2025-01-28] MEDS: SODIUM CHLORIDE 3% 15ML NEB 3 ML IH (15:02)
--- NOTE | 2025-01-28 15:44 | HMH.PTEV ---
Physical Therapy Evaluation Rehab PT IP Evaluation Start: 01/28/25 12:47 Freq: ONCE Status: Active Protocol: Document 01/28/25 13:39 PHORNE (Rec: 01/28/25 15:44 PHORNE [id number]) Subjective/History History History 64-year-old male with a history of obesity, tobacco use, CAD, schizophrenia, hypothyroidism, and anxiety presenting to the emergency department for evaluation with concern for multiple frequent unwitnessed falls, altered mental status, and incontinence at [facility]. No further history provided by facility. EMS notes that the patient was stable en route with mild tachycardia noted on telemetry. Patient is alert and oriented to person, place, but not time. He states that he is sick and does not feel good but does not provide any further history. Pt reports he lives in a local personal [facility] and he is generally independent with all mobility and ambulation without an AD. Subjective Subjective Pt reports no c/o at this time , I just want something to eat and a Pepsi. He agrees to OOB mobility assessment at this time. [facility] How much help from another person do you currently need... Turning from your back to your side None while in a flat bed without using bedrails? Moving from lying on back to sitting on None the side of a flat bed without using bedrails? Moving to and from a bed to a chair ( None including a wheelchair)? Standing up from a chair using your arms None ? (e.g., wheelchair, bedside chair) Walking in hospital room? None Climbing 3-5 steps with a railing? A little Mobility Score 23 Mobility Level [facility] Mobility Calculator Mobility 7 Walk 25 feet or more Rehab PT IP Eval Objective Appearance Patient Behavior Appropriate Patient Orientation Person,Place Difficulty following instructions none Speech Pattern Clear Ambulation Patient Able to Ambulate Yes Ambulation Observation IP General Gait Pattern Observation No Deviations/Normal Ambulation Distance (feet) 40 Ambulation Assistive Device None Ambulation Ability Supervision/Stand by Balance Ability to Arise Able, uses arms to help Sitting Balance Steady, safe Standing Balance Steady, wide stance Dynamic Sitting Balance Ability Good Dynamic Standing Balance Ability Fair Transfers Bed Transfer Ability Supervision/Stand by Chair Transfer Ability Supervision/Stand by Sit to Stand Bed Transfer Ability Supervision/Stand by Sit to Stand Chair Transfer Ability Supervision/Stand by Rehab PT IP prob,goals,plan Problems Date of Evaluation: 01/28/25 Discharge Plan PT Discharge Plan Pt is currently most appropriate to return to prior living facility once medically stable for d/c. No current acute therapy needs at this time. Eval Complexity Eval Charge Codes 87883 - High Complexity PHYSICIAN CERTIFICATION: I certify the specified therapy services for Vincenzo Huang are required, authorized, and reviewed every 30 days.
--- NOTE | 2025-01-28 17:11 | P.HP_ITS ---
History of Present Illness *Admission Date: 01/28/25 *Reason for visit:: Lower extremity weakness *History of present illness: Vincenzo Huang is a 64-year-old male with a medical history significant for hypertension, hypothyroidism, mood disorder who presents with diarrhea and progressive weakness. He states he has been weak over the past few days and unable to ambulate by himself. He had a fall this past week. He states he has had diarrhea over this time as well. Denies fever/chills, chest pain, shortness of breath, abdominal pain, urinary symptoms. Workup in the ED significant for WBC 8.3, creatinine 1.4, AGAP 19.2, CK3 85, CT abdomen/pelvis showed fluid- filled thick-walled small bowel loops concerning for enteritis. Severe distal constipation and rectal fecal impaction. Patient was given 1 L LR bolus, and Zosyn. Case discussed with ED provider and decision was made to admit patient for diarrhea, weakness, LILI, severe fecal impaction. [facility] Disclaimer: The information contained in this section may have been updated after the patient was seen, as this information can be updated by other users. Medical History Hypothyroid Pneumonia Influenza Schizophrenia RBBB Encephalomalacia DJD (degenerative joint disease), cervical Surgical History (Updated 01/28/25 @ 12:54 by Ruby Gould RN) Hx of cholecystectomy History of left hip replacement Family History Other No significant family history Social History Smoking Status: Current every day smoker tobacco type: cigarettes packs per day: 1 second hand exposure: No alcohol intake: never substance use type: denies use current occupational status: other Travel in the last 8 weeks: None household members: other housing: other caffeine: Yes Have you lived/traveled outside [place] in past 30 days?: No Contact w/someone who lives/traveled outside US past 30 days?: No Exposure to someone with infectious disease in past 14 days?: No Do you have a fever (greater than 100.4 F or 38 C)?: No Have you tested positive for COVID-19: No Exposed to someone with COVID-19 in past 14 days?: No Do you have a sore throat?: No Do you have a cough?: No Do you have any weakness?: Yes Do you have any diarrhea?: No Are you experiencing any unusual bleeding?: No Do you have any muscle aches/pain?: No Do you have any abdominal pain?: No Are you experiencing loss of taste or smell?: No Other Medical History Have you received the Flu Vaccine for this season: Yes Have you received the Pneumonia Vaccine: Yes Meds Home Medications and Allergies Home Medications ?Medication ?Instructions ?Recorded ?Confirmed ?Type divalproex 500 mg tablet,delayed 500 mg PO BID 02/25/18 01/28/25 History release amlodipine 2.5 mg tablet 2.5 mg PO HS 11/21/20 01/28/25 History risperidone 4 mg tablet 4 mg PO BID 03/06/21 01/28/25 History aspirin 81 mg chewable tablet 81 mg PO DAILY 04/11/21 01/28/25 History haloperidol 10 mg tablet 10 mg PO TID 10/07/22 01/28/25 History oxcarbazepine 600 mg tablet 600 mg PO BID 10/07/22 01/28/25 History quetiapine 300 mg tablet,extended 600 mg PO DAILY 10/07/22 01/28/25 History release 24 hr cholecalciferol (vitamin D3) 1,250 1,250 mcg PO WEEKLY 01/28/25 01/28/25 History mcg (50,000 unit) capsule clonazepam 1 mg tablet 1 mg PO BIDP PRN Agitation 01/28/25 01/28/25 History gabapentin 100 mg capsule 100 mg PO HS 01/28/25 01/28/25 History lactulose 10 gram/15 mL oral 10 g PO DAILYP PRN Constipation 01/28/25 01/28/25 History solution levothyroxine 100 mcg tablet 100 mcg PO DAILY 01/28/25 01/28/25 History magnesium hydroxide 400 mg/5 mL 30 ml PO DAILYP PRN Constipation 01/28/25 01/28/25 History oral suspension (Milk of Magnesia) omega 9-crs-qso-fish oil 1,000 mg 1 cap PO BID 01/28/25 01/28/25 History (120 mg-180 mg) capsule (Fish Oil) New Prescriptions to Start Prescriptions: Allergies Allergy/AdvReac Type Severity Reaction Status Date / Time No Known Allergies Allergy Verified 12/09/23 13:39 Exam Data for Last 24 hours Vital signs and Labs for Last 24 Hours: Temp Pulse Resp BP Pulse Ox O2 Del Method 98.1 F 74 17 141/82 H 96 Room Air 01/28/25 16:00 01/28/25 16:00 01/28/25 16:00 01/28/25 16:00 01/28/25 16:00 01/28/25 15:47 Laboratory Results - last 24 hr 01/28/25 07:55: WBC 8.3, RBC 4.82, Hgb 14.0 L, Hct 42.2, MCV 87.6, MCH 29.0, MCHC 33.2, RDW 13.2, Plt Count 137 L, MPV 12.2 H, Neut % (Auto) 90.7 H, Lymph % (Auto) 3.7 L, [place] % (Auto) 4.9, Eos % (Auto) 0.1, Baso % (Auto) 0.2, Neut # (Auto) 7.6, Lymph # (Auto) 0.3 L, [place] # (Auto) 0.4, Eos # (Auto) 0.0, Baso # (Auto) 0.0, Total Counted 100, Neutrophils % (Manual) 89 H, Lymphocytes % (Manual) 10, Monocytes % (Manual) 1 L, Platelet Estimate Slight decrease, RBC Morphology Normal, PT 11.0, INR 0.98, APTT 26.1, Sodium 138, Potassium 3.2 L, Chloride 103, Carbon Dioxide 19 L, Anion Gap 19.2 H, BUN 27 H, Creatinine 1.40 H , Estimated Creat Clear 70, Estimated GFR 51 L, Est GFR ( Amer) 62, Glucose 134 H, Calcium 8.7, Phosphorus 2.2 L, Magnesium 1.9, Total Bilirubin 0.5, AST 36, ALT 22, Alkaline Phosphatase 75, Total Creatine Kinase 385 H, Troponin I 0.02, C-Reactive Protein 35.0 H, NT-Pro-B Natriuret Pep 159 H, Total Protein 6.1 L, Albumin 3.9, Globulin 2.2, Albumin/Globulin Ratio 1.8, TSH 1.63, Thyroxine (T4) 4.6 L 01/28/25 08:16: VBG pH 7.36, VBG pCO2 32.7 L, VBG pO2 78.0 H, VBG HCO3 18.0 L, VBG Total CO2 19.0 L, VBG O2 Saturation 95.6 H, VBG Base Excess -7.4 L, VBG Lactic Acid 4.4 H 01/28/25 09:20: Urine Color Yellow, Urine Appearance Clear, Urine pH 6.0, Ur Specific [place] 1.015, Urine Protein Negative, Urine Glucose (UA) Negative, Urine Ketones Trace, Urine Blood Negative, Urine Nitrate Negative, Urine Bilirubin Negative, Urine Urobilinogen 0.2, Ur Leukocyte Esterase Negative, Urine RBC None, Urine WBC Occasional, Ur Squamous Epith Cells Occasional, Urine Bacteria Trace, SARS-CoV-2 (PCR) Not detected, Influenza A Untype (PCR) Not detected, Influenza Type B (PCR) Not detected 01/28/25 11:09: Lactate 1.2, Troponin I 0.02 01/28/25 11:46: Lactate 1.1 I & O for Last 24 hours: Intake & Output 01/25/25 01/26/25 01/27/25 01/28/25 23:59 23:59 23:59 23:59 Intake Total 1200 / 1200 Output Total 800 / 800 Balance 400 / 400 Weight 86.682 kg Constitutional Constitutional: no acute distress *Routine HEENT Exam Head: Present normocephalic Eye: Present EOMI and PERRL ENT: Present mucous membranes moist *Routine Neck Exam Neck: Present supple; Absent lymphadenopathy *Routine Respiratory Exam Respiratory: Present CTA bilaterally *Routine Cardiovascular Exam Cardiovascular: Present RRR *Routine Abdominal Exam Abdominal: Present soft and normoactive bowel sounds; Absent tenderness *Routine Rectal Exam Rectal:: deferred *Routine Genitalia Exam Genitalia:: deferred *Routine Extremities Exam Extremities: Absent cyanosis, clubbing or edema *Routine Skin Exam Skin: Present warm; Absent rash *Routine Neurological Exam Neurological: Present alert and oriented X3 Assessment and Plan *Assessment and plan (1) Enteritis: Status: Acute Category: Medical Code(s): K52.9 - Noninfective gastroenteritis and colitis, unspecified Plan Vincenzo Huang is a 64-year-old male with a medical history significant for hypertension, hypothyroidism, mood disorder who presents with diarrhea and progressive weakness. He states he has been weak over the past few days and unable to ambulate by himself. He had a fall this past week. He states he has had diarrhea over this time as well. Denies fever/chills, chest pain, shortness of breath, abdominal pain, urinary symptoms. Workup in the ED significant for WBC 8.3, creatinine 1.4, AGAP 19.2, CK3 85, CT abdomen/pelvis showed fluid- filled thick-walled small bowel loops concerning for enteritis. Severe distal constipation and rectal fecal impaction. Patient was given 1 L LR bolus, and Zosyn. Case discussed with ED provider and decision was made to admit patient for diarrhea, weakness, LILI, severe fecal impaction. #Enteritis #Severe fecal impaction #Paradoxical diarrhea ? Diarrhea over the past few days, fecal impaction and enteritis evidenced on CT abdomen. No abdominal pain, leukocytosis. ? Bowel regimen with soapsuds enema every 8 hours, bisacodyl. Will start oral laxatives after some disimpaction. ? IV Zosyn to prevent bacterial extravasation and stercoral colitis. ? Follow-up diarrhea panel. ? IV LR at 75 mL/h. ? Full liquid diet for now, advance as tolerated. #LILI #Rhabdomyolysis ? Initial creatinine 1.4, baseline 1.0. CK 385. ? Continue IV fluids as above. #Physical deconditioning, falls ?PT/OT consulted, pending recommendations. #Hypertension ? Hold BP meds in the setting of diarrhea, dehydration. #Hypothyroidism ? Resume home levothyroxine. Follow-up TFTs. #Mood disorder ? Resume home risperidone, quetiapine, oxcarbazepine, Haldol, gabapentin, valproic acid. QTc 455. Full code DVT prophylaxis: Lovenox 40 mg
[2025-01-28] MEDS: LACTATED RINGERS 1000ML 1,000 ML 75 ML IV (17:46)
[2025-01-28] MEDS: BISACODYL 5MG TABLET 10 MG PO (17:46)
[2025-01-28 18:08] LABS: Norovirus Detected (NotDetected)
[2025-01-28] MEDS: DIVALPROEX 500MG (Delayed-Release) TABLET 500 MG PO (21:54)
[2025-01-28] MEDS: PIPERCILLIN/TAZO 3.375 GM in 0.9 % SODIUM CHLORIDE 50 ML IV (23:14)
[2025-01-29] MEDS: PIPERCILLIN/TAZO 3.375 GM in 0.9 % SODIUM CHLORIDE 50 ML IV ×2 (03:41→08:44)
[2025-01-29 03:53] VITALS: BP 126/85; PULSE 71; RESP 18; TEMP 36.8; O2SAT 95
[2025-01-29 04:00] VITALS: BMI 25.8
--- NOTE | 2025-01-29 04:26 | PC.NURSE ---
Pt resting in bed with eyes closed. Pt refused scheduled enema even after education about needing it to break up blockages. The patient stated that he did not want it. Pt AOx3. 18g LAC and an 18g RAC. LR infusing in RAC @ 75mL/hr. Respirations even and unlabored. Bed is low, locked, and call light is in reach.
[2025-01-29 06:14] LABS: Basophils % 0.4 % (0.1-2.0); Eosinophils % 0.4 % (0.1-12.0); Hematocrit 42.4 % (42.0-52.0); Hemoglobin 13.6 g/dL (14.1-18.0); Lymphocytes # 0.9 K/mm3 (0.7-4.5); Lymphocytes % 16.9 % (10-50); Mean Corpuscular HGB Conc 32.1 g/dL (31.8-35.4); Mean Corpuscular Hemoglobin 28.9 pg (27.0-31.2); Mean Platelet Volume 11.9 fl (7.4-10.4); Monocytes # 0.5 K/mm3 (0.1-1.0); Monocytes % 10.2 % (1.7-9.3); Neutrophils # 3.6 K/mm3 (1.8-7.8); Neutrophils % 71.5 % (37.0-80.0); Platelet Count 107 K/mm3 (142-424); Red Blood Count 4.71 M/mm3 (4.60-6.20); Red Cell Distribution Width 13.4 % (11.5-17.5); White Blood Count 5.1 K/mm3 (4.8-10.8)
[2025-01-29 06:28] LABS: Alanine Aminotransferase 23 U/L (12-78); Albumin Level 3.5 g/dl (3.5-5.0); Albumin/Globulin Ratio 1.5 (1.1-1.8); Alkaline Phosphatase 66 U/L (38-126); Aspartate Amino Transferase 66 U/L (17-59); Bilirubin,Total 0.6 mg/dl (0.2-1.3); Blood Urea Nitrogen 20 mg/dl (9-20); Calcium 8.6 mg/dl (8.4-10.2); Carbon Dioxide 25 mmol/L (22.0-30.0); Chloride 106 mmol/L (98-107); Chol/HDL Ratio 3.4 (1-3.5); Cholesterol 123 mg/dl (140-200); Creatinine Clearance Estimated 89 mL/min (50-200); Estimated Glomerular Filt Rate 75 ml/min (>60); GFR (African American) 91 ML/MIN (>60); Globulin 2.3 g/dL (1.3-3.2); Glucose 98 mg/dl (74-100); HDL Cholesterol 36 mg/dl (40-60); Magnesium 2.1 mg/dl (1.6-2.3); Sodium 141 mmol/L (136-145); Total Protein,Serum 5.8 g/dl (6.3-8.2); Triglycerides 173 mg/dl (30-150); VLDL Cholesterol 35 mg/dL (0-40)
[2025-01-29] MEDS: LACTATED RINGERS 1000ML 1,000 ML 75 ML IV (06:36)
[2025-01-29 06:38] LABS: Direct LDL Cholesterol 39.03 mg/dL (100-129)
[2025-01-29 08:00] VITALS: BP 133/81; PULSE 101; RESP 15; TEMP 36.5; O2SAT 97
[2025-01-29] MEDS: QUETIAPINE 100MG TABLET 600 MG PO (08:42)
[2025-01-29] MEDS: POTASSIUM CHLORIDE 20MEQ TAB 40 MEQ PO ×2 (08:42→11:55)
[2025-01-29] MEDS: ENOXAPARIN 40MG/0.4ML SYRINGE 40 MG SUBCUT (08:43)
[2025-01-29] MEDS: ASPIRIN 81MG CHEWABLE TABLET 81 MG PO (08:43)
[2025-01-29] MEDS: haloperidoL 5 MG TABLET 10 MG PO ×2 (08:43→11:55)
[2025-01-29] MEDS: OXcarbazepine 300MG TABLET 600 MG PO (08:43)
[2025-01-29] MEDS: LEVOTHYROXINE 100MCG (0.1MG) TAB 100 MCG PO (08:44)
[2025-01-29] MEDS: DIVALPROEX 500MG (Delayed-Release) TABLET 500 MG PO (08:44)
[2025-01-29] MEDS: risperiDONE 1MG TABLET 4 MG PO (08:51)
--- NOTE | 2025-01-29 09:56 | HMH.OTEV ---
OT Inpatient Evaluation Rehab OT IP Evaluation Start: 01/28/25 17:31 Freq: ONCE Status: Active Protocol: Document 01/29/25 09:52 [facility] (Rec: 01/29/25 09:55 [facility] [id number]) Rehab OT IP Assessment Subjective History Pt oriented x3 on arrival. Pt agreeable to engage in therapy evaluation. Pt admitted on 01/28/25 due to lower extremity weakness. History and physical: Vincenzo Huang is a 64-year-old male with a medical history significant for hypertension, hypothyroidism, mood disorder who presents with diarrhea and progressive weakness. He states he has been weak over the past few days and unable to ambulate by himself. He had a fall this past week. He states he has had diarrhea over this time as well. Denies fever/chills, chest pain, shortness of breath, abdominal pain, urinary symptoms. Workup in the ED significant for WBC 8.3, creatinine 1.4, AGAP 19.2, CK3 85, CT abdomen/pelvis showed fluid-filled thick-walled small bowel loops concerning for enteritis. Severe distal constipation and rectal fecal impaction. Patient was given 1 L LR bolus, and Zosyn. Case discussed with ED provider and decision was made to admit patient for diarrhea, weakness, LILI, severe fecal impaction Subjective Prior to being in the hospital , pt lived at [facility]. Pt claims normally he is independent with all ADLs. He is dependent upon staff for completion of all IADLs. Pt does not use a walker or cane during functional transfers. Objective Patient Orientation Person,Place,Birthday Right Upper Extremity Gross ROM WFL Left Upper Extremity Gross ROM WFL Bed Mobility bed mobility-scooting,bed mobility - supine/sit Assist Level Supervision/Stand by Transfer Training Sit/Stand Transfer Assist Level Supervision/Stand by Chair Transfer Ability Supervision/Stand by Chair Transfer Technique Sit to/from Ambulatory Lower Body Dressing Ability Standby Assistance Rehab OT IP prob,goals,plan Problems Date of Evaluation: 01/29/25 Rehab Potential Rehab Potential Innapropriate for Skilled Therapy Discharge Plan OT Discharge Plan At this time, pt appears to be at his baseline with functional transfers and ADL independence. Pt can return to personal intermediate once he is medically stable for discharge. Eval Complexity Eval Charge Codes 20163 - Moderate Complexity PHYSICIAN CERTIFICATION: I certify the specified therapy services for Vincenzo Coop are required, authorized, and reviewed every 30 days.
--- NOTE | 2025-01-29 12:00 | PC.NURSE ---
refused emema twice today.
--- NOTE | 2025-01-29 13:50 | XR_ITS ---
FINAL REPORT CLINICAL HISTORY: f/u fecal impaction COMPARISON: None FINDINGS: A single view of the abdomen was obtained. There is a large amount of ingested material in the stomach. There is a nonobstructive bowel gas pattern with gas noted within a redundant colon. There are no abnormally dilated loops of small bowel. There are no abnormal calcifications. There is an IM rashmi and compression screws securing a healed fracture deformity of the proximal left hip. IMPRESSION: Nonobstructive bowel gas pattern with gas noted within a redundant colon. Reviewed, Interpreted and Dictated by Ezekiel Lott MD Transcribed by Yeni Masterson Authenticated and [facility]
--- NOTE | 2025-01-29 15:14 | EXP.DC.SUM ---
General Admission date:: 01/28/25 HPI HPI HPI: Vincenzo Huang is a 64-year-old male with a medical history significant for hypertension, hypothyroidism, mood disorder who presents with diarrhea and progressive weakness. He states he has been weak over the past few days and unable to ambulate by himself. He had a fall this past week. He states he has had diarrhea over this time as well. Denies fever/chills, chest pain, shortness of breath, abdominal pain, urinary symptoms. Workup in the ED significant for WBC 8.3, creatinine 1.4, AGAP 19.2, CK3 85, CT abdomen/pelvis showed fluid-filled thick-walled small bowel loops concerning for enteritis. Severe distal constipation and rectal fecal impaction. Patient was given 1 L LR bolus, and Zosyn. Case discussed with ED provider and decision was made to admit patient for diarrhea, weakness, LILI, severe fecal impaction. Hospital Course Hospital Course Hospital Course: Vincenzo Huang is a 64-year-old male with a medical history significant for hypertension, hypothyroidism, mood disorder who presents with diarrhea and progressive weakness. He states he has been weak over the past few days and unable to ambulate by himself. He had a fall this past week. He states he has had diarrhea over this time as well. Denies fever/chills, chest pain, shortness of breath, abdominal pain, urinary symptoms. Workup in the ED significant for WBC 8.3, creatinine 1.4, AGAP 19.2, CK3 85, CT abdomen/pelvis showed fluid-filled thick-walled small bowel loops concerning for enteritis. Severe distal constipation and rectal fecal impaction. Patient was given 1 L LR bolus, and Zosyn. Case discussed with ED provider and decision was made to admit patient for diarrhea, weakness, LILI, severe fecal impaction. #Norovirus enteritis #Severe distal fecal impaction #Paradoxical diarrhea ? Diarrhea over the past few days, rectal fecal impaction and enteritis evidenced on CT abdomen. No abdominal pain, leukocytosis. ? Patient vehemently refused enema, but has had multiple bowel movements during admission. ? Diarrhea panel positive for norovirus. ? Continue supportive care with hydration. Avoid Imodium. #LILI #Rhabdomyolysis ? Initial creatinine 1.4, baseline 1.0. CK 385. Improved back to 1.0 with IV fluid resuscitation. #Physical deconditioning, falls ? PT/OT consulted, no rehab needs. Patient is independent. #Hypertension ? Discontinued amlodipine as blood pressures have been normal. #Hypothyroidism ? Resume home levothyroxine. TFTs normal. #Mood disorder ? Resume home risperidone, quetiapine, oxcarbazepine, Haldol, gabapentin, valproic acid. QTc 455. Total time spent on discharge: 32 minutes on chart review, counseling, documentation, and direct care with patient. Exam Data for Last 24 hours Vital signs and Labs for Last 24 Hours: Temp Pulse Resp BP Pulse Ox O2 Del Method 97.7 F 101 H 15 133/81 97 Room Air 01/29/25 08:00 01/29/25 08:00 01/29/25 08:00 01/29/25 08:00 01/29/25 08:00 01/29/25 13:25 Laboratory Results - last 24 hr 01/28/25 13:20: Stl Aeromonas (PCR) Not detected, Stl C. cayetanensis PCR Not detected, Stool Rotavirus (PCR) Not detected, Stl Adenov F 40/41 PCR Not detected, Stool Astrovirus (PCR) Not detected, Stool Campylobacter PCR Not detected, Stl C.difficile Tox PCR Not detected, Stool Cryptosporidium PCR Not detected, Stl E.coli Shiga Tox PCR Not detected, Stool E coli O157 PCR Not detected, Stl Enterotoxigenic E PCR Not detected, Stool EPEC (PCR) Not detected, Stool EAEC (PCR) Not detected, Stl E. histolytica PCR Not detected, Stool Giardia Lamblia PCR Not detected, Stool Salmonella PCR Not detected, Stool Sapovirus (PCR) Not detected, Stl P. shigelloides PCR Not detected, Stl Shigella/EIEC PCR Not detected, St Y.enterocolitica PCR Not detected, Stool Vibrio (PCR) Not detected, Stl Vibrio cholerae PCR Not detected, Stl Norovirus GI/GII PCR Detected A 01/29/25 05:45: WBC 5.1 D, RBC 4.71, Hgb 13.6 L, Hct 42.4, MCV 90.0, MCH 28.9, MCHC 32.1, RDW 13.4, Plt Count 107 L, MPV 11.9 H, Neut % (Auto) 71.5, Lymph % (Auto) 16.9, [place] % (Auto) 10.2 H, Eos % (Auto) 0.4, Baso % (Auto) 0.4, Neut # (Auto) 3.6, Lymph # (Auto) 0.9, [place] # (Auto) 0.5, Eos # (Auto) 0.0, Baso # (Auto) 0.0, Sodium 141, Potassium 3.0 L, Chloride 106, Carbon Dioxide 25, Anion Gap 13.0, BUN 20 D, Creatinine 1.00 D, Estimated Creat Clear 89, Estimated GFR 75, Est GFR ( Amer) 91 D, Glucose 98 D, Calcium 8.6, Magnesium 2.1 D, Total Bilirubin 0.6, AST 66 H D, ALT 23, Alkaline Phosphatase 66, Total Protein 5.8 L, Albumin 3.5 D, Globulin 2.3, Albumin/Globulin Ratio 1.5, Triglycerides 173 H, Cholesterol 123 L, LDL Cholesterol Direct 39.03 L, VLDL Cholesterol 35, HDL Cholesterol 36 L, Cholesterol/HDL Ratio 3.4 I & O for Last 24 hours: Intake & Output 01/26/25 01/27/25 01/28/25 01/29/25 23:59 23:59 23:59 23:59 Intake Total 1200 / 1200 750 / 750 Output Total 800 / 1350 2250 / 2250 Balance 400 / -150 -1500 / -1500 Weight 86.682 kg 83.631 kg Microbiology Reports for the Last 24 Hours: Microbiology 01/28/25 09:20 Blood Blood Culture - Preliminary NO GROWTH AFTER 24 HOURS 01/28/25 07:55 Blood Blood Culture - Preliminary NO GROWTH AFTER 24 HOURS Constitutional Constitutional: no acute distress *Routine HEENT Exam Head: Present normocephalic Eye: Present EOMI and PERRL ENT: Present mucous membranes moist *Routine Neck Exam Neck: Present supple; Absent lymphadenopathy *Routine Respiratory Exam Respiratory: Present CTA bilaterally *Routine Cardiovascular Exam Cardiovascular: Present RRR *Routine Abdominal Exam Abdominal: Present soft and normoactive bowel sounds; Absent tenderness *Routine Extremities Exam Extremities: Absent cyanosis, clubbing or edema *Routine Skin Exam Skin: Present warm; Absent rash *Routine Neurological Exam Neurological: Present alert Results Data Completed and Pending Labs on day of discharge: Labs from last 24 hours 01/29/25 01/28/25 05:45 13:20 WBC 5.1 D RBC 4.71 Hgb 13.6 L Hct 42.4 MCV 90.0 MCH 28.9 MCHC 32.1 RDW 13.4 Plt Count 107 L MPV 11.9 H Neut % (Auto) 71.5 Lymph % (Auto) 16.9 [place] % (Auto) 10.2 H Eos % (Auto) 0.4 Baso % (Auto) 0.4 Neut # (Auto) 3.6 Lymph # (Auto) 0.9 [place] # (Auto) 0.5 Eos # (Auto) 0.0 Baso # (Auto) 0.0 Sodium 141 Potassium 3.0 L Chloride 106 Carbon Dioxide 25 Anion Gap 13.0 BUN 20 D Creatinine 1.00 D Estimated Creat Clear 89 Estimated GFR 75 Est GFR ( Amer) 91 D Glucose 98 D Calcium 8.6 Magnesium 2.1 D Total Bilirubin 0.6 AST 66 H D ALT 23 Alkaline Phosphatase 66 Total Protein 5.8 L Albumin 3.5 D Globulin 2.3 Albumin/Globulin Ratio 1.5 Triglycerides 173 H Cholesterol 123 L LDL Cholesterol Direct 39.03 L VLDL Cholesterol 35 HDL Cholesterol 36 L Cholesterol/HDL Ratio 3.4 Stl Aeromonas (PCR) Not detected Stl C. cayetanensis PCR Not detected Stool Rotavirus (PCR) Not detected Stl Adenov F 40/41 PCR Not detected Stool Astrovirus (PCR) Not detected Stool Campylobacter PCR Not detected Stl C.difficile Tox PCR Not detected Stool Cryptosporidium PCR Not detected Stl E.coli Shiga Tox PCR Not detected Stool E coli O157 PCR Not detected Stl Enterotoxigenic E PCR Not detected Stool EPEC (PCR) Not detected Stool EAEC (PCR) Not detected Stl E. histolytica PCR Not detected Stool Giardia Lamblia PCR Not detected Stool Salmonella PCR Not detected Stool Sapovirus (PCR) Not detected Stl P. shigelloides PCR Not detected Stl Shigella/EIEC PCR Not detected St Y.enterocolitica PCR Not detected Stool Vibrio (PCR) Not detected Stl Vibrio cholerae PCR Not detected Stl Norovirus GI/GII PCR Detected A Preliminary micro results at discharge 01/28/25 09:20 Blood Culture - Preliminary Blood NO GROWTH AFTER 24 HOURS 01/28/25 07:55 Blood Culture - Preliminary Blood NO GROWTH AFTER 24 HOURS DS: Diagnosis Discharge Diagnosis (1) Enteritis: Status: Acute Code(s): K52.9 - Noninfective gastroenteritis and colitis, unspecified Meds Home Medications and Allergies Home Medications ?Medication ?Instructions ?Recorded ?Confirmed ?Type divalproex 500 mg tablet,delayed 500 mg PO BID 02/25/18 01/28/25 History release amlodipine 2.5 mg tablet 2.5 mg PO HS 11/21/20 01/28/25 History risperidone 4 mg tablet 4 mg PO BID 03/06/21 01/28/25 History aspirin 81 mg chewable tablet 81 mg PO DAILY 04/11/21 01/28/25 History haloperidol 10 mg tablet 10 mg PO TID 10/07/22 01/28/25 History oxcarbazepine 600 mg tablet 600 mg PO BID 10/07/22 01/28/25 History quetiapine 300 mg tablet,extended 600 mg PO DAILY 10/07/22 01/28/25 History release 24 hr cholecalciferol (vitamin D3) 1,250 1,250 mcg PO WEEKLY 01/28/25 01/28/25 History mcg (50,000 unit) capsule clonazepam 1 mg tablet 1 mg PO BIDP PRN Agitation 01/28/25 01/28/25 History gabapentin 100 mg capsule 100 mg PO HS 01/28/25 01/28/25 History lactulose 10 gram/15 mL oral 10 g PO DAILYP PRN Constipation 01/28/25 01/28/25 History solution levothyroxine 100 mcg tablet 100 mcg PO DAILY 01/28/25 01/28/25 History magnesium hydroxide 400 mg/5 mL 30 ml PO DAILYP PRN Constipation 01/28/25 01/28/25 History oral suspension (Milk of Magnesia) omega 8-lla-asv-fish oil 1,000 mg 1 cap PO BID 01/28/25 01/28/25 History (120 mg-180 mg) capsule (Fish Oil) New Prescriptions to Start Prescriptions: Allergies Allergy/AdvReac Type Severity Reaction Status Date / Time No Known Allergies Allergy Verified 12/09/23 13:39 Discharge Plan Disposition Patient Disposition: Home, Self-Care Condition: Fair Follow up Plan Prescriptions/Medication Reconciliation: Continued divalproex 500 mg tablet,delayed release (DR/EC) 500 mg PO BID risperidone 4 MG tablet 4 mg PO BID aspirin 81 MG tablet,chewable 81 mg PO DAILY quetiapine 300 mg tablet extended release 24 hr 600 mg PO DAILY haloperidol 10 mg tablet 10 mg PO TID oxcarbazepine 600 mg tablet 600 mg PO BID levothyroxine 100 mcg tablet 100 mcg PO DAILY cholecalciferol (vitamin D3) 1,250 mcg (50,000 unit) capsule 1,250 mcg PO WEEKLY omega 7-yrv-ofx-fish oil [Fish Oil] 1,000 (120-180) mg Capsule 1 cap PO BID gabapentin 100 mg capsule 100 mg PO HS clonazepam 1 mg tablet 1 mg PO BIDP PRN (Reason: Agitation) magnesium hydroxide [Milk of Magnesia] 400 mg/5 mL suspension 30 ml PO DAILYP PRN (Reason: Constipation) lactulose 10 gram/15 mL Solution 10 g PO DAILYP PRN (Reason: Constipation) Held amlodipine 2.5 MG tablet 2.5 mg PO HS Hold Instructions: Resume on 02/08/25. Patient did not require this medication or hospitalization. Blood pressures were stable. Reevaluate as needed. Problem Reconciliation Problems Reviewed?: Yes Patient Discharge Instructions Patient Instructions: DI for Dehydration -- Adult, How to Prevent Falls, DI for Altered Mental Status Print Language: Danish Providers Primary Care Provider: Provider,Referral Admit Provider: Genaro Moody Attending Provider: Genaro Moody
== END 2025-01-29 16:10 | disposition home or self-care (01) ==
LOC: ER 11:06 → 2ND 11:58
PROVIDERS: Admitting Provider Student in an Organized Health Care Education/Training Program; Emergency Provider Emergency Medicine; Visit Provider Student in an Organized Health Care Education/Training Program
DX: A08.11 Acute gastroenteropathy due to Norwalk agent (principal); I10 Essential (primary) hypertension; M62.82 Rhabdomyolysis; K56.41 Fecal impaction; E86.0 Dehydration; E03.9 Hypothyroidism, unspecified; F17.210 Nicotine dependence, cigarettes, uncomplicated; N17.9 Acute kidney failure, unspecified; R29.6 Repeated falls; E87.6 Hypokalemia; F20.9 Schizophrenia, unspecified; Z96.642 Presence of left artificial hip joint; Z79.899 Other long term (current) drug therapy
CPT/HCPCS: 70450; 71275; 72125; 72128; 72192; 74018; 74177; 80053; 80061; 81001; 82550; 82803; 83605; 83735; 83880; 84100; 84436; 84443; 84484; 85007; 85025; 85027; 85610; 85730; 86140; 87040; 87086; 87507; 87636; 93005; 97163; 97166; 99291; G0378; J1650; J2543; J3480; J7120; Q9967

== ENCOUNTER 2025-04-24 21:29 | Observation (INO) | payer MEDICAID, SELFPAY ==
[2025-04-24 21:30] VITALS: PULSE 97; RESP 16; O2SAT 93
[2025-04-24 21:33] VITALS: BP 123/73; PULSE 97; RESP 18; TEMP 38.7; O2SAT 94; BMI 23.7
--- OUTSIDE RECORDS SUMMARY | 2025-04-24 21:36 | XMS_ITS ---
Author Organization [facility] Care Team Providers Care Center Mgr Name Role Phone Mitch De Unavailable Unavailable Allergies and adverse reactions No Known Allergies Care Team Name Role Address Phone Organization Dates Mitch De PCP [address], [place], [place], [address], [place] (Office): : [facility] 04/18/2021 - 04/26/2021 Goals Section Goals Description Status Target Date Goal is weight maintenance + /- 4# x 90 days with po of 50% or greater. Soft, formed bowel movement every 1-3 days. Free from edema. Intact, non redened skin. Active 05/07/2021 Immunizations Immunization Status Vaccine Details Vaccine Code CodeSystem Date Notes TB 1 Step Mantoux (PPD) completed tuberculin skin test; unspecified formulation lotNumber: [id number] expiry: 11/29/2022 Mfg: sanofi pasteur limited Given 0.1 ml Left Forearm intradermally 98 CVX created date: 04/18/2021 consent date: 04/18/2021 administer ed date: 04/18/2021 TB 2 Step Mantoux Skin Test completed tuberculin skin test; unspecified formulation lotNumber: [id number] expiry: 11/09/2022 Mfg: Sandfi pasteur Given 0.1 ml Right Forearm intradermally Step 1 of Multi-step 98 CVX created date: 04/25/2021 consent date: 04/25/2021 administer ed date: 04/25/2021 Resident discharged back to home before 2nd step was due to be read Hepatitis A completed hepatitis A vaccine, adult dosage 52 CVX created date: 04/18/2021 administer ed date: 09/19/2018 SARS-COV-2 (COVID-19) completed SARS-COV-2 (COVID-19) vaccine, mRNA, spike protein, LNP, preservative free, 30 mcg/0.3mL dose Step 2 of Multi-step with next step required 208 CVX created date: 04/18/2021 administer ed date: 11/12/2020 SARS-COV-2 (COVID-19) completed SARS-COV-2 (COVID-19) vaccine, mRNA, spike protein, LNP, preservative free, 30 mcg/0.3mL dose Step 1 of Multi-step with next step required 208 CVX created date: 04/18/2021 administer ed date: 11/12/2020 Received both doses 12/03/20 and 11/12/20 Mental Status Section Date Assessment Total Score Description 04/26/2021 BIMS 15 cognitively int act CAM 0 No delirium ind icated PHQ-9 00 04/25/2021 BIMS 15 cognitively int act CAM 0 No delirium ind icated PHQ-9 00 Problems Problem # Description Date of onset Resolved Date Code CodeSystem Concern Status 1 ACQUIRED ABSENCE OF OTHER SPECIFIED PARTS OF DIGESTIVE TRACT 04/18/[address] active 2 ANXIETY DISORDER, UNSPECIFIED 04/18/[address] active 3 ATHEROSCLEROTIC HEART DISEASE OF [place] CORONARY ARTERY WITHOUT ANGINA PECTORIS 04/18/[id number] active 4 ENCOUNTER FOR SURGICAL AFTERCARE FOLLOWING SURGERY ON THE DIGESTIVE SYSTEM 04/18/[address] active 5 ESSENTIAL (PRIMARY) HYPERTENSION 04/18/[address] active 6 HYDROPS OF GALLBLADDER 04/18/[address] active 7 HYPOTHYROIDISM, UNSPECIFIED 04/18/[address] active 8 ILEUS, UNSPECIFIED 04/18/[address] active 9 OBESITY, UNSPECIFIED 04/18/[address] active 10 OTHER CERVICAL DISC DEGENERATION, UNSPECIFIED CERVICAL REGION 04/18/[address] active 11 OTHER POSTPROCEDURAL COMPLICATIONS AND DISORDERS OF DIGESTIVE SYSTEM 04/18/[address] active 12 SCHIZOPHRENIA, UNSPECIFIED 04/18/[address] active 13 TOBACCO USE 04/18/20 Z72.0 ICD-10-CM active Reason for Referral No Reasons for Referral Entered Social History Social History Observation Description Start Date End Date Code Code System Current Smoking Status Tobacco smoking consumption unknown 355822562 SNOMED CT Sex Assigned At Male 1960 85982-4 [facility] Gender Identity Vital Signs Code Code System Vitals Name Values and Units Timing Information 9279-1 [facility] Respiratory Rate Value=20.0 Units=/m in 04/26/2021 8462-4 [facility] Blood Pressure-Diastolic Value=66 Un its=mmHg 04/26/2021 8480-6 [facility] Blood Pressure-Systolic Wzmji=680 Un its=mmHg 04/26/2021 8310-5 [facility] Body Temperature Value=98.9 Units= F 04/26/2021 8867-4 [facility] Heart rate Anidw=856.0 Units=/min 04/26/2021 98079-7 [facility] O2 % BldC Oximetry Value=96.0 Units= % 04/26/2021 98690-7 [facility] Pain Level Value=0.0 04/26/2021 92151-8 [facility] Weight Rqjhg=936.4 Units=Lbs 8302-2 [facility] Height Value=79.0 Units=Inches 04/18/2021
--- NOTE | 2025-04-24 21:43 | ECG_ITS ---
APPROVED REPORT Exam: Resting ECG HR:97 bpm ECG Measurements Heart Rate 97 AXES MI 136 P 60 QRSd 157 QRS -8 QT 364 T 0 QTc 419 Conclusion SINUS RHYTHM RIGHT BUNDLE BRANCH BLOCK [120+ ms QRS DURATION, UPRIGHT V1, 40+ ms S IN I/aVL/V4/V5/V6] ABNORMAL ECG No STEMI Electronically signed by : DONNA SCHWARZ, 04/24/2025 22:45:27
--- NOTE | 2025-04-24 21:43 | CT_ITS ---
PROCEDURE INFORMATION: Exam: CT Head Without Contrast Exam date and time: 04/24/2025 9:59 PM Age: 65 years old Clinical indication: Altered mental status/memory loss; Additional info: AMS TECHNIQUE: Imaging protocol: Computed tomography of the head without contrast. Radiation optimization: All CT scans at this facility use at least one of these dose optimization techniques: automated exposure control; mA and/or kV adjustment per patient size (includes targeted exams where dose is matched to clinical indication); or iterative reconstruction. COMPARISON: CT HEAD/BRAIN WO CON 01/28/2025 8:53 AM FINDINGS: Brain: No acute intracranial hemorrhage, midline shift, or mass effect. Diffuse brain parenchymal volume loss. Stable right cerebellar hemisphere encephalomalacia with calcifications. Similar pattern of hypodensities within the cerebral white matter. Stable calcification of the posterior falx/left tentorium. Cerebral ventricles: No ventriculomegaly. Paranasal sinuses: Mild mucosal thickening. Bilateral maxillary sinus mucous retention cysts. Mastoid air cells: Visualized mastoid air cells are well aerated. Bones: Stable osteochondroma of the right mandibular condyle. No acute fracture. Soft tissues: Unremarkable. IMPRESSION: No acute intracranial findings.
--- NOTE | 2025-04-24 21:52 | XR_ITS ---
PROCEDURE INFORMATION: Exam: XR Chest Exam date and time: 04/24/2025 9:54 PM Age: 65 years old Clinical indication: Fever TECHNIQUE: Imaging protocol: Radiologic exam of the chest. Views: 1 view. COMPARISON: CT ANGIO CHEST PE PROTOCOL 01/28/2025 8:56 AM FINDINGS: Lungs: Mild pulmonary vascular congestion. Pleural spaces: No large pleural effusion. No pneumothorax. Heart/Mediastinum: Cardiomegaly. Cardiomegaly. PROCEDURE INFORMATION: Bones/joints: Old left-sided rib fractures. IMPRESSION: Mild pulmonary vascular congestion.
[2025-04-24 21:55] LABS: Adenovirus,PCR Not Detected (NotDetected); Bordetella Pertussis Not Detected (NotDetected); Chlamydophila Pneumoniae, PCR Not Detected (NotDetected); Coronavirus 19, PCR Not Detected (NotDetected); Coronavirus 229E Not Detected (NotDetected); Coronavirus NL63 Not Detected (NotDetected); Coronavirus OC43 Not Detected (NotDetected); Coronovirus HKU1,PCR Not Detected (NotDetected); Human Metapneumovirus Not Detected (NotDetected); Influenza A, PCR Not Detected (NotDetected); Influenza AH1, 2009 Not Detected (NotDetected); Influenza AH1, PCR Not Detected (NotDetected); Influenza AH3,PCR Not Detected (NotDetected); Influenza B, PCR Not Detected (NotDetected); Mycoplasma Pneumoniae, PCR Not Detected (NotDetected); Parainfluenza 1, PCR Not Detected (NotDetected); Parainfluenza 2, PCR Not Detected (NotDetected); Parainfluenza 3, PCR Not Detected (NotDetected); Parainfluenza 4, PCR Not Detected (NotDetected); Respiratory Syncytial Virus Not Detected (NotDetected); Rhinovirus/Enterovirus Not Detected (NotDetected)
[2025-04-24 21:55] LABS: Microscopic, Urine URINE MICROSCOPIC (MICROSCOPIC)
--- NOTE | 2025-04-24 21:55 | PC.NURSE ---
This RN takes over care for patient. Techs at bedside attempting to obtain blood cultures, lactic and vbg. Pt noted to have +3 pitting edema to the right leg, +2 edema to the left leg. Pt brief noted to be wet. Pt pj bottoms removed, and purwick placed.
--- NOTE | 2025-04-24 21:57 | PC.NURSE ---
pt to CT by stretcher at this time
[2025-04-24 21:58] LABS: Basophils % 0.6 % (0.1-2.0); Eosinophils # 0.2 Kmm3 (0.0-0.4); Eosinophils % 3.1 % (0.1-12.0); Hematocrit 39.3 % (42.0-52.0); Hemoglobin 13.1 g/dL (14.1-18.0); Immature Granulocytes # 0.07 10^3uL; Lymphocytes # 1.6 K/mm3 (0.7-4.5); Lymphocytes % 22.4 % (10-50); Mean Corpuscular HGB Conc 33.3 g/dL (31.8-35.4); Mean Corpuscular Hemoglobin 29.2 pg (27.0-31.2); Mean Corpuscular Volume 87.7 fl (80-94); Monocytes # 0.7 K/mm3 (0.1-1.0); Monocytes % 10.2 % (1.7-9.3); Neutrophils # 4.5 K/mm3 (1.8-7.8); Neutrophils % 62.7 % (37.0-80.0); Nucleated Red Blood Cells # 0 10^3/uL; Nucleated Red Blood Cells % 0 %; Platelet Count 180 K/mm3 (142-424); Red Blood Count 4.48 M/mm3 (4.60-6.20); Red Cell Distribution Width 13.4 % (11.5-17.5); Red Cell Distribution Width-SD 42.2 fL; White Blood Count 7.2 K/mm3 (4.8-10.8)
[2025-04-24 21:59] LABS: Appearance,Urine CLEAR (Clear); Bilirubin,Urine Negative (Negative); Blood, Urine Negative (Negative); Color,Urine YELLOW (Yellow); Glucose,Urine (UA) Negative (Negative); Ketones,Urine Negative (Negative); Leukocyte Esterase,Urine Negative (Negative); Nitrate,Urine Negative (Negative); PH,Urine 6.5 (5.0-8.5); Protein,Urine Negative (Negative); Specific Gravity, Urine <= 1.005 (1.005-1.030); Urobilinogen,Urine 0.2 EU/dl (0.2)
[2025-04-24] MEDS: ACETAMINOPHEN 1,000MG/100ML VIAL 1000 MG IV (21:59)
[2025-04-24] MEDS: LACTATED RINGERS 1155 ML IV (22:01)
[2025-04-24 22:06] LABS: Activated Partial Thrombo Time 26.6 seconds (22.8-30.6); INR 1.01 (0.9-1.1); Prothrombin Time 11.2 seconds (10.1-12.5)
[2025-04-24 22:08] LABS: Alanine Aminotransferase 16 U/L (12-78); Albumin Level 4.2 g/dl (3.5-5.0); Albumin/Globulin Ratio 1.5 (1.1-1.8); Alkaline Phosphatase 71 U/L (38-126); Anion Gap 10.1 mEq/L (5-15); Aspartate Amino Transferase 24 U/L (17-59); Bilirubin,Total 0.4 mg/dl (0.2-1.3); Blood Urea Nitrogen 12 mg/dl (9-20); Calcium 9.9 mg/dl (8.4-10.2); Carbon Dioxide 28 mmol/L (22.0-30.0); Chloride 101 mmol/L (98-107); Creatine Kinase 109 U/L (55-170); Creatinine Clearance Estimated 68 mL/min (50-200); Estimated Glomerular Filt Rate 61 ml/min (>60); GFR (African American) 74 ML/MIN (>60); Globulin 2.8 g/dL (1.3-3.2); Glucose 118 mg/dl (74-100); Potassium 4.1 mmoL/L (3.5-5.1); Sodium 135 mmol/L (136-145)
--- NOTE | 2025-04-24 22:10 | HMH.EDGENADL ---
Discharge Plan Disposition Patient Disposition: Admitted Condition: Fair Clinical Impressions Clinical Impression: Heat exposure, Fever, Pulmonary edema, Acute hypoxemic respiratory failure Discharge ED Provider: Kathie Voss General Adult HPI General Chief complaint: Fever Stated complaint: altered mental status Time Seen by Provider: 04/24/25 21:33 Mode of Arrival: EMS Source of Information: Patient and EMS Description of Symptoms (Recalled from ER Triage Doc. by RN): PT brought to EMS for evaluation of possible excessive heat exposure. EMS and PT stated PT had walked to a [employer]lev[employer] down the street for an est. walk duration of a hour. PT temp 101.6 in Ed. EMS vitals: Temp 102.4, Sat 92%, HR 101. BLE edema noted, L +2, R +3. History of Present Illness HPI narrative: This patient is a 65-year-old male from [facility] with a history of schizophrenia, hypothyroidism, hypertension, and physical deconditioning presenting to the emergency department for evaluation with concern for fever and concern for heat exhaustion. History is provided by EMS. EMS notes that the patient had walked to a [employer]lev[employer] down the street for about an hour and had been outside in the heat when he got very hot. EMS took his temp and noted that it was 102.4 ?F. They also noted bilateral lower extremity edema and a heart rate of 101. They deny any other concerns en route. Patient is alert and oriented and states that he was out walking when he got really hot. He states he was feeling fine prior to that with no recent fevers, cough, congestion, abdominal pain, nausea, vomiting, change in bowel movements, or other concerns. Related Data Home Medications ?Medication ?Instructions ?Recorded ?Confirmed divalproex 500 mg tablet,delayed 500 mg PO BID 02/25/18 04/24/25 release amlodipine 2.5 mg tablet 2.5 mg PO HS 11/21/20 04/24/25 Held on 01/29/25. Instructions: Resume on 02/08/25. Patient did not require this medication or hospitalization. Blood pressures were stable. Reevaluate as needed. risperidone 4 mg tablet 4 mg PO BID 03/06/21 04/24/25 aspirin 81 mg chewable tablet 81 mg PO DAILY 04/11/21 04/24/25 haloperidol 10 mg tablet 10 mg PO TID 10/07/22 04/24/25 oxcarbazepine 600 mg tablet 600 mg PO BID 10/07/22 04/24/25 quetiapine 300 mg tablet,extended 600 mg PO DAILY 10/07/22 04/24/25 release 24 hr cholecalciferol (vitamin D3) 1,250 1,250 mcg PO WEEKLY 01/28/25 04/24/25 mcg (50,000 unit) capsule clonazepam 1 mg tablet 1 mg PO BIDP PRN Agitation 01/28/25 04/24/25 gabapentin 100 mg capsule 100 mg PO HS 01/28/25 04/24/25 lactulose 10 gram/15 mL oral 10 g PO DAILYP PRN Constipation 01/28/25 04/24/25 solution levothyroxine 100 mcg tablet 100 mcg PO DAILY 01/28/25 04/24/25 magnesium hydroxide 400 mg/5 mL 30 ml PO DAILYP PRN Constipation 01/28/25 04/24/25 oral suspension (Milk of Magnesia) omega 6-nfx-dxt-fish oil 1,000 mg 1 cap PO BID 01/28/25 04/24/25 (120 mg-180 mg) capsule (Fish Oil) acetaminophen 500 mg tablet 500 mg PO Q6H PRN Pain (Scale 04/24/25 04/24/25 Score 1-3) Allergies Allergy/AdvReac Type Severity Reaction Status Date / Time No Known Allergies Allergy Verified 12/09/23 13:39 [facility] Disclaimer: The information contained in this section may have been updated after the patient was seen, as this information can be updated by other users. Medical History General weakness Dehydration Acidosis, lactic Hypokalemia Frequent falls AMS (altered mental status) Rib pain on right side Fall Abrasion head Fall Laceration of left ear Overweight (BMI 25.0-29.9) Tinea pedis Right ankle pain Edema of right ankle Intertrigo Hyperkeratosis of forefoot Altered mental status Influenza A Tobacco use Obesity (BMI 30.0-34.9) Hypothyroid Pneumonia Influenza Schizophrenia RBBB Encephalomalacia DJD (degenerative joint disease), cervical Surgical History Hx of cholecystectomy History of left hip replacement Family History Other No significant family history Social History Smoking Status: Current every day smoker tobacco type: cigarettes packs per day: 1 second hand exposure: No alcohol intake: never substance use type: denies use current occupational status: other Travel in the last 8 weeks?: None household members: other housing: other caffeine: Yes Have you lived/traveled outside [place] in past 30 days?: No Contact w/someone who lives/traveled outside US past 30 days?: No Exposure to someone with infectious disease in past 14 days?: No Do you have a fever (greater than 100.4 F or 38 C)?: No Have you tested positive for COVID-19?: No Exposed to someone with COVID-19 in past 14 days?: No Do you have a sore throat?: No Do you have a cough?: No Do you have any weakness?: No Do you have any diarrhea?: No Are you experiencing any unusual bleeding?: No Do you have any muscle aches/pain?: No Do you have any abdominal pain?: No Are you experiencing loss of taste or smell?: No Other Medical History Have you received the Flu Vaccine for this season: No Have you received the Pneumonia Vaccine: No ROS Obtained: Yes All systems reviewed & no additional complaints except as documented Physical Exam General General appearance: alert and in no apparent distress Head Head exam: atraumatic and normocephalic Eye Eye exam: Present normal appearance, PERRL and EOMI ENT ENT exam: Present normal exam, normal oropharynx, mucous membranes moist and normal external ear exam Neck Neck exam: Present normal inspection, full ROM and trachea midline; Absent tenderness Chest Chest inspection: Present normal inspection and symmetric chest wall rise; Absent tenderness Respiratory Respiratory exam: Present normal lung sounds bilaterally; Absent respiratory distress, wheezes, stridor or accessory muscle use Cardiovascular Cardiovascular exam: Present regular rate and normal rhythm Abdominal Exam Abdominal exam: Present soft; Absent distention, tenderness or guarding Extremities Exam Extremities exam: Present full ROM, normal capillary refill and edema (Symmetric bilateral lower extremity edema); Absent tenderness Back Exam Back exam: Present normal inspection and full ROM; Absent tenderness Neurological Exam Neurological exam: Present alert, oriented X3, CN II-XII intact and normal gait; Absent motor sensory deficit Psychiatric Psychiatric exam: Present flat affect Skin Skin exam: Present warm and dry Medical Decision Making Medical Records Medical records reviewed: Yes I reviewed the patient's medical records. Screening: Per USPSTF and CDC recommendations, given the prevalence of disease in our region, it is our hospital?s policy to screen for HIV and viral Hepatitis for all patients aged 18 and over and those with ongoing risk factors. Jayce Inquiry Pt receiving controlled substance: No Vital Signs: 04/24/25 21:30 04/24/25 21:33 04/24/25 22:18 Temperature 101.6 F H 99.3 F Temperature Source Rectal Pulse Rate 97 H 89 Pulse Rate [Left] 97 H Respiratory Rate 16 18 28 H Blood Pressure 107/65 L Blood Pressure [Left Arm] 123/73 Blood Pressure Mean 75 Blood Pressure Mean [Left Arm] 89 02 Sat by Pulse Oximetry 93 L 94 L 88 L Oxygen Delivery Method Room Air 04/24/25 22:30 04/24/25 22:45 Temperature Temperature Source Pulse Rate 87 87 Pulse Rate [Left] Respiratory Rate 26 H 27 H Blood Pressure 110/64 Blood Pressure [Left Arm] Blood Pressure Mean 79 Blood Pressure Mean [Left Arm] 02 Sat by Pulse Oximetry 93 L 90 L Oxygen Delivery Method Lab Data Lab results reviewed: Yes I reviewed the patient's lab results. Lab Results 04/24/25 21:22: WBC 7.2, RBC 4.48 L, Hgb 13.1 L, Hct 39.3 L, MCV 87.7, MCH 29.2, MCHC 33.3, RDW 13.4, Plt Count 180, MPV 12.0 H, Neut % (Auto) 62.7, Lymph % (Auto) 22.4, [place] % (Auto) 10.2 H, Eos % (Auto) 3.1, Baso % (Auto) 0.6, Neut # (Auto) 4.5, Lymph # (Auto) 1.6, [place] # (Auto) 0.7, Eos # (Auto) 0.2, Baso # (Auto) 0.0, PT 11.2, INR 1.01, APTT 26.6, Sodium 135 L, Potassium 4.1, Chloride 101, Carbon Dioxide 28, Anion Gap 10.1, BUN 12, Creatinine 1.20, Estimated Creat Clear 68, Estimated GFR 61, Est GFR ( Amer) 74, Glucose 118 H, Calcium 9.9, Total Bilirubin 0.4, AST 24, ALT 16, Alkaline Phosphatase 71, Total Creatine Kinase 109, Troponin I < 0.01, C-Reactive Protein 3.2, Total Protein 7.0, Albumin 4.2, Globulin 2.8, Albumin/Globulin Ratio 1.5, Procalcitonin 0.054, TSH 2.47, Thyroxine (T4) 5.0 L 04/24/25 21:44: Urine Color Yellow, Urine Appearance Clear, Urine pH 6.5, Ur Specific [place] <= 1.005, Urine Protein Negative, Urine Glucose (UA) Negative, Urine Ketones Negative, Urine Blood Negative, Urine Nitrate Negative, Urine Bilirubin Negative, Urine Urobilinogen 0.2, Ur Leukocyte Esterase Negative, Urine RBC 10-20, Urine WBC 3-5, Ur Squamous Epith Cells Occasional, Amorphous Sediment 1+, Urine Bacteria 3+ 04/24/25 22:00: Lactate 2.9 H, NT-Pro-B Natriuret Pep 31.3 04/24/25 22:19: VBG pH 7.43 H, VBG pCO2 34.9 L, VBG pO2 93.7 H, VBG HCO3 22.8 L, VBG Total CO2 23.9, VBG O2 Saturation 97.2 H, VBG Base Excess -1.5, VBG Lactic Acid 2.9 H 04/24/25 21:22 04/24/25 21:22 Orders (Tests/Meds): ED MEDICATIONS Generic Name Dose Route Start Last Admin Trade Name Freq PRN Reason Stop Dose Admin Acetaminophen 650 mg 04/24/25 23:00 Acetaminophen 325mg Tab PO 05/24/25 22:59 Q4HP PRN Fever or Mild Pain (1-3) Ibuprofen 400 mg 04/24/25 23:00 Ibuprofen 400 Mg Tablet PO 05/24/25 22:59 Q6HP PRN Mild Pain (1-3) Discontinued Medications Generic Name Dose Route Start Last Admin Trade Name Freq PRN Reason Stop Dose Admin Acetaminophen 1,000 mg 04/24/25 21:42 04/24/25 21:59 Acetaminophen 1,000mg/100ml Vial IV 04/24/25 21:43 1,000 mg ONCE ONE Administration Lactated Ringer's 2,310 mls @ 1,155 mls/hr 04/24/25 21:42 04/24/25 22:01 Lactated Ringer's 1000 Ml Bag 30 ml/kg infuse over 2 hr (2310 ml) 04/24/25 23:41 1,155 mls/hr IV Administration .Q2H ONE Protocol ORDERS Category Date Time Status CT head/brain wo con Stat Cat Scan 04/24/25 21:43 Completed Chest XR -- portable [XR chest portable] Stat Exams 04/24/25 21:52 Completed Activated Partial Thrombo Time Stat Lab 04/24/25 21:22 Completed BNP [NT Pro Brain Natriuretic Pep.] Stat Lab 04/24/25 22:00 Completed C-Reactive Protein Stat Lab 04/24/25 21:22 Completed Complete Blood Count Auto Diff AMLAB Lab 04/25/25 06:00 Ordered Complete Blood Count Auto Diff Stat Lab 04/24/25 21:22 Completed Comprehensive Metabolic Panel AMLAB Lab 04/25/25 06:00 Ordered Comprehensive Metabolic Panel Stat Lab 04/24/25 21:22 Completed Creatine Kinase Stat Lab 04/24/25 21:22 Completed Full Resp Panel w/COVID ([facility]) Routine Lab 04/24/25 21:50 Received Lactic Acid Stat Lab 04/24/25 22:00 Completed Magnesium AMLAB Lab 04/25/25 06:00 Ordered Procalcitonin Stat Lab 04/24/25 21:22 Completed Prothrombin Time INR Stat Lab 04/24/25 21:22 Completed T4 (Thyroxine) Stat Lab 04/24/25 21:22 Completed TSH [Thyroid Stimulating Hormone] Stat Lab 04/24/25 21:22 Completed Trop I [Troponin I] Stat Lab 04/24/25 21:22 Completed Troponin I Q3H Lab 04/25/25 00:45 Ordered Troponin I Q3H Lab 04/25/25 03:45 Ordered Urinalysis and Microscopic Stat Lab 04/24/25 21:44 Completed Blood Culture Stat Micro 04/24/25 22:00 Received Urine Culture Stat Micro 04/24/25 21:44 Received VBG [Venous Blood Gas] Stat RT 04/24/25 22:19 Completed ECG Data Tracing #1: I reviewed this ECG and interpreted as documented below: Normal sinus rhythm with a ventricular of 97 bpm. Right bundle branch block. No acute ST changes concerning for STEMI. ECG initial impression date: 04/24/25 ECG initial impression time: 21:40 Medical Decision Narrative: In summary, this patient is a 65-year-old male presenting to the Emergency Department for evaluation of fever and possible heat exposure. Differential diagnoses considered include but are not limited to heatstroke, heat exhaustion, rhabdomyolysis, viral syndrome, pneumonia, sepsis, urinary tract infection. Ruling out the most morbid conditions drove assessment. It should be noted patient's history includes schizophrenia, CAD, hypertension, hypothyroidism which may not be at goal therapy. This complicates all aspects of care by increasing patient's risk for morbidity. I reviewed patient's past medical records and noted prior admission for altered mental status, dehydration in the setting of norovirus. Patient is currently alert and oriented and at his neurologic baseline as documented on past visits. On exam, the patient is sitting upright in no acute distress. He denies any physical concerns or complaints. He does have mild bilateral lower extremity edema. Cardiopulmonary and abdominal exams are reassuring. He is febrile but nontachycardic, nontachypneic. Workup included broad lab evaluation to evaluate for infectious, metabolic, cardiac etiologies given concern for heat exposure and fever. CT head without contrast and chest x-ray were also obtained. EKG obtained is reassuring. I independently interpreted chest x-ray prior to the radiologist read and noted concerns for possible pulmonary vascular congestion. Please see their read for final interpretation. Given pulmonary vascular congestion and lower extremity edema, I had initially ordered a sepsis bolus of IV fluids but I then canceled it. Fluids stopped after 300mL to make sure we do not volume overload the patient. On subsequent reassessment, the patient is more tachypneic and has more rales noted. He had an O2 saturation of 87% on room air, so he was placed on 2 L nasal cannula with improvement to 92 to 93%. Labs are concerning for lactic acidosis but are otherwise reassuring. CK is normal, liver enzymes normal. Ultimately, I feel he would benefit from admission with concern for heat exhaustion and respiratory failure related to volume overload/distributive shock. He was admitted in stable condition after interactive discussion with the hospitalist. Critical Care Critical Care Time Critical Care Time: No
[2025-04-24 22:14] LABS: C-Reactive Protein 3.2 mg/L (0-4)
[2025-04-24 22:15] LABS: Amorphous Sediment,Urine 1+ /lpf; Bacteria,Urine 3+ /lpf; Squamous Epithelial Cell,Urine Occasional #/hpf (0-5)
[2025-04-24 22:18] VITALS: BP 107/65; PULSE 89; RESP 28; TEMP 37.4; O2SAT 88
[2025-04-24 22:21] LABS: Troponin I < 0.01 ng/ml (0.00-0.034)
[2025-04-24 22:21] LABS: VBG Base Excess -1.5 mmol/L (-2.4-2.3); VBG HCO3 22.8 mmol/L (23-30); VBG Oxygen Saturation 97.2 % (50-70); VBG PCO2 34.9 mmol/L (35-51); VBG PH 7.43 mmol/L (7.31-7.41); VBG PO2 93.7 mmol/L (28-40); VBG Total CO2 23.9 mmol/L (23-27)
[2025-04-24 22:22] LABS: Lactate Venous 2.9 mmol/L (0.4-2.0)
[2025-04-24 22:25] LABS: Procalcitonin 0.054 ng/mL (0.0-2.0)
[2025-04-24 22:30] VITALS: BP 110/64; PULSE 87; RESP 26; O2SAT 93
[2025-04-24 22:40] LABS: Thyroid Stimulating Hormone 2.47 uIU/mL (0.465-4.68)
[2025-04-24 22:45] VITALS: PULSE 87; RESP 27; O2SAT 90
[2025-04-24 22:54] LABS: NT Pro Brain Natriuretic Pep. 31.3 pg/mL (0-125)
--- NOTE | 2025-04-24 22:57 | PC.NURSE ---
Spoke with employee at [facility] and provided update on plan of care and patient admission.
[2025-04-24 22:58] LABS: Lactic Acid 2.9 mmol/L (0.7-2.1)
--- NOTE | 2025-04-24 23:07 | PC.NURSE ---
[id number] supervisor notified of patient being admitted.
--- NOTE | 2025-04-24 23:32 | PC.NURSE ---
Report called to Wen VERDUZCO pending transport.
[2025-04-24 23:46] VITALS: BP 115/73; PULSE 81; RESP 17; TEMP 37.6; O2SAT 92
--- NOTE | 2025-04-24 23:52 | PC.NURSE ---
Patient arrived to floor via stretcher from ED at 23:45.
[2025-04-25] VITALS: BP 115/73; PULSE 76; RESP 26; TEMP 37.4; O2SAT 95
--- NOTE | 2025-04-25 00:19 | P.HP_ITS ---
<Statement entered by Genaro Moody MD - 04/28/25 22:25> Evaluated by the patient and agree with plan of care as outlined by the HISTOLOGY AIDE. History of Present Illness *Admission Date: 04/24/25 *Reason for visit:: Heat exposure *History of present illness: This is a 65-year-old male with a past medical history of CAD, hypothyroidism, schizophrenia who presents to the emergency department with EMS for possible heat exposure. Patient was brought in by EMS after being found walking down the street. Patient states that he was walking down the street to go to [employer] and he got very hot. Estimated walk time was approximately 1 hour. EMS did take patient's temperature upon their arrival and he was noted to have a temp of 102.4. He also was noted to have bilateral lower extremity edema. He denies any symptoms prior to being outside. Denies any cough or congestion. Denies any abdominal pain vomiting. Emergency Department workup notable for fever on arrival of 101. Labs mostly unremarkable except for a lactic of 2.9. He was noted to have increased re spiratory rate and tachycardia. Chest x-ray notable for mild vascular congestion. Given above-mentioned problems it was felt he would benefit from observation overnight. He is admitted to the hospitalist service. [facility] Disclaimer: The information contained in this section may have been updated after the patient was seen, as this information can be updated by other users. Medical History General weakness Dehydration Acidosis, lactic Hypokalemia Frequent falls AMS (altered mental status) Rib pain on right side Fall Abrasion head Fall Laceration of left ear Overweight (BMI 25.0-29.9) Tinea pedis Right ankle pain Edema of right ankle Intertrigo Hyperkeratosis of forefoot Altered mental status Influenza A Tobacco use Obesity (BMI 30.0-34.9) Hypothyroid Pneumonia Influenza Schizophrenia RBBB Encephalomalacia DJD (degenerative joint disease), cervical Surgical History Hx of cholecystectomy History of left hip replacement Family History Other No significant family history Social History Smoking Status: Current every day smoker tobacco type: cigarettes packs per day: 1 second hand exposure: No alcohol intake: never substance use type: denies use current occupational status: other Travel in the last 8 weeks?: None household members: other housing: other caffeine: Yes Have you lived/traveled outside [place] in past 30 days?: No Contact w/someone who lives/traveled outside [place] past 30 days?: No Exposure to someone with infectious disease in past 14 days?: No Do you have a fever (greater than 100.4 F or 38 C)?: No Have you tested positive for COVID-19?: No Exposed to someone with COVID-19 in past 14 days?: No Do you have a sore throat?: No Do you have a cough?: No Do you have any weakness?: No Do you have any diarrhea?: No Are you experiencing any unusual bleeding?: No Do you have any muscle aches/pain?: No Do you have any abdominal pain?: No Are you experiencing loss of taste or smell?: No Other Medical History Have you received the Flu Vaccine for this season: Yes Have you received the Pneumonia Vaccine: Yes Review of Systems Review of Systems Review of systems:: pertinent systems reviewed and negative unless documented below Meds Home Medications and Allergies Home Medications ?Medication ?Instructions ?Recorded ?Confirmed ?Type divalproex 500 mg tablet,delayed 500 mg PO BID 8 04/25/25 History release amlodipine 2.5 mg tablet 2.5 mg PO HS 11/21/20 History Held on 01/29/25. Instructions: Resume on 02/08/25. Patient did not require this medication or hospitalization. Blood pressures were stable. Reevaluate as needed. risperidone 4 mg tablet 4 mg PO BID 03/06/21 5 History aspirin 81 mg chewable tablet 81 mg PO DAILY 04/11/21 04/25/25 History haloperidol 10 mg tablet 10 mg PO TID 10/07/22 History oxcarbazepine 600 mg tablet 600 mg PO BID 10/07/22 History quetiapine 300 mg tablet,extended 600 mg PO DAILY 02/2304/25/25 History release 24 hr cholecalciferol (vitamin D3) 1,250 1,250 mcg PO WEEKLY 01/28/25 04/25/25 History mcg (50,000 unit) capsule clonazepam 1 mg tablet 1 mg PO BIDP PRN Agitation 0 01/28/25 04/25/25 History gabapentin 100 mg capsule 100 mg PO HS 01/28/25 History lactulose 10 gram/15 mL oral 10 g PO DAILYP PRN Consti pation 01/28/25 04/25/25 History solution levothyroxine 100 mcg tablet 100 mcg PO DAILY 01/28/25 04/25/25 History magnesium hydroxide 400 mg/5 mL 30 ml PO DAILYP PRN Co nstipation 01/28/25 04/25/25 History oral suspension (Milk of Magnesia) omega [id number]-fish oil 1,000 mg 1 cap PO BID 5 04/25/25 History (120 mg-180 mg) capsule (Fish Oil) acetaminophen 500 mg tablet 500 mg PO Q6H PRN Pain (Sc faustina 04/24/25 04/25/25 History Score 1-3) New Prescriptions to Start Prescriptions: Allergies Allergy/AdvReac Type Severity Reaction Status Date / Time No Known Allergies Allergy Verified 12/09/23 13:39 Exam Data for Last 24 hours Vital signs and Labs for Last 24 Hours: Temp Pulse Resp BP Pulse Ox O2 Del Method O2 Flow Rate 99.3 F 76 26 H 115/73 95 Room Air 2 04/25/25 00:00 04/25/25 00:00 04/25/25 00:00 04/25/25 00:00 04/25/25 00:00 04/25/25 00:00 04/24/25 23:46 Laboratory Results - last 24 hr 04/24/25 21:22: WBC 7.2, RBC 4.48 L, Hgb 13.1 L, Hct 39.3 L, MCV 87.7, MCH 29.2, MCHC 33.3, RDW 13.4, Plt Count 180, MPV 12.0 H, Neut % (Auto) 62.7, Lymph % (Auto) 22.4, [place] % (Auto) 10.2 H, Eos % (Auto) 3.1, Baso % (Auto) 0.6, Neut # (Auto) 4.5, Lymph # (Auto) 1.6, [place] # (Auto) 0.7, Eos # (Auto) 0.2, Baso # (Auto) 0.0, PT 11.2, INR 1.01, APTT 26.6, Sodium 135 L, Potassium 4.1, Chloride 101, Carbon Dioxide 28, Anion Gap 10.1, BUN 12, Creatinine 1.20, Estimated Creat Clear 68, Estimated GFR 61, Est GFR ( Amer) 74, Glucose 118 H, Calcium 9.9, Total Bilirubin 0.4, AST 24, ALT 16, Alkaline Phosphatase 71, Total Creatine Kinase 109, Troponin I < 0.01, C-Reactive Protein 3.2, Total Protein 7.0, Albumin 4.2, Globulin 2.8, Albumin/Globulin Ratio 1.5, Procalcitonin 0.054, TSH 2.47, Thyroxine (T4) 5.0 L 04/24/25 21:44: Urine Color Yellow, Urine Appearance Clear, Urine pH 6.5, Ur Specific [place] <= 1.005, Urine Protein Negative, Urine Glucose (UA) Negative, Urine Ketones Negative, Urine Blood Negative, Urine Nitrate Negative, Urine Bilirubin Negative, Urine Urobilinogen 0.2, Ur Leukocyte Esterase Negative, Urine RBC 10-20, Urine WBC 3-5, Ur Squamous Epith Cells Occasional, Amorphous Sediment 1+, Urine Bacteria 3+ 04/24/25 22:00: Lactate 2.9 H, NT-Pro-B Natriuret Pep 31.3 04/24/25 22:19: VBG pH 7.43 H, VBG pCO2 34.9 L, VBG pO2 93.7 H, VBG HCO3 22.8 L, VBG Total CO2 23.9, VBG O2 Saturation 97.2 H, VBG Base Excess -1.5, VBG Lactic Acid 2.9 H I & O for Last 24 hours: Intake & Output 04/22/25 04/23/25 04/24/25 04/25/25 23:59 23:59 23:59 23:59 Weight 77.111 kg Constitutional Constitutional: no acute distress *Routine HEENT Exam Head: Present normocephalic Eye: Present EOMI and PERRL ENT: Present mucous membranes moist *Routine Neck Exam Neck: Present supple; Absent lymphadenopathy *Routine Respiratory Exam Respiratory: Present wheezes and crackles *Routine Cardiovascular Exam Cardiovascular: Present RRR *Routine Abdominal Exam Abdominal: Present soft and normoactive bowel sounds; Absent tenderness *Routine Rectal Exam Rectal:: deferred *Routine Genitalia Exam Genitalia:: deferred *Routine Extremities Exam Extremities: Absent cyanosis, clubbing or edema *Routine Skin Exam Skin: Present warm; Absent rash *Routine Neurological Exam Neurological: Present alert and oriented X3 Assessment and Plan *Assessment and plan (1) Acute hypoxemic respiratory failure: Status: Acute Category: Medical Code(s): J96.01 - Acute respiratory failure with hypoxia (2) Pulmonary edema: Status: Acute Category: Medical Code(s): J81.1 - Chronic pulmonary edema (3) Fever: Status: Acute Category: Medical Code(s): R50.9 - Fever, unspecified (4) Heat exposure: Status: Acute Category: Medical Code(s): T67.9XXA - Effect of heat and light, unspecified, initial encounter (5) Schizophrenia: Status: Acute Qualifiers: Schizophrenia type: unspecified Qualified Code(s): F20.9 - Schizophrenia, unspecified Category: Medical Code(s): F20.9 - Schizophrenia, unspecified Plan #Fever #SIRS Does have SIRS criteria of fever and tachypnea but likely secondary to heat exposure and pulmonary edema. Procalcitonin negative. Will obtain viral respiratory panel but will defer antibiotic therapy at this time. #Heat exposure Presented with a fever of 102 with EMS. Improved with antipyretics in the emergency department. CK normal. Renal function normal. Monitor fever trend overnight. #Pulmonary edema No noted history. Will give trial dose of Lasix. Currently requiring 2 L nasal cannula. Does not wear oxygen at baseline Monitor respiratory symptoms #Schizophrenia Continue home medication
[2025-04-25] MEDS: FUROSEMIDE 20MG TABLET 20 MG PO (01:05)
[2025-04-25] MEDS: GABAPENTIN 100MG CAPSULE 100 MG PO (01:05)
[2025-04-25] MEDS: DIVALPROEX 500MG (Delayed-Release) TABLET 500 MG PO ×2 (01:05→09:12)
[2025-04-25 01:46] LABS: Troponin I 0.02 ng/ml (0.00-0.034)
[2025-04-25 02:23] LABS: Reflex Lactic Add Lactic Reflex
[2025-04-25 04:00] VITALS: BP 123/75; PULSE 60; RESP 12; TEMP 37.2; O2SAT 97; BMI 27.0
[2025-04-25 05:57] LABS: Albumin Level 3.6 g/dl (3.5-5.0); Chloride 107 mmol/L (98-107)
[2025-04-25 05:58] LABS: Basophils % 0.4 % (0.1-2.0); Eosinophils # 0.2 Kmm3 (0.0-0.4); Eosinophils % 2.3 % (0.1-12.0); Hematocrit 39.1 % (42.0-52.0); Hemoglobin 12.8 g/dL (14.1-18.0); Immature Granulocytes # 0.07 10^3uL; Lymphocytes % 29.9 % (10-50); Mean Corpuscular HGB Conc 32.7 g/dL (31.8-35.4); Mean Corpuscular Volume 88.7 fl (80-94); Mean Platelet Volume 11.2 fl (7.4-10.4); Monocytes # 0.7 K/mm3 (0.1-1.0); Neutrophils # 3.8 K/mm3 (1.8-7.8); Neutrophils % 56.4 % (37.0-80.0); Nucleated Red Blood Cells # 0 10^3/uL; Nucleated Red Blood Cells % 0 %; Platelet Count 154 K/mm3 (142-424); Potassium 3.6 mmoL/L (3.5-5.1); Red Blood Count 4.41 M/mm3 (4.60-6.20); Red Cell Distribution Width 13.5 % (11.5-17.5); Red Cell Distribution Width-SD 43.7 fL; Sodium 141 mmol/L (136-145); White Blood Count 6.8 K/mm3 (4.8-10.8)
[2025-04-25 06:00] LABS: Alanine Aminotransferase 12 U/L (12-78); Albumin/Globulin Ratio 1.4 (1.1-1.8); Anion Gap 6.6 mEq/L (5-15); Aspartate Amino Transferase 17 U/L (17-59); Blood Urea Nitrogen 13 mg/dl (9-20); Carbon Dioxide 31 mmol/L (22.0-30.0); Creatinine Clearance Estimated 84 mL/min (50-200); Estimated Glomerular Filt Rate 67 ml/min (>60); GFR (African American) 82 ML/MIN (>60); Globulin 2.6 g/dL (1.3-3.2); Total Protein,Serum 6.2 g/dl (6.3-8.2)
[2025-04-25 06:01] LABS: Alkaline Phosphatase 72 U/L (38-126); Bilirubin,Total 0.3 mg/dl (0.2-1.3); Calcium 9.1 mg/dl (8.4-10.2); Glucose 114 mg/dl (74-100); Magnesium 1.9 mg/dl (1.6-2.3)
--- NOTE | 2025-04-25 06:01 | PC.NURSE ---
New Admit. V/s, pt alert to self only. Temperature monitored for fever. Pt has been afebrile since coming to the floor. Plan of care ongoing.
[2025-04-25 06:13] LABS: Troponin I 0.02 ng/ml (0.00-0.034)
[2025-04-25 08:00] VITALS: BP 127/87; PULSE 61; RESP 17; TEMP 36.4; O2SAT 98
[2025-04-25] MEDS: CEFTRIAXONE 1 GM 1 GM in 0.9 % SODIUM CHLORIDE 50 ML IV (09:12)
[2025-04-25] MEDS: ASPIRIN 81MG CHEWABLE TABLET 81 MG PO (09:12)
[2025-04-25] MEDS: LEVOTHYROXINE 100MCG (0.1MG) TAB 100 MCG PO (09:13)
[2025-04-25] MEDS: OXcarbazepine 300MG TABLET 600 MG PO (09:13)
[2025-04-25] MEDS: risperiDONE 1MG TABLET 4 MG PO (09:13)
[2025-04-25] MEDS: QUETIAPINE 100MG TABLET 200 MG PO (09:13)
[2025-04-25] MEDS: haloperidoL 5 MG TABLET 10 MG PO ×2 (09:13→12:35)
[2025-04-25 12:00] VITALS: BP 123/85; PULSE 68; RESP 17; TEMP 36.6; O2SAT 97
--- NOTE | 2025-04-25 12:07 | EXP.DC.SUM ---
General Admission date:: 04/24/25 HPI HPI HPI: This is a 65-year-old male with a past medical history of CAD, hypothyroidism, schizophrenia who presents to the emergency department with EMS for possible heat exposure. Patient was brought in by EMS after being found walking down the street. Patient states that he was walking down the street to go to [employer] and he got very hot. Estimated walk time was approximately 1 hour. EMS did take patient's temperature upon their arrival and he was noted to have a temp of 102.4. He also was noted to have bilateral lower extremity edema. He denies any symptoms prior to being outside. Denies any cough or congestion. Denies any abdominal pain vomiting. Emergency Department workup notable for fever on arrival of 101. Labs mostly unremarkable except for a lactic of 2.9. He was noted to have increased respiratory rate and tachycardia. Chest x-ray notable for mild vascular congestion. Given above-mentioned problems it was felt he would benefit from observation overnight. He is admitted to the hospitalist service. Hospital Course Hospital Course Hospital Course: Vincenzo Huang is a 64-year-old male with a medical history significant for hypertension, hypothyroidism, mood disorder presented with heat exhaustion after walking in the sun, temperature of 102.4 Fahrenheit. Also found to be hypoxic at 87% with signs of volume overload. #Heat exhaustion ? Was walking in the sun yesterday, began experiencing weakness with exhaustion. Temperature found to be 102 Fahrenheit by Fahrenheit. Improved with IV fluids. #Hypoxia ? Requiring 2 L nasal cannula initially, seemingly resolved with Lasix overnight. Currently on room air, very comfortable and pleasant. No signs of intrapulmonary infection. BNP normal. #UTI ? UA grossly abnormal, discharged with levofloxacin for 6 more days. #Hypertension ? Continue amlodipine 2.5 mg. Expect mild peripheral pitting edema. #Hypothyroidism ? Resume home levothyroxine. TFTs normal. #Mood disorder ? Resume home risperidone, quetiapine, oxcarbazepine, Haldol, gabapentin, valproic acid. QTc 419. Exam Data for Last 24 hours Vital signs and Labs for Last 24 Hours: Temp Pulse Resp BP Pulse Ox O2 Del Method O2 Flow Rate 97.6 F 61 17 127/87 98 Room Air 2 04/25/25 08:00 04/25/25 08:00 04/25/25 08:00 04/25/25 08:00 04/25/25 08:00 04/25/25 11:00 04/25/25 07:00 Laboratory Results - last 24 hr 04/24/25 21:22: WBC 7.2, RBC 4.48 L, Hgb 13.1 L, Hct 39.3 L, MCV 87.7, MCH 29.2, MCHC 33.3, RDW 13.4, Plt Count 180, MPV 12.0 H, Neut % (Auto) 62.7, Lymph % (Auto) 22.4, [place] % (Auto) 10.2 H, Eos % (Auto) 3.1, Baso % (Auto) 0.6, Neut # (Auto) 4.5, Lymph # (Auto) 1.6, [place] # (Auto) 0.7, Eos # (Auto) 0.2, Baso # (Auto) 0.0, PT 11.2, INR 1.01, APTT 26.6, Sodium 135 L, Potassium 4.1, Chloride 101, Carbon Dioxide 28, Anion Gap 10.1, BUN 12, Creatinine 1.20, Estimated Creat Clear 68, Estimated GFR 61, Est GFR ( Amer) 74, Glucose 118 H, Calcium 9.9, Total Bilirubin 0.4, AST 24, ALT 16, Alkaline Phosphatase 71, Total Creatine Kinase 109, Troponin I < 0.01, C-Reactive Protein 3.2, Total Protein 7.0, Albumin 4.2, Globulin 2.8, Albumin/Globulin Ratio 1.5, Procalcitonin 0.054, TSH 2.47, Thyroxine (T4) 5.0 L 04/24/25 21:44: Urine Color Yellow, Urine Appearance Clear, Urine pH 6.5, Ur Specific [place] <= 1.005, Urine Protein Negative, Urine Glucose (UA) Negative, Urine Ketones Negative, Urine Blood Negative, Urine Nitrate Negative, Urine Bilirubin Negative, Urine Urobilinogen 0.2, Ur Leukocyte Esterase Negative, Urine RBC 10-20, Urine WBC 3-5, Ur Squamous Epith Cells Occasional, Amorphous Sediment 1+, Urine Bacteria 3+ 04/24/25 21:50: Chlamy pneumoniae PCR Not detected, Adenovirus (PCR) Not detected, B. pertussis DNA (PCR) Not detected, Coronavirus OC43 (PCR) Not detected, Coronavirus HKU1 (PCR) Not detected, Coronavirus 229E (PCR) Not detected, SARS-CoV-2 (PCR) Not detected, Coronavirus NL63 (PCR) Not detected, Human Metapneumovir PCR Not detected, Influenza A (H1) PCR Not detected, Influ A (H1N1/09) PCR Not detected, Influenza A (H3) PCR Not detected, Influenza Type A (PCR) Not detected, Influenza Type B (PCR) Not detected, M. pneumoniae (PCR) Not detected, Parainfluenza 1 (PCR) Not detected, Parainfluenza 2 (PCR) Not detected, Parainfluenza 3 (PCR) Not detected, Parainfluenza 4 (PCR) Not detected, RSV (PCR) Not detected, Entero/Rhino (PCR) Not detected 04/24/25 22:00: Lactate 2.9 H, NT-Pro-B Natriuret Pep 31.3 04/24/25 22:19: VBG pH 7.43 H, VBG pCO2 34.9 L, VBG pO2 93.7 H, VBG HCO3 22.8 L, VBG Total CO2 23.9, VBG O2 Saturation 97.2 H, VBG Base Excess -1.5, VBG Lactic Acid 2.9 H 04/25/25 01:15: Troponin I 0.02 04/25/25 05:45: WBC 6.8, RBC 4.41 L, Hgb 12.8 L, Hct 39.1 L, MCV 88.7, MCH 29.0, MCHC 32.7, RDW 13.5, Plt Count 154, MPV 11.2 H, Neut % (Auto) 56.4, Lymph % (Auto) 29.9, [place] % (Auto) 10.0 H, Eos % (Auto) 2.3, Baso % (Auto) 0.4, Neut # (Auto) 3.8, Lymph # (Auto) 2.0, [place] # (Auto) 0.7, Eos # (Auto) 0.2, Baso # (Auto) 0.0, Sodium 141, Potassium 3.6, Chloride 107, Carbon Dioxide 31 H, Anion Gap 6.6, BUN 13, Creatinine 1.10, Estimated Creat Clear 84, Estimated GFR 67, Est GFR ( Amer) 82, Glucose 114 H, Lactate 1.0, Calcium 9.1, Magnesium 1.9, Total Bilirubin 0.3, AST 17 D, ALT 12, Alkaline Phosphatase 72, Troponin I 0.02, Total Protein 6.2 L, Albumin 3.6 D, Globulin 2.6, Albumin/Globulin Ratio 1.4 I & O for Last 24 hours: Intake & Output 04/22/25 04/23/25 04/24/25 04/25/25 23:59 23:59 23:59 23:59 Intake Total 600 / 600 Output Total 2250 / 2250 Balance -1650 / -1650 Weight 77.111 kg 87.634 kg Constitutional Constitutional: no acute distress *Routine HEENT Exam Head: Present normocephalic Eye: Present EOMI and PERRL ENT: Present mucous membranes moist *Routine Neck Exam Neck: Present supple; Absent lymphadenopathy *Routine Respiratory Exam Respiratory: Present CTA bilaterally *Routine Cardiovascular Exam Cardiovascular: Present RRR *Routine Abdominal Exam Abdominal: Present soft and normoactive bowel sounds; Absent tenderness *Routine Extremities Exam Extremities: Absent cyanosis, clubbing or edema *Routine Skin Exam Skin: Present warm; Absent rash *Routine Neurological Exam Neurological: Present alert Results Data Completed and Pending Labs on day of discharge: Labs from last 24 hours 04/25/25 04/25/25 04/24/25 05:45 01:15 22:19 WBC 6.8 RBC 4.41 L Hgb 12.8 L Hct 39.1 L MCV 88.7 MCH 29.0 MCHC 32.7 RDW 13.5 Plt Count 154 MPV 11.2 H Neut % (Auto) 56.4 Lymph % (Auto) 29.9 [place] % (Auto) 10.0 H Eos % (Auto) 2.3 Baso % (Auto) 0.4 Neut # (Auto) 3.8 Lymph # (Auto) 2.0 [place] # (Auto) 0.7 Eos # (Auto) 0.2 Baso # (Auto) 0.0 PT INR APTT VBG pH 7.43 H VBG pCO2 34.9 L VBG pO2 93.7 H VBG HCO3 22.8 L VBG Total CO2 23.9 VBG O2 Saturation 97.2 H VBG Base Excess -1.5 VBG Lactic Acid 2.9 H Sodium 141 Potassium 3.6 Chloride 107 Carbon Dioxide 31 H Anion Gap 6.6 BUN 13 Creatinine 1.10 Estimated Creat Clear 84 Estimated GFR 67 Est GFR ( Amer) 82 Glucose 114 H Lactate 1.0 Calcium 9.1 Magnesium 1.9 Total Bilirubin 0.3 AST 17 D ALT 12 Alkaline Phosphatase 72 Total Creatine Kinase Troponin I 0.02 0.02 C-Reactive Protein NT-Pro-B Natriuret Pep Total Protein 6.2 L Albumin 3.6 D Globulin 2.6 Albumin/Globulin Ratio 1.4 Procalcitonin TSH Thyroxine (T4) Urine Color Urine Appearance Urine pH Ur Specific [place] Urine Protein Urine Glucose (UA) Urine Ketones Urine Blood Urine Nitrate Urine Bilirubin Urine Urobilinogen Ur Leukocyte Esterase Urine RBC Urine WBC Ur Squamous Epith Cells Amorphous Sediment Urine Bacteria Chlamy pneumoniae PCR Adenovirus (PCR) B. pertussis DNA (PCR) Coronavirus OC43 (PCR) Coronavirus HKU1 (PCR) Coronavirus 229E (PCR) SARS-CoV-2 (PCR) Coronavirus NL63 (PCR) Human Metapneumovir PCR Influenza A (H1) PCR Influ A (H1N1/09) PCR Influenza A (H3) PCR Influenza Type A (PCR) Influenza Type B (PCR) M. pneumoniae (PCR) Parainfluenza 1 (PCR) Parainfluenza 2 (PCR) Parainfluenza 3 (PCR) Parainfluenza 4 (PCR) RSV (PCR) Entero/Rhino (PCR) 04/24/25 04/24/25 04/24/25 22:00 21:50 21:44 WBC RBC Hgb Hct MCV MCH MCHC RDW Plt Count MPV Neut % (Auto) Lymph % (Auto) [place] % (Auto) Eos % (Auto) Baso % (Auto) Neut # (Auto) Lymph # (Auto) [place] # (Auto) Eos # (Auto) Baso # (Auto) PT INR APTT VBG pH VBG pCO2 VBG pO2 VBG HCO3 VBG Total CO2 VBG O2 Saturation VBG Base Excess VBG Lactic Acid Sodium Potassium Chloride Carbon Dioxide Anion Gap BUN Creatinine Estimated Creat Clear Estimated GFR Est GFR ( Amer) Glucose Lactate 2.9 H Calcium Magnesium Total Bilirubin AST ALT Alkaline Phosphatase Total Creatine Kinase Troponin I C-Reactive Protein NT-Pro-B Natriuret Pep 31.3 Total Protein Albumin Globulin Albumin/Globulin Ratio Procalcitonin TSH Thyroxine (T4) Urine Color Yellow Urine Appearance Clear Urine pH 6.5 Ur Specific [place] <= 1.005 Urine Protein Negative Urine Glucose (UA) Negative Urine Ketones Negative Urine Blood Negative Urine Nitrate Negative Urine Bilirubin Negative Urine Urobilinogen 0.2 Ur Leukocyte Esterase Negative Urine RBC 10-20 Urine WBC 3-5 Ur Squamous Epith Cells Occasional Amorphous Sediment 1+ Urine Bacteria 3+ Chlamy pneumoniae PCR Not detected Adenovirus (PCR) Not detected B. pertussis DNA (PCR) Not detected Coronavirus OC43 (PCR) Not detected Coronavirus HKU1 (PCR) Not detected Coronavirus 229E (PCR) Not detected SARS-CoV-2 (PCR) Not detected Coronavirus NL63 (PCR) Not detected Human Metapneumovir PCR Not detected Influenza A (H1) PCR Not detected Influ A (H1N1/09) PCR Not detected Influenza A (H3) PCR Not detected Influenza Type A (PCR) Not detected Influenza Type B (PCR) Not detected M. pneumoniae (PCR) Not detected Parainfluenza 1 (PCR) Not detected Parainfluenza 2 (PCR) Not detected Parainfluenza 3 (PCR) Not detected Parainfluenza 4 (PCR) Not detected RSV (PCR) Not detected Entero/Rhino (PCR) Not detected 04/24/25 21:22 WBC 7.2 RBC 4.48 L Hgb 13.1 L Hct 39.3 L MCV 87.7 MCH 29.2 MCHC 33.3 RDW 13.4 Plt Count 180 MPV 12.0 H Neut % (Auto) 62.7 Lymph % (Auto) 22.4 [place] % (Auto) 10.2 H Eos % (Auto) 3.1 Baso % (Auto) 0.6 Neut # (Auto) 4.5 Lymph # (Auto) 1.6 [place] # (Auto) 0.7 Eos # (Auto) 0.2 Baso # (Auto) 0.0 PT 11.2 INR 1.01 APTT 26.6 VBG pH VBG pCO2 VBG pO2 VBG HCO3 VBG Total CO2 VBG O2 Saturation VBG Base Excess VBG Lactic Acid Sodium 135 L Potassium 4.1 Chloride 101 Carbon Dioxide 28 Anion Gap 10.1 BUN 12 Creatinine 1.20 Estimated Creat Clear 68 Estimated GFR 61 Est GFR ( Amer) 74 Glucose 118 H Lactate Calcium 9.9 Magnesium Total Bilirubin 0.4 AST 24 ALT 16 Alkaline Phosphatase 71 Total Creatine Kinase 109 Troponin I < 0.01 C-Reactive Protein 3.2 NT-Pro-B Natriuret Pep Total Protein 7.0 Albumin 4.2 Globulin 2.8 Albumin/Globulin Ratio 1.5 Procalcitonin 0.054 TSH 2.47 Thyroxine (T4) 5.0 L Urine Color Urine Appearance Urine pH Ur Specific [place] Urine Protein Urine Glucose (UA) Urine Ketones Urine Blood Urine Nitrate Urine Bilirubin Urine Urobilinogen Ur Leukocyte Esterase Urine RBC Urine WBC Ur Squamous Epith Cells Amorphous Sediment Urine Bacteria Chlamy pneumoniae PCR Adenovirus (PCR) B. pertussis DNA (PCR) Coronavirus OC43 (PCR) Coronavirus HKU1 (PCR) Coronavirus 229E (PCR) SARS-CoV-2 (PCR) Coronavirus NL63 (PCR) Human Metapneumovir PCR Influenza A (H1) PCR Influ A (H1N1/09) PCR Influenza A (H3) PCR Influenza Type A (PCR) Influenza Type B (PCR) M. pneumoniae (PCR) Parainfluenza 1 (PCR) Parainfluenza 2 (PCR) Parainfluenza 3 (PCR) Parainfluenza 4 (PCR) RSV (PCR) Entero/Rhino (PCR) DS: Diagnosis Discharge Diagnosis (1) Acute hypoxemic respiratory failure: Status: Acute Code(s): J96.01 - Acute respiratory failure with hypoxia (2) Pulmonary edema: Status: Acute Code(s): J81.1 - Chronic pulmonary edema (3) Fever: Status: Acute Code(s): R50.9 - Fever, unspecified (4) Heat exposure: Status: Acute Code(s): T67.9XXA - Effect of heat and light, unspecified, initial encounter (5) Schizophrenia: Status: Acute Code(s): F20.9 - Schizophrenia, unspecified Qualifiers: Schizophrenia type: unspecified Qualified Code(s): F20.9 - Schizophrenia, unspecified Meds Home Medications and Allergies Home Medications ?Medication ?Instructions ?Recorded ?Confirmed ?Type divalproex 500 mg tablet,delayed 500 mg PO BID 02/25/18 04/25/25 History release amlodipine 2.5 mg tablet 2.5 mg PO HS 11/21/20 04/25/25 History risperidone 4 mg tablet 4 mg PO BID 03/06/21 04/25/25 History aspirin 81 mg chewable tablet 81 mg PO DAILY 04/11/21 04/25/25 History haloperidol 10 mg tablet 10 mg PO TID 10/07/22 04/25/25 History oxcarbazepine 600 mg tablet 600 mg PO BID 10/07/22 04/25/25 History quetiapine 300 mg tablet,extended 600 mg PO DAILY 10/07/22 04/25/25 History release 24 hr cholecalciferol (vitamin D3) 1,250 1,250 mcg PO WEEKLY 01/28/25 04/25/25 History mcg (50,000 unit) capsule clonazepam 1 mg tablet 1 mg PO BIDP PRN Agitation 01/28/25 04/25/25 History gabapentin 100 mg capsule 100 mg PO HS 01/28/25 04/25/25 History lactulose 10 gram/15 mL oral 10 g PO DAILYP PRN Constipation 01/28/25 04/25/25 History solution levothyroxine 100 mcg tablet 100 mcg PO DAILY 01/28/25 04/25/25 History magnesium hydroxide 400 mg/5 mL 30 ml PO DAILYP PRN Constipation 01/28/25 04/25/25 History oral suspension (Milk of Magnesia) omega 1-[id number]-[id number]-fish oil 1,000 mg 1 cap PO BID 01/28/25 04/25/25 History (120 mg-180 mg) capsule (Fish Oil) acetaminophen 500 mg tablet 500 mg PO Q6H PRN Pain (Scale 04/24/25 04/25/25 History Score 1-3) levofloxacin 750 mg tablet 750 mg PO DAILY 6 days #6 tabs 04/25/25 Rx New Prescriptions to Start Prescriptions: levofloxacin Genaro Moody Allergies Allergy/AdvReac Type Severity Reaction Status Date / Time No Known Allergies Allergy Verified 12/09/23 13:39 Discharge Plan Disposition Patient Disposition: Home, Self-Care Condition: Fair Follow up Plan Prescriptions/Medication Reconciliation: New levofloxacin 750 mg tablet 750 mg PO DAILY 6 Days Qty: 6 0RF Continued divalproex 500 mg tablet,delayed release (DR/EC) 500 mg PO BID amlodipine 2.5 MG tablet 2.5 mg PO HS risperidone 4 MG tablet 4 mg PO BID aspirin 81 MG tablet,chewable 81 mg PO DAILY quetiapine 300 mg tablet extended release 24 hr 600 mg PO DAILY haloperidol 10 mg tablet 10 mg PO TID oxcarbazepine 600 mg tablet 600 mg PO BID acetaminophen 500 mg Tablet 500 mg PO Q6H PRN (Reason: Pain (Scale Score 1-3)) levothyroxine 100 mcg tablet 100 mcg PO DAILY cholecalciferol (vitamin D3) 1,250 mcg (50,000 unit) capsule 1,250 mcg PO WEEKLY omega 4-wbf-huq-fish oil [Fish Oil] 1,000 (120-180) mg Capsule 1 cap PO BID gabapentin 100 mg capsule 100 mg PO HS clonazepam 1 mg tablet 1 mg PO BIDP PRN (Reason: Agitation) magnesium hydroxide [Milk of Magnesia] 400 mg/5 mL suspension 30 ml PO DAILYP PRN (Reason: Constipation) lactulose 10 gram/15 mL Solution 10 g PO DAILYP PRN (Reason: Constipation) Problem Reconciliation Problems Reviewed?: Yes Patient Discharge Instructions Patient Instructions: Climate Temperature Troubles With Older Adults: What You Need to Know, DI for Fever (Symptom) -- Adult, Stop Light Infection Print Language: [place]amanian Providers Primary Care Provider: Provider,Referral Admit Provider: Genaro Moody Attending Provider: Genaro Moody
--- NOTE | 2025-04-26 10:01 | SW/DCPLANNER ---
Patient is a resident of [facility]. Pascale [place]UM[place] [employer]
--- NOTE | 2025-04-28 09:00 | PC.NURSE ---
urine culture results sent to the hospitalist due to the pt being admitted.
== END 2025-04-25 13:18 | disposition home or self-care (01) ==
LOC: ER 22:57 → 2ND 23:20
PROVIDERS: Nurse Practitioner Acute Care; Admitting Provider Student in an Organized Health Care Education/Training Program; Emergency Provider Emergency Medicine; Visit Provider Student in an Organized Health Care Education/Training Program
DX: J96.01 Acute respiratory failure with hypoxia (principal); J81.1 Chronic pulmonary edema; R65.10 Systemic inflammatory response syndrome (SIRS) of non-infectious origin without acute organ dysfunction; N39.0 Urinary tract infection, site not specified; I45.10 Unspecified right bundle-branch block; T67.5XXA Heat exhaustion, unspecified, initial encounter; I10 Essential (primary) hypertension; E03.9 Hypothyroidism, unspecified; F20.9 Schizophrenia, unspecified; F39 Unspecified mood [affective] disorder; I25.10 Atherosclerotic heart disease of native coronary artery without angina pectoris; F17.210 Nicotine dependence, cigarettes, uncomplicated; Z79.82 Long term (current) use of aspirin; Z79.890 Hormone replacement therapy; Z79.899 Other long term (current) drug therapy; B96.5 Pseudomonas (aeruginosa) (mallei) (pseudomallei) as the cause of diseases classified elsewhere
CPT/HCPCS: 0223U; 36415; 70450; 71045; 80053; 81001; 82550; 82803; 83605; 83735; 83880; 84145; 84436; 84443; 84484; 85025; 85610; 85730; 86140; 87040; 87086; 87088; 87186; 87633; 93005; 96374; 96375; 99285; G0378; J0131; J0696; J7120

== ENCOUNTER 2025-07-20 17:04 | Emergency (ER) | payer MEDICAID, SELFPAY ==
--- NOTE | 2025-07-20 17:21 | HMH.EDGENADL ---
Discharge Plan Disposition Patient Disposition: Home, Self-Care Condition: Fair Prescriptions Prescriptions: New amoxicillin-pot clavulanate [Augmentin] 500-125 mg tablet 1 tab PO BID Qty: 20 0RF azithromycin 250 mg tablet 250 mg PO DAILY 4 Days Qty: 4 0RF No Action divalproex 500 mg tablet,delayed release (DR/EC) 500 mg PO BID amlodipine 2.5 MG tablet 2.5 mg PO HS risperidone 4 MG tablet 4 mg PO BID aspirin 81 MG tablet,chewable 81 mg PO DAILY quetiapine 300 mg tablet extended release 24 hr 600 mg PO DAILY haloperidol 10 mg tablet 10 mg PO TID oxcarbazepine 600 mg tablet 600 mg PO BID acetaminophen 500 mg Tablet 500 mg PO Q6H PRN (Reason: Pain (Scale Score 1-3)) levofloxacin 750 mg tablet 750 mg PO DAILY 6 Days Qty: 6 0RF levothyroxine 100 mcg tablet 100 mcg PO DAILY cholecalciferol (vitamin D3) 1,250 mcg (50,000 unit) capsule 1,250 mcg PO WEEKLY omega 9-opk-gjp-fish oil [Fish Oil] 1,000 (120-180) mg Capsule 1 cap PO BID gabapentin 100 mg capsule 100 mg PO HS clonazepam 1 mg tablet 1 mg PO BIDP PRN (Reason: Agitation) magnesium hydroxide [Milk of Magnesia] 400 mg/5 mL suspension 30 ml PO DAILYP PRN (Reason: Constipation) lactulose 10 gram/15 mL Solution 10 g PO DAILYP PRN (Reason: Constipation) Referrals Follow up/Referrals: Provider,Referral, MD [Primary Care Provider, Medical] - See instructions Activity Restrictions/Add. Instructions Additional Instructions/Restrictions: Take the antibiotics as prescribed for 5 days. Cut your food into smaller pieces and chew before swallowing. Clinical Impressions Clinical Impression: Aspiration pneumonia Instructions Patient Instructions: DI for Syncope in Adults (Fainting), DI for Syncope in Children (Fainting) Print Language Print Language: Yakut Discharge ED Provider: Elena Bright Adult HPI General Chief complaint: Syncope Stated complaint: CHOKING Time Seen by Provider: 07/20/25 17:21 History of Present Illness HPI narrative: Patient is a 65-year-old gentleman who came from a nursing facility with a choking episode. Per EMS, patient was purple on their arrival and hypoxic. They were able to use alligator forceps to remove food from the patient's esophagus. Patient has no complaints but is slightly altered at this time. Related Data Home Medications ?Medication ?Instructions ?Recorded ?Confirmed divalproex 500 mg tablet,delayed 500 mg PO BID 02/25/18 04/25/25 release amlodipine 2.5 mg tablet 2.5 mg PO HS 11/21/20 04/25/25 risperidone 4 mg tablet 4 mg PO BID 03/06/21 04/25/25 aspirin 81 mg chewable tablet 81 mg PO DAILY 04/11/21 04/25/25 haloperidol 10 mg tablet 10 mg PO TID 10/07/22 04/25/25 oxcarbazepine 600 mg tablet 600 mg PO BID 10/07/22 04/25/25 quetiapine 300 mg tablet,extended 600 mg PO DAILY 10/07/22 04/25/25 release 24 hr cholecalciferol (vitamin D3) 1,250 1,250 mcg PO WEEKLY 01/28/25 04/25/25 mcg (50,000 unit) capsule clonazepam 1 mg tablet 1 mg PO BIDP PRN Agitation 01/28/25 04/25/25 gabapentin 100 mg capsule 100 mg PO HS 01/28/25 04/25/25 lactulose 10 gram/15 mL oral 10 g PO DAILYP PRN Constipation 01/28/25 04/25/25 solution levothyroxine 100 mcg tablet 100 mcg PO DAILY 01/28/25 04/25/25 magnesium hydroxide 400 mg/5 mL 30 ml PO DAILYP PRN Constipation 01/28/25 04/25/25 oral suspension (Milk of Magnesia) omega 9-jph-ylm-fish oil 1,000 mg 1 cap PO BID 01/28/25 04/25/25 (120 mg-180 mg) capsule (Fish Oil) acetaminophen 500 mg tablet 500 mg PO Q6H PRN Pain (Scale 04/24/25 04/25/25 Score 1-3) Previous Rx's ?Medication ?Instructions ?Recorded levofloxacin 750 mg tablet 750 mg PO DAILY 6 days #6 tabs 04/25/25 amoxicillin 500 mg-potassium 1 tab PO BID #20 tabs 07/20/25 clavulanate 125 mg tablet (Augmentin) azithromycin 250 mg tablet 250 mg PO DAILY 4 days #4 tabs 07/20/25 Allergies Allergy/AdvReac Type Severity Reaction Status Date / Time No Known Allergies Allergy Verified 12/09/23 13:39 [facility] Disclaimer: The information contained in this section may have been updated after the patient was seen, as this information can be updated by other users. Medical History General weakness Dehydration Acidosis, lactic Hypokalemia Frequent falls AMS (altered mental status) Rib pain on right side Fall Abrasion head Fall Laceration of left ear Overweight (BMI 25.0-29.9) Tinea pedis Right ankle pain Edema of right ankle Intertrigo Hyperkeratosis of forefoot Altered mental status Influenza A Tobacco use Obesity (BMI 30.0-34.9) Hypothyroid Pneumonia Influenza Schizophrenia RBBB Encephalomalacia DJD (degenerative joint disease), cervical Surgical History Hx of cholecystectomy History of left hip replacement Family History Other No significant family history Social History Smoking Status: Current every day smoker tobacco type: cigarettes packs per day: 1 second hand exposure: No alcohol intake: never substance use type: denies use current occupational status: other Travel in the last 8 weeks?: None household members: other housing: other caffeine: Yes Have you lived/traveled outside [place] in past 30 days?: No Contact w/someone who lives/traveled outside US past 30 days?: No Exposure to someone with infectious disease in past 14 days?: No Do you have a fever (greater than 100.4 F or 38 C)?: No Have you tested positive for COVID-19?: No Exposed to someone with COVID-19 in past 14 days?: No Do you have a sore throat?: No Do you have a cough?: No Do you have any weakness?: No Do you have any diarrhea?: No Are you experiencing any unusual bleeding?: No Do you have any muscle aches/pain?: No Do you have any abdominal pain?: No Are you experiencing loss of taste or smell?: No Other Medical History Have you received the Flu Vaccine for this season: No Have you received the Pneumonia Vaccine: No ROS Obtained: Yes All systems reviewed & no additional complaints except as documented and Yes Systems reviewed as appropriate & no additional complaints except as documented Physical Exam General General appearance: alert and in no apparent distress Head Head exam: atraumatic, normocephalic and normal inspection Eye Eye exam: Present normal appearance, PERRL and EOMI; Absent scleral icterus ENT ENT exam: Present normal exam and normal external ear exam Neck Neck exam: Present normal inspection and full ROM Chest Chest inspection: Present normal inspection and symmetric chest wall rise Respiratory Respiratory exam: Present normal lung sounds bilaterally; Absent respiratory distress or wheezes Cardiovascular Cardiovascular exam: Present regular rate, normal rhythm and normal heart sounds Abdominal Exam Abdominal exam: Present soft, distention and other (Actively vomiting); Absent tenderness, guarding or rebound Extremities Exam Extremities exam: Present normal inspection and full ROM Back Exam Back exam: Present normal inspection and full ROM Neurological Exam Neurological exam: Present alert and oriented X3 Psychiatric Psychiatric exam: Present normal affect and normal mood Skin Skin exam: Present warm and dry Medical Decision Making Medical Records Medical records reviewed: Yes I reviewed the patient's medical records. Screening: Per USPSTF and CDC recommendations, given the prevalence of disease in our region, it is our hospital?s policy to screen for HIV and viral Hepatitis for all patients aged 18 and over and those with ongoing risk factors. Jayce Inquiry Pt receiving controlled substance: No Vital Signs: 07/20/25 17:25 07/20/25 17:30 07/20/25 17:38 Temperature 97.9 F Temperature Source Oral Pulse Rate 77 77 Pulse Rate [Left Radial] 87 Respiratory Rate 21 21 20 Blood Pressure 128/90 130/87 Blood Pressure [Right Arm] 130/87 Blood Pressure Mean 100 101 Blood Pressure Mean [Right Arm] 101 02 Sat by Pulse Oximetry 96 94 L 97 Oxygen Delivery Method Room Air 07/20/25 20:37 Temperature 97.9 F Temperature Source Pulse Rate 87 Pulse Rate [Left Radial] Respiratory Rate 16 Blood Pressure 130/87 Blood Pressure [Right Arm] Blood Pressure Mean Blood Pressure Mean [Right Arm] 02 Sat by Pulse Oximetry Oxygen Delivery Method Room Air Lab Data Lab results reviewed: Yes I reviewed the patient's lab results. Lab Results 07/20/25 17:11: POC Glucose 171 H 07/20/25 17:14: WBC 8.1, RBC 4.51 L, Hgb 13.3 L, Hct 40.8 L, MCV 90.5, MCH 29.5, MCHC 32.6, RDW 13.0, Plt Count 171, MPV 11.5 H, Neut % (Auto) 49.4, Lymph % (Auto) 34.6, Saunders % (Auto) 9.5 H, Eos % (Auto) 2.8, Baso % (Auto) 0.6, Neut # (Auto) 4.0, Lymph # (Auto) 2.8, Saunders # (Auto) 0.8, Eos # (Auto) 0.2, Baso # (Auto) 0.1, Sodium 139, Potassium 3.4 L, Chloride 101, Carbon Dioxide 25, Anion Gap 16.4 H, BUN 14, Creatinine 1.10, Estimated GFR 67, Est GFR ( Amer) 82, Glucose 175 H, Calcium 8.8, Magnesium 1.9, Total Bilirubin 0.2, AST 30, ALT 19, Alkaline Phosphatase 77, Troponin I < 0.01, Total Protein 6.8, Albumin 4.2, Globulin 2.6, Albumin/Globulin Ratio 1.6 07/20/25 17:57: Urine Color Yellow, Urine Appearance Clear, Urine pH 6.0, Ur Specific [place] 1.020, Urine Protein 2+ A, Urine Glucose (UA) Negative, Urine Ketones Negative, Urine Blood Trace-l, Urine Nitrate Negative, Urine Bilirubin Negative, Urine Urobilinogen 0.2, Ur Leukocyte Esterase Negative, Urine RBC None, Urine WBC 5-10, Ur Squamous Epith Cells Occasional, Urine Bacteria 1+, Hyaline Casts 3-5, Urine Sperm 2+ 07/20/25 17:14 07/20/25 17:14 Orders (Tests/Meds): ED MEDICATIONS Discontinued Medications Generic Name Dose Route Start Last Admin Trade Name Freq PRN Reason Stop Dose Admin Amoxicillin/Clavulanate Potassium 1 each 07/20/25 19:56 07/20/25 20:16 Amoxicillin/Clavulanate Potassium 875/125mg Tablet PO 07/20/25 19:57 1 each ONCE ONE Administration Azithromycin 500 mg 07/20/25 19:56 07/20/25 20:16 Azithromycin 250mg Tablet PO 07/20/25 19:57 500 mg ONCE ONE Administration Iopamidol 80 ml 07/20/25 18:11 07/20/25 18:12 Iopamidol-370 (76%);100ml Bottle IV 07/20/25 18:12 80 ml ONCE ONE Administration Ondansetron HCl 4 mg 07/20/25 17:25 07/20/25 17:25 Ondansetron 4mg/2ml Vial IV 07/20/25 17:26 4 mg ONCE ONE Administration Prochlorperazine Edisylate 10 mg 07/20/25 17:24 07/20/25 18:00 Prochlorperazine 10mg/2ml Vial IV 07/20/25 17:25 Not Given ONCE ONE Sodium Chloride 10 ml 07/20/25 18:11 07/20/25 18:12 Sodium Chloride 0.9% 10ml Syr (Rad Only) IV 08/19/25 18:10 10 ml NEEDED PRN Administration Maintain IV Site Sodium Chloride 50 ml 07/20/25 18:11 07/20/25 18:12 0.9 % Sodium Chloride 50 Ml Vial IV 07/20/25 18:12 50 ml ONCE ONE Administration ORDERS Category Date Time Status CT abdomen pelvis w con Stat Cat Scan 07/20/25 17:[address] angio chest PE protocol Stat Cat Scan 07/20/25 17:[address] head/brain wo con Stat Cat Scan 07/20/25 17:54 Completed CXR --portable [XR chest portable] Stat Exams 07/20/25 17:25 Completed CBC w/Auto Diff [Complete Blood Count Auto Diff] Stat Lab 07/20/25 17:14 Completed CMP [Comprehensive Metabolic Panel] Stat Lab 07/20/25 17:14 Completed MAG [Magnesium] Stat Lab 07/20/25 17:14 Completed POC Glucose,Bedside Routine Lab 07/20/25 17:11 Completed Trop I [Troponin I] Stat Lab 07/20/25 17:14 Completed UA [Urinalysis and Microscopic] Stat Lab 07/20/25 17:57 Completed Urine Culture Stat Micro 07/20/25 17:57 Completed Medical Decision Narrative: Patient is a 65-year-old gentleman who presented to the emergency department from his nursing facility after a choking episode. On arrival, patient was hemodynamically stable. Patient was actively vomiting. Patient was mildly altered. Differential includes but not limited to: Aspiration pneumonia, aspiration pneumonitis, urinary tract infection, pneumonia, intracranial pathology, intrathoracic pathology, intra-abdominal pathology, amongst others. Patient's labs were reviewed and interpreted by myself: CBC showed no leukocytosis, hemoglobin was stable. CMP was unremarkable. Troponin was less than 0.01. Magnesium normal. UA showed no evidence of infection. Lipase normal. CT head, CTA chest and CT abdomen was reviewed and interpreted by myself and showed no acute pathology. Patient's EKG was reviewed and interpreted by myself and showed normal sinus rhythm without acute ST or T wave changes concerning for ischemia. In the emergency department, patient was turned back to the baseline. Patient had no focal deficits on my initial exam. Patient [id number] glucose was normal. Given my concern for the large amount of fluid the patient likely aspirated, patient was treated for aspiration pneumonia. Patient was able to tolerate medications in the emergency department and sent home with oral medications. Patient was otherwise saturating appropriately on room air patient was able to ambulate without difficulties. Patient was otherwise discharged home in stable condition, return precautions were discussed. Critical Care Critical Care Time Critical Care Time: No
[2025-07-20 17:25] VITALS: BP 128/90; PULSE 77; RESP 21; O2SAT 96
[2025-07-20] MEDS: ONDANSETRON 4MG/2ML VIAL 4 MG IV (17:25)
--- NOTE | 2025-07-20 17:25 | XR_ITS ---
PROCEDURE INFORMATION: Exam: XR Chest Exam date and time: 07/20/2025 6:14 PM Age: 65 years old Clinical indication: Shortness of breath; Additional info: Shortness of breath, hypoxia TECHNIQUE: Imaging protocol: Radiologic exam of the chest. Views: 1 view. Total images: 1 COMPARISON: CT ANGIO CHEST PE PROTOCOL 07/20/2025 6:11 PM FINDINGS: Tubes, catheters and devices: EKG leads are present. Lungs: Nonspecific mild accentuation of bronchovascular markings. No airspace consolidation or overt vascular congestion. Minor left basilar atelectasis. Pleural spaces: Trace left pleural effusion. No pneumothorax. Heart/Mediastinum: Borderline cardiomegaly. No mediastinal widening. Vasculature: Tortuous thoracic aorta. Bones/joints: Remote right clavicular fracture deformity. Mild degenerative changes thoracic spine. IMPRESSION: 1. Trace left pleural effusion with adjacent atelectasis. 2. Borderline cardiomegaly. 3. Nonspecific accentuation of bronchovascular markings. 4. No airspace consolidation or vascular congestion.
--- NOTE | 2025-07-20 17:26 | CT_ITS ---
PROCEDURE INFORMATION: Exam: CTA Chest With Contrast Exam date and time: 07/20/2025 6:11 PM Age: 65 years old Clinical indication: Other: Hypoxia; Additional info: Hypoxia, eval for aspiration TECHNIQUE: Imaging protocol: Computed tomographic angiography of the chest with contrast. Exam focused on the arteries. 3D rendering (Not supervised by radiologist): MIP and/or 3D reconstructed images were created by the technologist. Total images: 728 Radiation optimization: All CT scans at this facility use at least one of these dose optimization techniques: automated exposure control; mA and/or kV adjustment per patient size (includes targeted exams where dose is matched to clinical indication); or iterative reconstruction. Contrast material: ISOVUE; Contrast volume: 80 ml; Contrast route: INTRAVENOUS (IV); COMPARISON: CT ANGIO CHEST 03/08/2021 9:12 AM FINDINGS: Pulmonary arteries: Adequate contrast opacification of the pulmonary arteries. Main pulmonary artery is mildly enlarged at 3.5 cm. No acute pulmonary emboli to the segmental level. Subsegmental branch evaluation of both lung bases is essentially nondiagnostic secondary to attenuation artifact and poor intraluminal contrast opacification. Aorta: Tortuous thoracic aorta without aneurysm or dissection. Lungs: The trachea and main bronchi are patent. Mild bronchial wall thickening. Trace layering mucus in the trachea. Mild upper lobe predominant centrilobular emphysema. Bibasilar and bilateral dependent atelectasis, greater on the left. No concerning airspace consolidation or pulmonary mass. Calcified left lower lobe granuloma. Pleural spaces: Trace bilateral pleural effusions. Heart: Borderline cardiomegaly. Trace pericardial fluid. Coronary arteries: Severe coronary artery calcifications. Esophagus: Mildly dilated esophagus. Mediastinal space: No mediastinal mass or hematoma. Lymph nodes: No mediastinal or hilar lymphadenopathy. Intraperitoneal space: Upper abdominal findings described separately. Bones/joints: Mild degenerative changes of the thoracic spine. Moderate to severe degenerative changes lower cervical spine. Soft tissues: Minor bilateral gynecomastia. IMPRESSION: 1. No acute pulmonary emboli. 2. Borderline cardiomegaly with trace pericardial effusion. 3. Severe coronary artery calcifications. 4. Generalized mild bronchial wall thickening may reflect bronchitis/URI. 5. Trace bilateral pleural effusions. 6. Bilateral dependent and bibasilar atelectasis, greater on the left. 7. Remote calcified granulomatous disease. 8. Mild upper lobe centrilobular emphysema. COMMENTS: The presence of pulmonary emphysema on CT is an independent risk factor for lung cancer. In the absence of a history or active diagnosis of lung cancer, it is recommended that this patient with emphysema be evaluated for enrollment in a low dose CT lung cancer screening program.
--- NOTE | 2025-07-20 17:26 | CT_ITS ---
PROCEDURE INFORMATION: Exam: CT Abdomen And Pelvis With Contrast Exam date and time: 07/20/2025 6:11 PM Age: 65 years old Clinical indication: Vomiting TECHNIQUE: Imaging protocol: Computed tomography of the abdomen and pelvis with contrast. 3D rendering (Not supervised by radiologist): MIP and/or 3D reconstructed images were created by the technologist. Total images: 1314 Radiation optimization: All CT scans at this facility use at least one of these dose optimization techniques: automated exposure control; mA and/or kV adjustment per patient size (includes targeted exams where dose is matched to clinical indication); or iterative reconstruction. Contrast material: ISOVUE; Contrast volume: 80 ml; Contrast route: IV; COMPARISON: CT ABDOMEN PELVIS W CON 01/28/2025 8:56 AM FINDINGS: Lungs: Mild bibasilar atelectasis. Calcified left lower lobe granuloma. Pleural spaces: Trace bilateral pleural effusions. Heart: Upper normal/borderline cardiomegaly. No pericardial effusion. Coronary arteries: Coronary artery calcifications. Liver: Elongated right hepatic lobe versus mild hepatomegaly at 20 cm. Otherwise, unremarkable liver. Gallbladder and biliary ducts: Status post cholecystectomy. No biliary ductal dilatation. Pancreas: Normal. No ductal dilation. Spleen: Splenomegaly at 17 cm. Calcified splenic granuloma. No splenic mass or infarct. Adrenal glands: Normal. No mass. Kidneys and ureters: Very heterogeneous renal cortical enhancement. Multiple right intrarenal calculi. Bilateral subcentimeter renal cortical hypodensities are too small to characterize but statistically cysts. No perinephric fluid or discrete renal mass. 17 mm exophytic upper pole right renal cortical lesion with attenuation higher than simple water density, but unchanged from prior exam. Stomach and bowel: Unremarkable stomach and duodenum. No ileus or bowel obstruction. Small bowel appears within normal limits. Status post right hemicolectomy. Unremarkable ileocolic anastomosis. Mild colonic stool burden. No acute colonic inflammatory process. Moderate rectal stool burden. Appendix: Status post appendectomy. Intraperitoneal space: Unremarkable. No free air. No significant fluid collection. Vasculature: Mild atherosclerotic vascular disease. Nonaneurysmal abdominal aorta. Ectatic bilateral common iliac arteries Lymph nodes: Unremarkable. No enlarged lymph nodes. Urinary bladder: Bladder wall thickening. Trace air in the bladder lumen. Reproductive: Nonenlarged prostate. Bones/joints: Scattered mild degenerative changes of the thoracolumbar spine. Minor lumbar levocurvature. Remote fracture deformity left femur status post intramedullary rashmi. Sequela of left femoral head AVN. No acute osseous abnormality. Soft tissues: Minor bilateral gynecomastia. Tiny fat containing right inguinal hernia. Diastasis of the rectus fascia the umbilicus with tiny fat containing hernias. Numerous tiny fat containing midline upper abdominal wall hernias. IMPRESSION: 1. No acute intra-abdominal or pelvic process. 2. Trace bilateral pleural effusions. Bibasilar atelectasis. 3. Mild splenomegaly at 17 cm. 4. Mild hepatomegaly versus elongated right hepatic lobe/Tere's segment. 5. Very heterogeneous renal cortical enhancement, unchanged from prior study, likely sequela of chronic medical renal disease. 6. Right nephrolithiasis. No hydronephrosis. 7. Indeterminate but stable 17 mm right renal cortical lesion, presumed a complex cyst. This can be followed with nonemergent ultrasound. 8. Status post right hemicolectomy. 9. Bladder wall thickening from incomplete distension versus cystitis or chronic outlet obstruction. 10. Air in the bladder lumen from catheter placement or possible infection. 11. Multiple additional chronic and incidental findings. COMMENTS: Consistent with the [employer]'s Incidental Findings Committee white paper (J Am Brittney Radiol 2018): Any incidental renal lesion less than 1 cm or classified as too small to characterize, or any incidental cystic renal lesion characterized as simple-appearing, is likely benign. No follow-up imaging is recommended for these lesions per consensus recommendations based on imaging criteria.
[2025-07-20 17:30] VITALS: BP 130/87; PULSE 77; RESP 21; O2SAT 94
[2025-07-20 17:37] LABS: Hematocrit 40.8 % (42.0-52.0); Hemoglobin 13.3 g/dL (14.1-18.0); Immature Granulocytes % 3.1 %; Mean Corpuscular HGB Conc 32.6 g/dL (31.8-35.4); Mean Corpuscular Hemoglobin 29.5 pg (27.0-31.2); Mean Corpuscular Volume 90.5 fl (80-94); Nucleated Red Blood Cells % 0 %; Platelet Count 171 K/mm3 (142-424); Red Blood Count 4.51 M/mm3 (4.60-6.20); Red Cell Distribution Width-SD 42.2 fL; White Blood Count 8.1 K/mm3 (4.8-10.8)
[2025-07-20 17:38] VITALS: BP 130/87; PULSE 87; RESP 20; TEMP 36.6; O2SAT 97; BMI 35.3
[2025-07-20 17:43] LABS: Alanine Aminotransferase 19 U/L (12-78); Albumin Level 4.2 g/dl (3.5-5.0); Albumin/Globulin Ratio 1.6 (1.1-1.8); Alkaline Phosphatase 77 U/L (38-126); Anion Gap 16.4 mEq/L (5-15); Aspartate Amino Transferase 30 U/L (17-59); Bilirubin,Total 0.2 mg/dl (0.2-1.3); Blood Urea Nitrogen 14 mg/dl (9-20); Calcium 8.8 mg/dl (8.4-10.2); Carbon Dioxide 25 mmol/L (22.0-30.0); Chloride 101 mmol/L (98-107); Creatinine,Serum 1.10 mg/dl (0.66-1.25); Estimated Glomerular Filt Rate 67 ml/min (>60); GFR (African American) 82 ML/MIN (>60); Globulin 2.6 g/dL (1.3-3.2); Glucose 175 mg/dl (74-100); Magnesium 1.9 mg/dl (1.6-2.3); Potassium 3.4 mmoL/L (3.5-5.1); Sodium 139 mmol/L (136-145); Total Protein,Serum 6.8 g/dl (6.3-8.2)
--- NOTE | 2025-07-20 17:53 | ECG_ITS ---
APPROVED REPORT Exam: Resting ECG HR:69 bpm ECG Measurements Heart Rate 69 AXES MS 167 P 63 QRSd 180 QRS 18 QT 458 T 68 QTc 476 Conclusion SINUS RHYTHM RIGHT BUNDLE BRANCH BLOCK [120+ ms QRS DURATION, UPRIGHT V1, 40+ ms S IN I/aVL/V4/V5/V6] ABNORMAL ECG UNCONFIRMED REPORT Electronically signed by : LEANDER NORRIS, 07/21/2025 07:44:32
--- NOTE | 2025-07-20 17:54 | CT_ITS ---
PROCEDURE INFORMATION: Exam: CT Head Without Contrast Exam date and time: 07/20/2025 6:09 PM Age: 65 years old Clinical indication: Other: Aspiration TECHNIQUE: Imaging protocol: Computed tomography of the head without contrast. Radiation optimization: All CT scans at this facility use at least one of these dose optimization techniques: automated exposure control; mA and/or kV adjustment per patient size (includes targeted exams where dose is matched to clinical indication); or iterative reconstruction. COMPARISON: CT HEAD/BRAIN WO CON 04/24/2025 9:59 PM FINDINGS: Brain: Chronic right cerebellar hemisphere infarction. Scattered prominent dural ossifications. Mild to moderate chronic brain volume loss and chronic small vessel ischemic changes. Cerebral ventricles: No ventriculomegaly. Paranasal sinuses: Mild mucosal thickening and retention cysts in the paranasal sinuses. Mastoid air cells: Visualized mastoid air cells are well aerated. Bones: Unremarkable. No acute fracture. Soft tissues: Unremarkable. IMPRESSION: No acute intracranial findings. If there is high clinical concern for acute infarction, consider MRI for further evaluation. ASSESSMENT: ASPECTS score (Pascale Stroke Program Early CT Score) is 10.
[2025-07-20 18:01] LABS: Microscopic, Urine URINE MICROSCOPIC (MICROSCOPIC)
[2025-07-20 18:04] LABS: Troponin I < 0.01 ng/ml (0.00-0.034)
[2025-07-20 18:04] LABS: Bilirubin,Urine Negative (Negative); Color,Urine YELLOW (Yellow); Glucose,Urine (UA) Negative (Negative); Ketones,Urine Negative (Negative); Leukocyte Esterase,Urine Negative (Negative); PH,Urine 6.0 (5.0-8.5); Protein,Urine 2+ (Negative); Specific Gravity, Urine 1.020 (1.005-1.030); Urobilinogen,Urine 0.2 EU/dl (0.2)
[2025-07-20] MEDS: 0.9 % SODIUM CHLORIDE 50 ML VIAL IV (18:12)
[2025-07-20] MEDS: SODIUM CHLORIDE 0.9% 10ML SYR (RAD ONLY) 10 ML IV (18:12)
[2025-07-20] MEDS: IOPAMIDOL-370 (76%);100ML BOTTLE 80 ML IV (18:12)
[2025-07-20 18:19] LABS: Bacteria,Urine 1+ /lpf; Sperm,Urine 2+ /lpf; Squamous Epithelial Cell,Urine Occasional #/hpf (0-5)
[2025-07-20] MEDS: AZITHROMYCIN 250MG TABLET 500 MG PO (20:16)
[2025-07-20] MEDS: AMOXICILLIN/CLAVULANATE POTASSIUM 875/125MG TABLET 1 EACH PO (20:16)
[2025-07-20 20:37] VITALS: BP 130/87; PULSE 87; RESP 16; TEMP 36.6; O2SAT 98
[2025-07-22 15:38] LABS: POC Glucose,Bedside 171 gm/dL (70-110)
== END 2025-07-20 21:04 | disposition home or self-care (01) ==
PROVIDERS: Emergency Provider Student in an Organized Health Care Education/Training Program
DX: J69.0 Pneumonitis due to inhalation of food and vomit (principal); T17.220A Food in pharynx causing asphyxiation, initial encounter; R11.10 Vomiting, unspecified; F17.210 Nicotine dependence, cigarettes, uncomplicated; W44.F3XA Food entering into or through a natural orifice, initial encounter
CPT/HCPCS: 70450; 71045; 71275; 74177; 80053; 81001; 82962; 83735; 84484; 85025; 87086; 93005; 96374; 99284; 99285; J2405; Q9967

== ENCOUNTER 2025-07-21 10:40 | Emergency (ER) | payer MEDICAID, SELFPAY ==
--- NOTE | 2025-07-21 10:30 | ED_ITS ---
<Statement entered by Mallika Mallory DO - 07/21/25 13:51> I was consulted by the MARVIN, and we discussed the complexity of problems being addressed. I approved the treatment plan and management plan of this patient's care in the emergency department, thus performing a substantive portion of medical decision making. Mallika Mallory DO Discharge Plan Disposition Patient Disposition: Xfer SNF Condition: Good Prescriptions Prescriptions: No Action divalproex 500 mg tablet,delayed release (DR/EC) 500 mg PO BID amlodipine 2.5 MG tablet 2.5 mg PO HS risperidone 4 MG tablet 4 mg PO BID aspirin 81 MG tablet,chewable 81 mg PO DAILY quetiapine 300 mg tablet extended release 24 hr 600 mg PO DAILY haloperidol 10 mg tablet 10 mg PO TID oxcarbazepine 600 mg tablet 600 mg PO BID acetaminophen 500 mg Tablet 500 mg PO Q6H PRN (Reason: Pain (Scale Score 1-3)) levofloxacin 750 mg tablet 750 mg PO DAILY 6 Days Qty: 6 0RF levothyroxine 100 mcg tablet 100 mcg PO DAILY cholecalciferol (vitamin D3) 1,250 mcg (50,000 unit) capsule 1,250 mcg PO WEEKLY omega [id number]-fish oil [Fish Oil] 1,000 (120-180) mg Capsule 1 cap PO BID gabapentin 100 mg capsule 100 mg PO HS clonazepam 1 mg tablet 1 mg PO BIDP PRN (Reason: Agitation) magnesium hydroxide [Milk of Magnesia] 400 mg/5 mL suspension 30 ml PO DAILYP PRN (Reason: Constipation) lactulose 10 gram/15 mL Solution 10 g PO DAILYP PRN (Reason: Constipation) amoxicillin-pot clavulanate [Augmentin] 500-125 mg tablet 1 tab PO BID Qty: 20 0RF azithromycin 250 mg tablet 250 mg PO DAILY 4 Days Qty: 4 0RF Referrals Follow up/Referrals: Provider,Referral, MD [Primary Care Provider, Medical] - See instructions Activity Restrictions/Add. Instructions Additional Instructions/Restrictions: You were evaluated on an emergency basis. It is very important that you follow- up with your primary care provider and any specialist who we discussed within the next 2 days in order to better assess your health more comprehensively. For example, incidental findings on imaging or laboratory results that were performed today may be discovered, which do not require immediate medical care, but may impact your health in the future. If your symptoms worsen or persist, please return to the emergency department immediately for reassessment. Take all medications as prescribed. In queue for allowing me to participate in your health care, and I hope you feel better soon. Clinical Impressions Clinical Impression: Anterior chest wall pain Instructions Patient Instructions: DI for Atypical Chest Pain Print Language Print Language: Lao Discharge ED Provider: Mallika Mallory General Adult HPI General Chief complaint: Chest Pain Stated complaint: chest pain Time Seen by Provider: 07/21/25 10:41 History of Present Illness HPI narrative: 65-year-old male presents emergency department with complaints of ongoing chest pain since choking on hamburger last night. He was seen at this facility after the initial incident with full workup including CTA of chest, CT of abdomen and pelvis as well as chest x-ray and laboratory studies. Patient was diagnosed with aspiration pneumonia. Related Data Home Medications ?Medication ?Instructions ?Recorded ?Confirmed divalproex 500 mg tablet,delayed 500 mg PO BID 8 04/25/25 release amlodipine 2.5 mg tablet 2.5 mg PO HS 11/21/20 risperidone 4 mg tablet 4 mg PO BID 03/06/21 5 aspirin 81 mg chewable tablet 81 mg PO DAILY 04/11/21 04/25/25 haloperidol 10 mg tablet 10 mg PO TID 10/07/22 oxcarbazepine 600 mg tablet 600 mg PO BID 10/07/22 quetiapine 300 mg tablet,extended 600 mg PO DAILY 02/2304/25/25 release 24 hr cholecalciferol (vitamin D3) 1,250 1,250 mcg PO WEEKLY 01/28/25 04/25/25 mcg (50,000 unit) capsule clonazepam 1 mg tablet 1 mg PO BIDP PRN Agitation 0 01/28/25 04/25/25 gabapentin 100 mg capsule 100 mg PO HS 01/28/25 lactulose 10 gram/15 mL oral 10 g PO DAILYP PRN Consti pation 01/28/25 04/25/25 solution levothyroxine 100 mcg tablet 100 mcg PO DAILY 01/28/25 04/25/25 magnesium hydroxide 400 mg/5 mL 30 ml PO DAILYP PRN Co nstipation 01/28/25 04/25/25 oral suspension (Milk of Magnesia) omega 1-irm-xul-fish oil 1,000 mg 1 cap PO BID 5 04/25/25 (120 mg-180 mg) capsule (Fish Oil) acetaminophen 500 mg tablet 500 mg PO Q6H PRN Pain (Sc faustina 04/24/25 04/25/25 Score 1-3) Previous Rx's ?Medication ?Instructions ?Recorded levofloxacin 750 mg tablet 750 mg PO DAILY 6 days #6 t abs 04/25/25 amoxicillin 500 mg-potassium 1 tab PO BID #20 tabs clavulanate 125 mg tablet (Augmentin) azithromycin 250 mg tablet 250 mg PO DAILY 4 days #4 t abs 07/20/25 Allergies Allergy/AdvReac Type Severity Reaction Status Date / Time No Known Allergies Allergy Verified 12/09/23 13:39 [facility] Disclaimer: The information contained in this section may have been updated after the patient was seen, as this information can be updated by other users. Medical History General weakness Dehydration Acidosis, lactic Hypokalemia Frequent falls AMS (altered mental status) Rib pain on right side Fall Abrasion head Fall Laceration of left ear Overweight (BMI 25.0-29.9) Tinea pedis Right ankle pain Edema of right ankle Intertrigo Hyperkeratosis of forefoot Altered mental status Influenza A Tobacco use Obesity (BMI 30.0-34.9) Hypothyroid Pneumonia Influenza Schizophrenia RBBB Encephalomalacia DJD (degenerative joint disease), cervical Surgical History Hx of cholecystectomy History of left hip replacement Family History Other No significant family history Social History Smoking Status: Current every day smoker tobacco type: cigarettes packs per day: 1 second hand exposure: No alcohol intake: never substance use type: denies use current occupational status: other Travel in the last 8 weeks?: None household members: other housing: other caffeine: Yes Have you lived/traveled outside [place] in past 30 days?: No Contact w/someone who lives/traveled outside [place] past 30 days?: No Exposure to someone with infectious disease in past 14 days?: No Do you have a fever (greater than 100.4 F or 38 C)?: No Have you tested positive for COVID-19?: No Exposed to someone with COVID-19 in past 14 days?: No Do you have a sore throat?: No Do you have a cough?: No Do you have any weakness?: No Do you have any diarrhea?: No Are you experiencing any unusual bleeding?: No Do you have any muscle aches/pain?: No Do you have any abdominal pain?: No Are you experiencing loss of taste or smell?: No Other Medical History Have you received the Flu Vaccine for this season: No Have you received the Pneumonia Vaccine: No ROS Obtained: Yes other Cardiovascular Cardiovascular: Reports chest pain Physical Exam Narrative Physical exam: General: Awake, aware, in no acute distress. Patient repeatedly requesting breakfast upon arrival to the ER HEENT: Normocephalic, no evidence of trauma CV: RRR, no murmurs, rubs, or gallops. Patient with 2+ pitting edema to bilateral lower extremities. Pulm: Patient with inspiratory wheezes bilaterally. ABD: Nontender, no swelling, guarding, or rebound tenderness Psych, appropriate mood and affect Musculoskeletal: Patient reports tenderness on palpation of his substernal area. He reports this is the area where he is experiencing the pain. It is a reproducible pain. General General appearance: alert Respiratory Respiratory exam: Present wheezes Cardiovascular Cardiovascular exam: Present regular rate Neurological Exam Neurological exam: Present alert Medical Decision Making Medical Records Screening: Per USPSTF and CDC recommendations, given the prevalence of disease in our region, it is our hospital?s policy to screen for HIV and viral Hepatitis for all patients aged 18 and over and those with ongoing risk factors. Jayce Inquiry Pt receiving controlled substance: No Vital Signs: 07/21/25 10:41 Temperature 97.9 F Temperature Source Oral Pulse Rate [Left Radial] 74 Respiratory Rate 19 Blood Pressure [Right Arm] 118/73 Blood Pressure Mean [Right Arm] 88 02 Sat by Pulse Oximetry 93 L Oxygen Delivery Method Room Air Orders (Tests/Meds): ED MEDICATIONS Discontinued Medications Generic Name Dose Route Start Last Admin Trade Name Freq PRN Reason Stop Dose Admin Albuterol Sulfate 2.5 mg 07/21/25 10:49 07/21/25 10:55 Albuterol 0.083% 2.5 Mg/3 Ml Neb IH 07/21/25 10:50 2.5 mg ONCE ONE Administration Belladonna Alkaloids 60 ml 07/21/25 10:41 07/21/25 10:55 Belladonna Alkaloids 60 Ml Ml PO 07/21/25 10:42 60 ml ONCE ONE Administration Ibuprofen 600 mg 07/21/25 10:41 07/21/25 10:54 Ibuprofen 600 Mg Tablet PO 07/21/25 10:42 600 mg ONCE ONE Administration Medical Decision Narrative: Initial impression of presenting illness: 65-year-old male presents emergency department with complaints of chest pain to since choking on a hamburger last night. Patient was seen at this facility after the initial incident where he had laboratory studies including chest x-ray, CTA of chest as well as CT of abdomen and pelvis. Patient was diagnosed with aspiration pneumonia and discharged back to nursing facility. Differential diagnosis includes but is not limited to: ACS, pneumonia, GERD, esophagitis, musculoskeletal strain Patient arrives hemodynamically stable, afebrile, without respiratory distress with vital signs interpreted by myself. Initial physical exam reveals 2+ pitting edema to bilateral lower extremities patient also has mild expiratory wheezes bilaterally. Patient reports pain on palpation of his sternal area states this is where his pain is coming from. The pain is reproducible. Rest of exam is unremarkable. Initial diagnostic plan: EKG, ibuprofen and GI cocktail for pain control. Will also give patient albuterol neb for his wheezing. Results from initial plan were reviewed and interpreted by myself, pertinent positives include: EKG shows a sinus rhythm with a rate of 68. No evidence of ischemic changes at this time. Interventions in the ED: Patient was given ibuprofen and GI cocktail for pain control. He is also given albuterol for wheezing. Patient was made aware of the results and the findings, upon reevaluation patient has remained stable throughout stay, symptoms have improved. Upon reevaluation patient is resting comfortably in bed with no signs of acute distress. He is tolerating p.o. without difficulty and states he is feeling much better and is ready to go home. Disposition: Advised patient that we will discharge back to the residential facility. Recommended he continue taking all previously prescribed medications. Instructed him to return to the emergency department any new or worsening symptoms. Informed him symptoms likely related to his previous choking episode and that he may continue with Tylenol ibuprofen as needed for pain control. Patient is agreeable to plan of care. Patient made aware of findings and had a detailed discussion with symptomatic care and return precautions, patient voiced understanding. Critical Care Critical Care Time Critical Care Time: No
[2025-07-21 10:41] VITALS: BP 118/73; PULSE 74; RESP 19; TEMP 36.6; O2SAT 93; BMI 31.0
[2025-07-21] MEDS: IBUPROFEN 600 MG TABLET PO (10:54)
[2025-07-21] MEDS: BELLADONNA ALKALOIDS 60 ML ML PO (10:55)
[2025-07-21] MEDS: ALBUTEROL 0.083% 2.5 MG/3 ML NEB IH (10:55)
[2025-07-21 11:00] VITALS: BP 130/89; PULSE 67; RESP 17; O2SAT 95
[2025-07-21 11:30] VITALS: BP 116/79; RESP 15
--- NOTE | 2025-07-21 11:56 | PC.NURSE ---
call made to dietary for food tray
[2025-07-21 12:01] VITALS: BP 138/66; RESP 13
--- NOTE | 2025-07-21 12:18 | PC.NURSE ---
call made to care a van for pt transport back to [facility]
[2025-07-21 12:22] VITALS: BP 138/66; PULSE 71; RESP 16; TEMP 36.6; O2SAT 95
--- NOTE | 2025-07-21 12:24 | PC.NURSE ---
report called to goran sánchez for pt returning
== END 2025-07-21 12:51 ==
PROVIDERS: Emergency Provider Student in an Organized Health Care Education/Training Program
DX: R07.89 Other chest pain (principal); R06.2 Wheezing; F17.210 Nicotine dependence, cigarettes, uncomplicated
CPT/HCPCS: 93005; 99284; 99285